=== PATIENT | female | born 1950 | race African-American/Black ===

== ENCOUNTER 2020-11-18 10:42 | Inpatient (IN) | payer MEDICARE, OTHER, SELFPAY ==
[2020-11-18] VITALS (35 sets, daily range): BP systolic 118–172; BP diastolic 62–104; PULSE 65–87; RESP 12–22; TEMP 36.3–36.6; O2SAT 92–100; BMI 30.1
--- NOTE | ~2020-11-18 | CT_ITS ---
EXAMINATION: CT chest abdomen pelvis wo con DATE: 11/21/2020 18:43 INDICATION: Anemia TECHNIQUE: Transaxial computed tomographic images of the chest, abdomen, and pelvis were obtained wit hout intravenous contrast. The dose-length product (DLP) was 1286.24 mGy-cm. Automated exposure contr ol and iterative reconstruction technique were employed. COMPARISON: 11/19/2020, 11/18/2020 FINDINGS: CHEST CT: There are small pleural effusions. Dependent atelectasis is noted. There is interval improvement in s ubsegmental atelectasis of the right lower lobe. Cardiomegaly is noted. There is a trace pericardial effusion. Calcified coronary artery atherosclerosis is present. There is enlargement of the right pec toralis minor muscle. There is also enlargement of the right biceps muscle. There is a soft tissue he matoma in the posterior subcutaneous tissues of the right upper arm. Extensive subcutaneous edema is seen in the visualized right upper extremity. There are bridging osteophytes at multiple levels in th e spine, consistent with diffuse idiopathic skeletal hyperostosis (DISH). ABDOMEN/PELVIS CT: Stones are present in the nondistended gallbladder. Within the limitations of noncontrast examination , the liver, spleen, pancreas, and left adrenal gland are normal. There is a 3.9 cm mass of the right adrenal gland. The kidneys are unremarkable. No pathologically enlarged abdominal or pelvic lymph no viviana are identified. There is no free intraperitoneal gas or evidence of bowel obstruction. The append ix is normal. There is calcified atherosclerosis of the aorta and many of the other arteries. There i s a Jay catheter in the bladder. Contrast from recent CT examination is also seen in the urinary bl adder. There is a 4.7 cm hematoma in the subcutaneous tissues posterior to the right hip. There is mi ld lumbar spondylosis. IMPRESSION: 1. Interval enlargement of the right pectoralis minor and right bicep muscles suggestive of intramusc ular hematomas. 2. 4.7 cm hematoma in the posterior subcutaneous tissues near the right hip. 3. Extensive soft tissue edema of the right upper extremity as well as a posterior subcutaneous hemat get of the upper arm. 4. Right adrenal mass with characterization and differential as previously discussed. Reviewed, dictated and finalized at location A. IMPRESSION: 1. Interval enlargement of the right pectoralis minor and right bicep muscles s uggestive of intramuscular hematomas. 2. 4.7 cm hematoma in the posterior subcutaneous tissues near the right hip. 3. Extensive soft tissue edema of the right upper extremity as well as a supervisor brake repair ior subcutaneous hematoma of the upper arm. 4. Right adrenal mass with characterization and differential as previously disc ussed.
--- NOTE | ~2020-11-18 | CT_ITS ---
EXAMINATION: CTA chest PE protocol EXAM DATE: 11/18/2020 13:40 INDICATION: Shortness of breath.. TECHNIQUE: Spiral CTA of the chest (pulmonary arteries) was performed with 100 cc Omnipaque 350 intr avenous contrast injection. Images were acquired during the pulmonary arterial phase. Coronal maxi mum intensity projection 3D-reconstructions were created by the technologist on dedicated workstation . Axial, coronal and sagittal reformatted images were reviewed. The dose-length product (DLP) for t his examination was 209.54 mGy-cm. The exposure was tailored according to patient size (auto mA exp osure control), and iterative reconstruction (ASIR) was used as additional dose reduction technique. Correlation is made to chest x-ray earlier same date. FINDINGS: There are several right lung segmental pulmonary emboli, low clot burden. The main, centra l pulmonary arteries are dilated which can indicate elevated pulmonary arterial pressure, pulmonary a rterial hypertension. No thoracic aortic dissection. Scattered bibasilar subsegmental atelectasis. Trace bilateral pleural effusions. Tracheobronchial tree is patent. There is no mediastinal, supriya r or axillary lymphadenopathy. There is no pneumothorax. There is cardiomegaly. There is moderat e coronary arterial calcification, arterial sclerosis. In right side of the retroperitoneum there is soft tissue density mass incompletely imaged measuring 2.4 x 1.4 cm, contiguous with the inferior margin of the right adrenal gland. Uncertain whether or no t this is a pathologically enlarged lymph node or adrenal origin. Follow-up CT abdomen or MR abdomen without and with contrast. There is small sliding gastroesophageal hiatal hernia. There is thoracic spondylosis without osteoblastic or osteolytic lesions identified. IMPRESSION: 1. Several segmental right-sided pulmonary emboli. Low clot burden. 2. Bibasilar subsegmental atelectasis. 3. Cardiomegaly. Trace pleural effusions. 4. Incidental right upper retroperitoneal mass. Follow-up CT or MR abdomen without and with contrast . I discussed these findings with Brian Barrera MD at 11/18/2020 13:54 CDT. 1. Reviewed, dictated and finalized at location A. IMPRESSION: 1. Several segmental right-sided pulmonary emboli. Low clot burden. 2. Bibasilar subsegmental atelectasis. 3. Cardiomegaly. Trace pleural effusions. 4. Incidental right upper retroperitoneal mass. Follow-up CT or MR abdomen wit hout and with contrast. I discussed these findings with Brian Barrera MD at 11/18/2020 13:54 CDT. 1.
--- NOTE | ~2020-11-18 | CT_ITS ---
EXAMINATION: CT brain wo con DATE: 11/20/2020 12:19 INDICATION: Altered mental status. TECHNIQUE: Computed tomography (CT) of the head was performed without intravenous contrast. The mA wa s adjusted according to patient size. Iterative reconstruction technique was employed. The dose-lengt h product was 605.33 mGy-cm. COMPARISON: Head CT 11/18/2020 FINDINGS: There are scattered areas of low attenuation in the cerebral white matter. There is no intr acranial hemorrhage, acute infarction, or abnormal intracranial mass lesion. The ventricles are chapito l in size. The orbits are normal. There is mild mucosal thickening in the paranasal sinuses. There is a small right mastoid effusion. IMPRESSION: 1. Stable extensive nonspecific cerebral white matter disease, which likely represents chronic small vessel ischemic disease. Reviewed, dictated and finalized at location A. IMPRESSION: 1. Stable extensive nonspecific cerebral white matter disease, which likely rep resents chronic small vessel ischemic disease.
--- NOTE | ~2020-11-18 | CT_ITS ---
EXAMINATION: CT brain wo con INDICATION: Altered mental status COMPARISON: 11/20/2020 TECHNIQUE: Standard unenhanced head CT. The dose-length product (DLP) was 605.33 mGy-cm. The mA was a djusted according to patient size. Iterative reconstruction technique was employed. FINDINGS: There is no acute intraparenchymal hemorrhage. No evidence of mass lesion. No evidence of a cute infarction. Prominent perivascular spaces are again noted in the bilateral basal ganglia. There is mild periventricular and subcortical hypodensity probably related to small vessel ischemic disease . There is mild prominence of the sulci and ventricles related to cerebral atrophy. Intracranial calc ified cerebral atherosclerosis is noted. There are no extra-axial collections. There is no mass effec t or midline shift. The orbits and soft tissues are unremarkable. A small right mastoid effusion is again noted. IMPRESSION: 1. No acute intracranial abnormality. 2. Age related findings. Reviewed, dictated and finalized at location B.
--- NOTE | ~2020-11-18 | CT_ITS ---
EXAMINATION: CT brain wo con DATE: 11/19/2020 10:09 INDICATION: Head injury. TECHNIQUE: Computed tomography (CT) of the head was performed without intravenous contrast. The mA wa s adjusted according to patient size. Iterative reconstruction technique was employed. The dose-lengt h product was 605.33 mGy-cm. COMPARISON: None FINDINGS: There are scattered areas of low attenuation in the cerebral white matter. There are promin ent perivascular spaces in the basal ganglia bilaterally. There is no intracranial hemorrhage, acute infarction, or abnormal intracranial mass lesion. The ventricles are normal in size. There is mild mu cosal thickening in the paranasal sinuses. The orbits are normal. There is a small right mastoid effu michael. IMPRESSION: 1. Extensive nonspecific cerebral white matter disease, which likely represents chronic small vessel ischemic disease. Reviewed, dictated and finalized at location A.
--- NOTE | ~2020-11-18 | US_ITS ---
EXAMINATION: US venous doppler LE EXAM DATE: 11/19/2020 10:13 INDICATION: Pulmonary embolism. TECHNIQUE: Multiple grayscale, color flow and Doppler images of the lower extremity deep venous syste ms bilaterally were obtained and reviewed. There is no prior study for comparison. FINDINGS: Right side: The right common femoral, femoral and profunda veins demonstrate normal color flow, respi ratory variation, augmentation and compressibility. Compressibility, color flow confirmed within the right popliteal, posterior tibial, peroneal, and greater saphenous veins. Left side: The left common femoral, femoral and profunda veins demonstrate normal color flow, respira tory variation, augmentation and compressibility. Compressibility, color flow confirmed within the l eft popliteal, posterior tibial, peroneal, and greater saphenous veins. IMPRESSION: 1. No lower extremity deep venous thrombosis bilaterally. Reviewed, dictated and finalized at location A.
--- NOTE | ~2020-11-18 | CT_ITS ---
EXAMINATION: CT abdomen pelvis wo/w con DATE: 11/19/2020 10:02 INDICATION: Retroperitoneal mass TECHNIQUE: Computed tomography (CT) of the abdomen and pelvis was performed without and with 100 mL O mnipaque-350 intravenous contrast utilizing an adrenal mass protocol. Automated exposure control and iterative reconstruction technique were employed. The dose-length product was 2116.51 mGy-cm. COMPARISON: CT dated 11/18/2020 FINDINGS: Very small bilateral pleural effusions. There is moderate atelectasis in the bilateral lower lobes. C ardiomegaly. Atherosclerotic coronary artery calcifications. No pericardial effusion. Small sliding-t ype hiatal hernia. There is vicarious excreted contrast in the gallbladder surrounding multiple small dependently layering gallstones. Liver, spleen, pancreas and left adrenal gland are normal. 3.9 x 2. 5 x 2.0 cm right adrenal mass with noncontrast attenuation of 32 HU which increases to 78 on the subhash rial phase images and decreases to 51 on the 15 minute delayed images using an absolute washout of 59 % and relative washout of 35%, which remains indeterminate. The absolute washout is however close to the Bowels including the appendix are normal. The uterus is not identified and has likely been surgic ally resected. Relatively diffuse wall thickening along the anterior bladder likely related to partia lly decompressed state. No free intraperitoneal gas or fluid. No pathologically enlarged abdominal or pelvic lymphadenopathy. There are bridging osteophytes at multiple levels in the lower thoracic spin e, consistent with diffuse idiopathic skeletal hyperostosis (DISH). A few scattered sclerotic bone is lands at S1 and at the right femoral head and supra-acetabular region. IMPRESSION: 1. Indeterminate 3.9 x 2.5 x 2.0 cm right adrenal mass with absolute washout of 59% which is close to but slightly below the 60% threshold considered diagnostic for adenoma. In addition to the most like ly diagnosis of adenoma, the differential would include carcinoma, pheochromocytoma and metastatic di sease. Would recommend correlation with any prior outside imaging. If unavailable could consider [facility] imaging follow-up, biopsy, PET/CT or resection depending on clinical history and level of clinical concern. If considering biopsy or resection would recommend prior biochemical workup for pheochromoc ytoma with evaluation of metanephrine levels. 2. Very small bilateral pleural effusions with bibasilar atelectasis. 3. Cardiomegaly. 4. Cholelithiasis. 5. Small sliding-type hiatal hernia. Reviewed, dictated and finalized at location B. IMPRESSION: 1. Indeterminate 3.9 x 2.5 x 2.0 cm right adrenal mass with absolute washout of 59% which is close to but slightly below the 60% threshold considered diagnost ic for adenoma. In addition to the most likely diagnosis of adenoma, the differ ential would include carcinoma, pheochromocytoma and metastatic disease. Would recommend correlation with any prior outside imaging. If unavailable could cons ider either imaging follow-up, biopsy, PET/CT or resection depending on clinica l history and level of clinical concern. If considering biopsy or resection wou ld recommend prior biochemical workup for pheochromocytoma with evaluation of m etanephrine levels. 2. Very small bilateral pleural effusions with bibasilar atelectasis. 3. Cardiomegaly. 4. Cholelithiasis. 5. Small sliding-type hiatal hernia.
--- NOTE | ~2020-11-18 | US_ITS ---
EXAMINATION: US venous doppler UE RT EXAM DATE: 11/20/2020 16:22 INDICATION: Right arm hematoma, edema. TECHNIQUE: Multiple grayscale, color flow, Doppler sonographic images of the right upper extremity ve ins obtained by technologist. Compression was performed where able. There is no prior study for masoud pablo. FINDINGS: Right upper extremity: Jugular vein: ------------> Normal. Subclavian vein: --------> Normal. Axillary vein:------------> Thrombosed. Brachial vein:-----------> Not evaluated. Basilic vein: ------------> Not evaluated. Cephalic vein: ----------> Not evaluated. Radial vein: ------------> Normal. Ulnar vein: > Normal. There is region of upper arm muscle that appears severely edematous, more likely than intramuscular h ematoma. This swelling made evaluation of the upper arm veins difficult, they were not evaluated. IMPRESSION: 1. Positive for right axillary DVT. 2. Severe edema of an upper arm muscle, or less likely intramuscular hematoma. I discussed this case with unit nurse Don at 11/20/2020 16:41 CDT. Reviewed, dictated and finalized at location A.
--- NOTE | ~2020-11-18 | XR_ITS ---
EXAMINATION: XR chest 2V DATE: 11/18/2020 12:03 INDICATION: Shortness of breath TECHNIQUE: frontal and lateral views of the chest were obtained. COMPARISON: None FINDINGS: Opacities at the bilateral lower lung zones with blunting at the posterior sulci and costophrenic ang les consistent with small bilateral pleural effusions and associated basilar atelectasis versus pneum onia. No evident pulmonary edema or pneumothorax. Cardiomediastinal silhouette is within normal limit s for AP technique. There are bridging osteophytes at multiple levels in the spine, consistent with d iffuse idiopathic skeletal hyperostosis (DISH). IMPRESSION: 1. Small bilateral pleural effusions with bibasilar atelectasis and/or pneumonia. Reviewed, dictated and finalized at location B. IMPRESSION: 1. Small bilateral pleural effusions with bibasilar atelectasis and/or pneumoni a.
--- NOTE | ~2020-11-18 | CT_ITS ---
EXAMINATION: CT brain wo con DATE: 11/30/2020 12:01 INDICATION: Lethargy. TECHNIQUE: Computed tomography (CT) of the head was performed without intravenous contrast. The mA wa s adjusted according to patient size. Iterative reconstruction technique was employed. The dose-lengt h product was 605.33 mGy-cm. COMPARISON: Head CT 11/23/2020 FINDINGS: There are scattered areas of low attenuation in the cerebral white matter. There are old in farcts in the bilateral basal ganglia and lo. There is no intracranial hemorrhage, acute infarction , or abnormal intracranial mass lesion. The ventricles are normal in size. There is mild mucosal thic kening in the paranasal sinuses. There are trace bilateral mastoid effusions. IMPRESSION: 1. 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 2. Stable moderate nonspecific cerebral white matter disease, which likely represents chronic small v essel ischemic disease. Reviewed, dictated and finalized at location B. IMPRESSION: 1. 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 2. Stable moderate nonspecific cerebral white matter disease, which likely repr esents chronic small vessel ischemic disease.
--- NOTE | 2020-11-18 11:20 | ECG_ITS ---
Measurements Intervals [place] Rate: 84 P: 39 WV: 153 QRS: -12 QRSD: 152 T: 100 QT: 438 QTc: 519 Interpretive Statements SINUS RHYTHM NON-CONDUCTED PAC LEFT BUNDLE BRANCH BLOCK BASELINE ARTIFACT- I, II, III, AVL, AVF ABNORMAL ECG Electronically Signed On 11-18-2020 11:49:25 CDT by Wilber Merchant D.O.
--- NOTE | 2020-11-18 11:30 | PC.NURSE ---
Unable to collect labs in triage. Pt to waiting room.
--- NOTE | 2020-11-18 12:08 | ED.SOB ---
HPI - SOB/Dyspnea General Chief Complaint: Shortness of Breath/Dyspnea Stated Complaint: shortness of breath Time Seen by Provider: 11/18/20 11:54 Source: patient, EMS and RN notes reviewed Mode of arrival: EMS Limitations: no limitations History of Present Illness HPI Narrative: Patient 70 years old -L[place] female presents with shortness of breath for a while, got worse 6:30 AM. Patient denies any fever, chills, nausea, vomiting, coughing, chest pain. Patient also denies a history of COVID-19 infection or exposure to anybody known to have COVID-19 infection. Patient have history of diabetes, hypertension, hyperlipidemia, does not take her medication for the last 4 months. Patient lives with her daughter for the last 3 years. Patient is DNR. Review of Systems Review of Systems: Narrative: CONSTITUTIONAL: Denies fever, chills, or sweats. EYES: Denies visual changes, redness, or discharge. ENT: Denies rhinorrhea, congestion, sore throat, or otalgia. CARDIOVASCULAR: Denies chest pain, palpitations, or edema. RESPIRATORY: Denies cough or dyspnea. GASTROINTESTINAL: Denies abdominal pain, nausea, vomiting, or diarrhea. GENITOURINARY: Denies dysuria or hematuria. SKIN: Denies rash or itching. MUSCULOSKELETAL: Denies back pain, joint pain, or myalgia. NEUROLOGIC: Denies headache, numbness, or weakness. PSYCHIATRIC: Denies anxiety or depression. Exam Narrative: Exam Narrative: General appearance: Well-developed, well-nourished Skin: Normal color Head: Normocephalic, nontraumatic Eyes: Clear conjunctiva ENT: Oropharynx normal, ears normal, nose normal Neck: Supple, nontender Chest and respiratory: Airway patent, no respiratory distress, no accessory muscle use Heart: Regular rate/rhythm Abdomen: Soft, nontender, no organomegaly, quiet bowel sounds Vascular: Normal peripheral pulses, normal capillary refill. Musculoskeletal: Normal range of motion, nontender back Neurologic: Alert and oriented ?3, [employer] DIRECTOR is normal as tested, no gross motor deficit Course Course Emergency Course: Stable Consultations Consultation #1: TREVER. Agreed with the admission , start the patient on Lovenox Date: 11/18/20 Time: 14:08 Vital Signs Vital signs: Vital Signs Temperature 36.3 C L 11/18/20 11:13 Pulse Rate 83 11/18/20 11:13 Respiratory Rate 18 11/18/20 11:13 Blood Pressure 172/102 H 11/18/20 11:13 Pulse Oximetry 100 11/18/20 11:13 Temperature 36.3 C L 11/18/20 11:13 Pulse Rate 76 11/18/20 13:45 Respiratory Rate 16 11/18/20 12:32 Blood Pressure 149/95 H 11/18/20 12:35 Pulse Oximetry 100 11/18/20 13:45 MDM - SOB/Dyspnea MDM Narrative Medical decision making narrative: Patient presents with dyspnea. My concern is congestive heart failure, coronary disease, pneumonia, pleural effusion, anxiety related symptoms. Labs, chest x-ray, D-dimer, ABG on room air ordered. Further plan to follow Differential Diagnosis Differential diagnosis: Likely congestive heart failure, community acquired pneumonia, pulmonary embolism and other (Coronary artery disease) Lab Data Result diagrams: 11/18/20 12:25 11/18/20 12:25 Labs: Lab Results 11/18/20 11/18/20 11/18/20 Range/Units 12:25 12:25 12:25 WBC 6.0 (4.5-10.0) K/mm3 RBC 4.86 (4.2-5.4) M/mm3 Hgb 13.6 (12.0-15.0) g/dL Hct 40.5 (37.0-47.0) % MCV 83.3 (80-100) fl MCH 28.0 (26-34) pg MCHC 33.6 (32-36) g/dl RDW 13.5 (11.5-14.5) % Plt Count 213 (150-375) k/mm3 MPV 12.1 H (7.4-10.4) fl Immature Gran % (Auto) 2.7 H (0-0.5) % Neut % (Auto) 47.7 (45.5-73.1) % Lymph % (Auto) 36.8 (18.3-44.2) % [place] % (
[2020-11-18 12:31] LABS: Basophils Percent Auto 0.7 % (0.2-1.2); Eosinophils Absolute Auto 0.1 K/mm3 (0-0.3); Hematocrit 40.5 % (37.0-47.0); Hemoglobin 13.6 g/dL (12.0-15.0); Immature Granulocyte Absolute 0.16 K/mm3 (0.00-0.031); Immature Granulocyte Percent A 2.7 % (0-0.5); Lymphocytes Absolute Auto 2.21 K/mm3 (0.9-3.2); Lymphocytes Percent Auto 36.8 % (18.3-44.2); Mean Corpuscular HGB Conc 33.6 g/dl (32-36); Mean Corpuscular Volume 83.3 fl (80-100); Mean Platelet Volume 12.1 fl (7.4-10.4); Monocytes Absolute Auto 0.7 K/mm3 (0.1-0.6); Monocytes Percent Auto 11.1 % (2.6-8.5); Neutrophils Absolute Auto 2.9 K/mm3 (1.3-6.7); Neutrophils Percent Auto 47.7 % (45.5-73.1); Platelet Count Result 213 k/mm3 (150-375); Red Blood Count 4.86 M/mm3 (4.2-5.4); Red Cell Distribution Width 13.5 % (11.5-14.5)
[2020-11-18 12:42] LABS: Prothrombin Time 13.3 Seconds (11.1-14.7)
[2020-11-18 12:43] LABS: Partial Thromboplastin Time 22.4 SECONDS (22.3-36.8)
[2020-11-18 12:45] LABS: Alanine Aminotransferase 13 U/L (4-35); Albumin Level 3.8 g/dL (3.5-5.1); Alkaline Phosphatase 88 U/L (38-126); Anion Gap 3 mmol/L (8-16); Aspartate Amino Transferase 17 U/L (14-36); Bilirubin,Total 0.8 mg/dL (0.2-1.3); Blood Urea Nitrogen 20 mg/dL (7-17); Calcium 8.8 mg/dL (8.4-10.2); Carbon Dioxide 32 mmol/L (22-30); Chloride 102 mmol/L (98-107); D Dimer 1.29 ug/mL (<0.48); Estimated CRCL calculation 64 ml/min; Estimated Glomerular Filt Rate > 60; Glucose 239 mg/dL (65-105); Magnesium 1.9 mg/dL (1.6-2.3); Potassium 3.2 mmol/L (3.4-5.0); Sodium 137 mmol/L (137-145)
[2020-11-18 13:19] LABS: NT Pro B Type Natriuretic Pept 6190 PG/ML (5-100); Troponin I 0.046 ng/mL (0.000-0.034)
[2020-11-18] MEDS: ASPIRIN 81 MG CHEWABLE TABLET 324 MG PO (14:43)
[2020-11-18] MEDS: NITROGLYCERIN OINTMENT 1 INCH DOSE TRANSDERM (14:43)
[2020-11-18] MEDS: POTASSIUM CHLORIDE 20 MEQ TABLET 40 MEQ PO (14:43)
[2020-11-18] MEDS: ENOXAPARIN 100 MG/ML SYRINGE 85 MG SUB-Q (14:45)
[2020-11-18] MEDS: METOPROLOL TARTRATE 50 MG TAB (16:37)
--- NOTE | 2020-11-18 17:00 | ADMGEN ---
This patient, Koko Rodirguez, was admitted to IMU Room 210-01. Patient/family oriented to hospital policies and general routines including ID bracelet, bed and alarms, visiting hours, pain management, procedures, bathroom and other care routines, personal items, smoking policy, room service/diet, and visiting hours. Information on how to activate the Rapid Response Team has been discussed. Patient/Family are encouraged to report perceived risks to care and to ask questions if they do not understand what they are told or what they should do.
[2020-11-18 17:17] LABS: Glucose Point of Care 238 (65-105)
--- NOTE | 2020-11-18 18:00 | PM.IMHP ---
H&P: HPI History of Present Illness Date/Time: 11/18/20 18:00 Chief Complaint: Shortness of breath. Narrative: This is a pleasant 70-year-old female with hypertension, hyperlipidemia, paroxysmal atrial fibrillation, hypothyroidism, and type 2 diabetes mellitus who presented to the emergency department earlier today via EMS from home for evaluation of shortness of breath. It sounds as though she has been a bit short of breath for the last couple of days however it was acutely worse this morning at 06:30. She is also felt lightheaded and dizzy when up and about today and reports a near syncopal episode causing her to slide down a couple of steps not long prior to arrival. In the emergency department her troponin was mildly elevated and she had evidence of a left bundle branch block on her EKG. Her D-dimer was also elevated and chest CTA demonstrated several segmental right-sided pulmonary emboli. Incidentally a right upper retroperitoneal soft tissue mass was also noted on that CT. She has no known history of adrenal mass, malignancy, or venous thromboembolism. No recent travel however she admits to being sedentary over the last year due to the COVID pandemic. She denies syncope, chest pain, pleuritic pain, palpitations, cough, weight loss, edema, calf pain, headaches, nausea, vomiting, and sweats. She sustained no injuries when she slid down a few steps and denies head trauma and loss of consciousness. Of note the patient has not taken any of her medications for the past 4 months and she does not really have a good reason as to why she did not have them refilled. Review of Systems Review of Systems: Narrative: Twelve systems were reviewed with pertinent positives and negatives as per HPI. She wears corrective lenses. No recent cold or flu symptoms. She denies exposure to those positive for COVID-19. No focal weakness. She has peripheral neuropathy related to her diabetes; no known retinopathy or nephropathy. She denies blurry vision, polydipsia, or polyuria. She is unsteady on her feet which he thinks is due to the neuropathy and ambulates with a walker. She denies dysuria and hematuria. No diarrhea constipation. She denies orthopnea and PND. No concerns or suspicions for sleep apnea. No significant change in weight. She denies significant hair loss. No palpitations or racing heart. Except as documented, all other systems were reviewed and are negative. [facility] Past Medical History Medical History (Updated 11/18/20 @ 18:40 by Ayesha Diaz PA-C) Diabetic peripheral neuropathy Dyslipidemia Hypertension Hypothyroidism Noncompliance with medication regimen Osteoarthritis Paroxysmal atrial fibrillation Type 2 diabetes mellitus Surgical History Surgical History (Updated 11/18/20 @ 18:32 by Ayesha Diaz PA-C) History of arthroplasty of left knee History of hysterectomy Family History Family History (Updated 11/18/20 @ 18:35 by Ayesha Diaz PA-C) Sibling Diabetes mellitus Heart disease Mother Diabetes mellitus Kidney disease Father Parkinsons disease Dementia Social History Social History (Updated 11/18/20 @ 18:36 by Ayesha Diaz PA-C) Social History: Surrogate decision maker: Erum Michael Avendano, granddaughter. Code status: Do not resuscitate. Smoking packs per day: 1 Smoking cigarettes per day: 20.0 Smoking status: Former smoker Additional smoking assessment comments: Patient quit smoking approximately 26 years ago as of 12/01/2020. Alcohol intake: former Substance use: never Additional living arrangements comments: The patient lives in [place] with her daughter and grandson. Additional occupation/education comments: Retired from the [employer]. Gender identity (if verbalized by the patient): Female Spiritual care concerns: No Meds Home Medications and Allergies Home Medications Medication Instructions Recorded Confirmed Type N
[2020-11-18] MEDS: INSULIN ASPART (*BKC) 100 UNITS/ML SUB-Q (18:33)
[2020-11-18] MEDS: FUROSEMIDE INJ 40 MG/4 ML VIAL 20 MG IV PUSH (18:37)
[2020-11-18 19:05] LABS: Potassium 3.6 mmol/L (3.4-5.0)
[2020-11-18 19:13] LABS: Troponin I 0.059 ng/mL (0.000-0.034)
[2020-11-18 19:37] LABS: Hemoglobin A1C 11.6 % (<5.7)
[2020-11-18 20:16] LABS: Glucose Point of Care 288 (65-105)
[2020-11-18 20:50] LABS: Free T4 Free Thyroxine Reflex 0.54 ng/dL (0.78-2.19)
[2020-11-18] MEDS: METOPROLOL TARTRATE 12.5 MG TABLET PO (21:08)
[2020-11-18 22:37] LABS: Magnesium 1.8 mg/dL (1.6-2.3)
[2020-11-18 22:53] LABS: Troponin I 0.054 ng/mL (0.000-0.034)
[2020-11-19] VITALS (22 sets, daily range): BP systolic 112–136; BP diastolic 59–85; PULSE 61–78; RESP 12–20; TEMP 36–36.6; O2SAT 91–100
[2020-11-19] MEDS: ENOXAPARIN 80 MG/0.8 ML SYRINGE 75 MG SUB-Q ×2 (02:29→16:34)
[2020-11-19 05:49] LABS: Cholesterol 298 mg/dL (0-200); HDL Direct 49 mg/dL; Triglycerides 308 mg/dL (<150)
[2020-11-19 06:00] LABS: LDL Cholesterol Direct 215 mg/dL
[2020-11-19 08:00] LABS: Anion Gap 5 mmol/L (8-16); Blood Urea Nitrogen 19 mg/dL (7-17); Calcium 8.3 mg/dL (8.4-10.2); Carbon Dioxide 27 mmol/L (22-30); Chloride 103 mmol/L (98-107); Estimated CRCL calculation 60 ml/min; Estimated Glomerular Filt Rate > 60; Glucose 248 mg/dL (65-105); Magnesium 1.9 mg/dL (1.6-2.3); Potassium 3.5 mmol/L (3.4-5.0); Sodium 135 mmol/L (137-145)
[2020-11-19 08:17] LABS: Glucose Point of Care 236 (65-105)
--- NOTE | 2020-11-19 08:49 | PC.NURSE ---
This RN called CT and confirmed that this patient can take morning medications before CT scan.
[2020-11-19] MEDS: ASPIRIN 81 MG CHEWABLE TABLET PO (08:53)
[2020-11-19] MEDS: LOSARTAN POTASSIUM 25 MG TABLET PO (08:53)
[2020-11-19] MEDS: METOPROLOL TARTRATE 12.5 MG TABLET PO ×2 (08:53→20:37)
[2020-11-19] MEDS: ATORVASTATIN 20 MG TABLET PO (08:53)
[2020-11-19] MEDS: metFORMIN HCL 500 MG TABLET PO ×2 (11:17→16:33)
[2020-11-19] MEDS: GLIMEPIRIDE 1 MG TABLET PO (11:17)
[2020-11-19] MEDS: INSULIN ASPART (*BKC) 100 UNITS/ML SUB-Q (11:19)
[2020-11-19 11:22] LABS: Glucose Point of Care 219 (65-105)
--- NOTE | 2020-11-19 13:04 | PM.CNCAR ---
Assessment and Plan Assessment and plan (1) Type 2 myocardial infarction: Code(s): I21.A1 - Myocardial infarction type 2 Status: Acute Assessment and Plan: Most consistent with type 2 infarction, not acute coronary syndrome with mild elevation in troponin with flat curve not consistent with ACS. Troponin elevation secondary acute pulmonary emboli most likely but may also be due to to uncontrolled hypertension, severe LV systolic dysfunction and myocardial strain. Cannot exclude underlying CAD given multiple risk factors including age, hypertension, diabetes mellitus, dyslipidemia, LBBB, a new severe LV systolic dysfunction. Continue aspirin, statin. Further recommendations to follow based on patient's clinical course and response to therapy. Patient has multiple comorbidities and is at high risk for adverse complications given her multiple medical issues. She is aware of this and the dangers she placed upon herself by stopping all her medications. 67 minutes spent in the care of this patient at bedside, chart review, and decision making considerations. (2) Left bundle branch block (LBBB) on electrocardiogram: Code(s): I44.7 - Left bundle-branch block, unspecified Status: Acute Assessment and Plan: LBBB chronicity and etiology unclear, however, given severe LV distal dysfunction may be function underlying CAD. (3) Cardiomyopathy: Code(s): I42.9 - Cardiomyopathy, unspecified Status: Acute Assessment and Plan: New diagnosis, severe LV systolic dysfunction EF 20-25%. Patient compensated at this time. Optimize medical therapy. -Resume beta-ophelia, aspirin, statin. -Change BB to Toprol XL in AM. Coronary angiography advised clarification of coronary anatomy as workup for new severe LV systolic dysfunction, however, given acute multiple pulmonary emboli and need for systemic anticoagulation will defer invasive angiography for the time being. Discussed this at length including risks, benefits, alternatives. We discussed increased risk for VT / VF, sudden cardiac . We also discussed extensively the absolute importance of compliance with recommendations, follow up and medical therapy to reduce risk for serious and/or life-threatening complications. Patient verbalized understanding and agreed. Will discuss life vest prior to discharge if patient agreeable although patient has been very noncompliant in the past. Entresto may be a great option if insurance would cover. She would need to stop Losartan for 36 hours prior to initiation if started at a later date (she has only received one dose). Otherwise, Losartan acceptable. (4) Pulmonary emboli: Code(s): I26.99 - Other pulmonary embolism without acute cor pulmonale Status: Acute Assessment and Plan: Several pulmonary emboli on CT angiogram of the chest. Systemic anticoagulation initiated. Continue, transition to oral regimen per PE protocol. (5) Noncompliance with medication regimen: Code(s): Z91.14 - Patient's other noncompliance with medication regimen Status: Acute Assessment and Plan: Extensive discussion held as noted above with regards to the dangers associated with discontinuation of all her medications without consultation. Patient states she will not do that in the future. Encouraged her to communicate with her physicians with regards any concerns, side effects or intolerance immediately so that alternatives and/or new treatment strategies can be formulated. All questions answered to her satisfaction. (6) Hypertension: Code(s): I10 - Essential (primary) hypertension Status: Chronic Assessment and Plan: Much improved on medical therapy. (7) Retroperitoneal mass: Code(s): R19.00 - Intra-abdominal and pelvic swelling, mass and lump, unspecified site Status: Acute Assessment and Plan: 3.9 x 2.5 x 2 cm right adrenal mass. Workup
--- NOTE | 2020-11-19 13:27 | P.PNIM_ITS ---
Progress Note: A&P Assessment and Plan (1) Pulmonary emboli: Qualifiers: Pulmonary embolism type: unspecified Chronicity: acute Acute cor pulmonale presence: unspecified Qualified Code(s): I26.99 - Other pulmonary embolism without acute cor pulmonale Code(s): I26.99 - Other pulmonary embolism without acute cor pulmonale Status: Acute Assessment and Plan: * Patient presents with shortness of breath; CTA shows several right segmental pulmonary emboli with low clot burden. * Etiology unclear. May be related to sedentary lifestyle. More concerning is a retroperitoneal mass noted on CT. * Today she remains on therapeutic Lovenox bid. Care coordination pricing NOAC; Eliquis will be $200 and may need another option. * LE dopplers show no evidence of DVT. (2) Cardiomyopathy: Qualifiers: Cardiomyopathy type: unspecified Qualified Code(s): I42.9 - Cardiomyopathy, unspecified Code(s): I42.9 - Cardiomyopathy, unspecified Status: Acute Assessment and Plan: * Echocardiogram today shows left ventricular systolic dysfunction EF 20-25%. * Discussed case with Dr. Garcia, appreciate recommendations. Etiology unclear. She will benefit from ischemic workup with cardiac catheterization which we suspect will need to be performed outpatient given her acute PE and need for anticoagulation. We will attempt to alter her regimen to optimize medical management in the interim. (3) Acute respiratory failure with hypoxia: Code(s): J96.01 - Acute respiratory failure with hypoxia Status: Acute Assessment and Plan: * Suspect related to PE. CT chest also shows trace CONCETTA pleural effusions with atelectasis. Encourage incentive spirometry and increase activity as tolerated. * Tolerating 3L/min today. Will continue to wean oxygen as tolerated to keep O2 saturations > 90%. (4) Elevated troponin: Code(s): R77.8 - Other specified abnormalities of plasma proteins Status: Acute Assessment and Plan: * Mildly elevated troponins with a flat profile. No chest pain. Suspect type 2 [place] secondary to acute pulmonary embolism, ACS not suspected. * Appreciate cardiology input. (5) Left bundle branch block (LBBB) on electrocardiogram: Code(s): I44.7 - Left bundle-branch block, unspecified Status: Acute Assessment and Plan: * Appreciate cardiology recommendations. (6) Retroperitoneal mass: Code(s): R19.00 - Intra-abdominal and pelvic swelling, mass and lump, unspecified site Status: Acute Assessment and Plan: * Incidental finding on CT chest. CT abd/pel demonstrated indeterminate 3.9 x 2.5 x 2.0 cm right adrenal mass. * Differentials include adenoma, carcinoma, metastatic disease, less likely pheochromocytoma. * Patient does not demonstrate classic pheo symptoms however will collect 24hr urine metanephrines for further evaluation. * Recommend outpatient follow up for PET/CT and/or biopsy of the mass for further evaluation given this could be malignant. (7) Hypokalemia: Code(s): E87.6 - Hypokalemia Status: Acute Assessment and Plan: * Mild, replace as needed. Monitor BMP and Mg. (8) Type 2 diabetes mellitus: Qualifiers: Diabetes mellitus fdc insulin use: without long te
--- NOTE | 2020-11-19 13:27 | PM.IMPN ---
Progress Note: A&P Assessment and Plan (1) Pulmonary emboli: Qualifiers: Pulmonary embolism type: unspecified Chronicity: acute Acute cor pulmonale presence: unspecified Qualified Code(s): I26.99 - Other pulmonary embolism without acute cor pulmonale Code(s): I26.99 - Other pulmonary embolism without acute cor pulmonale Status: Acute Assessment and Plan: Patient presents with shortness of breath; CTA shows several right segmental pulmonary emboli with low clot burden. Etiology unclear. May be related to sedentary lifestyle. More concerning is a retroperitoneal mass noted on CT. Today she remains on therapeutic Lovenox bid. Care coordination pricing NOAC; Eliquis will be $200 and may need another option. LE dopplers show no evidence of DVT. (2) Cardiomyopathy: Qualifiers: Cardiomyopathy type: unspecified Qualified Code(s): I42.9 - Cardiomyopathy, unspecified Code(s): I42.9 - Cardiomyopathy, unspecified Status: Acute Assessment and Plan: Echocardiogram today shows left ventricular systolic dysfunction EF 20-25%. Discussed case with Dr. Garcia, appreciate recommendations. Etiology unclear. She will benefit from ischemic workup with cardiac catheterization which we suspect will need to be performed outpatient given her acute PE and need for anticoagulation. We will attempt to alter her regimen to optimize medical management in the interim. (3) Acute respiratory failure with hypoxia: Code(s): J96.01 - Acute respiratory failure with hypoxia Status: Acute Assessment and Plan: Suspect related to PE. CT chest also shows trace CONCETTA pleural effusions with atelectasis. Encourage incentive spirometry and increase activity as tolerated. Tolerating 3L/min today. Will continue to wean oxygen as tolerated to keep O2 saturations > 90%. (4) Elevated troponin: Code(s): R77.8 - Other specified abnormalities of plasma proteins Status: Acute Assessment and Plan: Mildly elevated troponins with a flat profile. No chest pain. Suspect type 2 [place] secondary to acute pulmonary embolism, ACS not suspected. Appreciate cardiology input. (5) Left bundle branch block (LBBB) on electrocardiogram: Code(s): I44.7 - Left bundle-branch block, unspecified Status: Acute Assessment and Plan: Appreciate cardiology recommendations. (6) Retroperitoneal mass: Code(s): R19.00 - Intra-abdominal and pelvic swelling, mass and lump, unspecified site Status: Acute Assessment and Plan: Incidental finding on CT chest. CT abd/pel demonstrated indeterminate 3.9 x 2.5 x 2.0 cm right adrenal mass. Differentials include adenoma, carcinoma, metastatic disease, less likely pheochromocytoma. Patient does not demonstrate classic pheo symptoms however will collect 24hr urine metanephrines for further evaluation. Recommend outpatient follow up for PET/CT and/or biopsy of the mass for further evaluation given this could be malignant. (7) Hypokalemia: Code(s): E87.6 - Hypokalemia Status: Acute Assessment and Plan: Mild, replace as needed. Monitor BMP and Mg. (8) Type 2 diabetes mellitus: Qualifiers: Diabetes mellitus rn long term care insulin use: without rn long term care use Diabetes mellitus complication status: with neurologic complications Diabetes mellitus complication detail: with polyneuropathy Qualified Code(s): E11.42 - Type 2 diabetes mellitus with diabetic polyneuropathy Code(s): E11.9 - Type 2 diabetes mellitus without complications Status: Acute Assessment and Plan: A1c 11.6%. She has not taken her
[2020-11-19 16:56] LABS: Glucose Point of Care 157 (65-105)
--- NOTE | 2020-11-19 17:55 | ECHO_ITS ---
Patient Info Name: Koko Rodriguez Age: 70 years : 1950 Gender: Female Ht: 62 in Wt: 187 lbs BSA: 1.96 m2 HR: 61 bpm BP: 133 / 82 mmHg Technical Quality: Good Exam Date: 11/19/2020 7:18 AM Exam Location: [facility] Patient Status: Outpatient Admit Date: 11/18/2020 Staff Ordering Physician: Ayesha Diaz PA-C [employer] Control Center Operator: Umu Alberto RDCS Attending Provider: Yin Hernandez PA-C Referring Physician: Emily COOMBS; Exam Type: CA echo doppler color flow Study Info Indications I27.82 - Chronic pulmonary embolism Complete two-dimensional, color flow and Doppler transthoracic echocardiogram is performed. Summary 1. Complete two-dimensional, color flow and Doppler transthoracic echocardiogram is performed. 2. Left ventricular systolic function is normal, estimated at 20-25%. 3. There is mildly increased left ventricular wall thickness. 4. The left ventricular diastolic function is grade I diastolic dysfunction. 5. There is mild aortic valve regurgitation. 6. There is moderate mitral valve regurgitation. 7. There is mild mitral valve calcification. 8. There is mild tricuspid valve regurgitation. 9. No pulmonary hypertension, estimated pulmonary arterial systolic pressure is 26 mmHg. 10. There is mild pulmonic regurgitation. 11. There is small pericardial effusion. Left Ventricle Left ventricular chamber dimension is normal. Left ventricular systolic function is normal, estimated at 20-25%. There is mildly increased left ventricular wall thickness. Left ventricular septal wall motion is normal. The left ventricular diastolic function is grade I diastolic dysfunction. E/e' 16.0 is normal. Right Ventricle Right ventricular chamber dimension is normal. Right ventricular systolic function is normal. Left Atria Left atrial chamber dimension is normal. Right Atria Right atrial chamber dimension is normal. Atrial Septum Intact interatrial septum visualized by color flow imaging. Aortic Valve The aortic valve is trileaflet. There is mild aortic valve sclerosis. There is no aortic valve stenosis. There is mild aortic valve regurgitation. Pulmonic Valve The pulmonic valve is normal. There is no pulmonic valve stenosis. There is mild pulmonic regurgitation. Mitral Valve The mitral valve has normal leaflets. There is no mitral valve stenosis. There is moderate mitral valve regurgitation. There is mild mitral valve calcification. Tricuspid Valve The tricuspid valve leaflets are normal. There is no significant tricuspid valve stenosis. There is mild tricuspid valve regurgitation. No pulmonary hypertension, estimated pulmonary arterial systolic pressure is 26 mmHg. Pericardium/Pleural There is small pericardial effusion. Inferior Vena Cava Normal inferior vena cava with >50% collapse upon inspiration consistent with normal right atrial pressure, 5 mmHg. Aorta The aortic root size at the sinus of Valsalva is normal. The prox ascending aorta size is normal. Left Ventricular Outflow Tract Name Value Normal LVOT 2D LVOT Diameter 2.0 cm LVOT Doppler
[2020-11-19 20:52] LABS: Glucose Point of Care 172 (65-105)
[2020-11-20] VITALS (18 sets, daily range): BP systolic 85–128; BP diastolic 49–72; PULSE 62–78; RESP 16–20; TEMP 35.9–36.4; O2SAT 93–98
[2020-11-20] MEDS: ENOXAPARIN 80 MG/0.8 ML SYRINGE 75 MG SUB-Q ×2 (01:18→15:36)
[2020-11-20 05:08] LABS: Basophils Absolute Auto 0.1 K/mm3 (0.0-0.1); Basophils Percent Auto 0.5 % (0.2-1.2); Eosinophils Absolute Auto 0.1 K/mm3 (0-0.3); Eosinophils Percent Auto 0.9 % (0-4.4); Hematocrit 34.2 % (37.0-47.0); Immature Granulocyte Absolute 0.19 K/mm3 (0.00-0.031); Immature Granulocyte Percent A 2.1 % (0-0.5); Lymphocytes Absolute Auto 2.49 K/mm3 (0.9-3.2); Mean Corpuscular HGB Conc 32.2 g/dl (32-36); Mean Corpuscular Hemoglobin 27.1 pg (26-34); Mean Corpuscular Volume 84.2 fl (80-100); Mean Platelet Volume 11.9 fl (7.4-10.4); Monocytes Absolute Auto 0.9 K/mm3 (0.1-0.6); Neutrophils Absolute Auto 5.5 K/mm3 (1.3-6.7); Neutrophils Percent Auto 59.5 % (45.5-73.1); Platelet Count Result 187 k/mm3 (150-375); Red Blood Count 4.06 M/mm3 (4.2-5.4); Red Cell Distribution Width 13.5 % (11.5-14.5); White Blood Count 9.2 K/mm3 (4.5-10.0)
[2020-11-20 05:38] LABS: Prothrombin Time 13.7 Seconds (11.1-14.7)
[2020-11-20 06:02] LABS: Alanine Aminotransferase 12 U/L (4-35); Albumin Level 2.8 g/dL (3.5-5.1); Alkaline Phosphatase 73 U/L (38-126); Anion Gap 8 mmol/L (8-16); Aspartate Amino Transferase 15 U/L (14-36); Bilirubin,Total 0.5 mg/dL (0.2-1.3); Blood Urea Nitrogen 16 mg/dL (7-17); Calcium 8.4 mg/dL (8.4-10.2); Carbon Dioxide 23 mmol/L (22-30); Chloride 103 mmol/L (98-107); Estimated CRCL calculation 81 ml/min; Estimated Glomerular Filt Rate > 60; Glucose 178 mg/dL (65-105); Magnesium 1.9 mg/dL (1.6-2.3); Potassium 3.2 mmol/L (3.4-5.0); Sodium 134 mmol/L (137-145)
[2020-11-20] MEDS: POTASSIUM CHLORIDE 20 MEQ TABLET 40 MEQ PO (08:12)
[2020-11-20] MEDS: ASPIRIN 81 MG CHEWABLE TABLET PO (08:12)
[2020-11-20] MEDS: ATORVASTATIN 20 MG TABLET PO (08:12)
[2020-11-20] MEDS: metFORMIN HCL 500 MG TABLET PO (08:13)
[2020-11-20] MEDS: LOSARTAN POTASSIUM 25 MG TABLET PO (08:13)
[2020-11-20] MEDS: METOPROLOL SUCCINATE EXT REL 25 MG TABCR PO (08:13)
[2020-11-20] MEDS: GLIMEPIRIDE 1 MG TABLET PO (08:13)
[2020-11-20] MEDS: MAGNESIUM OXIDE 200 MG TABLET PO ×2 (09:13→20:31)
[2020-11-20 09:16] LABS: Glucose Point of Care 174 (65-105)
--- NOTE | 2020-11-20 09:59 | PM.IMPN ---
Progress Note: A&P Assessment and Plan (1) Pulmonary emboli: Qualifiers: Pulmonary embolism type: unspecified Chronicity: acute Acute cor pulmonale presence: unspecified Qualified Code(s): I26.99 - Other pulmonary embolism without acute cor pulmonale Code(s): I26.99 - Other pulmonary embolism without acute cor pulmonale Status: Acute Assessment and Plan: Patient presents with shortness of breath; CTA shows several right segmental pulmonary emboli with low clot burden. Etiology unclear. May be related to sedentary lifestyle. More concerning is a retroperitoneal mass noted on CT cannot exclude malignancy. Today she remains on therapeutic Lovenox dosing. Care coordination pricing NOAC; Eliquis or Xarelto will be $200 and may need another option. She adamantly declines Lovenox injections for long-term. LE dopplers show no evidence of DVT. (2) Cardiomyopathy: Qualifiers: Cardiomyopathy type: unspecified Qualified Code(s): I42.9 - Cardiomyopathy, unspecified Code(s): I42.9 - Cardiomyopathy, unspecified Status: Acute Assessment and Plan: Echocardiogram 11/19 shows left ventricular systolic dysfunction EF 20-25%. Discussed case with Dr. Garcia, appreciate recommendations. Etiology unclear. She will benefit from ischemic workup with cardiac catheterization which we suspect will need to be performed outpatient given her acute PE and need for anticoagulation. We will attempt to alter her regimen to optimize medical management in the interim. Today she remains on losartan, metoprolol succinate, ASA, atorvastatin. (3) Acute respiratory failure with hypoxia: Code(s): J96.01 - Acute respiratory failure with hypoxia Status: Resolved Assessment and Plan: Resolved now, tolerating room air with adequate saturations since yesterday. Suspect related to PE. CT chest also shows trace CONCETTA pleural effusions with atelectasis. Encourage incentive spirometry and increase activity as tolerated. (4) Elevated troponin: Code(s): R77.8 - Other specified abnormalities of plasma proteins Status: Acute Assessment and Plan: Mildly elevated troponins with a flat profile. No chest pain. Suspect type 2 [place] secondary to acute pulmonary embolism, ACS not suspected but cannot rule out CAD given her risk factors. Appreciate cardiology input. (5) Left bundle branch block (LBBB) on electrocardiogram: Code(s): I44.7 - Left bundle-branch block, unspecified Status: Acute Assessment and Plan: Chronicity unclear. Appreciate cardiology recommendations. (6) Retroperitoneal mass: Code(s): R19.00 - Intra-abdominal and pelvic swelling, mass and lump, unspecified site Status: Acute Assessment and Plan: Incidental finding on CT chest. CT abd/pel demonstrated indeterminate 3.9 x 2.5 x 2.0 cm right adrenal mass. Differentials include adenoma, carcinoma, metastatic disease, less likely pheochromocytoma. Patient does not demonstrate classic pheo symptoms however will collect 24hr urine metanephrines for further evaluation. Recommend outpatient follow up for PET/CT and/or biopsy of the mass for further evaluation given this could be malignant. Discussed with patient. (7) Hypokalemia: Code(s): E87.6 - Hypokalemia Status: Acute Assessment and Plan: K 3.2; Mg 1.9. Replace with goal to keep K > 4 and Mg > 2. Monitor BMP in AM. (8) Type 2 diabetes mellitus: Qualifiers: Diabetes mellitus custodial insulin use: without terminal computer operator use Diabetes mellitus complication status: with neurologic complications Diabetes mellitus compl
[2020-11-20] MEDS: LEVOTHYROXINE SODIUM 50 MCG TABLET PO (11:31)
[2020-11-20] MEDS: SODIUM CHLORIDE 0.9% IV 250 ML 999 ML IV CONT (12:23)
[2020-11-20] MEDS: INSULIN ASPART (*BKC) 100 UNITS/ML SUB-Q (12:27)
[2020-11-20 12:58] LABS: Glucose Point of Care 268 (65-105)
--- NOTE | 2020-11-20 13:34 | PC.NURSE ---
This nurse walked in to pass medication and check glucose of this patient and the patient appeared to be drowsy. Upon assessment the patient had an episode of emesis. Getting the patient back to bed with second RN Sonia Hess, the patient become unresponsive with eyes open staring off with no response. Patient back in bed with BP of 85/49, provider notified and came to bedside to assess patient. STAT CT scan of head ordered with 250mL bolus of fluids. Will continue to monitor.
--- NOTE | 2020-11-20 14:57 | PM.PNCARD ---
Progress Note: A&P Assessment and Plan (1) Type 2 myocardial infarction: Code(s): I21.A1 - Myocardial infarction type 2 Status: Acute Assessment and Plan: Most consistent with type 2 infarction, not acute coronary syndrome with mild elevation in troponin with flat curve not consistent with ACS. Troponin elevation secondary acute pulmonary emboli most likely but may also be due to to uncontrolled hypertension, severe LV systolic dysfunction and myocardial strain. Cannot exclude underlying CAD given multiple risk factors including age, hypertension, diabetes mellitus, dyslipidemia, LBBB, a new severe LV systolic dysfunction. Continue aspirin, statin. Further recommendations to follow based on patient's clinical course and response to therapy. Patient has multiple comorbidities and is at high risk for adverse complications given her multiple medical issues. She is aware of this and the dangers she placed upon herself by stopping all her medications. 67 minutes spent in the care of this patient at bedside, chart review, and decision making considerations. (2) Left bundle branch block (LBBB) on electrocardiogram: Code(s): I44.7 - Left bundle-branch block, unspecified Status: Acute Assessment and Plan: LBBB chronicity and etiology unclear, however, given severe LV distal dysfunction may be function underlying CAD. (3) Cardiomyopathy: Qualifiers: Cardiomyopathy type: unspecified Qualified Code(s): I42.9 - Cardiomyopathy, unspecified Code(s): I42.9 - Cardiomyopathy, unspecified Status: Acute Assessment and Plan: New diagnosis, severe LV systolic dysfunction EF 20-25%. Patient compensated at this time. Optimize medical therapy. -will discontinue Toprol XL given patient concern for side effects which patient related may be due to metoprolol which she claims she took in the past. -May consider carvedilol 3.125 mg twice daily as alternative as BP allows and heart rate permits. However,, for now will hold and observe until pt has further stabilized. Concern for conduction system disease given intermittent 2-1 av block but no prolonged pauses or high-grade block thus far. Unable to differentiate type 1 versus type 2 second-degree AV block 2:1 at present, but if Type II pt may require device therapy particularly if pathologic pause. Continue Telemetry. -Coronary angiography in future when able to come off A/C more reasonably. -Discussed ICD indications, discussed LifeVest in detail for SCD risk reduction from VT/VF. all questions answered to her satisfaction. Life vest prior to discharge advised if she is agreeable. She will consider and notify us if she decides to pursue. I explained in great detail the importance of compliance with medications, follow-up and recommendations otherwise she would not be reasonable candidate for ICD implantation in general. Patient verbalized understanding and agreed. (4) Pulmonary emboli: Qualifiers: Pulmonary embolism type: unspecified Chronicity: acute Acute cor pulmonale presence: unspecified Qualified Code(s): I26.99 - Other pulmonary embolism without acute cor pulmonale Code(s): I26.99 - Other pulmonary embolism without acute cor pulmonale Status: Acute Assessment and Plan: Several pulmonary emboli on CT angiogram of the chest. Systemic anticoagulation initiated. Continue, transition to oral regimen per PE protocol. (5) Noncompliance with medication regimen: Code(s): Z91.14 - Patient's other noncompliance with medication regimen Status: Acute Assessment and Plan: Extensive discussion held as noted above with regards to the dangers associated with discontinuation of all her medications without consultation. Patient states she will not do that in the future. Encouraged her to communicate with her physicians with regards any concerns, side effects or intolerance immediately so
[2020-11-20] MEDS: ONDANSETRON INJ 4 MG/2 ML VIAL IV PUSH (15:36)
[2020-11-20] MEDS: WARFARIN (*PBKC) 5 MG TABLET PO (17:39)
[2020-11-20 18:07] LABS: Glucose Point of Care 193 (65-105)
[2020-11-20 19:49] LABS: SARS-CoV-2 RNA PCR Negative
[2020-11-20 20:35] LABS: Glucose Point of Care 158 (65-105)
[2020-11-21] VITALS (18 sets, daily range): BP systolic 79–126; BP diastolic 49–91; PULSE 66–89; RESP 16–24; TEMP 35.5–36.6; O2SAT 91–98
[2020-11-21] MEDS: ENOXAPARIN 80 MG/0.8 ML SYRINGE 75 MG SUB-Q ×2 (02:07→14:46)
[2020-11-21 06:15] LABS: IFOB Positive Control Positive; Immunochemical Fecal Occult Bl Negative (N)
[2020-11-21 06:19] LABS: Basophils Percent Auto 0.4 % (0.2-1.2); Eosinophils Absolute Auto 0.1 K/mm3 (0-0.3); Eosinophils Percent Auto 0.6 % (0-4.4); Hematocrit 26.7 % (37.0-47.0); Hemoglobin 8.7 g/dL (12.0-15.0); Immature Granulocyte Absolute 0.21 K/mm3 (0.00-0.031); Lymphocytes Absolute Auto 2.88 K/mm3 (0.9-3.2); Lymphocytes Percent Auto 27.7 % (18.3-44.2); Mean Corpuscular HGB Conc 32.6 g/dl (32-36); Mean Corpuscular Hemoglobin 27.5 pg (26-34); Mean Corpuscular Volume 84.5 fl (80-100); Mean Platelet Volume 12.2 fl (7.4-10.4); Monocytes Absolute Auto 0.9 K/mm3 (0.1-0.6); Neutrophils Absolute Auto 6.3 K/mm3 (1.3-6.7); Neutrophils Percent Auto 60.3 % (45.5-73.1); Platelet Count Result 184 k/mm3 (150-375); Red Blood Count 3.16 M/mm3 (4.2-5.4); Red Cell Distribution Width 13.8 % (11.5-14.5); White Blood Count 10.4 K/mm3 (4.5-10.0)
[2020-11-21] MEDS: LEVOTHYROXINE SODIUM 50 MCG TABLET PO (06:20)
[2020-11-21 06:35] LABS: Alanine Aminotransferase 9 U/L (4-35); Albumin Level 2.8 g/dL (3.5-5.1); Alkaline Phosphatase 67 U/L (38-126); Anion Gap 1 mmol/L (8-16); Aspartate Amino Transferase 13 U/L (14-36); Bilirubin,Total 0.4 mg/dL (0.2-1.3); Blood Urea Nitrogen 18 mg/dL (7-17); Calcium 8.5 mg/dL (8.4-10.2); Carbon Dioxide 30 mmol/L (22-30); Chloride 102 mmol/L (98-107); Estimated CRCL calculation 60 ml/min; Estimated Glomerular Filt Rate > 60; Glucose 110 mg/dL (65-105); Magnesium 1.9 mg/dL (1.6-2.3); Potassium 3.7 mmol/L (3.4-5.0); Sodium 133 mmol/L (137-145)
[2020-11-21] MEDS: SODIUM CHLORIDE 0.9% IV 250 ML IV CONT (06:59)
--- NOTE | 2020-11-21 08:58 | PCOTNOTE ---
Attempted to see patient this am, however RN advised not to see due to continued issues with low BP.
[2020-11-21 09:12] LABS: Glucose Point of Care 92 (65-105)
[2020-11-21] MEDS: ASPIRIN 81 MG CHEWABLE TABLET PO (10:25)
[2020-11-21] MEDS: PANTOPRAZOLE SODIUM IV 40 MG VIAL IV PUSH (10:25)
[2020-11-21] MEDS: ATORVASTATIN 20 MG TABLET PO (10:25)
[2020-11-21] MEDS: MAGNESIUM OXIDE 200 MG TABLET PO ×2 (10:25→20:30)
--- NOTE | 2020-11-21 10:28 | PM.IMPN ---
Progress Note: A&P Assessment and Plan (1) Pulmonary emboli: Qualifiers: Acute cor pulmonale presence: unspecified Chronicity: acute Pulmonary embolism type: unspecified Qualified Code(s): I26.99 - Other pulmonary embolism without acute cor pulmonale Code(s): I26.99 - Other pulmonary embolism without acute cor pulmonale Status: Acute Assessment and Plan: Patient presents with shortness of breath; CTA shows several right segmental pulmonary emboli with low clot burden. Etiology unclear. May be related to sedentary lifestyle. More concerning is a retroperitoneal mass noted on CT cannot exclude malignancy. NOACs are not affordable for patient, she refuses lovenox long-term thus Warfarin is only option for anticoagulation. Warfarin 5mg started 11/20, monitor INR daily; remains on Lovenox bridge until INR 2 with goal INR 2-3. (2) DVT (deep venous thrombosis): Qualifiers: Affected thrombotic vein of extremity: axillary Chronicity: acute DVT location: upper extremity Laterality: right Qualified Code(s): I82.A11 - Acute embolism and thrombosis of right axillary vein Code(s): I82.409 - Acute embolism and thrombosis of unspecified deep veins of unspecified lower extremity Status: Acute Assessment and Plan: R axillary DVT; R arm significantly edematous. No s/s of compartment syndrome at present. Monitor closely with neurovascular checks. CONCETTA LE dopplers show no evidence of DVT. Elevate R arm. (3) Cardiomyopathy: Qualifiers: Cardiomyopathy type: unspecified Qualified Code(s): I42.9 - Cardiomyopathy, unspecified Code(s): I42.9 - Cardiomyopathy, unspecified Status: Acute Assessment and Plan: Echocardiogram 11/19 shows left ventricular systolic dysfunction EF 20-25%. Etiology unclear. She will benefit from ischemic workup with cardiac catheterization which we suspect will need to be performed outpatient given her acute PE and need for anticoagulation. Optimize medical management in the interim. Continue ASA, atorvastatin. Losartan and metoprolol succinate are held this AM due to hypotension. (4) Anemia: Qualifiers: Anemia type: unspecified type Qualified Code(s): D64.9 - Anemia, unspecified Code(s): D64.9 - Anemia, unspecified Status: Acute Assessment and Plan: Hgb dropped 11.0 yesterday to 8.7 today. Discussed with collaborating physician and radiologist who read the R UE ultrasound and determined a possible large 15cm intramuscular hematoma R upper extremity. Imaging thus far has identified no alternative source of bleeding but given her acute drop today, ordered noncontrast CT chest/abd/pel to evaluate for other source of bleeding. Stool occult blood is negative. CBC + iron panel, B12, Folate this afternoon. (5) Hematoma: Code(s): T14.8XXA - Other injury of unspecified body region, initial encounter Status: Acute Assessment and Plan: Large hematoma started over right medial AC region now diffuse ecchymosis from R axilla to R wrist. After discussing with radiologist drop in Hgb, determined large space may represent an intramuscular hematoma. Monitor CBC as above. (6) Acute respiratory failure with hypoxia: Code(s): J96.01 - Acute respiratory failure with hypoxia Status: Resolved Assessment and Plan: Resolved now, tolerating room air with adequate saturations since 11/19. Suspect related to PE. CT chest also shows trace CONCETTA pleural effusions with atelectasis. Encourage incentive spirometry and increase activity as tolerated. (7) Elevated troponin: Code(s): R77.8 - Other specified abnormalities of plasma proteins
[2020-11-21 11:24] LABS: Add Urine Microscopic? YES; Appearance Urine Cloudy (Clear); Bacteria Urine 4+ /hpf; Bilirubin Urine Negative (Negative); Blood Urine 3+ (Negative); Color Urine Amber (Yellow); Glucose Urine UA Negative (Negative); Ketones Urine Negative (Negative); Leukocyte Esterase Ur 2+ LEU/UL (Negative); Mucus Urine Heavy /lpf; Nitrate Urine Negative (Negative); Protein Urine 3+ mg/dL (Negative); Squamous Epithelial Cell Urine Occasional /hpf (Few); WBC Clumps Urine Present /HPF; WBC Urine >75 /hpf
[2020-11-21 11:25] LABS: Specific Grav Ur 1.044 (1.001-1.035)
[2020-11-21 13:15] LABS: Basophils Percent Auto 0.4 % (0.2-1.2); Eosinophils Absolute Auto 0.1 K/mm3 (0-0.3); Eosinophils Percent Auto 0.6 % (0-4.4); Hematocrit 25.2 % (37.0-47.0); Hemoglobin 8.3 g/dL (12.0-15.0); Immature Granulocyte Absolute 0.22 K/mm3 (0.00-0.031); Immature Granulocyte Percent A 2.2 % (0-0.5); Lymphocytes Absolute Auto 2.86 K/mm3 (0.9-3.2); Lymphocytes Percent Auto 28.9 % (18.3-44.2); Mean Corpuscular HGB Conc 32.9 g/dl (32-36); Mean Corpuscular Hemoglobin 28.2 pg (26-34); Mean Corpuscular Volume 85.7 fl (80-100); Mean Platelet Volume 12.5 fl (7.4-10.4); Monocytes Absolute Auto 0.8 K/mm3 (0.1-0.6); Monocytes Percent Auto 8.1 % (2.6-8.5); Neutrophils Absolute Auto 5.9 K/mm3 (1.3-6.7); Neutrophils Percent Auto 59.8 % (45.5-73.1); Platelet Count Result 176 k/mm3 (150-375); Red Blood Count 2.94 M/mm3 (4.2-5.4); Red Cell Distribution Width 14.1 % (11.5-14.5); White Blood Count 9.9 K/mm3 (4.5-10.0)
[2020-11-21 13:30] LABS: Iron 34 ug/dL (37-170)
[2020-11-21 13:40] LABS: Percent Iron Saturation 16 % (20-50)
[2020-11-21] MEDS: POTASSIUM CHLORIDE 20 MEQ TABLET PO (13:57)
[2020-11-21 14:00] LABS: Glucose Point of Care 118 (65-105)
[2020-11-21 14:32] LABS: Folic Acid 7.4 ng/mL (2.76->20)
[2020-11-21] MEDS: diphenhydrAMINE HCl CAP 25 MG CAPSULE PO (14:46)
--- NOTE | 2020-11-21 15:52 | PM.PNCARD ---
Progress Note: A&P Assessment and Plan (1) Anemia: Qualifiers: Anemia type: unspecified type Qualified Code(s): D64.9 - Anemia, unspecified Code(s): D64.9 - Anemia, unspecified Status: Acute Assessment and Plan: severe and rapid decline 13.6 on 11/18/2020, 11/20/20 11.0, 11/21/20 8.7 and subsequent repeat 8.3. Platelet count stable. No evidence for active GI bleed. Source unknown however most definitely a component related to blood loss from hematoma right upper extremity but would not likely explain significant hemoglobin drop. Repeat CT abdomen pelvis to exclude retroperitoneal bleed. Abdominal exam benign less likely the source yet cannot be excluded. Patient's decline in H&H, intermittent hypotension, nausea and vomiting, acute PE, right upper extremity DVT, severe LV systolic dysfunction and multiple comorbidities place patient at very high risk complication. Overall, patient has a guarded and rather poor prognosis. While every reasonable effort to continue systemic A/C should be make, may need to hold anticoagulation if further decline in H&H suggestive of acute bleed, and/or refractory hypotension. However, this would place patient at high risk for complications due to PE and potentially axillary DVT. Discussed at length with the pt these concerns and the associated risks. (2) Hypotension: Code(s): I95.9 - Hypotension, unspecified Status: Acute Assessment and Plan: likely related to progressive anemia and concern for blood loss. Holding supportive cardiovascular medical therapy due to hypotension risk. IV fluid as tolerated. Monitor volume status closely. Patient does not appear septic, afebrile no leukocytosis. She remains on ceftriaxone for UTI. If CT negative consider blood cultures although pt has already been started on ABx. Anemia workup underway as well. (3) Type 2 myocardial infarction: Code(s): I21.A1 - Myocardial infarction type 2 Status: Acute Assessment and Plan: Most consistent with type 2 infarction, not acute coronary syndrome with mild elevation in troponin with flat curve not consistent with ACS. Troponin elevation secondary acute pulmonary emboli most likely but may also be due to to uncontrolled hypertension, severe LV systolic dysfunction and myocardial strain. Cannot exclude underlying CAD given multiple risk factors including age, hypertension, diabetes mellitus, dyslipidemia, LBBB, a new severe LV systolic dysfunction. Continue aspirin, statin. Further recommendations to follow based on patient's clinical course and response to therapy. Patient has multiple comorbidities and is at high risk for adverse complications given her multiple medical issues. She is aware of this and the dangers she placed upon herself by stopping all her medications. 38 minutes spent in the care of this patient at bedside, chart review. (4) Cardiomyopathy: Qualifiers: Cardiomyopathy type: unspecified Qualified Code(s): I42.9 - Cardiomyopathy, unspecified Code(s): I42.9 - Cardiomyopathy, unspecified Status: Acute Assessment and Plan: New diagnosis, severe LV systolic dysfunction EF 20-25%. Patient compensated at this time. Optimize medical therapy. -May consider carvedilol 3.125 mg twice daily but holding due to severe hypotension and significant decline in Hgb since admission. -Coronary angiography in future when able to come off A/C more reasonably. -Considering LifeVest, no decision as yet. (5) Pulmonary emboli: Qualifiers: Pulmonary embolism type: unspecified Chronicity: acute Acute cor pulmonale presence: unspecified Qualified Code(s): I26.99 - Other pulmonary embolism without acute cor pulmonale Code(s): I26.99 - Other pulmonary embolism without acute cor pulmonale Status: Acute Assessment and Plan: Several pulmonary emboli on CT angiogram of the chest. Sy
[2020-11-21 16:55] LABS: Glucose Point of Care 102 (65-105)
[2020-11-21] MEDS: WARFARIN (*PBKC) 5 MG TABLET PO (16:58)
[2020-11-21] MEDS: FERROUS SULFATE 324 MG TABLET PO (16:58)
[2020-11-21 21:04] LABS: Glucose Point of Care 145 (65-105)
[2020-11-22] VITALS (14 sets, daily range): BP systolic 90–99; BP diastolic 52–81; PULSE 68–92; RESP 14–18; TEMP 36.3–36.7; O2SAT 94–99
[2020-11-22] MEDS: ENOXAPARIN 80 MG/0.8 ML SYRINGE 75 MG SUB-Q (01:44)
[2020-11-22] MEDS: LEVOTHYROXINE SODIUM 50 MCG TABLET PO (06:45)
[2020-11-22 08:10] LABS: Glucose Point of Care 154 (65-105)
[2020-11-22 08:52] LABS: Basophils Percent Auto 0.3 % (0.2-1.2); Eosinophils Absolute Auto 0.1 K/mm3 (0-0.3); Eosinophils Percent Auto 0.6 % (0-4.4); Hematocrit 22.6 % (37.0-47.0); Hemoglobin 7.5 g/dL (12.0-15.0); INR 1.1; Immature Granulocyte Absolute 0.28 K/mm3 (0.00-0.031); Immature Granulocyte Percent A 2.5 % (0-0.5); Lymphocytes Absolute Auto 3.28 K/mm3 (0.9-3.2); Lymphocytes Percent Auto 29.6 % (18.3-44.2); Mean Corpuscular HGB Conc 33.2 g/dl (32-36); Mean Corpuscular Hemoglobin 28.6 pg (26-34); Mean Corpuscular Volume 86.3 fl (80-100); Mean Platelet Volume 12.4 fl (7.4-10.4); Monocytes Percent Auto 8.8 % (2.6-8.5); Neutrophils Absolute Auto 6.5 K/mm3 (1.3-6.7); Neutrophils Percent Auto 58.2 % (45.5-73.1); Platelet Count Result 183 k/mm3 (150-375); Prothrombin Time 14.8 Seconds (11.1-14.7); Red Blood Count 2.62 M/mm3 (4.2-5.4); Red Cell Distribution Width 14.3 % (11.5-14.5); White Blood Count 11.1 K/mm3 (4.5-10.0)
[2020-11-22 08:56] LABS: Alanine Aminotransferase 11 U/L (4-35); Albumin Level 3.1 g/dL (3.5-5.1); Alkaline Phosphatase 81 U/L (38-126); Anion Gap 6 mmol/L (8-16); Aspartate Amino Transferase 14 U/L (14-36); Bilirubin,Total 0.6 mg/dL (0.2-1.3); Blood Urea Nitrogen 19 mg/dL (7-17); Calcium 7.9 mg/dL (8.4-10.2); Carbon Dioxide 26 mmol/L (22-30); Chloride 99 mmol/L (98-107); Estimated CRCL calculation 54 ml/min; Estimated Glomerular Filt Rate > 60; Glucose 158 mg/dL (65-105); Sodium 131 mmol/L (137-145)
[2020-11-22 10:12] LABS: Creatine Kinase < 20 U/L (30-135)
[2020-11-22] MEDS: FERROUS SULFATE 324 MG TABLET PO (10:14)
[2020-11-22] MEDS: MAGNESIUM OXIDE 200 MG TABLET PO ×2 (10:14→21:23)
[2020-11-22] MEDS: ACETAMINOPHEN 325 MG TABLET 650 MG PO (10:14)
[2020-11-22] MEDS: PANTOPRAZOLE SODIUM IV 40 MG VIAL IV PUSH (10:15)
--- NOTE | 2020-11-22 10:19 | PM.IMPN ---
Progress Note: A&P Assessment and Plan (1) Pulmonary emboli: Qualifiers: Acute cor pulmonale presence: unspecified Chronicity: acute Pulmonary embolism type: unspecified Qualified Code(s): I26.99 - Other pulmonary embolism without acute cor pulmonale Code(s): I26.99 - Other pulmonary embolism without acute cor pulmonale Status: Acute Assessment and Plan: Patient presents with shortness of breath; CTA shows several right segmental pulmonary emboli with low clot burden. Etiology unclear. May be related to sedentary lifestyle. More concerning is a retroperitoneal mass noted on CT cannot exclude malignancy. She has been on therapeutic Lovenox since 11/19; Warfarin was only AC option due to cost - started 11/20 and kept on Lovenox for bridge. Spoke with multiple providers and the general medical consensus is that she is no longer a candidate for anticoagulation. Lovenox and warfarin discontinued due to decline in Hgb, now 7.3. INR 1.1. This leaves her at high risk for adverse effects from propagation of VTEs. Given the complexity of her case it is felt she would be best suited for transfer to tertiary care. Contacted [facility], awaiting call back. Called and spoke with patient's daughter, Erum, to provide update. (2) DVT (deep venous thrombosis): Qualifiers: Affected thrombotic vein of extremity: axillary Chronicity: acute DVT location: upper extremity Laterality: right Qualified Code(s): I82.A11 - Acute embolism and thrombosis of right axillary vein Code(s): I82.409 - Acute embolism and thrombosis of unspecified deep veins of unspecified lower extremity Status: Acute Assessment and Plan: R axillary DVT; R arm significantly edematous likely related to DVT and intramuscular hematomas. Monitor closely with neurovascular checks. CONCETTA LE dopplers 11/20 show no evidence of DVT. (3) Hematoma: Code(s): T14.8XXA - Other injury of unspecified body region, initial encounter Status: Acute Assessment and Plan: Large hematoma started over right medial AC region on arrival, now diffuse ecchymosis from R axilla to R wrist. CT shows what appear to be intramuscular hematomas in the R bicep now in to the right pectoralis minor muscle. Hgb trending down and anticoagulation discontinued. Last dose Lovenox at 0144 11/22 R arm is significantly more edematous today with new sensory changes in R fingers; R radial pulse is auscultated by doppler. Patient seen and evaluated with collaborating physician and calls made to orthopedic surgery vocational rehabilitation teacher for consultation given the concern for vascular compromise and concern for compartment syndrome. CK is normal which is reassuring. Appreciate Dr Jerome's input. Monitor CBC as above. Edit: Discussed case with Dr Jerome. It is felt she does not exhibit evidence of compartment syndrome at this time. Suspect dependent edema from axillary DVT and recommends to elevate arm and continue to monitor closely with neurovascular checks. Patient educated to notify staff immediately if she develops any new or worsening change in sensation/motor/pain to right upper extremity. (4) Anemia: Qualifiers: Anemia type: unspecified type Qualified Code(s): D64.9 - Anemia, unspecified Code(s): D64.9 - Anemia, unspecified Status: Acute Assessment and Plan: Significant decline in Hgb 11.0 /9; 8.7 and 8.3 4/10; now 7.5 this morning. Intramuscular hematomas in R upper arm now extending into the R pec minor based on imaging suspected to be contributing. Iron low, oral supplementation started. Monitor CBC and consider transfusion if needed. (5) Cardiomyopathy: Qualifiers: Cardiomyopathy type: unspecified Qualified Code(s): I42.9 - Cardiomyopathy, unspecified Cod
--- NOTE | 2020-11-22 11:06 | PM.CNOR ---
Assessment and Plan Assessment and plan (1) Traumatic hematoma of right upper arm: Qualifiers: Encounter type: initial encounter Qualified Code(s): S40.021A - Contusion of right upper arm, initial encounter Code(s): S40.021A - Contusion of right upper arm, initial encounter Status: Acute Assessment and Plan: 70-year-old woman with complex medical history and recent noncompliance with medical treatment including diabetes, heart failure and now with pulmonary embolism and right axillary DVT with increasing right arm swelling and edema. Hematoma of the bicep and pectoralis noted on chest CT and ultrasound. Right arm swelling apparently worse overnight and this morning. Multiple factors including axillary DVT, low protein and albumin, anticoagulation for PE. CK levels drawn this morning normal. PT INR minimally elevated. Lactic acid normal. Radial pulse present on Doppler bilaterally. Although biceps muscle tender to palpation and hematoma palpable- muscle compartment still soft with compressibility. Compartment syndrome not felt to be present clinically. Ecchymosis and swelling improved with elevation of the arm. Patient notes improvement in symptoms. Recommend conservative care at this time for dependent edema with elevation and ice and careful observation. Patient at risk for developing compartment syndrome with medical comorbidities. Discussed with patient. She verbalizes understanding. Discussed with medical care team. Will continue to follow. History of Present Illness HPI Consult date: 11/22/20 Requesting physician: Maryanne Moreno MD Consult reason: other (Right arm swelling) Chief complaint: pe,chf,inc. troponin, lbbb,retroperitoneal mass Narrative: 70-year-old woman initially admitted through the emergency room for shortness of breath and heart failure. Found to have right-sided pulmonary embolism and a right axillary vein DVT. By report initially had some bruising over the posterior right elbow and some mild right arm swelling. Swelling has now progressed over the biceps area and into the forearm. By report there was some history of several falls previous to admission while at home with possible injury to the right arm however patient does not recall. Ultrasound testing and CT scan shows hematoma right upper arm and chest. Patient had some complaints of decreased sensation in the fingers this morning. Radial pulse was able to be Doppler but not palpated. I've been asked to evaluate the patient for her right arm swelling. Review of Systems Review of Systems: All systems reviewed & are unremarkable except as noted in HPI and below Constitutional: Constitutional: Reports no additional constitutional complaints, Reports fatigue, Reports lethargy and Reports weakness Eyes: Eyes: Reports no additional eye complaints ENT: Reports system reviewed and no additional complaints, except as documented Cardiovascular: Cardiovascular: Reports no additional cardiovascular complaints, Denies chest pain, Denies diaphoresis, Denies leg edema, Denies lightheadedness, Denies palpitations, Reports dyspnea and Reports dyspnea on exertion Respiratory: Respiratory: Reports no additional respiratory complaints, Denies hemoptysis, Denies dyspnea and Denies dyspnea on exertion Gastrointestinal: Gastrointestinal: Reports no additional gastrointestinal complaints, Denies abdominal pain, Denies melena, Denies bloating, Denies hematochezia, Reports nausea, Reports vomiting and Denies hematemesis Genitourinary: Genitourinary: Reports no additional female genitourinary complaints Musculoskeletal: Musculoskeletal: Reports no additional musculoskeletal complaints, Reports as per HPI and Reports joint swelling Integumentary/Breasts: Skin/Breast: Reports system reviewed and no additional complaints, except as docu, Reports as per HPI and Reports unusual bruising ( Pain right arm with swelling) Neurologic: Reports system review
[2020-11-22 11:55] LABS: Glucose Point of Care 150 (65-105)
--- NOTE | 2020-11-22 13:34 | PM.PNCARD ---
Progress Note: A&P Assessment and Plan (1) Anemia: Qualifiers: Anemia type: unspecified type Qualified Code(s): D64.9 - Anemia, unspecified Code(s): D64.9 - Anemia, unspecified Status: Acute Assessment and Plan: severe and rapid decline 13.6 on 11/18/2020, 11/20/20 11.0, 11/21/20 8.7 and subsequent repeat 8.3. Platelet count stable. No evidence for active GI bleed. Source unknown however most definitely a component related to blood loss from hematoma right upper extremity but would not likely explain significant hemoglobin drop. Repeat CT abdomen pelvis to exclude retroperitoneal bleed. Abdominal exam benign less likely the source yet cannot be excluded. Patient's decline in H&H, intermittent hypotension, nausea and vomiting, acute PE, right upper extremity DVT, severe LV systolic dysfunction and multiple comorbidities place patient at very high risk complication. Overall, patient has a guarded and rather poor prognosis. H&H has further declined. Primary service held systemic anticoagulation. Obvious inherent risks given several PE, right upper extremity axillary DVT unfortunately in light of severe new progressive anemia. Follow H&H closely. Transfuse if any further decline, monitor volume status. Discussed at length with the pt these concerns and the associated risks. (2) Hypotension: Code(s): I95.9 - Hypotension, unspecified Status: Acute Assessment and Plan: Holding supportive cardiovascular medical therapy due to hypotension risk. IV fluid as tolerated. Monitor volume status closely. Patient does not appear septic, afebrile no leukocytosis. She remains on ceftriaxone for UTI. If CT negative consider blood cultures although pt has already been started on ABx. Anemia workup underway as well. (3) Type 2 myocardial infarction: Code(s): I21.A1 - Myocardial infarction type 2 Status: Acute Assessment and Plan: Most consistent with type 2 infarction, not acute coronary syndrome with mild elevation in troponin with flat curve not consistent with ACS. Troponin elevation secondary acute pulmonary emboli most likely but may also be due to to uncontrolled hypertension, severe LV systolic dysfunction and myocardial strain. Cannot exclude underlying CAD given multiple risk factors including age, hypertension, diabetes mellitus, dyslipidemia, LBBB, a new severe LV systolic dysfunction. Continue aspirin, statin. Further recommendations to follow based on patient's clinical course and response to therapy. Patient has multiple comorbidities and is at high risk for adverse complications given her multiple medical issues. She is aware of this and the dangers she placed upon herself by stopping all her medications. (4) Cardiomyopathy: Qualifiers: Cardiomyopathy type: unspecified Qualified Code(s): I42.9 - Cardiomyopathy, unspecified Code(s): I42.9 - Cardiomyopathy, unspecified Status: Acute Assessment and Plan: New diagnosis, severe LV systolic dysfunction EF 20-25%. Patient compensated at this time. Optimize medical therapy. -May consider carvedilol 3.125 mg twice daily but holding due to severe hypotension and significant decline in Hgb since admission. -Coronary angiography in future when able to come off A/C more reasonably. -unable to proceed given complicated clinical circumstances at present. (5) Pulmonary emboli: Qualifiers: Pulmonary embolism type: unspecified Chronicity: acute Acute cor pulmonale presence: unspecified Qualified Code(s): I26.99 - Other pulmonary embolism without acute cor pulmonale Code(s): I26.99 - Other pulmonary embolism without acute cor pulmonale Status: Acute Assessment and Plan: Several pulmonary emboli on CT angiogram of the chest. Systemic anticoagulation initiated but now held secondary to severe anemia, intramuscular hematoma right upper extrem
[2020-11-22 15:45] LABS: Glucose Point of Care 185 (65-105)
[2020-11-22 20:19] LABS: Glucose Point of Care 204 (65-105)
[2020-11-23] VITALS (23 sets, daily range): BP systolic 92–174; BP diastolic 30–84; PULSE 77–100; RESP 12–20; TEMP 35.8–37.4; O2SAT 92–100
[2020-11-23 05:26] LABS: Basophils Percent Auto 0.2 % (0.2-1.2); Eosinophils Absolute Auto 0.1 K/mm3 (0-0.3); Eosinophils Percent Auto 0.6 % (0-4.4); Immature Granulocyte Absolute 0.34 K/mm3 (0.00-0.031); Immature Granulocyte Percent A 2.8 % (0-0.5); Lymphocytes Absolute Auto 3.34 K/mm3 (0.9-3.2); Lymphocytes Percent Auto 27.4 % (18.3-44.2); Mean Corpuscular HGB Conc 32.4 g/dl (32-36); Mean Corpuscular Hemoglobin 28.2 pg (26-34); Mean Platelet Volume 12.8 fl (7.4-10.4); Monocytes Absolute Auto 1.2 K/mm3 (0.1-0.6); Neutrophils Absolute Auto 7.2 K/mm3 (1.3-6.7); Nucleated Red Blood Cells Absolute Auto 0.1 K/mm3 (0.0-0.012); Nucleated Red Blood Cells Perc 0.5 % (0.0-0.2); Platelet Count Result 174 k/mm3 (150-375); Red Blood Count 2.16 M/mm3 (4.2-5.4); Red Cell Distribution Width 14.5 % (11.5-14.5); White Blood Count 12.2 K/mm3 (4.5-10.0)
[2020-11-23 05:36] LABS: INR 1.4; Prothrombin Time 17.5 Seconds (11.1-14.7)
[2020-11-23] MEDS: LEVOTHYROXINE SODIUM 50 MCG TABLET PO (05:36)
[2020-11-23 05:40] LABS: Alanine Aminotransferase 18 U/L (4-35); Albumin Level 2.8 g/dL (3.5-5.1); Alkaline Phosphatase 74 U/L (38-126); Anion Gap 5 mmol/L (8-16); Aspartate Amino Transferase 25 U/L (14-36); Bilirubin,Total 0.8 mg/dL (0.2-1.3); Blood Urea Nitrogen 22 mg/dL (7-17); Carbon Dioxide 25 mmol/L (22-30); Chloride 100 mmol/L (98-107); Estimated CRCL calculation 44 ml/min; Estimated Glomerular Filt Rate > 60; Glucose 200 mg/dL (65-105); Magnesium 2.1 mg/dL (1.6-2.3); Potassium 4.4 mmol/L (3.4-5.0); Sodium 130 mmol/L (137-145)
[2020-11-23 06:00] LABS: Hematocrit 18.8 % (37.0-47.0); Hemoglobin 6.1 g/dL (12.0-15.0)
[2020-11-23 08:56] LABS: Glucose Point of Care 180 (65-105)
[2020-11-23] MEDS: MAGNESIUM OXIDE 200 MG TABLET PO ×2 (09:03→21:08)
[2020-11-23] MEDS: ATORVASTATIN 20 MG TABLET PO (09:03)
[2020-11-23] MEDS: ASPIRIN 81 MG CHEWABLE TABLET PO (09:03)
[2020-11-23] MEDS: PANTOPRAZOLE 40 MG TABLET PO (09:03)
[2020-11-23] MEDS: GLIMEPIRIDE 1 MG TABLET PO (09:03)
[2020-11-23] MEDS: FERROUS SULFATE 324 MG TABLET PO (09:03)
[2020-11-23] MEDS: SODIUM CHLORIDE 0.9% IV 250 ML 30 ML IV CONT ×2 (09:03→17:25)
[2020-11-23] MEDS: TUBING, BLOOD PLUM PUMP TUBING 1 EACH XX ×2 (09:03→17:26)
[2020-11-23] MEDS: ACETAMINOPHEN 325 MG TABLET 650 MG PO (09:08)
--- NOTE | 2020-11-23 09:16 | PM.PNORT ---
Progress Note: A&P Assessment and Plan (1) Traumatic hematoma of right upper arm: Qualifiers: Encounter type: initial encounter Qualified Code(s): S40.021A - Contusion of right upper arm, initial encounter Code(s): S40.021A - Contusion of right upper arm, initial encounter Status: Acute Assessment and Plan: HgB 6.1 today. Cardiology recommending transfusion. Continue conservative care at this time with elevation/ice and careful observation. Patient remains at risk for developing compartment syndrome. Palpable radial pulses and RUE warm to touch today. Will continue to monitor closely. Subjective Subjective Date/Time Seen: 11/23/20 09:00 Continue complaints of right arm pain with movement. Review of Systems Review of Systems: All systems reviewed & are unremarkable except as noted in HPI and below Constitutional: Constitutional: Reports no additional constitutional complaints, Reports fatigue, Reports lethargy and Reports weakness Eyes: Eyes: Reports no additional eye complaints ENT: Reports system reviewed and no additional complaints, except as documented Cardiovascular: Cardiovascular: Reports no additional cardiovascular complaints, Denies chest pain, Denies diaphoresis, Denies leg edema, Denies lightheadedness, Denies palpitations, Reports dyspnea and Reports dyspnea on exertion Respiratory: Respiratory: Reports no additional respiratory complaints, Denies hemoptysis, Denies dyspnea and Denies dyspnea on exertion Gastrointestinal: Gastrointestinal: Reports no additional gastrointestinal complaints, Denies abdominal pain, Denies melena, Denies bloating, Denies hematochezia, Reports nausea, Reports vomiting and Denies hematemesis Genitourinary: Genitourinary: Reports no additional female genitourinary complaints Musculoskeletal: Musculoskeletal: Reports no additional musculoskeletal complaints, Reports as per HPI and Reports joint swelling Integumentary/Breasts: Skin/Breast: Reports system reviewed and no additional complaints, except as docu, Reports as per HPI and Reports unusual bruising ( Pain right arm with swelling) Neurologic: Reports system reviewed and no additional complaints, except as documented, Reports confusion, Reports numbness (Both feet) and Reports weakness Psychiatric: Psychiatric: Reports no additional psychiatric complaints and Reports confusion Endocrine: Endocrine: Reports no additional endocrine complaints, Reports as per HPI, Reports fatigue and Denies palpitations Hematologic/Lymphatic: Hematologic/Lymphatic: Reports no additional hematologic/lymphatic complaints Allergic/Immunologic: Allergic/Immunologic: Reports no additional allergic/immunologic complaints Exam Const: General: healthy appearing; No in distress or confusion Orientation/consciousness: oriented to person, oriented to place, oriented to time and No confusion HENMT: Head: normal to inspection, normocephalic and atraumatic Eyes: Conjunctivae: conjunctivae normal Sclera: sclerae normal Neck: Neck: supple and nontender Resp: Effort & Inspection: normal respiratory effort and no audible wheezes Cardio: Rate: regular rate Rhythm: regular rhythm Skin: General skin exam: no rashes or lesions noted Neuro: General: oriented to person, oriented to place, oriented to time and No confusion Extrem: Right upper extremity: shoulder/upper arm tenderness over the biceps tendon (Biceps musculature), axillary nerve sensory function normal, abnormal ROM (Active FF 60, ABd 60, ER 10, IR 5, passive forward flexion and 90?, abduction 90?, external rotation 30? with tenderness at the shoulder) pain with active ROM in ABduction, in flexion and in internal rotation and pain with passive ROM with internal rotation and external rotation- and other (RC 4/5, Bicep 4/5, Deltoid 5-/5, ER 4/5), elbow/forearm tenderness of the antecubital fossa, swelling of the antecubital fossa (Moderate) and of the medial epicondyle and a
--- NOTE | 2020-11-23 10:05 | PM.PNCARD ---
Progress Note: A&P Additional Plan 70-year-old lady with: Significant dilated cardiomyopathy admitted with decompensation as she self discontinued all of her medications several months ago. She also unfortunately has pulmonary emboli and hemorrhagic complications to systemic anticoagulation which will course has been stopped. Hemoglobin continues to decline. Medications for her cardiomyopathy are also on hold because of concerns regarding hypotension. Hemoglobin level is low enough today where I would favor the decision to administer a blood transfusion. This should be followed by some furosemide because of her low ejection fraction. Agree with Dr. Garcia the prognosis/outlook is very poor at this time Alex Duncan MD [facility] Subjective Date/time seen: 11/23/20 10:05 Interval history: Ms. Rodriguez is a 70yo F admitted for VTE and new diagnosis severe LV dysfunction EF 20-25%. Patient also was found to have pulmonary embolism resulting in systemic anticoagulation started upon admission. The patient then developed significant rapid declining hemoglobin levels resulting in the need to discontinue systemic anticoagulation. Primary service attempted to transfer the patient to a higher level of care yesterday according to the notes in the chart and that transfer request was declined by Samantha. Today the patient is somnolent is arousable and very lethargic but does answer questions appropriately. Hemoglobin level further declined to 6.1. Exam Narrative: Exam Narrative: General: no apparent distress alert and orient x3, appears fatigued a bit more sleepy, lying in bed breathing comfortably speaking full sentences, pleasant, cooperative. Head: atraumatic, normocephalic Eyes: EOM intact, sclerae anicteric, conjunctivae unremarkable Ears/Nose: external inspection of ears and nose were grossly normal Mouth/Throat: oral mucosa pink and moist Neck: supple, normal range of motion, no jugular venous distention or carotid bruits, thyroid nonpalpable, trachea midline. Cardiac: somewhat distant heart sounds, regular rate and rhythm, normal S1-S2, no murmurs, probable fixed split S2 Lungs: Clear to auscultation bilaterally, no rales, wheezes, or rhonchi. Abdomen: Soft, nontender, nondistended, positive bowel sounds throughout. No appreciable masses, no rebound guarding or rigidity noted. Abdominal aorta nonpalpable, no appreciable bruits. Extremities: Trace LE edema, clubbing, and or cyanosis. Extremities warm and well perfused. Skin: Warm and dry, extensive ecchymosis/bruising and extensive swelling throughout the right upper extremity into the hand which has progressed. R hand warm and well perfused, 2+ R radial pulse Musculoskeletal: Muscle strength and tone intact throughout without obvious deformities. Vascular: Carotid upstrokes 2+ bilaterally, radial pulses 2+ bilaterally, dorsalis pedis pulses 2+ bilaterally, Neurologic: Cranial nerves 2-12 grossly intact, examination grossly nonfocal, diminished tactile sensation all fingers of right hand. 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 Const: General: confusion Orientation/consciousness: confusion Neuro: General: confusion Extrem: Other: Right upper extremity severely ecchymotic and swollen good distal pulses Objective Data Vital Signs Vital Signs: Vital Signs - 24 hr 11/22/20 12:00 11/22/20 13:18 11/22/20 15:49 Temperature 36.7 C 36.7 C Pulse Rate 79 68 86 Respiratory Rate 16 14 Blood Pressure 93/62 L 98/81 L Pulse Oximetry 95 94 11/22/20 16:00 11/22/20 18:00 11/22/20 20:00 Temperature 36.3 C L Pulse Rate 92 85 92 Respiratory Rate 16 Blood Pressure 91/54 L Pulse Oximetry 97 11/22/20 22:00 11/22/20 23:19 11/23/20 00:00 Temperature 36.4 C Pulse Rate 84 88 88 Respiratory Rate 18 18 Blood Pressure 90/52 L Pulse Oximetry 96 96 11/23/20 02:00 11/23/20 04:00 11/23/20 06:00 Temp
[2020-11-23 12:23] LABS: Glucose Point of Care 172 (65-105)
--- NOTE | 2020-11-23 14:47 | PM.IMPN ---
Progress Note: A&P Additional Plan # Acute right segmental PE: with low clot burden. unprovoked. started on therapeutic lovenox 11/19. warfarin was only AC option due to cost, started 11/20 with bridging lovenox. complicated further with decline in hb, from normal at admission to 7. anticoagulation has been on hold since then. # Acute Right Axillary DVT: right arm edematous. bialteral LE doppler 11/20 negative for DVT. # Acute blood loss anemia: complicated from therapeutic anticoagulation. IM hematoma right upper arm enteding to the Right pectoralis minor. hb 6.1 today. continue to monitor. admission hb 13. CT abdomen and pelvis no other sights of bleeding. will transuse two units of prbc with lasix in between. anti Xa LMWH is not done in the lab here, lovenox last dose 11/22/2020 at 2 AM per pharmacy. # Diffuse intramuscular hematoma right upper extremity: consulted orthopedics for possible compartment syndrome, CK normal. no clinical signs of compartment syndrome. neuro status intact, doppler performed on arms with good radial pulse noted. # cardiomyopathy: newly found. ECHO 11/20 with LVSD 20-25%. etiology unclear. she will need ischemic workup with caridac cath. on aspirin, atorvastatin. losartan, metoprolol on hold due to hyptoension. will hold her aspirin due to current ongoing bleed # Actue respiratory failure with hypoxia: now resolved. suspected due to PE. # Elevated troponin: mild. no chest pain. likely type 2 HI from acute PE. ACS not suspected but cannot francisco otu CAD given her multiple risk factors. cardilogy on board. # LBBB on EKG: chronicity unclear. cardiology on board. # Retroperitoneal mass: Incidental finding on CT chest. CT abd/pel demonstrated indeterminate 3.9 x 2.5 x 2.0 cm right adrenal mass. Differentials include adenoma, carcinoma, metastatic disease, less likely pheochromocytoma. 24hr urine metanephrines are pending. Recommend outpatient follow up for PET/CT and/or biopsy of the mass for further evaluation given this could be malignant. Discussed with patient. # Hypokalemia: repalce and monitor. # Type 2 diabetes mellitus: poorly controlled. Hba1c at 11.6. previously on metformin and glimepiride. glimiperide. SSI. hypoglycemic protocol. # Hypertension: untreated for several months per records. fredi toprol held due to labile bp due to ongoing bleed. # dyslipidemia: statin # hx of paroxysmal afib: remains in sinus # hypothryoidsim: tsh elevated< T4 low. contineu leveothyroxine. # Noncompliance with medication regimen: Patient has not taken her medications in several months. The need for compliance has been discussed at length by multiple providers. # UTI: e coli in uirne. on ceftriaxoen. blood cutlure no growth so far # DVT proph: mecahnical, pharmacological contraindicated. # full code discussed wih daughter romulo over the phone. Time Spent With Patient Time with patient: Greater than 35 minutes Subjective Date/time seen: 11/23/20 14:47 Interval history: Ms. Rodriguez is a 70yo F admitted for VTE and new diagnosis severe LV dysfunction EF 20-25%. Patient also was found to have pulmonary embolism resulting in systemic anticoagulation started upon admission. The patient then developed significant rapid declining hemoglobin levels resulting in the need to discontinue systemic anticoagulation. patients hb down to 6.1 and is gettign transfusion. no fever, chills. no abdominal pain, nausea, vmoitg. she reports her arm is not hurting not its tingling or numb. Review of Systems Review of Systems: All systems reviewed & are unremarkable except as noted in HPI and below Exam Narrative: Exam Narrative: General: Female resting supine in bed in no acute distress. HEENT: Normocephalic, EOMI. Oral mucosa moist. Neck: Supple. Respiratory: Clear to auscultation. Respirations even and nonlabored. Tolerating room air. Cardiovascular: Rate and rhythm are regular. Gastrointestinal: Abdomen is soft, nontender, and nondistended. Bowel sounds prese
[2020-11-23] MEDS: FUROSEMIDE INJ 40 MG/4 ML VIAL 20 MG IV PUSH ×2 (15:51→22:01)
[2020-11-23 18:04] LABS: Glucose Point of Care 132 (65-105)
[2020-11-23 20:59] LABS: Glucose Point of Care 115 (65-105)
[2020-11-23 23:45] LABS: Hematocrit 28.6 % (37.0-47.0); Hemoglobin 9.7 g/dL (12.0-15.0)
[2020-11-23 23:55] LABS: Partial Thromboplastin Time 23.1 SECONDS (22.3-36.8)
[2020-11-24] VITALS (13 sets, daily range): BP systolic 118–146; BP diastolic 59–71; PULSE 81–98; RESP 16–18; TEMP 36.1–36.4; O2SAT 97–98; BMI 10.0
--- NOTE | 2020-11-24 08:37 | PM.PNORT ---
Progress Note: A&P Assessment and Plan (1) Traumatic hematoma of right upper arm: Qualifiers: Encounter type: initial encounter Qualified Code(s): S40.021A - Contusion of right upper arm, initial encounter Code(s): S40.021A - Contusion of right upper arm, initial encounter Status: Acute Assessment and Plan: Continued right arm edema and swelling. Patient comfortable at rest. Continue conservative care at this time with elevation/ice and careful observation. Patient remains at risk for developing compartment syndrome. Palpable radial pulses and RUE warm to touch today. Will continue to monitor closely. Subjective Subjective Date/Time Seen: 11/24/20 08:37 Patient resting comfortably. No new complaints. Exam Const: General: healthy appearing; No in distress or confusion Orientation/consciousness: oriented to person, oriented to place, oriented to time and No confusion HENMT: Head: normal to inspection, normocephalic and atraumatic Eyes: Conjunctivae: conjunctivae normal Sclera: sclerae normal Neck: Neck: supple and nontender Resp: Effort & Inspection: normal respiratory effort and no audible wheezes Cardio: Rate: regular rate Rhythm: regular rhythm Skin: General skin exam: no rashes or lesions noted Neuro: General: oriented to person, oriented to place, oriented to time and No confusion Extrem: Right upper extremity: shoulder/upper arm tenderness over the biceps tendon (Biceps musculature), axillary nerve sensory function normal, abnormal ROM (Active FF 60, ABd 60, ER 10, IR 5, passive forward flexion and 90?, abduction 90?, external rotation 30? with tenderness at the shoulder) pain with active ROM in ABduction, in flexion and in internal rotation and pain with passive ROM with internal rotation and external rotation- and other (RC 4/5, Bicep 4/5, Deltoid 5-/5, ER 4/5), elbow/forearm tenderness of the antecubital fossa, swelling of the antecubital fossa (Moderate) and of the medial epicondyle and abnormal ROM (Active flexion and extension 45? to 90?. Passive motion 10? to 100? without tenderness), wrist normal ROM; no tenderness and radial pulse not present (Able to Doppler pulse) and Extremity exam: right hand neuromotor exam normal wrist extension normal, thumb opposition normal, thumb IP flexion normal and fingers 2-5 ABduction normal, neurosensory exam normal radial nerve sensory function normal, ulnar nerve sensory function normal, median nerve sensory function normal and digital nerve sensory function normal, vascular exam abnormal capillary refill of all fingers and coolness of the entire hand; radial pulse absent (Able to Doppler) and swelling (Mild) of the dorsal hand; no tenderness and no crepitus Left upper extremity: normal to inspection, shoulder/upper arm normal ROM (FF 130, Abd 125, ER 70, IR T7); no tenderness, no swelling, no ecchymosis and no crepitus and hand normal to inspection and vascular exam abnormal capillary refill Details: of all fingers and coolness Details: of the entire hand; radial pulse absent (Dopplerable) and capillary refill abnormal; abormal capillary refill Right lower extremity: normal to inspection Left lower extremity: normal to inspection Other: Obvious swelling of the right upper extremity from the biceps muscle to the distal arm. Elbow with moderate swelling mainly over the anterior and medial aspect. Forearm with edema. Wrist and hand with mild edema. Tender to palpation biceps muscle with palpable hematoma however muscle compartment remains relatively soft. Triceps, deltoid, forearm flexor and extensor muscle soft. Skin intact throughout. Able to move fingers and wrist. Warm. Palpable radial pulse. Able to make 90% of a fist. Sensation light touch intact thumb index middle ring and small fingers. Psych: Affect: normal affect Objective Data Vital Signs Vital Signs: Vital Signs - 24 hr 11/23/20 10:00 11/23/20 10:35 11/23/20 10:52 Temperature
[2020-11-24 08:58] LABS: Glucose Point of Care 70 (65-105)
--- NOTE | 2020-11-24 09:46 | P.CDI_ITS ---
CDI Query Clarification Request -Patient admitted 11/18 with PE -11/20 documentation of right arm edema and venous doppler ordered -11/20 venous doppler impression: positive for right axillary DVT Please clarify if right axillary DVT was: * Present on arrival * Not present on arrival * Unable to determine <Ninoska Fritz RN - Last Filed: 11/24/20 09:50>
--- NOTE | 2020-11-24 11:40 | PM.PNCARD ---
Progress Note: A&P Assessment and Plan (1) Anemia: Qualifiers: Anemia type: unspecified type Qualified Code(s): D64.9 - Anemia, unspecified Code(s): D64.9 - Anemia, unspecified Status: Acute Assessment and Plan: Severe anemia. Current hemoglobin improved to 9.7. No evidence for active GI bleed. Primary service held systemic anticoagulation. Transfuse if any further decline, monitor volume status. (2) Hypotension: Code(s): I95.9 - Hypotension, unspecified Status: Acute (3) Type 2 myocardial infarction: Code(s): I21.A1 - Myocardial infarction type 2 Status: Acute Assessment and Plan: Most consistent with type 2 infarction, not acute coronary syndrome with mild elevation in troponin with flat curve not consistent with ACS. Troponin elevation secondary acute pulmonary emboli most likely but may also be due to to uncontrolled hypertension, severe LV systolic dysfunction and myocardial strain. Cannot exclude underlying CAD given multiple risk factors including age, hypertension, diabetes mellitus, dyslipidemia, LBBB, a new severe LV systolic dysfunction. Continue aspirin, statin. Further recommendations to follow based on patient's clinical course and response to therapy. Patient has multiple comorbidities and is at high risk for adverse complications given her multiple medical issues. She is aware of this and the dangers she placed upon herself by stopping all her medications. (4) Cardiomyopathy: Qualifiers: Cardiomyopathy type: unspecified Qualified Code(s): I42.9 - Cardiomyopathy, unspecified Code(s): I42.9 - Cardiomyopathy, unspecified Status: Acute Assessment and Plan: New diagnosis, severe LV systolic dysfunction EF 20-25%. Patient compensated at this time. Optimize medical therapy. -gentle diuresis -may consider ischemic workup in future if/when patient clinically stable (5) Pulmonary emboli: Qualifiers: Pulmonary embolism type: unspecified Chronicity: acute Acute cor pulmonale presence: unspecified Qualified Code(s): I26.99 - Other pulmonary embolism without acute cor pulmonale Code(s): I26.99 - Other pulmonary embolism without acute cor pulmonale Status: Acute Assessment and Plan: Several pulmonary emboli on CT angiogram of the chest. Systemic anticoagulation initiated but now held secondary to severe anemia, intramuscular hematoma right upper extremity and extensive swelling. As above. (6) DVT (deep venous thrombosis): Qualifiers: DVT location: upper extremity Affected thrombotic vein of extremity: axillary Chronicity: acute Laterality: right Qualified Code(s): I82.A11 - Acute embolism and thrombosis of right axillary vein Code(s): I82.409 - Acute embolism and thrombosis of unspecified deep veins of unspecified lower extremity Status: Acute Assessment and Plan: Right upper extremity DVT axillary noted on ultrasound. this complicates management for local hematoma, no anemia, and pulmonary emboli., (7) Hematoma: Code(s): T14.8XXA - Other injury of unspecified body region, initial encounter Status: Acute (8) Left bundle branch block (LBBB) on electrocardiogram: Code(s): I44.7 - Left bundle-branch block, unspecified Status: Acute Assessment and Plan: LBBB chronicity unknown (9) Retroperitoneal mass: Code(s): R19.00 - Intra-abdominal and pelvic swelling, mass and lump, unspecified site Status: Acute Assessment and Plan: 3.9 x 2.5 x 2 cm right adrenal mass. Workup underway per hospitalist service. Differential includes adenoma, carcinoma, pheochromocytoma. (10) Noncompliance with medication regimen: Code(s): Z91.14 - Patient's other noncompliance with medication regimen Status: Acute Assessment and Plan: Compliance extremely important as previously cou
--- NOTE | 2020-11-24 11:56 | PC.NURSE ---
This RN informed that the patient refused lab draw and an attempt at a secondary IV. Patient also refused vital signs, occupational therapy, breakfast, morning medications. MD is aware of pt's refusal and to speak with the patient.
--- NOTE | 2020-11-24 11:59 | PC.NURSE ---
Patient refusing 1200 vital signs and blood sugar check.
--- NOTE | 2020-11-24 12:24 | PM.IMPN ---
Progress Note: A&P Assessment and Plan (1) Pulmonary emboli: Qualifiers: Acute cor pulmonale presence: unspecified Chronicity: acute Pulmonary embolism type: unspecified Qualified Code(s): I26.99 - Other pulmonary embolism without acute cor pulmonale Code(s): I26.99 - Other pulmonary embolism without acute cor pulmonale Status: Acute Assessment and Plan: Patient presents with shortness of breath; CTA shows several right segmental pulmonary emboli with low clot burden. Etiology unclear but may be related to sedentary lifestyle. More concerning is a retroperitoneal mass noted on CT cannot exclude malignancy. She was on therapeutic Lovenox since 11/19; Warfarin was only AC option due to cost - started 11/20 and kept on Lovenox for bridge. She developed a large RUE hematoma and Lovenox and warfarin were discontinued. IVC filter would not be of benefit. Resumed anticoagulation when able. (2) DVT (deep venous thrombosis): Qualifiers: Affected thrombotic vein of extremity: axillary Chronicity: acute DVT location: upper extremity Laterality: right Qualified Code(s): I82.A11 - Acute embolism and thrombosis of right axillary vein Code(s): I82.409 - Acute embolism and thrombosis of unspecified deep veins of unspecified lower extremity Status: Acute Assessment and Plan: Bilateral LE dopplers 11/20 show no evidence of DVT but RUE Doppler showing Rt axillary DVT; R arm significantly edematous likely related to DVT and intramuscular hematomas. Monitor closely with neurovascular checks. (3) Hematoma: Code(s): T14.8XXA - Other injury of unspecified body region, initial encounter Status: Acute Assessment and Plan: Large hematoma started over right medial AC region on arrival, now diffuse ecchymosis from R axilla to R wrist and elsewhere. CT shows what appear to be intramuscular hematomas in the Rt bicep in to the right pectoralis minor muscle. Hgb trended down and anticoagulation discontinued. Last dose Lovenox at 0144 11/22/20. Orthopedic surgery consulted given the concern for vascular compromise and concern for compartment syndrome. CK was normal on 11/22. Monitor closely. (4) Anemia: Qualifiers: Anemia type: unspecified type Qualified Code(s): D64.9 - Anemia, unspecified Code(s): D64.9 - Anemia, unspecified Status: Acute Assessment and Plan: Hgb 13.6 on admission but with significant decline in Hgb to 6.1 yesterday morning. Intramuscular hematomas in R upper arm now extending into the R pec minor based on imaging suspected to be the etiology of the acute blood loss anemia. Pateint transfused yesterday and Hgb improved to 9.7. She has refused labs for today. Monitor CBC as she allows. (5) Cardiomyopathy: Qualifiers: Cardiomyopathy type: unspecified Qualified Code(s): I42.9 - Cardiomyopathy, unspecified Code(s): I42.9 - Cardiomyopathy, unspecified Status: Acute Assessment and Plan: Echo 11/19 shows left ventricular systolic dysfunction EF 20-25%. Etiology unclear. She will benefit from ischemic workup with cardiac catheterization which will need to be put off given her acute PE and need for anticoagulation. Optimize medical management in the interim with atorvastatin. ASA, Losartan and metoprolol succinate on hold. (6) Acute respiratory failure with hypoxia: Code(s): J96.01 - Acute respiratory failure with hypoxia Status: Resolved Assessment and Plan: Resolved now. patient remains on room air with adequate saturations since 11/19. Suspect related to PE. (7) Elevated troponin: Code(s): R77.8 - Other specified abnor
--- NOTE | 2020-11-24 15:01 | PC.NURSE ---
Pt refusing 1400 antibiotic, aware.
--- NOTE | 2020-11-24 17:28 | PC.NURSE ---
Pt refusing evening MD elijah aware.
[2020-11-24 20:00] LABS: Glucose Point of Care 83 (65-105)
[2020-11-25] VITALS (16 sets, daily range): BP systolic 116–134; BP diastolic 51–89; PULSE 78–104; RESP 17–18; TEMP 36.2–36.9; O2SAT 97–100; BMI 31.7
[2020-11-25] MEDS: PANTOPRAZOLE 40 MG TABLET PO (08:17)
[2020-11-25] MEDS: MAGNESIUM OXIDE 200 MG TABLET PO ×2 (08:17→20:45)
[2020-11-25] MEDS: DEXTROSE 50% 25 GM/50 ML SYRINGE IV PUSH (08:17)
[2020-11-25] MEDS: FERROUS SULFATE 324 MG TABLET PO (08:17)
[2020-11-25] MEDS: ATORVASTATIN 20 MG TABLET PO (08:17)
[2020-11-25 08:26] LABS: Basophils Percent Auto 0.3 % (0.2-1.2); Eosinophils Absolute Auto 0.1 K/mm3 (0-0.3); Eosinophils Percent Auto 0.9 % (0-4.4); Hematocrit 23.1 % (37.0-47.0); Hemoglobin 7.7 g/dL (12.0-15.0); Immature Granulocyte Absolute 0.17 K/mm3 (0.00-0.031); Immature Granulocyte Percent A 2.2 % (0-0.5); Lymphocytes Absolute Auto 1.44 K/mm3 (0.9-3.2); Lymphocytes Percent Auto 18.9 % (18.3-44.2); Mean Corpuscular HGB Conc 33.3 g/dl (32-36); Mean Corpuscular Hemoglobin 29.1 pg (26-34); Mean Corpuscular Volume 87.2 fl (80-100); Mean Platelet Volume 11.7 fl (7.4-10.4); Monocytes Absolute Auto 0.9 K/mm3 (0.1-0.6); Monocytes Percent Auto 12.4 % (2.6-8.5); Neutrophils Percent Auto 65.3 % (45.5-73.1); Nucleated Red Blood Cells Perc 0.3 % (0.0-0.2); Platelet Count Result 159 k/mm3 (150-375); Red Blood Count 2.65 M/mm3 (4.2-5.4); Red Cell Distribution Width 14.1 % (11.5-14.5); White Blood Count 7.6 K/mm3 (4.5-10.0)
[2020-11-25 08:36] LABS: Prothrombin Time 13.8 Seconds (11.1-14.7)
[2020-11-25 08:51] LABS: Alanine Aminotransferase 22 U/L (4-35); Albumin Level 2.8 g/dL (3.5-5.1); Alkaline Phosphatase 84 U/L (38-126); Anion Gap 5 mmol/L (8-16); Aspartate Amino Transferase 22 U/L (14-36); Bilirubin,Total 1.5 mg/dL (0.2-1.3); Blood Urea Nitrogen 20 mg/dL (7-17); CRP 13.6 mg/dL (<1.0); Calcium 7.9 mg/dL (8.4-10.2); Carbon Dioxide 29 mmol/L (22-30); Chloride 99 mmol/L (98-107); Creatine Kinase 40 U/L (30-135); Estimated CRCL calculation 55 ml/min; Estimated Glomerular Filt Rate > 60; Glucose 75 mg/dL (65-105); Magnesium 1.9 mg/dL (1.6-2.3); Phosphorus 2.6 mg/dL (2.5-4.5); Potassium 3.6 mmol/L (3.4-5.0); Sodium 133 mmol/L (137-145)
[2020-11-25 08:54] LABS: Glucose Point of Care 148 (65-105)
[2020-11-25 08:54] LABS: Glucose Point of Care 61 (65-105)
[2020-11-25 12:41] LABS: Glucose Point of Care 112 (65-105)
--- NOTE | 2020-11-25 13:18 | PM.IMPN ---
Progress Note: A&P Assessment and Plan (1) Pulmonary emboli: Qualifiers: Acute cor pulmonale presence: unspecified Chronicity: acute Pulmonary embolism type: unspecified Qualified Code(s): I26.99 - Other pulmonary embolism without acute cor pulmonale Code(s): I26.99 - Other pulmonary embolism without acute cor pulmonale Status: Acute Assessment and Plan: Patient presents with shortness of breath; CTA shows several right segmental pulmonary emboli with low clot burden. Etiology unclear but may be related to sedentary lifestyle. More concerning is a retroperitoneal mass noted on CT cannot exclude malignancy. She was on therapeutic Lovenox since 11/19; Warfarin was only AC option due to cost - started 11/20 and kept on Lovenox for bridge. She developed a large RUE hematoma and Lovenox and warfarin were discontinued. IVC filter would not be of benefit. Resume anticoagulation when able. (2) DVT (deep venous thrombosis): Qualifiers: Affected thrombotic vein of extremity: axillary Chronicity: acute DVT location: upper extremity Laterality: right Qualified Code(s): I82.A11 - Acute embolism and thrombosis of right axillary vein Code(s): I82.409 - Acute embolism and thrombosis of unspecified deep veins of unspecified lower extremity Status: Acute Assessment and Plan: Bilateral LE dopplers 11/20 show no evidence of DVT but RUE Doppler showing Rt axillary DVT; R arm significantly edematous likely related to DVT and intramuscular hematomas. [place] that the right axillary DVT was present on admission. Monitor closely with neurovascular checks. (3) Hematoma: Code(s): T14.8XXA - Other injury of unspecified body region, initial encounter Status: Acute Assessment and Plan: Large hematoma started over right medial AC region on arrival, now diffuse ecchymosis from R axilla to R wrist and elsewhere. CT shows what appear to be intramuscular hematomas in the Rt bicep in to the right pectoralis minor muscle. Hgb trended down and anticoagulation discontinued. Last dose Lovenox at 0144 11/22/20. Orthopedic surgery consulted given the concern for vascular compromise and concern for compartment syndrome. CK was normal on 11/22 and again on 11/25. Monitor closely. (4) Anemia: Qualifiers: Anemia type: unspecified type Qualified Code(s): D64.9 - Anemia, unspecified Code(s): D64.9 - Anemia, unspecified Status: Acute Assessment and Plan: Hgb 13.6 on admission but with significant decline in Hgb to 6.1 on 11/23. Intramuscular hematomas in R upper arm now extending into the R pec minor based on imaging suspected to be the etiology of the acute blood loss anemia. Pateint transfused 11/23 and Hgb improved to 9.7. She refused Hgb yesterday but Hgb today down to 7.7. No evidence of further acute blood loss. Monitor CBC as she allows. (5) Depression: Code(s): F32.9 - Major depressive disorder, single episode, unspecified Status: Acute Assessment and Plan: Patient with MDD that is compromising her ability to be cared for. She was educated about the benefits of adhering to medical care. She was encouraged to eat. Will add zoloft. (6) Cardiomyopathy: Qualifiers: Cardiomyopathy type: unspecified Qualified Code(s): I42.9 - Cardiomyopathy, unspecified Code(s): I42.9 - Cardiomyopathy, unspecified Status: Acute Assessment and Plan: Echo 11/19 shows left ventricular systolic dysfunction EF 20-25%. Etiology unclear. She will benefit from ischemic workup with cardiac catheterization which will need to be put off given her acute PE and need for anticoagulation. Optimize medical management in the interim with atorvastatin. ASA, Losartan and m
--- NOTE | 2020-11-25 16:40 | PM.PNCARD ---
Progress Note: A&P Assessment and Plan (1) Anemia: Qualifiers: Anemia type: unspecified type Qualified Code(s): D64.9 - Anemia, unspecified Code(s): D64.9 - Anemia, unspecified Status: Acute Assessment and Plan: Severe anemia. No evidence for active GI bleed. Primary service held systemic anticoagulation. Hemoglobin continues to drift downward. (2) Hypotension: Code(s): I95.9 - Hypotension, unspecified Status: Acute Assessment and Plan: Resolved (3) Type 2 myocardial infarction: Code(s): I21.A1 - Myocardial infarction type 2 Status: Acute Assessment and Plan: Most consistent with type 2 infarction, secondary acute pulmonary emboli most likely but may also be due to to uncontrolled hypertension, severe LV systolic dysfunction and myocardial strain. Cannot exclude underlying CAD given multiple risk factors including age, hypertension, diabetes mellitus, dyslipidemia, LBBB, a new severe LV systolic dysfunction. Continue aspirin, statin. Further recommendations to follow based on patient's clinical course and response to therapy. Patient has multiple comorbidities and is at high risk for adverse complications given her multiple medical issues. She is aware of this and the dangers she placed upon herself by stopping all her medications. (4) Cardiomyopathy: Qualifiers: Cardiomyopathy type: unspecified Qualified Code(s): I42.9 - Cardiomyopathy, unspecified Code(s): I42.9 - Cardiomyopathy, unspecified Status: Acute Assessment and Plan: New diagnosis, severe LV systolic dysfunction EF 20-25%. Patient compensated at this time. Optimize medical therapy as BP allows. Metoprolol resumed. May consider ischemic workup in future if/when patient clinically stable Dr. Garcia had talked to the patient about risk of sudden cardiac and possible Life Vest. I resume this discussion. Patient declines Life Vest, says she does not think she will needed. (5) Pulmonary emboli: Qualifiers: Pulmonary embolism type: unspecified Chronicity: acute Acute cor pulmonale presence: unspecified Qualified Code(s): I26.99 - Other pulmonary embolism without acute cor pulmonale Code(s): I26.99 - Other pulmonary embolism without acute cor pulmonale Status: Acute Assessment and Plan: Several pulmonary emboli on CT angiogram of the chest. Systemic anticoagulation initiated but now held secondary to severe anemia, intramuscular hematoma right upper extremity and extensive swelling. As above. (6) DVT (deep venous thrombosis): Qualifiers: DVT location: upper extremity Affected thrombotic vein of extremity: axillary Chronicity: acute Laterality: right Qualified Code(s): I82.A11 - Acute embolism and thrombosis of right axillary vein Code(s): I82.409 - Acute embolism and thrombosis of unspecified deep veins of unspecified lower extremity Status: Acute Assessment and Plan: Right upper extremity DVT axillary noted on ultrasound. this complicates management for local hematoma, no anemia, and pulmonary emboli., (7) Hematoma: Code(s): T14.8XXA - Other injury of unspecified body region, initial encounter Status: Acute (8) Left bundle branch block (LBBB) on electrocardiogram: Code(s): I44.7 - Left bundle-branch block, unspecified Status: Acute Assessment and Plan: LBBB chronicity unknown (9) Retroperitoneal mass: Code(s): R19.00 - Intra-abdominal and pelvic swelling, mass and lump, unspecified site Status: Acute Assessment and Plan: 3.9 x 2.5 x 2 cm right adrenal mass. Workup
[2020-11-25 16:43] LABS: Glucose Point of Care 120 (65-105)
[2020-11-25] MEDS: METOPROLOL SUCCINATE EXT REL 12.5 MG TABCR PO (17:12)
[2020-11-25] MEDS: SERTRALINE HCL 25 MG TABLET PO (17:13)
[2020-11-25 19:55] LABS: Glucose Point of Care 171 (65-105)
[2020-11-25] MEDS: ACETAMINOPHEN 325 MG TABLET 650 MG PO (20:45)
[2020-11-26] VITALS (15 sets, daily range): BP systolic 117–175; BP diastolic 58–95; PULSE 74–84; RESP 12–18; TEMP 36.1–36.7; O2SAT 95–99
[2020-11-26 05:09] LABS: Hematocrit 23.4 % (37.0-47.0); Hemoglobin 7.7 g/dL (12.0-15.0); Mean Corpuscular HGB Conc 32.9 g/dl (32-36); Mean Corpuscular Hemoglobin 28.6 pg (26-34); Mean Platelet Volume 11.4 fl (7.4-10.4); Platelet Count Result 173 k/mm3 (150-375); Red Blood Count 2.69 M/mm3 (4.2-5.4); White Blood Count 7.1 K/mm3 (4.5-10.0)
[2020-11-26 05:18] LABS: INR 1.1; Prothrombin Time 14.6 Seconds (11.1-14.7)
[2020-11-26 05:26] LABS: Anion Gap 2 mmol/L (8-16); Blood Urea Nitrogen 20 mg/dL (7-17); Calcium 7.7 mg/dL (8.4-10.2); Carbon Dioxide 30 mmol/L (22-30); Chloride 98 mmol/L (98-107); Estimated CRCL calculation 55 ml/min; Estimated Glomerular Filt Rate > 60; Glucose 169 mg/dL (65-105); Potassium 3.7 mmol/L (3.4-5.0); Sodium 130 mmol/L (137-145)
[2020-11-26] MEDS: LEVOTHYROXINE SODIUM 50 MCG TABLET PO (06:10)
[2020-11-26 07:45] LABS: Glucose Point of Care 162 (65-105)
[2020-11-26] MEDS: SERTRALINE HCL 25 MG TABLET PO (08:51)
[2020-11-26] MEDS: MAGNESIUM OXIDE 200 MG TABLET PO ×2 (08:51→20:54)
[2020-11-26] MEDS: FERROUS SULFATE 324 MG TABLET PO (08:51)
[2020-11-26] MEDS: PANTOPRAZOLE 40 MG TABLET PO (08:51)
[2020-11-26] MEDS: ATORVASTATIN 20 MG TABLET PO (08:51)
[2020-11-26] MEDS: METOPROLOL SUCCINATE EXT REL 12.5 MG TABCR PO (08:52)
--- NOTE | 2020-11-26 09:29 | PM.PNORT ---
Progress Note: A&P Assessment and Plan (1) Traumatic hematoma of right upper arm: Qualifiers: Encounter type: initial encounter Qualified Code(s): S40.021A - Contusion of right upper arm, initial encounter Code(s): S40.021A - Contusion of right upper arm, initial encounter Status: Acute Assessment and Plan: Continued right arm edema and swelling with improvement in forearm swelling. Palpable radial pulses and RUE warm to touch. Continue conservative care at this time with elevation/ice and careful observation. No concerns for compartment syndrome at this time, however she remains at risk. Will continue to monitor. Subjective Subjective Date/Time Seen: 11/26/20 09:29 Right Arm Pain/Swelling with improvement. Able to make a fist today. Review of Systems Constitutional: Constitutional: Denies chills, Reports fatigue and Denies night sweats Eyes: Eyes: Reports no additional eye complaints Cardiovascular: Cardiovascular: Denies chest pain, Denies pedal edema, Denies leg edema, Denies lightheadedness and Denies palpitations Respiratory: Respiratory: Denies cough, Denies dyspnea and Denies dyspnea on exertion Gastrointestinal: Gastrointestinal: Denies abdominal pain, Denies nausea and Denies vomiting Genitourinary: Genitourinary: Denies hematuria Musculoskeletal: Musculoskeletal: Reports as per HPI Integumentary/Breasts: Skin/Breast: Reports erythema (Areas of ecchymoses and hematomas) Neurologic: Reports system reviewed and no additional complaints, except as documented Exam Const: General: healthy appearing; No in distress or confusion Orientation/consciousness: oriented to person, oriented to place, oriented to time and No confusion HENMT: Head: normal to inspection, normocephalic and atraumatic Eyes: Conjunctivae: conjunctivae normal Sclera: sclerae normal Neck: Neck: supple and nontender Resp: Effort & Inspection: normal respiratory effort and no audible wheezes Cardio: Rate: regular rate Rhythm: regular rhythm Skin: General skin exam: no rashes or lesions noted Neuro: General: oriented to person, oriented to place, oriented to time and No confusion Extrem: Right upper extremity: shoulder/upper arm tenderness over the biceps tendon (Biceps musculature), axillary nerve sensory function normal, abnormal ROM (Active FF 60, ABd 60, ER 10, IR 5, passive forward flexion and 90?, abduction 90?, external rotation 30? with tenderness at the shoulder) pain with active ROM in ABduction, in flexion and in internal rotation and pain with passive ROM with internal rotation and external rotation- and other (RC 4/5, Bicep 4/5, Deltoid 5-/5, ER 4/5), elbow/forearm tenderness of the antecubital fossa, swelling of the antecubital fossa (Moderate) and of the medial epicondyle and abnormal ROM (Active flexion and extension 45? to 90?. Passive motion 10? to 100? without tenderness), wrist normal ROM; no tenderness and radial pulse not present (Able to Doppler pulse) and Extremity exam: right hand neuromotor exam normal wrist extension normal, thumb opposition normal, thumb IP flexion normal and fingers 2-5 ABduction normal, neurosensory exam normal radial nerve sensory function normal, ulnar nerve sensory function normal, median nerve sensory function normal and digital nerve sensory function normal, vascular exam abnormal capillary refill of all fingers and coolness of the entire hand; radial pulse absent (Able to Doppler) and swelling (Mild) of the dorsal hand; no tenderness and no crepitus Left upper extremity: normal to inspection, shoulder/upper arm normal ROM (FF 130, Abd 125, ER 70, IR T7); no tenderness, no swelling, no ecchymosis and no crepitus and hand normal to inspection and vascular exam abnormal capillary refill Details: of all fingers and coolness Details: of the entire hand; radial pulse absent (Dopplerable) and capillary refill abnormal; abormal capillary refill Right lower extremity: normal
[2020-11-26 11:56] LABS: Glucose Point of Care 153 (65-105)
--- NOTE | 2020-11-26 14:35 | PCPTNOTE ---
The PT treatment was unable to be completed today due to patient refusal. Will continue per Plan of Care frequency and duration.
--- NOTE | 2020-11-26 15:04 | PM.IMPN ---
Progress Note: A&P Assessment and Plan (1) Pulmonary emboli: Qualifiers: Acute cor pulmonale presence: unspecified Chronicity: acute Pulmonary embolism type: unspecified Qualified Code(s): I26.99 - Other pulmonary embolism without acute cor pulmonale Code(s): I26.99 - Other pulmonary embolism without acute cor pulmonale Status: Acute Assessment and Plan: Patient presents with shortness of breath; CTA shows several right segmental pulmonary emboli with low clot burden. Etiology unclear but may be related to sedentary lifestyle. More concerning is a retroperitoneal mass noted on CT cannot exclude malignancy. She was on therapeutic Lovenox since 11/19; Warfarin was only AC option due to cost - started 11/20 and kept on Lovenox for bridge. She developed a large RUE hematoma and Lovenox and warfarin were discontinued. IVC filter would not be of benefit. Resume anticoagulation when able. (2) DVT (deep venous thrombosis): Qualifiers: Affected thrombotic vein of extremity: axillary Chronicity: acute DVT location: upper extremity Laterality: right Qualified Code(s): I82.A11 - Acute embolism and thrombosis of right axillary vein Code(s): I82.409 - Acute embolism and thrombosis of unspecified deep veins of unspecified lower extremity Status: Acute Assessment and Plan: Bilateral LE dopplers 11/20 show no evidence of DVT but RUE Doppler showing Rt axillary DVT; R arm edema related to DVT and intramuscular hematomas and edema is improving. [place] that the right axillary DVT was present on admission. Monitor closely. (3) Hematoma: Code(s): T14.8XXA - Other injury of unspecified body region, initial encounter Status: Acute Assessment and Plan: Large hematoma started over right medial AC region on arrival, now diffuse ecchymosis from R axilla to R wrist and elsewhere. CT shows what appear to be intramuscular hematomas in the Rt bicep in to the right pectoralis minor muscle. Hgb trended down and anticoagulation discontinued. Last dose Lovenox at 0144 11/22/20. Orthopedic surgery consulted given the concern for vascular compromise and concern for compartment syndrome. CK was normal on 11/22 and again on 11/25. Hematoma appears to be improving. Monitor closely. (4) Anemia: Qualifiers: Anemia type: unspecified type Qualified Code(s): D64.9 - Anemia, unspecified Code(s): D64.9 - Anemia, unspecified Status: Acute Assessment and Plan: Hgb 13.6 on admission but with significant decline in Hgb to 6.1 on 11/23. Intramuscular hematomas in R upper arm now extending into the R pec minor based on imaging suspected to be the etiology of the acute blood loss anemia. Patient transfused 2U PRBCs on 11/23 and Hgb improved to 9.7. She refused Hgb at times but Hgb today down to 7.7 but stable. No evidence of further acute blood loss. Monitor CBC as she allows. (5) Depression: Code(s): F32.9 - Major depressive disorder, single episode, unspecified Status: Acute Assessment and Plan: Patient with MDD that is compromising her ability to be cared for. She was educated about the benefits of adhering to medical care. She was encouraged to eat. Zoloft added. Mood stable. Continue to follow. (6) Cardiomyopathy: Qualifiers: Cardiomyopathy type: unspecified Qualified Code(s): I42.9 - Cardiomyopathy, unspecified Code(s): I42.9 - Cardiomyopathy, unspecified Status: Acute Assessment and Plan: Echo 11/19 shows left ventricular systolic dysfunction EF 20-25% which was not known prior. Etiology unclear. She will benefit from ischemic workup with cardiac catheterization which will need to be put off given her acute PE and need for anticoagulatio
[2020-11-26 16:20] LABS: Glucose Point of Care 153 (65-105)
--- NOTE | 2020-11-26 18:04 | PM.PNCARD ---
Progress Note: A&P Assessment and Plan (1) Cardiomyopathy: Qualifiers: Cardiomyopathy type: unspecified Qualified Code(s): I42.9 - Cardiomyopathy, unspecified Code(s): I42.9 - Cardiomyopathy, unspecified Status: Acute Assessment and Plan: New diagnosis, severe LV systolic dysfunction EF 20-25%. Patient compensated at this time. Optimize medical therapy as BP allows. May consider ischemic workup in future (probably a Lexiscan) Patient declines Life Vest, says she does not think she will needed. Has a LBBB. Metoprolol held 2nd low BP, now resumed. Will increase dose. Add low dose Entresto. (2) Type 2 myocardial infarction: Code(s): I21.A1 - Myocardial infarction type 2 Status: Acute Assessment and Plan: Trop flat at 0.059, consistent with type 2 infarction secondary acute pulmonary emboli, and also uncontrolled hypertension, severe LV systolic dysfunction and myocardial strain. Cannot exclude underlying CAD. Eventual Lexiscan. Continue aspirin, statin. Patient has multiple comorbidities and is at high risk for adverse complications given her multiple medical issues. She is aware of this and the dangers she placed upon herself by stopping all her medications. (3) Pulmonary emboli: Qualifiers: Pulmonary embolism type: unspecified Chronicity: acute Acute cor pulmonale presence: unspecified Qualified Code(s): I26.99 - Other pulmonary embolism without acute cor pulmonale Code(s): I26.99 - Other pulmonary embolism without acute cor pulmonale Status: Acute Assessment and Plan: Several pulmonary emboli on CT angiogram of the chest. Systemic anticoagulation initiated but now held secondary to severe anemia, intramuscular hematoma right upper extremity and extensive swelling. No LE DVT but has UE DVTs. (4) Anemia: Qualifiers: Anemia type: unspecified type Qualified Code(s): D64.9 - Anemia, unspecified Code(s): D64.9 - Anemia, unspecified Status: Acute Assessment and Plan: Severe anemia thought to be 2nd extensive ecchymoses and hematomas. No evidence for active GI bleed. Primary service held systemic anticoagulation. Hemoglobin stabilized. (5) Retroperitoneal mass: Code(s): R19.00 - Intra-abdominal and pelvic swelling, mass and lump, unspecified site Status: Acute Assessment and Plan: 3.9 x 2.5 x 2 cm right adrenal mass. Workup underway per hospitalist service. (6) Noncompliance with medication regimen: Code(s): Z91.14 - Patient's other noncompliance with medication regimen Status: Acute Assessment and Plan: Compliance extremely important as previously counseled. H/O depression. Encouraged pt to get out of bed. (7) Hypertension: Qualifiers: Hypertension type: essential hypertension Qualified Code(s): I10 - Essential (primary) hypertension Code(s): I10 - Essential (primary) hypertension Status: Chronic Assessment and Plan: BP at goal currently. Subjective Date/time seen: 11/26/20 18:04 Interval history: Ms. Rodriguez is a 70yo F admitted with new diagnosis severe LV dysfunction EF 20-25%, within LBBB. Elevated troponins, type 2 [place], secondary to pulmonary emboli resulting in systemic anticoagulation started upon admission. The patient then developed significant rapid declining hemoglobin levels resulting in the need to discontinue systemic anticoagulation. Has received blood transfusion for severe anemia. Also noted to have an adrenal mass. 11/24/2020-patient denies chest pain or shortness of breath at rest. She has been refusing medication
[2020-11-26 20:18] LABS: Glucose Point of Care 157 (65-105)
[2020-11-26] MEDS: SACUBITRIL/VALSARTAN 12-13 MG TABLET 1 TAB PO (20:54)
[2020-11-27] VITALS (14 sets, daily range): BP systolic 102–128; BP diastolic 53–69; PULSE 73–84; RESP 12–18; TEMP 36.1–36.6; O2SAT 93–99
[2020-11-27 05:13] LABS: Hematocrit 21.9 % (37.0-47.0); Hemoglobin 7.3 g/dL (12.0-15.0); Mean Corpuscular HGB Conc 33.3 g/dl (32-36); Mean Corpuscular Hemoglobin 29.1 pg (26-34); Mean Corpuscular Volume 87.3 fl (80-100); Mean Platelet Volume 11.4 fl (7.4-10.4); Platelet Count Result 178 k/mm3 (150-375); Red Blood Count 2.51 M/mm3 (4.2-5.4); Red Cell Distribution Width 14.2 % (11.5-14.5); White Blood Count 9.9 K/mm3 (4.5-10.0)
[2020-11-27 05:38] LABS: Albumin Level 2.7 g/dL (3.5-5.1); Anion Gap 4 mmol/L (8-16); Blood Urea Nitrogen 18 mg/dL (7-17); Carbon Dioxide 29 mmol/L (22-30); Chloride 97 mmol/L (98-107); Estimated CRCL calculation 62 ml/min; Estimated Glomerular Filt Rate > 60; Glucose 145 mg/dL (65-105); Phosphorus 2.4 mg/dL (2.5-4.5); Potassium 3.6 mmol/L (3.4-5.0); Sodium 130 mmol/L (137-145)
[2020-11-27] MEDS: LEVOTHYROXINE SODIUM 50 MCG TABLET PO (06:20)
[2020-11-27 08:15] LABS: Glucose Point of Care 151 (65-105)
--- NOTE | 2020-11-27 10:16 | PM.PNCARD ---
Progress Note: A&P Additional Plan 70-year-old lady with: Difficult combination of problems including pulmonary embolism. Significant anemia with hematoma in the right upper extremity as well as upper extremity DVT. She cannot be safely anticoagulated. Patient has significant left ventricular systolic dysfunction this is being treated with beta-ophelia and Entresto at very low doses. She is tolerating the Entresto without any concerning hypotension at all. I would recommend advancing that over the weekend to 24/26 mg unless she becomes hypotensive. Conservative manage of this management of this situation is recommended given her comorbidities and DNR status. Alex Duncan MD [facility] Subjective Date/time seen: Date of service: 11/27/20 10:16 Interval history: Ms. Rodriguez is a 70yo F admitted with new diagnosis severe LV dysfunction EF 20-25%, within LBBB. Elevated troponins, type 2 [place], secondary to pulmonary emboli resulting in systemic anticoagulation started upon admission. The patient then developed significant rapid declining hemoglobin levels resulting in the need to discontinue systemic anticoagulation. Has received blood transfusion for severe anemia. Also noted to have an adrenal mass. 11/24/2020-patient denies chest pain or shortness of breath at rest. She has been refusing medications. 11/25/2020: Patient feels well, just tired. Was up in her chair for a while today. Denies shortness of breath or chest pain. Declined LifeVest. Date of service 11/26/2020: No new problems, tired, did not participate much with physical therapy, has not been out of bed today. Date of service 11/27/2020: Patient lying in bed appears to be comfortable offers no cardiovascular complaints. Exam Narrative: Exam Narrative: Lying supine in bed in no distress, yawning. I suspect some cognitive impairment, but w/ h/o depression it is difficult to determine. Const: General: no acute distress and confusion Orientation/consciousness: confusion HENMT: Mouth: Yes moist mucous membranes Eyes: EOM: EOMs intact bilaterally Neck: Neck: supple and no JVD Resp: Effort & Inspection: normal respiratory effort Auscultation: clear to auscultation bilaterally Cardio: Rate: regular rate Rhythm: regular rhythm Heart sounds: no murmurs GI: Inspection: non-distended Skin: Lesions: lesion noted Other: Large areas of ecchymosis over the left breast, both arms, right upper back etc.. Resolving. Neuro: General: confusion Cognition (Neuro): abnormal cognition (Does not look at me much during our time together, appears disengaged.) Speech: normal speech Extrem: General: no edema and no pedal edema Other: Right upper extremity is softer warm well perfused. Psych: Mental Status: mental status grossly normal (Somewhat withdrawn) Objective Data Vital Signs Vital Signs: Vital Signs - 24 hr 11/26/20 12:00 11/26/20 14:00 11/26/20 16:00 Temperature 36.1 C L 36.6 C Pulse Rate 76 78 80 Respiratory Rate 12 12 Blood Pressure 124/58 L 131/63 Pulse Oximetry 98 95 11/26/20 18:00 11/26/20 19:42 11/26/20 19:54 Temperature 36.7 C Pulse Rate 84 81 Respiratory Rate 12 Blood Pressure 117/59 L Pulse Oximetry 95 95 11/26/20 20:00 11/26/20 22:00 11/27/20 00:00 Temperature 36.3 C L Pulse Rate 82 82 80 Respiratory Rate 12 16 Blood Pressure 128/62 Pulse Oximetry 95 97 11/27/20 02:00 11/27/20 04:00 11/27/20 05:46 Temperature 36.1 C L Pulse Rate 84 80 79 Respiratory Rate 18 Blood Pressure 110/56 L Pulse Oximetry 95 11/27/20 08:00 Temperature 36.6 C Pulse Rate 83 Respiratory Rate 12 Blood Pressure 113/61 Pulse Oximetry 96 Intake/Output Intake/Output: Intake & Output 11/24/20 11/25/20 11/26/20 11/27/20 23:59 23:59 23:59 23:59 Intake Total 50 100 Output Total 1575 400 275 200 [facility] -[phone] -350 -275 -100 Meds/Results Medications: Active Medications Generic Name Dose Route Start Last A
[2020-11-27] MEDS: SERTRALINE HCL 25 MG TABLET PO (10:19)
[2020-11-27] MEDS: SACUBITRIL/VALSARTAN 12-13 MG TABLET 1 TAB PO ×2 (10:20→20:30)
[2020-11-27] MEDS: ATORVASTATIN 20 MG TABLET PO (10:20)
[2020-11-27] MEDS: FERROUS SULFATE 324 MG TABLET PO (10:20)
[2020-11-27] MEDS: PANTOPRAZOLE 40 MG TABLET PO (10:20)
[2020-11-27] MEDS: MAGNESIUM OXIDE 200 MG TABLET PO ×2 (10:20→20:30)
--- NOTE | 2020-11-27 11:31 | P.PNIM_ITS ---
Progress Note: A&P Assessment and Plan (1) Pulmonary emboli: Qualifiers: Acute cor pulmonale presence: unspecified Chronicity: acute Pulmonary embolism type: unspecified Qualified Code(s): I26.99 - Other pulmonary embolism without acute cor pulmonale Code(s): I26.99 - Other pulmonary embolism without acute cor pulmonale Status: Acute Assessment and Plan: Patient presents with shortness of breath; CTA shows several right segmental pulmonary emboli with low clot burden. Etiology unclear but may be related to sedentary lifestyle. More concerning is a retroperitoneal mass noted on CT cannot exclude malignancy. She was on therapeutic Lovenox. Warfarin was only AC option due to cost - started 11/20 and kept on Lovenox for bridge. She developed a large RUE hematoma and Lovenox and warfarin were discontinued. Resume anticoagulation when able. (2) DVT (deep venous thrombosis): Qualifiers: Affected thrombotic vein of extremity: axillary Chronicity: acute DVT location: upper extremity Laterality: right Qualified Code(s): I82.A11 - Acute embolism and thrombosis of right axillary vein Code(s): I82.409 - Acute embolism and thrombosis of unspecified deep veins of unspecified lower extremity Status: Acute Assessment and Plan: Bilateral LE dopplers 11/20 show no evidence of DVT but RUE Doppler showing Rt axillary DVT. [place] that the right axillary DVT was present on admission. Right arm edema related to DVT and intramuscular hematomas and edema is improving. Monitor closely. (3) Hematoma: Code(s): T14.8XXA - Other injury of unspecified body region, initial encounter Status: Acute Assessment and Plan: Large hematoma started over right medial AC region , now diffuse ecchymosis. CT shows what appear to be intramuscular hematomas in the Rt bicep tracking into the right pectoralis minor muscle. Hgb trended down and anticoagulation discontinued. Last dose Lovenox at 0144 11/22/20. Orthopedic surgery consulted given the concern for vascular compromise and concern for compartment syndrome. CK was normal on 11/22 and again on 11/25. Hematoma appears to be improving. Monitor closely. (4) Anemia: Qualifiers: Anemia type: unspecified type Qualified Code(s): D64.9 - Anemia, unspecified Code(s): D64.9 - Anemia, unspecified Status: Acute Assessment and Plan: Hgb 13.6 on admission but with significant decline in Hgb to 6.1 on 11/23. Intramuscular hematomas in R upper arm now extending into the R pec minor based on imaging suspected to be the etiology of the acute blood loss anemia. Patient transfused 2U PRBCs on 11/23 and Hgb improved to 9.7. She refused Hgb at times but Hgb today down to 7.3. No clinical evidence of further acute blood loss. Monitor CBC as she allows. Repeat HH today. Repeat Hgb 8.1. (5) Depression: Code(s): F32.9 - Major depressive disorder, single episode, unspecified Status: Acute Assessment and Plan: Patient with MDD that is compromising her ability to be cared for. She was educated about the benefits of adhering to medical care. She was encouraged to eat. Zoloft added. Mood stable. Continue to follow. (6) Cardiomyopathy: Qualifiers: Cardiomyopathy type: unspecified Qualified Code(s): I42.9 - Cardiomy opathy, unspecified Code(s): I42.9 - Cardiomyopathy, unspecified Status: Acute
--- NOTE | 2020-11-27 11:37 | PCDIET ---
Nutrition Follow-Up Complete: Nutrition Diagnosis: Inadequate oral intake related to meal refusal as evidenced by intake of 0% of meals for several days. Nutrition Goal: Patient to consume 50% of meals/supplements or greater. Goal not met. Patient does not care for the food or supplements provided. Does have outside food in room which she reports eating at times but indicates overall appetite is poor. Agreeable to try alternate supplement. Recommend change to Ensure Clear (240kcal, 8g protein) twice daily and Frozen Nutritional Treat (300kcal, 9g protein) once daily. Recommend consideration of NG placement for supplemental nutrition support. If patient refuses, would consider PPN. Last recorded weight is 78.2 kg which is slightly down from last review. Bowel Motility: No BM documented, though patient denies GI c/o. Labs Reviewed: Hgb (7.3), Hct (21.9), Glu (145), Na (130), Alb (2.7), PO4 (2.4) Meds Noted: Lipitor, Synthroid, Rocephin, Cozaar, Ferrous Sulfate, Glucophage, Protonix Additional Notes: No documented skin breakdown. Will continue to monitor with same goal. Nutrition Monitoring and Evaluation: Follow up in 3 days.
--- NOTE | 2020-11-27 11:53 | PM.PNORT ---
Progress Note: A&P Assessment and Plan (1) Traumatic hematoma of right upper arm: Qualifiers: Encounter type: initial encounter Qualified Code(s): S40.021A - Contusion of right upper arm, initial encounter Code(s): S40.021A - Contusion of right upper arm, initial encounter Status: Acute Assessment and Plan: Continued improvement right arm edema and swelling. Palpable radial pulses and RUE warm to touch. Now able to make complete fist. Continue conservative care at this time with elevation/ice and careful observation. No concerns for compartment syndrome at this time, however she remains at risk. Subjective Subjective Date/Time Seen: 11/27/20 11:53 No new complaints. Sitting up in bed, eating breakfast. Review of Systems Constitutional: Constitutional: Denies chills, Reports fatigue and Denies night sweats Eyes: Eyes: Reports no additional eye complaints Cardiovascular: Cardiovascular: Denies chest pain, Denies pedal edema, Denies leg edema, Denies lightheadedness and Denies palpitations Respiratory: Respiratory: Denies cough, Denies dyspnea and Denies dyspnea on exertion Gastrointestinal: Gastrointestinal: Denies abdominal pain, Denies nausea and Denies vomiting Genitourinary: Genitourinary: Denies hematuria Musculoskeletal: Musculoskeletal: Reports as per HPI Integumentary/Breasts: Skin/Breast: Reports erythema (Areas of ecchymoses and hematomas) Neurologic: Reports system reviewed and no additional complaints, except as documented Exam Const: General: healthy appearing; No in distress or confusion Orientation/consciousness: oriented to person, oriented to place, oriented to time and No confusion HENMT: Head: normal to inspection, normocephalic and atraumatic Eyes: Conjunctivae: conjunctivae normal Sclera: sclerae normal Neck: Neck: supple and nontender Resp: Effort & Inspection: normal respiratory effort and no audible wheezes Cardio: Rate: regular rate Rhythm: regular rhythm Skin: General skin exam: no rashes or lesions noted Neuro: General: oriented to person, oriented to place, oriented to time and No confusion Extrem: Right upper extremity: shoulder/upper arm tenderness over the biceps tendon (Biceps musculature), axillary nerve sensory function normal, abnormal ROM (Active FF 60, ABd 60, ER 10, IR 5, passive forward flexion and 90?, abduction 90?, external rotation 30? with tenderness at the shoulder) pain with active ROM in ABduction, in flexion and in internal rotation and pain with passive ROM with internal rotation and external rotation- and other (RC 4/5, Bicep 4/5, Deltoid 5-/5, ER 4/5), elbow/forearm tenderness of the antecubital fossa, swelling of the antecubital fossa (Moderate) and of the medial epicondyle and abnormal ROM (Active flexion and extension 45? to 90?. Passive motion 10? to 100? without tenderness), wrist normal ROM; no tenderness and Extremity exam: right hand neuromotor exam normal wrist extension normal, thumb opposition normal, thumb IP flexion normal and fingers 2-5 ABduction normal, neurosensory exam normal radial nerve sensory function normal, ulnar nerve sensory function normal, median nerve sensory function normal and digital nerve sensory function normal, vascular exam abnormal capillary refill of all fingers and coolness of the entire hand; radial pulse absent (Able to Doppler) and swelling (Mild) of the dorsal hand; no tenderness and no crepitus Left upper extremity: normal to inspection, shoulder/upper arm normal ROM (FF 130, Abd 125, ER 70, IR T7); no tenderness, no swelling, no ecchymosis and no crepitus and hand normal to inspection and vascular exam abnormal capillary refill Details: of all fingers and coolness Details: of the entire hand; radial pulse absent (Dopplerable) and capillary refill abnormal; abormal capillary refill Right lower extremity: normal to inspection Left lower extremity: normal to inspection Other: Swelling of the righ
[2020-11-27 12:40] LABS: Hematocrit 24.8 % (37.0-47.0); Hemoglobin 8.1 g/dL (12.0-15.0)
[2020-11-27 12:57] LABS: Glucose Point of Care 178 (65-105)
[2020-11-27] MEDS: METOPROLOL SUCCINATE EXT REL 25 MG TABCR PO (14:25)
--- NOTE | 2020-11-27 15:14 | PCOTNOTE ---
Attempted to see Patient at this time. Patient sleeping upon arrival. Patient was aroused, looked at therapist and stated, who are you, I'm not getting up, I need rest thats why I'm here . Patient refused to perform any functional activity at this time.
[2020-11-27 16:19] LABS: Glucose Point of Care 181 (65-105)
[2020-11-27] MEDS: IRON SUCROSE COMPLEX 100 MG in SODIUM CHLORIDE 0.9% IV 50 ML 220 MG IVPB (20:31)
[2020-11-27 20:59] LABS: Glucose Point of Care 171 (65-105)
[2020-11-28] VITALS (14 sets, daily range): BP systolic 101–118; BP diastolic 50–75; PULSE 65–76; RESP 14–18; TEMP 35.9–36.6; O2SAT 95–100
[2020-11-28 05:11] LABS: Basophils Percent Auto 0.1 % (0.2-1.2); Hematocrit 22.2 % (37.0-47.0); Hemoglobin 7.3 g/dL (12.0-15.0); Immature Granulocyte Absolute 0.17 K/mm3 (0.00-0.031); Immature Granulocyte Percent A 1.7 % (0-0.5); Lymphocytes Absolute Auto 0.96 K/mm3 (0.9-3.2); Lymphocytes Percent Auto 9.4 % (18.3-44.2); Mean Corpuscular HGB Conc 32.9 g/dl (32-36); Mean Corpuscular Hemoglobin 28.9 pg (26-34); Mean Corpuscular Volume 87.7 fl (80-100); Mean Platelet Volume 11.4 fl (7.4-10.4); Neutrophils Percent Auto 78.8 % (45.5-73.1); Nucleated Red Blood Cells Perc 0.3 % (0.0-0.2); Platelet Count Result 222 k/mm3 (150-375); Red Blood Count 2.53 M/mm3 (4.2-5.4); Red Cell Distribution Width 14.3 % (11.5-14.5); White Blood Count 10.2 K/mm3 (4.5-10.0)
[2020-11-28 05:20] LABS: Alanine Aminotransferase 16 U/L (4-35); Albumin Level 2.6 g/dL (3.5-5.1); Alkaline Phosphatase 132 U/L (38-126); Anion Gap 2 mmol/L (8-16); Aspartate Amino Transferase 20 U/L (14-36); Bilirubin,Total 1.9 mg/dL (0.2-1.3); Blood Urea Nitrogen 18 mg/dL (7-17); Calcium 7.9 mg/dL (8.4-10.2); Carbon Dioxide 30 mmol/L (22-30); Chloride 97 mmol/L (98-107); Estimated CRCL calculation 62 ml/min; Estimated Glomerular Filt Rate > 60; Glucose 145 mg/dL (65-105); Magnesium 2.1 mg/dL (1.6-2.3); Phosphorus 2.6 mg/dL (2.5-4.5); Potassium 3.6 mmol/L (3.4-5.0); Sodium 129 mmol/L (137-145)
[2020-11-28] MEDS: LEVOTHYROXINE SODIUM 50 MCG TABLET PO (06:05)
[2020-11-28 08:19] LABS: Glucose Point of Care 147 (65-105)
[2020-11-28] MEDS: SACUBITRIL/VALSARTAN 12-13 MG TABLET 1 TAB PO (08:42)
[2020-11-28] MEDS: ATORVASTATIN 20 MG TABLET PO (08:42)
[2020-11-28] MEDS: SERTRALINE HCL 25 MG TABLET PO (08:42)
[2020-11-28] MEDS: MAGNESIUM OXIDE 200 MG TABLET PO ×2 (08:43→21:47)
[2020-11-28] MEDS: FERROUS SULFATE 324 MG TABLET PO (08:43)
[2020-11-28] MEDS: METOPROLOL SUCCINATE EXT REL 25 MG TABCR PO (08:43)
[2020-11-28] MEDS: PANTOPRAZOLE 40 MG TABLET PO (08:43)
[2020-11-28] MEDS: ASPIRIN 81 MG CHEWABLE TABLET PO (08:48)
[2020-11-28 12:44] LABS: Glucose Point of Care 186 (65-105)
--- NOTE | 2020-11-28 13:03 | PM.PNCARD ---
Progress Note: A&P Assessment and Plan (1) Cardiomyopathy: Qualifiers: Cardiomyopathy type: unspecified Qualified Code(s): I42.9 - Cardiomyopathy, unspecified Code(s): I42.9 - Cardiomyopathy, unspecified Status: Acute Assessment and Plan: New diagnosis, severe LV systolic dysfunction EF 20-25%. Patient compensated at this time. Optimize medical therapy as BP allows. May consider ischemic workup in future (probably a Lexiscan) Patient declines Life Vest, says she does not think she will needed. Has a LBBB. Blood pressure is tolerating metoprolol 25 mg daily and Entresto 12/13 mg Q 12. Will increase the Entresto dose to 24/26 mg BID. (2) Type 2 myocardial infarction: Code(s): I21.A1 - Myocardial infarction type 2 Status: Acute Assessment and Plan: Trop flat at 0.059, consistent with type 2 infarction secondary acute pulmonary emboli, and also uncontrolled hypertension, severe LV systolic dysfunction and myocardial strain. Cannot exclude underlying CAD. Eventual Lexiscan. Continue aspirin, statin. Patient has multiple comorbidities and is at high risk for adverse complications given her multiple medical issues. (3) Pulmonary emboli: Qualifiers: Acute cor pulmonale presence: unspecified Chronicity: acute Pulmonary embolism type: unspecified Qualified Code(s): I26.99 - Other pulmonary embolism without acute cor pulmonale Code(s): I26.99 - Other pulmonary embolism without acute cor pulmonale Status: Acute Assessment and Plan: Several pulmonary emboli on CT angiogram of the chest. Systemic anticoagulation initiated but now held secondary to severe anemia, intramuscular hematoma right upper extremity and extensive swelling. No LE DVT but has UE DVTs. (4) Anemia: Qualifiers: Anemia type: unspecified type Qualified Code(s): D64.9 - Anemia, unspecified Code(s): D64.9 - Anemia, unspecified Status: Acute Assessment and Plan: Severe anemia thought to be 2nd extensive ecchymoses and hematomas. No evidence for active GI bleed. Primary service held systemic anticoagulation. Hemoglobin stabilized. (5) Retroperitoneal mass: Code(s): R19.00 - Intra-abdominal and pelvic swelling, mass and lump, unspecified site Status: Acute Assessment and Plan: 3.9 x 2.5 x 2 cm right adrenal mass. Workup underway per hospitalist service. (6) Noncompliance with medication regimen: Code(s): Z91.14 - Patient's other noncompliance with medication regimen Status: Acute Assessment and Plan: Compliance extremely important as previously counseled. H/O depression. Encouraged pt to get out of bed. (7) Hypertension: Qualifiers: Hypertension type: essential hypertension Qualified Code(s): I10 - Essential (primary) hypertension Code(s): I10 - Essential (primary) hypertension Status: Chronic Assessment and Plan: BP at goal currently. Subjective Date/time seen: 11/28/20 13:03 Interval history: Ms. Rodriguez is a 70yo F admitted with new diagnosis severe LV dysfunction EF 20-25%, within LBBB. Elevated troponins, type 2 IN, secondary to pulmonary emboli resulting in systemic anticoagulation started upon admission. The patient then developed significant rapid declining hemoglobin levels resulting in the need to discontinue systemic anticoagulation. Has received blood transfusion for severe anemia. Also noted to have an adrenal mass. 11/24/2020-patient denies chest pain or shortness of breath at rest. She has been refusing medications. 11/25/2020: Patient feels well, just tire
--- NOTE | 2020-11-28 14:28 | PM.IMPN ---
Progress Note: A&P Assessment and Plan (1) Pulmonary emboli: Qualifiers: Acute cor pulmonale presence: unspecified Chronicity: acute Pulmonary embolism type: unspecified Qualified Code(s): I26.99 - Other pulmonary embolism without acute cor pulmonale Code(s): I26.99 - Other pulmonary embolism without acute cor pulmonale Status: Acute Assessment and Plan: Patient presents with shortness of breath; CTA shows several right segmental pulmonary emboli with low clot burden. Etiology unclear but may be related to sedentary lifestyle. More concerning is a retroperitoneal mass noted on CT cannot exclude malignancy. She was on therapeutic Lovenox. Warfarin was only AC option due to cost - started 11/20 and kept on Lovenox for bridge. She developed a large RUE hematoma and Lovenox and warfarin were discontinued. Resume anticoagulation when able. (2) DVT (deep venous thrombosis): Qualifiers: Affected thrombotic vein of extremity: axillary Chronicity: acute DVT location: upper extremity Laterality: right Qualified Code(s): I82.A11 - Acute embolism and thrombosis of right axillary vein Code(s): I82.409 - Acute embolism and thrombosis of unspecified deep veins of unspecified lower extremity Status: Acute Assessment and Plan: Bilateral LE dopplers 11/20 show no evidence of DVT but RUE Doppler showing Rt axillary DVT. [place] that the right axillary DVT was present on admission. Right arm edema related to DVT and intramuscular hematomas and edema is improving. Monitor closely. (3) Hematoma: Code(s): T14.8XXA - Other injury of unspecified body region, initial encounter Status: Acute Assessment and Plan: Large hematoma started over right medial AC region , now diffuse ecchymosis. CT shows what appear to be intramuscular hematomas in the Rt bicep tracking into the right pectoralis minor muscle. Hgb trended down and anticoagulation discontinued. Last dose Lovenox at 0144 11/22/20. Orthopedic surgery consulted given the concern for vascular compromise and concern for compartment syndrome. CK was normal on 11/22 and again on 11/25. Hematoma appears to be improving. Monitor closely. ASA resumed. (4) Anemia: Qualifiers: Anemia type: unspecified type Qualified Code(s): D64.9 - Anemia, unspecified Code(s): D64.9 - Anemia, unspecified Status: Acute Assessment and Plan: Hgb 13.6 on admission but with significant decline in Hgb to 6.1 on 11/23. Intramuscular hematomas in R upper arm now extending into the R pec minor based on imaging suspected to be the etiology of the acute blood loss anemia. Patient transfused 2U PRBCs on 11/23 and Hgb improved to 9.7. She refused Hgb at times but Hgb today down to 7.3. No clinical evidence of further acute blood loss. Monitor CBC as she allows. Repeat HH today. Patient refused repeat HH. (5) Depression: Code(s): F32.9 - Major depressive disorder, single episode, unspecified Status: Acute Assessment and Plan: Patient with MDD that is compromising her ability to be cared for. She was educated about the benefits of adhering to medical care. She was encouraged to eat. Zoloft added. Mood stable. Continue to follow. (6) Cardiomyopathy: Qualifiers: Cardiomyopathy type: unspecified Qualified Code(s): I42.9 - Cardiomyopathy, unspecified Code(s): I42.9 - Cardiomyopathy, unspecified Status: Acute Assessment and Plan: Echo 11/19 shows left ventricular systolic dysfunction EF 20-25% which was not known prior. Etiology unclear. She will benefit from ischemic workup with cardiac catheterization which will need to be put off given her acute PE and need for anticoagulation. Optimize medical manag
--- NOTE | 2020-11-28 15:57 | PC.NURSE ---
Patient refused the PICC Insertion and continues to refuse RN's to obtain IV access.
[2020-11-28 17:25] LABS: Glucose Point of Care 213 (65-105)
[2020-11-28] MEDS: INSULIN ASPART (*BKC) 100 UNITS/ML SUB-Q (18:25)
[2020-11-28] MEDS: IRON SUCROSE COMPLEX 100 MG in SODIUM CHLORIDE 0.9% IV 50 ML 75 MG IVPB (18:26)
[2020-11-28 20:14] LABS: Glucose Point of Care 187 (65-105)
[2020-11-28] MEDS: SACUBITRIL/VALSARTAN 24-26 MG TABLET 1 TAB PO (21:47)
[2020-11-29] VITALS (21 sets, daily range): BP systolic 98–117; BP diastolic 61–77; PULSE 65–86; RESP 14–18; TEMP 35.9–36.8; O2SAT 95–100
[2020-11-29 03:55] LABS: Hematocrit 22.6 % (37.0-47.0); Hemoglobin 7.4 g/dL (12.0-15.0); Mean Corpuscular HGB Conc 32.7 g/dl (32-36); Mean Corpuscular Hemoglobin 28.6 pg (26-34); Mean Corpuscular Volume 87.3 fl (80-100); Mean Platelet Volume 11.2 fl (7.4-10.4); Platelet Count Result 256 k/mm3 (150-375); Red Blood Count 2.59 M/mm3 (4.2-5.4); Red Cell Distribution Width 14.6 % (11.5-14.5); White Blood Count 9.5 K/mm3 (4.5-10.0)
[2020-11-29 04:13] LABS: Anion Gap 2 mmol/L (8-16); Blood Urea Nitrogen 19 mg/dL (7-17); Calcium 8.4 mg/dL (8.4-10.2); Carbon Dioxide 31 mmol/L (22-30); Chloride 98 mmol/L (98-107); Estimated CRCL calculation 61 ml/min; Estimated Glomerular Filt Rate > 60; Glucose 196 mg/dL (65-105); Potassium 3.4 mmol/L (3.4-5.0); Sodium 131 mmol/L (137-145)
[2020-11-29] MEDS: LEVOTHYROXINE SODIUM 50 MCG TABLET PO (05:42)
[2020-11-29 08:08] LABS: Glucose Point of Care 200 (65-105)
[2020-11-29] MEDS: POTASSIUM CHLORIDE 20 MEQ TABLET 40 MEQ PO (08:43)
[2020-11-29] MEDS: ASPIRIN 81 MG CHEWABLE TABLET PO (08:43)
[2020-11-29] MEDS: METOPROLOL SUCCINATE EXT REL 25 MG TABCR PO (08:44)
[2020-11-29] MEDS: FERROUS SULFATE 324 MG TABLET PO (08:44)
[2020-11-29] MEDS: SACUBITRIL/VALSARTAN 24-26 MG TABLET 1 TAB PO ×2 (08:44→21:25)
[2020-11-29] MEDS: SERTRALINE HCL 25 MG TABLET PO (08:45)
[2020-11-29] MEDS: ATORVASTATIN 20 MG TABLET PO (08:45)
[2020-11-29] MEDS: MAGNESIUM OXIDE 200 MG TABLET PO ×2 (08:46→21:25)
[2020-11-29] MEDS: IRON SUCROSE COMPLEX 100 MG in SODIUM CHLORIDE 0.9% IV 50 ML 220 MG IVPB (08:48)
--- NOTE | 2020-11-29 09:55 | PCPTNOTE ---
Attempted to see patient for PT, however patient refused. Patient reported she's too tired and was up to long, attempted to encourage patient to participate, patient continued to refuse.
[2020-11-29 12:42] LABS: Glucose Point of Care 248 (65-105)
[2020-11-29] MEDS: INSULIN ASPART (*BKC) 100 UNITS/ML SUB-Q (13:49)
--- NOTE | 2020-11-29 14:17 | PM.IMPN ---
Progress Note: A&P Assessment and Plan (1) Pulmonary emboli: Qualifiers: Acute cor pulmonale presence: unspecified Chronicity: acute Pulmonary embolism type: unspecified Qualified Code(s): I26.99 - Other pulmonary embolism without acute cor pulmonale Code(s): I26.99 - Other pulmonary embolism without acute cor pulmonale Status: Acute Assessment and Plan: Patient presents with shortness of breath; CTA shows several right segmental pulmonary emboli with low clot burden. Etiology unclear but may be related to sedentary lifestyle. She was on therapeutic Lovenox. Warfarin was only AC option due to cost - started 11/20 and kept on Lovenox for bridge. She developed a large RUE hematoma and Lovenox and warfarin were discontinued. Resume anticoagulation when okay with Ortho. (2) DVT (deep venous thrombosis): Qualifiers: Affected thrombotic vein of extremity: axillary Chronicity: acute DVT location: upper extremity Laterality: right Qualified Code(s): I82.A11 - Acute embolism and thrombosis of right axillary vein Code(s): I82.409 - Acute embolism and thrombosis of unspecified deep veins of unspecified lower extremity Status: Acute Assessment and Plan: Bilateral LE dopplers 11/20 show no evidence of DVT but RUE Doppler showing Rt axillary DVT. [place] that the right axillary DVT was present on admission. Right arm edema related to DVT and intramuscular hematomas and edema is improving. Monitor closely. (3) Hematoma: Code(s): T14.8XXA - Other injury of unspecified body region, initial encounter Status: Acute Assessment and Plan: Large hematoma started over right medial AC region , now diffuse ecchymosis. CT shows what appear to be intramuscular hematomas in the Rt bicep tracking into the right pectoralis minor muscle. Hgb trended down and anticoagulation discontinued. Last dose Lovenox on 11/22. Orthopedic surgery consulted given the concern for vascular compromise and concern for compartment syndrome. CK was normal on 11/22 and again on 11/25. Hematoma appears to be improving. Monitor closely. Tolerating ASA. (4) Anemia: Qualifiers: Anemia type: unspecified type Qualified Code(s): D64.9 - Anemia, unspecified Code(s): D64.9 - Anemia, unspecified Status: Acute Assessment and Plan: Hgb 13.6 on admission but with significant decline in Hgb to 6.1 on 11/23. Intramuscular hematomas in R upper arm now extending into the R pec minor based on imaging suspected to be the etiology of the acute blood loss anemia. Patient transfused 2U PRBCs on 11/23 and Hgb improved to 9.7. She refused Hgb at times but Hgb running mostly in the 7 range. No clinical evidence of further acute blood loss. Will transfuse 1U given her CMP. Monitor CBC as she allows. Continue IV iron. (5) Depression: Code(s): F32.9 - Major depressive disorder, single episode, unspecified Status: Acute Assessment and Plan: Patient with MDD that is compromising her ability to be cared for. She was educated about the benefits of adhering to medical care. She states that she is eating but nutrition states patient will need NGT for feedings. Supplements have been ordered. We added Zoloft with some mild benefit in her mood. Add Remeron for appetite stimulation. Continue to follow. (6) Cardiomyopathy: Qualifiers: Cardiomyopathy type: unspecified Qualified Code(s): I42.9 - Cardiomyopathy, unspecified Code(s): I42.9 - Cardiomyopathy, unspecified Status: Acute Assessment and Plan: Echo 11/19 shows left ventricular systolic dysfunction EF 20-25% which was not known prior. Etiology unclear. She will benefit from ischemi
--- NOTE | 2020-11-29 15:26 | PM.PNCARD ---
Progress Note: A&P Assessment and Plan (1) Cardiomyopathy: Qualifiers: Cardiomyopathy type: unspecified Qualified Code(s): I42.9 - Cardiomyopathy, unspecified Code(s): I42.9 - Cardiomyopathy, unspecified Status: Acute Assessment and Plan: New diagnosis of cardiomyopathy with severe LV systolic dysfunction EF 20-25%. Patient compensated at this time. Optimize medical therapy as BP allows. May consider ischemic workup in future (probably a Lexiscan) Patient declines Life Vest, says she does not think she will need it. Has a LBBB. Tolerating metoprolol 25 mg daily and Entresto increased to 24/26 mg BID 11/28/2020 with stable BP. (2) Type 2 myocardial infarction: Code(s): I21.A1 - Myocardial infarction type 2 Status: Acute Assessment and Plan: Trop flat at 0.059, consistent with type 2 infarction secondary acute pulmonary emboli, and also uncontrolled hypertension, severe LV systolic dysfunction and myocardial strain. Cannot exclude underlying CAD. Eventual Lexiscan. Continue aspirin, statin. Patient has multiple comorbidities and is at high risk for adverse complications given her multiple medical issues. (3) Pulmonary emboli: Qualifiers: Pulmonary embolism type: unspecified Chronicity: acute Acute cor pulmonale presence: unspecified Qualified Code(s): I26.99 - Other pulmonary embolism without acute cor pulmonale Code(s): I26.99 - Other pulmonary embolism without acute cor pulmonale Status: Acute Assessment and Plan: Several pulmonary emboli on CT angiogram of the chest. Systemic anticoagulation initiated but now held secondary to severe anemia, intramuscular hematoma right upper extremity and extensive swelling. No LE DVT but has UE DVTs. No further SOB or CP. (4) Anemia: Qualifiers: Anemia type: unspecified type Qualified Code(s): D64.9 - Anemia, unspecified Code(s): D64.9 - Anemia, unspecified Status: Acute Assessment and Plan: Severe anemia thought to be 2nd extensive ecchymoses and hematomas. No evidence for active GI bleed. Primary service held systemic anticoagulation. Hemoglobin stabilized. (5) Retroperitoneal mass: Code(s): R19.00 - Intra-abdominal and pelvic swelling, mass and lump, unspecified site Status: Acute Assessment and Plan: 3.9 x 2.5 x 2 cm right adrenal mass. Workup underway per hospitalist service. (6) Hypertension: Qualifiers: Hypertension type: essential hypertension Qualified Code(s): I10 - Essential (primary) hypertension Code(s): I10 - Essential (primary) hypertension Status: Chronic Assessment and Plan: BP at goal currently. Subjective Date/time seen: 11/29/20 15:26 Interval history: Ms. Rodriguez is a 70yo F admitted with new diagnosis severe LV dysfunction EF 20-25%, within LBBB. Also elevated troponins, type 2 [place], secondary to pulmonary emboli resulting in systemic anticoagulation started upon admission. The patient then developed significant rapid declining hemoglobin levels resulting in the need to discontinue systemic anticoagulation. Has received blood transfusion for severe anemia. Noted to have an adrenal mass. 11/24/2020: patient denies chest pain or shortness of breath at rest. She has been refusing medications. 11/25/2020: Patient feels well, just tired. Was up in her chair for a while today. Denies shortness of breath or chest pain. Declined LifeVest. 11/26/2020: No new problems, tired, did not participate much with physical therapy, has not been out of bed today. 11/27/2020: Patient lying in bed appears to be comfortable offers no cardiov
[2020-11-29] MEDS: SODIUM CHLORIDE 0.9% IV 250 ML 30 ML IV CONT (15:50)
[2020-11-29] MEDS: TUBING, BLOOD PLUM PUMP TUBING 1 EACH XX (15:59)
--- NOTE | 2020-11-29 20:58 | PC.NURSE ---
This patient, Koko Rodriguez, was received from [[facility] ] on 11/29/20 at 2050. Patient/family oriented to unit policies and routines
[2020-11-29] MEDS: MIRTAZAPINE 7.5 MG TABLET PO (21:25)
--- NOTE | 2020-11-29 21:28 | PC.NURSE ---
This patient, Koko Rodriguez, was transferred to [ ] on 11/29/20 at 2128. Personal belongings sent with patient. Report given to [ ]. Appropriate documentation sent with patient. Report given to Sulma HOPPER transferred at approx [phone]
[2020-11-29 22:05] LABS: Glucose Point of Care 208 (65-105)
[2020-11-30] VITALS (8 sets, daily range): BP systolic 122–145; BP diastolic 73–83; PULSE 70–82; RESP 12–16; TEMP 36.1–36.2; O2SAT 95–96
[2020-11-30] MEDS: LEVOTHYROXINE SODIUM 50 MCG TABLET PO (05:46)
[2020-11-30 06:16] LABS: Hematocrit 27.8 % (37.0-47.0); Hemoglobin 9.1 g/dL (12.0-15.0); Mean Corpuscular HGB Conc 32.7 g/dl (32-36); Mean Corpuscular Hemoglobin 28.2 pg (26-34); Mean Corpuscular Volume 86.1 fl (80-100); Mean Platelet Volume 11.4 fl (7.4-10.4); Platelet Count Result 300 k/mm3 (150-375); Red Blood Count 3.23 M/mm3 (4.2-5.4); Red Cell Distribution Width 15.1 % (11.5-14.5); White Blood Count 9.7 K/mm3 (4.5-10.0)
[2020-11-30 06:30] LABS: Anion Gap 2 mmol/L (8-16); Blood Urea Nitrogen 19 mg/dL (7-17); Calcium 8.1 mg/dL (8.4-10.2); Carbon Dioxide 30 mmol/L (22-30); Chloride 101 mmol/L (98-107); Estimated CRCL calculation 54 ml/min; Estimated Glomerular Filt Rate > 60; Glucose 191 mg/dL (65-105); Magnesium 2.2 mg/dL (1.6-2.3); Potassium 4.4 mmol/L (3.4-5.0); Sodium 133 mmol/L (137-145)
[2020-11-30 08:33] LABS: Glucose Point of Care 179 (65-105)
[2020-11-30] MEDS: IRON SUCROSE COMPLEX 100 MG in SODIUM CHLORIDE 0.9% IV 50 ML 220 MG IVPB (10:04)
--- NOTE | 2020-11-30 10:18 | PC.NURSE ---
Pt refusing morning medications. Family at beside. Could not even be encouraged to take them. Agreed to iron infusion only. Education on the need and necessity to take medications to get well.
--- NOTE | 2020-11-30 11:18 | PCNFU ---
Nutrition Follow-Up Complete: Inadequate oral intake related to meal refusal as evidenced by intake of 0% of meals for several days. Goal: Patient to consume 50% of meals/supplements or greater. Limited progress toward goal. We will continue current goal. Pt current nutrition is diabetic diet. Patient is receiving Ensure Clear and Frozen Nutritional Treat. Last recorded weight is 78.8 kg. Bowel Motility: + BM reported on 11/29 Labs Reviewed: Hgb 9.1, Hct 27.8, Na 133, K 4.4, Glu 191 Meds Noted: Lipitor, novolog, Mag-ox, Metformin, zoloft, sacubritril/valsartan, synthroid, iron, potassium phosphate, aspirin, ferrous sulfate, toprol xl. Additional Notes: Nutrition follow up. Nursing reports that patient is refusing all meals. Spoke with patient today and encouraged PO intake. Agree with diet orders. Monitoring: Follow up in 3 days.
[2020-11-30 12:24] LABS: Glucose Point of Care 280 (65-105)
--- NOTE | 2020-11-30 12:33 | PCNSR ---
On 11/30/20, the student, Jennifer Love, provided care and completed [facility] documentation on this patient. I have reviewed the student's documentation and agree with the findings.
--- NOTE | 2020-11-30 14:12 | PCPTNOTE ---
The PT treatment was unable to be completed today due to patient refusal. Will continue per Plan of Care frequency and duration.
--- NOTE | 2020-11-30 16:31 | PM.PNCARD ---
Progress Note: A&P Additional Plan 70-year-old white female with: Left ventricular systolic dysfunction and atrial fibrillation clinically stable on the above medical regimen there will be no adjustments made today. The patient is high risk for systemic anticoagulation based on the circumstances with which she was admitted. Obviously she also was at high risk for withholding anticoagulation since she has upper extremity DVT and PE. No additional cardiac recommendations today. Alex Duncan MD [facility] Subjective Date/time seen: Date of service: 11/30/20 16:31 Interval history: Ms. Rodriguez is a 70yo F admitted with new diagnosis severe LV dysfunction EF 20-25%, within LBBB. Also elevated troponins, type 2 [place], secondary to pulmonary emboli resulting in systemic anticoagulation started upon admission. The patient then developed significant rapid declining hemoglobin levels resulting in the need to discontinue systemic anticoagulation. Has received blood transfusion for severe anemia. Noted to have an adrenal mass. 11/24/2020: patient denies chest pain or shortness of breath at rest. She has been refusing medications. 11/25/2020: Patient feels well, just tired. Was up in her chair for a while today. Denies shortness of breath or chest pain. Declined LifeVest. 11/26/2020: No new problems, tired, did not participate much with physical therapy, has not been out of bed today. 11/27/2020: Patient lying in bed appears to be comfortable offers no cardiovascular complaints. 11/28/2020: Up in chair, smiling, denies any shortness of breath, chest pain, stomach problems. Entresto increased. Date of service 11/29/2020: Perking up more per her nurse, family member brought Hungarian food which she is taking an interest in (has hardly eaten anything in the last several days). Was up in a chair earlier. Date of service 11/30/2020: Follow-up visit today in this 70-year-old lady with left ventricular systolic dysfunction, atrial fibrillation and DVT of the upper extremity with PE. Patient is lethargic today offers no specific cardiovascular complaints otherwise. Vital signs are stable Entresto dosage was advanced over the weekend. Exam Const: General: comfortable and no acute distress Other: Elderly lady supine in bed answers questions appropriately but is lethargic. HENMT: Mouth: Yes moist mucous membranes Eyes: Sclera: sclerae normal Neck: Neck: supple Resp: Effort & Inspection: normal respiratory effort Auscultation: clear to auscultation bilaterally Cardio: Rhythm: abnormal rhythm irregularly irregular GI: GI Palp: Yes Soft to palpation Skin: General skin exam: normal color Neuro: Other: Answers questions appropriately but cognition is slow. Extrem: Other: Patient has no significant lower extremity edema at this time Objective Data Vital Signs Vital Signs: Vital Signs - 24 hr 11/29/20 17:02 11/29/20 18:02 11/29/20 20:00 Temperature 36.4 C 36.0 C L Pulse Rate 77 72 72 Respiratory Rate 16 14 Blood Pressure 102/66 104/63 Pulse Oximetry 98 96 11/29/20 21:51 11/30/20 00:00 11/30/20 04:00 Temperature 36.8 C Pulse Rate 68 74 70 Respiratory Rate 14 Blood Pressure 106/77 Pulse Oximetry 96 11/30/20 05:42 11/30/20 08:00 11/30/20 14:36 Temperature 36.2 C L 36.1 C L Pulse Rate 78 72 82 Respiratory Rate 12 16 Blood Pressure 145/83 H 122/80 Pulse Oximetry 95 96 Intake/Output Intake/Output: Intake & Output 11/27/20 11/28/20 11/29/20 11/30/20 23:59 23:59 23:59 23:59 Intake Total 205 385 740 55 Output Total 400 200 0 0 Balance -195 185 740 55 Meds/Results Medications: Active Medications Generic Name Dose Route Start Last Admin Trade Name Freq PRN Reason Stop Dose Admin Acetaminophen 650 mg 11/22/20 08:38 11/25/20 20:45 Acetaminophen 325 Mg Tablet PO 650 mg Q4H PRN Administration Pain or Fever Aspirin 81 mg 11/19/20 08:00 11/30/20 12:32 Aspirin 81 M
--- NOTE | 2020-11-30 16:54 | PM.IMPN ---
Progress Note: A&P Assessment and Plan (1) Pulmonary emboli: Qualifiers: Pulmonary embolism type: unspecified Chronicity: acute Acute cor pulmonale presence: unspecified Qualified Code(s): I26.99 - Other pulmonary embolism without acute cor pulmonale Code(s): I26.99 - Other pulmonary embolism without acute cor pulmonale Status: Acute Assessment and Plan: Patient presents with shortness of breath; CTA shows several right segmental pulmonary emboli with low clot burden. Etiology unclear but may be related to sedentary lifestyle. She was started on therapeutic Lovenox. Warfarin was only AC option due to cost - started 11/20 and kept on Lovenox for bridge. She developed a large RUE hematoma and Lovenox and warfarin were discontinued. Resume anticoagulation when okay with Ortho may not be safe to do so. (2) DVT (deep venous thrombosis): Qualifiers: DVT location: upper extremity Affected thrombotic vein of extremity: axillary Chronicity: acute Laterality: right Qualified Code(s): I82.A11 - Acute embolism and thrombosis of right axillary vein Code(s): I82.409 - Acute embolism and thrombosis of unspecified deep veins of unspecified lower extremity Status: Acute Assessment and Plan: Bilateral LE dopplers 11/20 show no evidence of DVT but RUE Doppler showing Rt axillary DVT. [place]anan that the right axillary DVT was present on admission. Right arm edema related to DVT and intramuscular hematomas and edema is improving. Monitor closely. (3) Hematoma: Code(s): T14.8XXA - Other injury of unspecified body region, initial encounter Status: Acute Assessment and Plan: Large hematoma started over right medial AC region, now diffuse ecchymosis. CT shows what appear to be intramuscular hematomas in the Rt bicep tracking into the right pectoralis minor muscle. Hgb trended down and anticoagulation discontinued. Last dose Lovenox on 11/22. Orthopedic surgery consulted given the concern for vascular compromise and concern for compartment syndrome. CK was normal on 11/22 and again on 11/25. Hematoma appears to be improving. Monitor closely. Tolerating ASA. (4) Anemia: Qualifiers: Anemia type: unspecified type Qualified Code(s): D64.9 - Anemia, unspecified Code(s): D64.9 - Anemia, unspecified Status: Acute Assessment and Plan: Hgb 13.6 on admission but with significant decline in Hgb to 6.1 on 11/23. Intramuscular hematomas in R upper arm now extending into the R pec minor based on imaging suspected to be the etiology of the acute blood loss anemia. Patient transfused 2U PRBCs on 11/23 and Hgb improved to 9.7. She refused Hgb at times but Hgb running mostly in the 7 range. Received another unit 11/29. No clinical evidence of further acute blood loss. Hgb up to 9.1 now. Monitor CBC as she allows. Continue IV iron. (5) Depression: Code(s): F32.9 - Major depressive disorder, single episode, unspecified Status: Acute Assessment and Plan: Patient with MDD that is compromising her ability to be cared for. She was educated about the benefits of adhering to medical care. She states that she is eating but nutrition states patient may need NGT for feedings. Supplements have been ordered. We added Zoloft with some mild benefit in her mood. Added Remeron for appetite stimulation last night but probably the cause of her mental status. Check CT brain and stop Remeron. Continue to follow. CT Brain showing no acute findings. Consider Decadron for appetite stimulation; can't use Megace given the side effects of thromboembolism. (6) Cardiomyopathy: Qualifiers: Cardiomyopathy type: unspecified Qualified Code(
--- NOTE | 2020-11-30 17:28 | PC.NURSE ---
Pt refusing dinner and insulin. MD aware.
[2020-11-30] MEDS: POTASSIUM/PHOSPHORUS/SODIUM 1.5 GM PACKET 1 PACKET PO (17:29)
[2020-11-30 17:41] LABS: Glucose Point of Care 248 (65-105)
[2020-11-30] MEDS: SACUBITRIL/VALSARTAN 24-26 MG TABLET 1 TAB PO (21:27)
[2020-11-30] MEDS: MAGNESIUM OXIDE 200 MG TABLET PO (21:27)
[2020-11-30 21:50] LABS: Glucose Point of Care 239 (65-105)
[2020-12-01] VITALS (10 sets, daily range): BP systolic 123–152; BP diastolic 65–96; PULSE 68–81; RESP 14–18; TEMP 35.7–36.6; O2SAT 95–100
[2020-12-01] MEDS: LEVOTHYROXINE SODIUM 50 MCG TABLET PO (05:31)
[2020-12-01] MEDS: INSULIN ASPART (*BKC) 100 UNITS/ML SUB-Q ×2 (08:23→11:54)
[2020-12-01] MEDS: METOPROLOL SUCCINATE EXT REL 25 MG TABCR PO (08:29)
[2020-12-01] MEDS: ASPIRIN 81 MG CHEWABLE TABLET PO (08:30)
[2020-12-01] MEDS: SACUBITRIL/VALSARTAN 24-26 MG TABLET 1 TAB PO ×2 (08:31→20:27)
[2020-12-01] MEDS: ATORVASTATIN 20 MG TABLET PO (08:31)
[2020-12-01] MEDS: FERROUS SULFATE 324 MG TABLET PO (08:31)
[2020-12-01] MEDS: MAGNESIUM OXIDE 200 MG TABLET PO ×2 (08:31→20:27)
[2020-12-01] MEDS: SERTRALINE HCL 25 MG TABLET PO (08:32)
[2020-12-01] MEDS: IRON SUCROSE COMPLEX 100 MG in SODIUM CHLORIDE 0.9% IV 50 ML 220 MG IVPB (08:40)
[2020-12-01 09:25] LABS: Glucose Point of Care 205 (65-105)
[2020-12-01 12:07] LABS: Glucose Point of Care 253 (65-105)
--- NOTE | 2020-12-01 12:28 | PM.PNCARD ---
Progress Note: A&P Assessment and Plan (1) Cardiomyopathy: Qualifiers: Cardiomyopathy type: unspecified Qualified Code(s): I42.9 - Cardiomyopathy, unspecified Code(s): I42.9 - Cardiomyopathy, unspecified Status: Acute Assessment and Plan: New diagnosis of cardiomyopathy with severe LV systolic dysfunction EF 20-25%. Patient compensated at this time. Optimize medical therapy as BP allows. May consider ischemic workup in future (probably a Lexiscan) Patient declines Life Vest, says she does not think she will need it. Has a LBBB. Tolerating metoprolol 25 mg daily and Entresto increased to 24/26 mg BID 11/28/2020 with stable BP. Further up titrate these medications as an outpatient. (2) Type 2 myocardial infarction: Code(s): I21.A1 - Myocardial infarction type 2 Status: Acute Assessment and Plan: Trop flat at 0.059, consistent with type 2 infarction secondary acute pulmonary emboli, and also uncontrolled hypertension, severe LV systolic dysfunction and myocardial strain. Cannot exclude underlying CAD. Eventual Lexiscan. Continue aspirin, statin. Patient has multiple comorbidities and is at high risk for adverse complications given her multiple medical issues. (3) Pulmonary emboli: Qualifiers: Pulmonary embolism type: unspecified Chronicity: acute Acute cor pulmonale presence: unspecified Qualified Code(s): I26.99 - Other pulmonary embolism without acute cor pulmonale Code(s): I26.99 - Other pulmonary embolism without acute cor pulmonale Status: Acute Assessment and Plan: Several pulmonary emboli on CT angiogram of the chest. Systemic anticoagulation initiated but now held secondary to severe anemia, intramuscular hematoma right upper extremity and extensive swelling. No LE DVT but has UE DVTs. No further SOB or CP. If no anticoagulation,? IVC filter. (4) Anemia: Qualifiers: Anemia type: unspecified type Qualified Code(s): D64.9 - Anemia, unspecified Code(s): D64.9 - Anemia, unspecified Status: Acute Assessment and Plan: Severe anemia thought to be 2nd extensive ecchymoses and hematomas. No evidence for active GI bleed. Primary service held systemic anticoagulation. Hemoglobin stabilized. (5) Retroperitoneal mass: Code(s): R19.00 - Intra-abdominal and pelvic swelling, mass and lump, unspecified site Status: Acute Assessment and Plan: 3.9 x 2.5 x 2 cm right adrenal mass. Workup underway per hospitalist service. (6) Hypertension: Qualifiers: Hypertension type: essential hypertension Qualified Code(s): I10 - Essential (primary) hypertension Code(s): I10 - Essential (primary) hypertension Status: Chronic Assessment and Plan: BP at goal currently. Subjective Date/time seen: 12/01/20 12:28 Interval history: Ms. Rodriguez is a 70yo F admitted with new diagnosis severe LV dysfunction EF 20-25%, within LBBB. Also elevated troponins, type 2 [place], secondary to pulmonary emboli resulting in systemic anticoagulation started upon admission. The patient then developed significant rapid declining hemoglobin levels resulting in the need to discontinue systemic anticoagulation. Has received blood transfusion for severe anemia. Noted to have an adrenal mass. 11/24/2020: patient denies chest pain or shortness of breath at rest. She has been refusing medications. 11/25/2020: Patient feels well, just tired. Was up in her chair for a while today. Denies shortness of breath or chest pain. Declined LifeVest. 11/26/2020: No new problems, tired, did not participate much with physical therapy, has not been out
--- NOTE | 2020-12-01 15:52 | PM.IMPN ---
Progress Note: A&P Additional Plan # Acute right segmental PE: with low clot burden. unprovoked. started on therapeutic lovenox 11/19. warfarin was only AC option due to cost, started 11/20 with bridging lovenox. complicated further with decline in hb, from normal at admission to 7. anticoagulation has been on hold since then. resume anticoagulation when okay with ortho. # Acute Right Axillary DVT: right arm edematous. bialteral LE doppler 11/20 negative for DVT. this has improved now. # Acute blood loss anemia: complicated from therapeutic anticoagulation. IM hematoma right upper arm extending to the Right pectoralis minor. needed transfusion. continue to monitor. admission hb 13. continue to mointor. CT abdomen and pelvis no other sights of bleeding. anti Xa LMWH is not done in the lab here, lovenox last dose 11/22/2020 at 2 AM per pharmacy. no clinical evdience of furthe rblood loss. # Diffuse intramuscular hematoma right upper extremity: consulted orthopedics for possible compartment syndrome, CK normal. no clinical signs of compartment syndrome. neuro status intact, doppler performed on arms with good radial pulse noted. perfusion has improved. # cardiomyopathy: newly found. ECHO 11/20 with LVSD 20-25%. etiology unclear. she will need ischemic workup with caridac cath. hold her aspirin due to current ongoing bleed. this ahs resumed and tolerating okay. also on entresto, toprzol and atorvastatin. she has refused life vest. # Actue respiratory failure with hypoxia: now resolved. suspected due to PE. # Elevated troponin: mild. no chest pain. likely type 2 [place] from acute PE. ACS not suspected but cannot francisco otu CAD given her multiple risk factors. cardilogy on board. # LBBB on EKG: chronicity unclear. cardiology on board. # Retroperitoneal mass: Incidental finding on CT chest. CT abd/pel demonstrated indeterminate 3.9 x 2.5 x 2.0 cm right adrenal mass. Differentials include adenoma, carcinoma, metastatic disease, less likely pheochromocytoma. 24hr urine metanephrines are pending. Recommend outpatient follow up for PET/CT and/or biopsy of the mass for further evaluation given this could be malignant. Discussed with patient. # Hypokalemia: repalce and monitor. # Type 2 diabetes mellitus: poorly controlled. Hba1c at 11.6. previously on metformin and glimepiride. glimiperide. SSI. hypoglycemic protocol. # Hypertension: untreated for several months per records. lsoartan, toprol held due to labile bp due to ongoing bleed. # dyslipidemia: statin # hx of paroxysmal afib: remains in sinus # hypothryoidsim: tsh elevated< T4 low. contineu leveothyroxine. # Noncompliance with medication regimen: Patient has not taken her medications in several months. The need for compliance has been discussed at length by multiple providers. # UTI: e coli in uirne. finished course of ceftriaxoen. blood cutlure no growth so far # DVT proph: mecahnical, pharmacological contraindicated. # full code # Depressoin: stopped remeron now which was making her sleepy. on zoloft. lack of motivation # DVT proph: SCD due to anemia Subjective Date/time seen: 12/01/20 15:52 Interval history: Ms. Rodriguez is a 70yo female presentw with SOB and found to have PE. LE doppler negative but right UE doppler showing axillary vein DVT. Echo showing a new diagnosis severe LV dysfunction EF 20-25%. Systemic anticoagulation started upon admission but developed a significant rapid declining hemoglobin levels resulting in the need to discontinue systemic anticoagulation. She was found to have a large intramuscular hematoma in the right upper arm. she is more attentive today. she was sitting up on the chair. she dnies any distress. she states her arms are getting better. she denies any sob, cehst pain,a bdominal pain, nausea, vomitng. Review of Systems Review of Systems: Narrative: - CONSTITUTIONAL: Denies weight loss, fever and chills. - HEENT: Denies changes in vision and he
--- NOTE | 2020-12-01 15:56 | PC.NURSE ---
Observed care and reviewed documentation completed by Penny RODRIGEZ [id number]
[2020-12-01 16:40] LABS: Glucose Point of Care 273 (65-105)
[2020-12-01 19:44] LABS: Glucose Point of Care 246 (65-105)
[2020-12-01 20:31] LABS: SARS-CoV-2 RNA PCR Negative
[2020-12-02] VITALS (9 sets, daily range): BP systolic 127–137; BP diastolic 65–70; PULSE 65–75; RESP 16–18; TEMP 35.9–36.6; O2SAT 97–100
[2020-12-02 06:11] LABS: Basophils Percent Auto 0.4 % (0.2-1.2); Eosinophils Percent Auto 0.5 % (0-4.4); Hematocrit 31.9 % (37.0-47.0); Hemoglobin 10.4 g/dL (12.0-15.0); Immature Granulocyte Absolute 0.35 K/mm3 (0.00-0.031); Immature Granulocyte Percent A 4.1 % (0-0.5); Lymphocytes Absolute Auto 1.21 K/mm3 (0.9-3.2); Lymphocytes Percent Auto 14.2 % (18.3-44.2); Mean Corpuscular HGB Conc 32.6 g/dl (32-36); Mean Corpuscular Hemoglobin 28.8 pg (26-34); Mean Corpuscular Volume 88.4 fl (80-100); Mean Platelet Volume 10.6 fl (7.4-10.4); Monocytes Absolute Auto 0.8 K/mm3 (0.1-0.6); Monocytes Percent Auto 9.5 % (2.6-8.5); Neutrophils Absolute Auto 6.1 K/mm3 (1.3-6.7); Neutrophils Percent Auto 71.3 % (45.5-73.1); Nucleated Red Blood Cells Perc 0.4 % (0.0-0.2); Platelet Count Result 308 k/mm3 (150-375); Red Blood Count 3.61 M/mm3 (4.2-5.4); Red Cell Distribution Width 15.1 % (11.5-14.5); White Blood Count 8.5 K/mm3 (4.5-10.0)
[2020-12-02] MEDS: LEVOTHYROXINE SODIUM 50 MCG TABLET PO (06:14)
[2020-12-02 06:22] LABS: Potassium 4.6 mmol/L (3.4-5.0)
--- NOTE | 2020-12-02 07:56 | PM.PNORT ---
Progress Note: A&P Assessment and Plan (1) Traumatic hematoma of right upper arm: Qualifiers: Encounter type: initial encounter Qualified Code(s): S40.021A - Contusion of right upper arm, initial encounter Code(s): S40.021A - Contusion of right upper arm, initial encounter Status: Acute Assessment and Plan: Continued improvement right arm edema and swelling. Palpable radial pulses and RUE warm to touch. Now able to make complete fist. Continue conservative care at this time with elevation/ice and careful observation. No concerns for compartment syndrome at this time. Patient currently on aspirin. Hemoglobin stable at this time. If patient requires anticoagulation would start with low dose and slowly increase if patient tolerates. Certainly safer from an anemia and upper extremity swelling standpoint to not be anticoagulated, however, if benefits of anticoagulation outweigh risks would proceed judiciously. Subjective Subjective Date/Time Seen: 12/02/20 07:56 Patient awake and alert. Sitting up in bed. States arms feeling better. She is doing elevation intermittently to both right and left arm. Exam Const: General: healthy appearing; No in distress or confusion Orientation/consciousness: oriented to person, oriented to place, oriented to time and No confusion HENMT: Head: normal to inspection, normocephalic and atraumatic Eyes: Conjunctivae: conjunctivae normal Sclera: sclerae normal Neck: Neck: supple and nontender Resp: Effort & Inspection: normal respiratory effort and no audible wheezes Cardio: Rate: regular rate Rhythm: regular rhythm Skin: General skin exam: no rashes or lesions noted Neuro: General: oriented to person, oriented to place, oriented to time and No confusion Extrem: Right upper extremity: shoulder/upper arm tenderness over the biceps tendon (Biceps musculature), axillary nerve sensory function normal, abnormal ROM (Active FF 60, ABd 60, ER 10, IR 5, passive forward flexion and 90?, abduction 90?, external rotation 30? with tenderness at the shoulder) pain with active ROM in ABduction, in flexion and in internal rotation and pain with passive ROM with internal rotation and external rotation- and other (RC 4/5, Bicep 4/5, Deltoid 5-/5, ER 4/5), elbow/forearm tenderness of the antecubital fossa, swelling of the antecubital fossa (Moderate) and of the medial epicondyle and abnormal ROM (Active flexion and extension 45? to 90?. Passive motion 10? to 100? without tenderness), wrist normal ROM; no tenderness and Extremity exam: right hand neuromotor exam normal wrist extension normal, thumb opposition normal, thumb IP flexion normal and fingers 2-5 ABduction normal, neurosensory exam normal radial nerve sensory function normal, ulnar nerve sensory function normal, median nerve sensory function normal and digital nerve sensory function normal, vascular exam abnormal capillary refill of all fingers and coolness of the entire hand; radial pulse absent (Able to Doppler) and swelling (Mild) of the dorsal hand; no tenderness and no crepitus Left upper extremity: normal to inspection, shoulder/upper arm normal ROM (FF 130, Abd 125, ER 70, IR T7); no tenderness, no swelling, no ecchymosis and no crepitus and hand normal to inspection and vascular exam abnormal capillary refill Details: of all fingers and coolness Details: of the entire hand; radial pulse absent (Dopplerable) and capillary refill abnormal; abormal capillary refill Right lower extremity: normal to inspection Left lower extremity: normal to inspection Other: Swelling of the right upper extremity from the biceps muscle to the distal arm with notable improvement. Elbow with mild swelling mainly over the anterior and medial aspect. Forearm soft. Wrist and hand soft. Min tender to palpation biceps muscle with palpable hematoma however muscle compartment remains soft. Triceps, deltoid, forearm flexor and extensor muscle soft. Skin intact
[2020-12-02] MEDS: ASPIRIN 81 MG CHEWABLE TABLET PO (08:29)
[2020-12-02] MEDS: GLIMEPIRIDE 1 MG TABLET PO (08:29)
[2020-12-02] MEDS: ATORVASTATIN 20 MG TABLET PO (08:30)
[2020-12-02] MEDS: FERROUS SULFATE 324 MG TABLET PO (08:31)
[2020-12-02] MEDS: METOPROLOL SUCCINATE EXT REL 25 MG TABCR PO (08:31)
[2020-12-02] MEDS: MAGNESIUM OXIDE 200 MG TABLET PO ×2 (08:31→20:17)
[2020-12-02] MEDS: SACUBITRIL/VALSARTAN 24-26 MG TABLET 1 TAB PO ×2 (08:32→20:17)
[2020-12-02] MEDS: IRON SUCROSE COMPLEX 100 MG in SODIUM CHLORIDE 0.9% IV 50 ML 220 MG IVPB (08:42)
[2020-12-02 08:58] LABS: Glucose Point of Care 191 (65-105)
--- NOTE | 2020-12-02 10:14 | PM.PNCARD ---
Progress Note: A&P Assessment and Plan (1) Cardiomyopathy: Qualifiers: Cardiomyopathy type: unspecified Qualified Code(s): I42.9 - Cardiomyopathy, unspecified Code(s): I42.9 - Cardiomyopathy, unspecified Status: Acute Assessment and Plan: New diagnosis of cardiomyopathy with severe LV systolic dysfunction EF 20-25%. Patient compensated at this time. Optimize medical therapy as BP allows. May consider ischemic workup in future (probably a Lexiscan) Patient declines Life Vest, says she does not think she will need it. Has a LBBB. Will continue her Toprol XL 25 mg daily. She is tolerating Entresto 24/26 mg BID 11/28/2020 with stable BP. Further up titrate these medications as an outpatient. (2) Type 2 myocardial infarction: Code(s): I21.A1 - Myocardial infarction type 2 Status: Acute Assessment and Plan: Trop flat at 0.059, consistent with type 2 infarction secondary acute pulmonary emboli, and also uncontrolled hypertension, severe LV systolic dysfunction and myocardial strain. Cannot exclude underlying CAD. Eventual Lexiscan. Continue aspirin, statin. Patient has multiple comorbidities and is at high risk for adverse complications given her multiple medical issues. (3) Pulmonary emboli: Qualifiers: Pulmonary embolism type: unspecified Chronicity: acute Acute cor pulmonale presence: unspecified Qualified Code(s): I26.99 - Other pulmonary embolism without acute cor pulmonale Code(s): I26.99 - Other pulmonary embolism without acute cor pulmonale Status: Acute Assessment and Plan: Several pulmonary emboli on CT angiogram of the chest. Systemic anticoagulation initiated but now held secondary to severe anemia, intramuscular hematoma right upper extremity and extensive swelling. No LE DVT but has UE DVTs. No further SOB or CP. (4) Anemia: Qualifiers: Anemia type: unspecified type Qualified Code(s): D64.9 - Anemia, unspecified Code(s): D64.9 - Anemia, unspecified Status: Acute Assessment and Plan: Severe anemia thought to be 2nd extensive ecchymoses and hematomas. No evidence for active GI bleed. Primary service held systemic anticoagulation. Hemoglobin stabilized. (5) Retroperitoneal mass: Code(s): R19.00 - Intra-abdominal and pelvic swelling, mass and lump, unspecified site Status: Acute Assessment and Plan: 3.9 x 2.5 x 2 cm right adrenal mass. Workup underway per hospitalist service. (6) Hypertension: Qualifiers: Hypertension type: essential hypertension Qualified Code(s): I10 - Essential (primary) hypertension Code(s): I10 - Essential (primary) hypertension Status: Chronic Assessment and Plan: BP at goal currently. Subjective Date/time seen: 12/02/20 10:14 Interval history: Ms. Rodriguez is a 70yo F admitted with new diagnosis severe LV dysfunction EF 20-25%, within LBBB. Also elevated troponins, type 2 [place], secondary to pulmonary emboli resulting in systemic anticoagulation started upon admission. The patient then developed significant rapid declining hemoglobin levels resulting in the need to discontinue systemic anticoagulation. Has received blood transfusion for severe anemia. Noted to have an adrenal mass. 11/24/2020: patient denies chest pain or shortness of breath at rest. She has been refusing medications. 11/25/2020: Patient feels well, just tired. Was up in her chair for a while today. Denies shortness of breath or chest pain. Declined LifeVest. 11/26/2020: No new problems, tired, did not participate much with physical therapy, has not been out of bed today. 11/27/2020
--- NOTE | 2020-12-02 11:01 | PCOTNOTE ---
Attempted therapy session with patient, but patient refused. Therapist explained benefits of therapy, but patient declined all ADLs, exercises and functional transfers, requesting that therapy check back with her tomorrow.
[2020-12-02 11:46] LABS: Glucose Point of Care 291 (65-105)
--- NOTE | 2020-12-02 12:59 | PDONCCN ---
HPI - Date of Consult Date/Time: 12/02/20 12:59 Requesting Physician: Georgi oRdrigez MD Primary Care Provider: UNKNOWN,DOCTOR - Consult Narrative Reason for consult: Hypercoagulable state. Narrative: Koko Rodriguez is a 70 year old female with history of atrial fibrillation type 2 diabetes and hypertension admitted to the hospital on November 18 with shortness of breath. She was also feeling lightheaded and dizzy with near syncopal episode. D-dimer was elevated. Chest CT showed several segmental right sided PE with small clot burden. There was incidental right upper retroperitoneal mass 2.4 x 1.4 cm. Lower extremity Doppler study showed no DVT. Patient was started on Lovenox on November 19 along with warfarin. Hemoglobin dropped and anticoagulation was discontinued. Patient had right upper extremity Doppler study done due to right arm hematoma and edema that showed right axillary DVT with 15 x 4 x [address] chest abdomen and pelvis showed interval enlargement of right pectoralis minor and right biceps muscle suggestive for intramuscular hematoma and 4.7 cm hematoma in the subcutaneous tissue in the right hip with extensive soft tissue edema of the right upper extremity. Right adrenal mass. She denies any previous history of thromboembolic events. Today patient seems to be slightly confused. She denies any chest pain and shortness of breath. Denies any other complaints. Review of Systems - Review of Systems All systems reviewed & are unremarkable except as noted in HPI and bel - Neurologic Reports system reviewed and no additional complaints, except as documented, Reports confusion, Reports numbness (Both feet), Reports weakness (Leg weakness) [facility] Medical History: Medical History (Last Updated 11/22/20 @ 11:17 by Jose Guadalupe Jerome MD) Diabetic peripheral neuropathy Dyslipidemia Hypertension Hypothyroidism Noncompliance with medication regimen Osteoarthritis Paroxysmal atrial fibrillation Traumatic hematoma of right upper arm Type 2 diabetes mellitus Surgical History: Surgical History (Last Reviewed 11/22/20 @ 11:10 by Jose Guadalupe Jerome MD) History of arthroplasty of left knee History of hysterectomy Family History: Family History (Last Reviewed 11/22/20 @ 11:10 by Jose Guadalupe Jerome MD) Sibling Diabetes mellitus Heart disease Mother Diabetes mellitus Kidney disease Father Parkinsons disease Dementia - Social History Social History: Social History (Last Reviewed 11/22/20 @ 11:10 by Jose Guadalupe Jerome MD) Gender Identity: Gender identity (if verbalized by the patient): Female Alcohol Use: Alcohol intake: former Substance Use: Substance use: never Others: Spiritual care concerns: No Smoking Status: Smoking status: Former smoker Approximate Smoking End Date: 1994 Smoking Pack-years: Smoking packs per day: 1 Smoking cigarettes per day: 20.0 Comments: Additional smoking assessment comments: Patient quit smoking approximately 26 years ago as of 12/01/2020. Meds Home Medications Medication Instructions Recorded Confirmed Type No Home Medications 11/18/20 11/18/20 History Allergies Allergy/AdvReac Type Severity Reaction Status Date / Time Penicillins Allergy Other Verified 11/18/20 14:42 Results - Labs CBC & Chem 7: 12/02/20 06:02 12/02/20 06:02 Labs: Short CBC 12/02/20 Range/Units 06:02 WBC 8.5 (4.5-10.0) K/mm3 Hgb 10.4 L (12.0-15.0) g/dL Hct 31.9 L (37.0-47.0) % Plt Count 308 (150-375) k/mm3 BMP 12/02/20 06:02 Potassium 4.6 Assessment and Plan - Additional Plan Hypercoagulable state with unprovoked acute right segmental pulmonary embolism diagnosed. Bilateral lower extremity Doppler study showed no evidence of DVT. She was initially started on Lovenox with warfarin bridge but discontinued due to decline in hemoglobin. She developed right upper
--- NOTE | 2020-12-02 13:18 | PM.IMPN ---
Progress Note: A&P Assessment and Plan (1) Hematoma: Code(s): T14.8XXA - Other injury of unspecified body region, initial encounter Status: Acute (2) Anemia: Qualifiers: Anemia type: unspecified type Qualified Code(s): D64.9 - Anemia, unspecified Code(s): D64.9 - Anemia, unspecified Status: Acute (3) DVT (deep venous thrombosis): Qualifiers: DVT location: upper extremity Affected thrombotic vein of extremity: axillary Chronicity: acute Laterality: right Qualified Code(s): I82.A11 - Acute embolism and thrombosis of right axillary vein Code(s): I82.409 - Acute embolism and thrombosis of unspecified deep veins of unspecified lower extremity Status: Acute (4) Retroperitoneal mass: Code(s): R19.00 - Intra-abdominal and pelvic swelling, mass and lump, unspecified site Status: Acute (5) Pulmonary emboli: Qualifiers: Pulmonary embolism type: unspecified Chronicity: acute Acute cor pulmonale presence: unspecified Qualified Code(s): I26.99 - Other pulmonary embolism without acute cor pulmonale Code(s): I26.99 - Other pulmonary embolism without acute cor pulmonale Status: Acute (6) Paroxysmal atrial fibrillation: Code(s): I48.0 - Paroxysmal atrial fibrillation Status: Chronic (7) Hypertension: Qualifiers: Hypertension type: essential hypertension Qualified Code(s): I10 - Essential (primary) hypertension Code(s): I10 - Essential (primary) hypertension Status: Chronic (8) Type 2 diabetes mellitus: Qualifiers: 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 unprovoked. started on therapeutic lovenox 11/19. warfarin was only AC option due to cost, started 11/20 with bridging lovenox. complicated further with decline in hb, from normal at admission to 7. anticoagulation has been on hold since then. resume anticoagulation when okay with ortho. she is at risk from bleeding with restart of anticoagulation. will consult hematology for further direction. # Acute Right Axillary DVT: right arm edematous. bialteral LE doppler 11/20 negative for DVT. this has improved now. # Acute blood loss anemia: complicated from therapeutic anticoagulation. IM hematoma right upper arm extending to the Right pectoralis minor. needed transfusion. continue to monitor. admission hb 13. continue to mointor. CT abdomen and pelvis no other sights of bleeding. anti Xa LMWH is not done in the lab here, lovenox last dose 11/22/2020 at 2 AM per pharmacy. no clinical evidence of furthe rblood loss. given stabilization of her bleeding, start of NOAC could be entertained. 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 # Diffuse intramuscular hematoma right upper extremity: consulted orthopedics for possible compartment syndrome, CK normal. no clinical signs of compartment syndrome. neuro status intact, doppler performed on arms with good radial pulse noted. perfusion has improved. # cardiomyopathy: newly found. ECHO 11/20 with LVSD 20-25%. etiology unclear. she will need ischemic workup with caridac cath. hold her aspirin due to current ongoing bleed. this ahs resumed and tolerating okay. also on entresto, toprzol and atorvastatin. she has refused life vest. # Actue respiratory failure with hypoxia: now resolved. suspected due to PE. # Elevated troponin: mild. no chest pain. likely type 2 OH from acute PE. ACS not suspected but cannot francisco otu CAD given her multiple risk factors. cardilogy on board. # LBBB on EKG: chronicity uncle
--- NOTE | 2020-12-02 14:04 | PCPTNOTE ---
Attempted to see patient for PT this date, however patient refused. Attempted to explain the importance of therapy, patient continued to refuse.
--- NOTE | 2020-12-02 14:44 | PM.DS ---
DS: Admitting Diagnosis Admitting Diagnosis Admitting Diagnosis: dvt/pe DS: Discharge Diagnosis Discharge Diagnosis (1) Hypotension: Code(s): I95.9 - Hypotension, unspecified Status: Acute (2) DVT (deep venous thrombosis): Qualifiers: DVT location: upper extremity Affected thrombotic vein of extremity: axillary Chronicity: acute Laterality: right Qualified Code(s): I82.A11 - Acute embolism and thrombosis of right axillary vein Code(s): I82.409 - Acute embolism and thrombosis of unspecified deep veins of unspecified lower extremity Status: Acute (3) UTI (urinary tract infection): Code(s): N39.0 - Urinary tract infection, site not specified Status: Suspected (4) Hematoma: Code(s): T14.8XXA - Other injury of unspecified body region, initial encounter Status: Acute (5) Anemia: Qualifiers: Anemia type: unspecified type Qualified Code(s): D64.9 - Anemia, unspecified Code(s): D64.9 - Anemia, unspecified Status: Acute (6) Cardiomyopathy: Qualifiers: Cardiomyopathy type: unspecified Qualified Code(s): I42.9 - Cardiomyopathy, unspecified Code(s): I42.9 - Cardiomyopathy, unspecified Status: Acute (7) Retroperitoneal mass: Code(s): R19.00 - Intra-abdominal and pelvic swelling, mass and lump, unspecified site Status: Acute (8) Type 2 myocardial infarction: Code(s): I21.A1 - Myocardial infarction type 2 Status: Acute (9) Pulmonary emboli: Qualifiers: Pulmonary embolism type: unspecified Chronicity: acute Acute cor pulmonale presence: unspecified Qualified Code(s): I26.99 - Other pulmonary embolism without acute cor pulmonale Code(s): I26.99 - Other pulmonary embolism without acute cor pulmonale Status: Acute (10) Hypothyroidism: Qualifiers: Hypothyroidism type: unspecified Qualified Code(s): E03.9 - Hypothyroidism, unspecified Code(s): E03.9 - Hypothyroidism, unspecified Status: Acute (11) Paroxysmal atrial fibrillation: Code(s): I48.0 - Paroxysmal atrial fibrillation Status: Chronic (12) Hypertension: Qualifiers: Hypertension type: essential hypertension Qualified Code(s): I10 - Essential (primary) hypertension Code(s): I10 - Essential (primary) hypertension Status: Chronic (13) Dyslipidemia: Code(s): E78.5 - Hyperlipidemia, unspecified Status: Chronic (14) Elevated troponin: Code(s): R77.8 - Other specified abnormalities of plasma proteins Status: Acute (15) Left bundle branch block (LBBB) on electrocardiogram: Code(s): I44.7 - Left bundle-branch block, unspecified Status: Acute (16) Uncontrolled diabetes mellitus with hyperglycemia: Qualifiers: Diabetes mellitus type: type 2 Qualified Code(s): E11.65 - Type 2 diabetes mellitus with hyperglycemia Code(s): E11.65 - Type 2 diabetes mellitus with hyperglycemia Status: Acute DS: Summary Hospital Course Hospital Course: # Acute right segmental PE: with low clot burden. unprovoked. started on therapeutic lovenox 11/19. warfarin was only AC option due to cost, started 11/20 with bridging lovenox. complicated further with decline in hb, from normal at admission to 7. anticoagulation has been on hold since then. resume anticoagulation when okay with ortho. she is at risk from bleeding with restart of anticoagulation. hemaolgoy consutled and suggessted no further aticoagulation at this point. will have her follo wup with her as op basis for further determiantion. she also needs right adrenal mass biopsy at follow up which carmen be done as op basis as well. # Acute Right Axillary DVT: right arm edematous. bialteral LE doppler 11/20 negative for DVT. this has improved now. # Acute blood loss anemia: complicated from therapeutic anticoagulation. IM hematoma right upper arm extending to the Right pe
[2020-12-02 16:33] LABS: Glucose Point of Care 204 (65-105)
--- NOTE | 2020-12-02 18:38 | PC.NURSE ---
Dr. Rodrigez aware that patient is still here and unable to discharge as we could not get an ambulance before 1800 and facility would not take her after that time. Latasha from care coordination also aware of the situation.
[2020-12-02 20:22] LABS: Glucose Point of Care 265 (65-105)
[2020-12-03 04:50] VITALS: BP 131/69; PULSE 72; RESP 16; TEMP 37; O2SAT 98
[2020-12-03] MEDS: LEVOTHYROXINE SODIUM 50 MCG TABLET PO (05:44)
[2020-12-03 07:33] LABS: Glucose Point of Care 191 (65-105)
[2020-12-03 08:02] VITALS: PULSE 74
[2020-12-03] MEDS: SACUBITRIL/VALSARTAN 24-26 MG TABLET 1 TAB PO (08:02)
[2020-12-03] MEDS: METOPROLOL SUCCINATE EXT REL 25 MG TABCR PO (08:02)
[2020-12-03] MEDS: GLIMEPIRIDE 1 MG TABLET PO (08:03)
[2020-12-03] MEDS: FERROUS SULFATE 324 MG TABLET PO (08:03)
[2020-12-03] MEDS: MAGNESIUM OXIDE 200 MG TABLET PO (08:03)
[2020-12-03] MEDS: ASPIRIN 81 MG CHEWABLE TABLET PO (08:03)
[2020-12-03] MEDS: ATORVASTATIN 20 MG TABLET PO (08:03)
--- NOTE | 2020-12-03 09:41 | PC.NURSE ---
Follow up--Report provided to RUCHI Mitchell at [facility] per request of admitting facility post arrival at facility.
--- NOTE | 2020-12-03 11:26 | PM.IMPN ---
Progress Note: A&P Assessment and Plan (1) Acute respiratory failure with hypoxia: Code(s): J96.01 - Acute respiratory failure with hypoxia Status: Resolved (2) Cardiomyopathy: Qualifiers: Cardiomyopathy type: unspecified Qualified Code(s): I42.9 - Cardiomyopathy, unspecified Code(s): I42.9 - Cardiomyopathy, unspecified Status: Acute (3) Type 2 myocardial infarction: Code(s): I21.A1 - Myocardial infarction type 2 Status: Acute (4) Retroperitoneal mass: Code(s): R19.00 - Intra-abdominal and pelvic swelling, mass and lump, unspecified site Status: Acute (5) Pulmonary emboli: Qualifiers: Pulmonary embolism type: unspecified Chronicity: acute Acute cor pulmonale presence: unspecified Qualified Code(s): I26.99 - Other pulmonary embolism without acute cor pulmonale Code(s): I26.99 - Other pulmonary embolism without acute cor pulmonale Status: Acute (6) Paroxysmal atrial fibrillation: Code(s): I48.0 - Paroxysmal atrial fibrillation Status: Chronic (7) Type 2 diabetes mellitus: Qualifiers: 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 Diabetes mellitus complication status: with neurologic complications Diabetes mellitus complication detail: with polyneuropathy Qualified Code(s): E11.42 - Type 2 diabetes mellitus with diabetic polyneuropathy Code(s): E11.9 - Type 2 diabetes mellitus without complications Status: Acute (8) Hypertension: Qualifiers: Hypertension type: essential hypertension Qualified Code(s): I10 - Essential (primary) hypertension Code(s): I10 - Essential (primary) hypertension Status: Chronic (9) Dyslipidemia: Code(s): E78.5 - Hyperlipidemia, unspecified Status: Chronic (10) Hematoma: Code(s): T14.8XXA - Other injury of unspecified body region, initial encounter Status: Acute (11) Anemia: Qualifiers: Anemia type: unspecified type Qualified Code(s): D64.9 - Anemia, unspecified Code(s): D64.9 - Anemia, unspecified Status: Acute Additional Plan # Acute right segmental PE: with low clot burden. unprovoked. started on therapeutic lovenox 11/19. warfarin was only AC option due to cost, started 11/20 with bridging lovenox. complicated further with decline in hb, from normal at admission to 7. anticoagulation has been on hold since then. resume anticoagulation when okay with ortho. she is at risk from bleeding with restart of anticoagulation. hemaolgoy consutled and suggessted no further aticoagulation at this point. will have her follo wup with her as op basis for further determiantion. she also needs right adrenal mass biopsy at follow up which carmen be done as op basis as well. # Acute Right Axillary DVT: right arm edematous. bialteral LE doppler 11/20 negative for DVT. this has improved now. # Acute blood loss anemia: complicated from therapeutic anticoagulation. IM hematoma right upper arm extending to the Right pectoralis minor. needed transfusion. continue to monitor. admission hb 13. continue to mointor. CT abdomen and pelvis no other sights of bleeding. anti Xa LMWH is not done in the lab here, lovenox last dose 11/22/2020 at 2 AM per pharmacy. no clinical evidence of furthe rblood loss. given stabilization of her bleeding, start of NOAC could be entertained. discussed with oncologist who was consulted ad suggested no anticouagluation due to increased risk of bleeding. # Diffuse intramuscular hematoma right upper extremity: consulted orthopedics for possible compartment syndrome, CK normal. no clinical signs of compartment syndrome. neuro status intact, doppler performed on arms with good radial pulse noted. perfusion has improved. # cardiomyopathy: newly found. ECHO 11/20 with LVSD 20-25%. etiology unclear. she will need ischemic workup with caridac cath. hold her aspirin due to current ongoing bleed. this ahs r
== END 2020-12-03 08:40 | DRG 175 ==
LOC: ANHED 14:27 → ANHIMU 11-19 07:12 → ANH3MED 11-29 23:42 → ANHIMU 12-04 10:00
PROVIDERS: Internal Medicine; Physician Assistant; Admitting Provider Family Medicine; Emergency Provider Emergency Medicine; Visit Provider Physician Assistant
DX: I26.99 Other pulmonary embolism without acute cor pulmonale (principal); I21.A1 Myocardial infarction type 2; J96.01 Acute respiratory failure with hypoxia; I42.9 Cardiomyopathy, unspecified; D62 Acute posthemorrhagic anemia; I82.A11 Acute embolism and thrombosis of right axillary vein; N39.0 Urinary tract infection, site not specified; B96.20 Unspecified Escherichia coli [E. coli] as the cause of diseases classified elsewhere; I95.9 Hypotension, unspecified; Z20.822 Contact with and (suspected) exposure to COVID-19; E11.42 Type 2 diabetes mellitus with diabetic polyneuropathy; E11.65 Type 2 diabetes mellitus with hyperglycemia; S40.021A Contusion of right upper arm, initial encounter; I44.7 Left bundle-branch block, unspecified; I48.0 Paroxysmal atrial fibrillation; R19.00 Intra-abdominal and pelvic swelling, mass and lump, unspecified site; E87.6 Hypokalemia; R77.8 Other specified abnormalities of plasma proteins; E78.5 Hyperlipidemia, unspecified; I10 Essential (primary) hypertension; E03.9 Hypothyroidism, unspecified; M19.90 Unspecified osteoarthritis, unspecified site; F32.9 Major depressive disorder, single episode, unspecified; Z66 Do not resuscitate; Z87.891 Personal history of nicotine dependence; Z88.0 Allergy status to penicillin; Z91.14 Patient's other noncompliance with medication regimen
CPT/HCPCS: 36415; 36430; 36569; 70450; 71046; 71250; 71275; 74176; 74178; 80048; 80053; 80061; 80069; 81001; 82274; 82550; 82607; 82728; 82746; 82948; 83036; 83540; 83550; 83605; 83735; 83880; 84100; 84132; 84439; 84443; 84484; 85014; 85018; 85025; 85027; 85380; 85610; 85730; 86038; 86140; 86850; 86900; 86901; 86923; 87015; 87040; 87045; 87046; 87077; 87086; 87088; 87186; 87269; 87272; 87324; 87427; 87804; 89055; 93005; 93306; 93970; 93971; 97110; 97116; 97161; 97165; 97530; 97535; 99285; A9270; C1751; C9113; C9803; J0696; J1650; J1756; J1815; J1940; J2405; J7050; P9016; Q9967; U0003; U0005

== ENCOUNTER 2021-01-20 16:33 | Inpatient (IN) | payer MEDICARE, OTHER, SELFPAY ==
[2021-01-20] VITALS (8 sets, daily range): BP systolic 72–96; BP diastolic 55–62; PULSE 80–117; RESP 20–29; TEMP 36.3; O2SAT 97–100
--- NOTE | ~2021-01-20 | US_ITS ---
EXAMINATION: US venous doppler [facility] DATE: 01/21/2021 15:12 INDICATION: Lower limb swelling TECHNIQUE: Grayscale ultrasound images without and with compression and Doppler ultrasound images of the bilateral lower extremity veins were obtained. COMPARISON: 11/19/2020 FINDINGS: There is extensive new noncompressible deep venous thrombosis throughout the right lower limb includi ng the visualized portions of right common femoral vein, profunda (deep) femoral vein, femoral vein, popliteal vein, posterior tibial veins, soleus vein and gastrocnemius vein. The right peroneal veins and greater saphenous vein outflow are patent. Additional extensive Noncompressible deep venous thrombosis throughout the left lower limb including in the visualized por tions of left common femoral vein, profunda femoral vein, femoral vein, popliteal vein, posterior tib ial veins, peroneal veins, soleus vein and gastrocnemius vein. The left peroneal veins and greater sa phenous vein outflow are patent. IMPRESSION: 1. Extensive [id number] and ntbfo-tgj-[id number] deep venous thrombosis throughout both the left and r ight lower limbs. Findings were discussed with Sonia Hess, the nurse caring for the patient, at 3 :37 PM. Reviewed, dictated and finalized at location A. IMPRESSION: 1. Extensive khmgc-mdu-amdd and tvcrv-cba-emey deep venous thrombosis througho ut both the left and right lower limbs. Findings were discussed with Sonia horne, the nurse caring for the patient, at 3:37 PM.
--- NOTE | ~2021-01-20 | US_ITS ---
EXAMINATION: US venous doppler [facility] DATE: 01/21/2021 15:12 INDICATION: Upper limb swelling. TECHNIQUE: Grayscale ultrasound images without and with compression and Doppler ultrasound images of the bilateral upper extremity veins were obtained. COMPARISON: None. FINDINGS: The visualized portions of the right internal jugular vein, subclavian vein, axillary vein, brachial veins, basilic vein, cephalic vein, radial vein, and ulnar vein are patent. The visualized portions of the left internal jugular vein, subclavian vein, axillary vein, brachial v eins, basilic vein, cephalic vein, radial vein, and ulnar vein are patent. IMPRESSION: 1. No deep venous thrombosis. Reviewed, dictated and finalized at location A.
--- NOTE | ~2021-01-20 | XR_ITS ---
EXAMINATION: XR chest port-a-cath/central DATE: 01/21/2021 09:52 INDICATION: Central line placement. TECHNIQUE: A single frontal view of the chest was obtained. COMPARISON: Chest single view 01/20/2021, chest 2 views 11/18/2020 FINDINGS: There is marked elevation of right hemidiaphragm. There are airspace opacities in right mid dle lower lung zones. No pleural effusion or pneumothorax. The heart size is normal. A right internal jugular central venous catheter is seen with tip in the superior vena cava. IMPRESSION: 1. Central line tip in superior vena cava. 2. Worsened mild airspace opacities in right mid and lower lung zones, consistent with atelectasis ve rsus pneumonia. 3. Marked elevation of right hemidiaphragm with worsening from 11/18/2020. Reviewed, dictated and finalized at location A. IMPRESSION: 1. Central line tip in superior vena cava. 2. Worsened mild airspace opacities in right mid and lower lung zones, consiste nt with atelectasis versus pneumonia. 3. Marked elevation of right hemidiaphragm with worsening from 11/18/2020.
--- NOTE | ~2021-01-20 | XR_ITS ---
EXAMINATION: XR chest 1V portable DATE: 01/20/2021 17:02 INDICATION: Shortness of breath, hypoxia and weakness TECHNIQUE: frontal view of the chest was obtained. COMPARISON: Chest radiograph dated 11/18/[address] dated 11/21/2020. FINDINGS: Patient is rotated slightly towards the right. There are new patchy airspace opacities in the right l ower lung zone projecting over the chronically elevated right hemidiaphragm. Remainder of the lungs a re clear. No pulmonary edema, pleural effusion or pneumothorax. Mild cardiomegaly. There are bridging osteophytes at multiple levels in the spine, consistent with diffuse idiopathic skeletal hyperostosi s (DISH). IMPRESSION: 1. New patchy airspace opacities projecting over the elevated right hemidiaphragm. Differential inclu viviana pneumonia, atelectasis or asymmetric pulmonary edema. 2. Cardiomegaly. Reviewed, dictated and finalized at location A. IMPRESSION: 1. New patchy airspace opacities projecting over the elevated right hemidiaphra gm. Differential includes pneumonia, atelectasis or asymmetric pulmonary edema. 2. Cardiomegaly.
--- NOTE | ~2021-01-20 | XR_ITS ---
EXAMINATION: XR abdomen/kub 1V EXAM DATE: 01/25/2021 08:24 INDICATION: Abdominal pain. TECHNIQUE: Frontal projection of the upper abdomen, frontal projection lower abdomen/pelvis for inter pretation. Correlation is made to 01/21/2021 CT. FINDINGS: There is paucity of colonic stool and gas. No small bowel dilation, nonobstructive bowel gas pattern. There are no suspicious calcifications identified. There is no organomegaly suspecte d. Some advanced lower lumbar facet arthropathy. Bibasilar opacities most consistent with atelectas is. IMPRESSION: Bibasilar opacities most consistent with atelectasis. Nonobstructive bowel gas pattern. Reviewed, dictated and finalized at location B. IMPRESSION: Bibasilar opacities most consistent with atelectasis. Nonobstructiv e bowel gas pattern.
--- NOTE | ~2021-01-20 | CT_ITS ---
EXAMINATION: CT chest abdomen pelvis wo con DATE: 01/21/2021 13:07 INDICATION: Sepsis. Abdominal pain. TECHNIQUE: Computed tomography (CT) of the chest, abdomen, and pelvis was performed without intraveno us contrast. Automated exposure control and iterative reconstruction technique were employed. The dos e-length product was 822.02 mGy-cm. COMPARISON: CT chest, abdomen, and pelvis 11/21/2020, CT abdomen and pelvis 11/19/20 FINDINGS: CHEST CT: There is mild atelectasis in left lung. There are peripheral airspace and groundglass opacities in ri ght upper lobe and right lower lobe with volume loss. There is marked elevation of right hemidiaphrag m. No pleural effusion. The heart size is normal. There are coronary artery calcifications. No perica rdial effusion. The central pulmonary arteries are enlarged, consistent with pulmonary hypertension. A right internal jugular central venous catheter is seen with tip in the superior vena cava. There ar e bridging endplate osteophytes at multiple levels in the spine, consistent with diffuse idiopathic s keletal hyperostosis (DISH). ABDOMEN/PELVIS CT: There is diffuse hepatic steatosis. The gallbladder, spleen, pancreas, and left adrenal gland are nor mal. There is a 2.2 cm mass of right adrenal gland with small area of fat, consistent with a myelolip get. The kidneys are normal. There is no urolithiasis. There is wall thickening throughout the colon, consistent with colitis. The appendix is normal. There is a small sliding hiatal hernia. There are n o pathologically enlarged lymph nodes. There is no free intraperitoneal fluid. There is mild lumbar s pondylosis. There are a few scattered benign bone islands. IMPRESSION: 1. Pancolitis. 2. Airspace and groundglass opacities in right upper and lower lobes, likely pneumonia. Reviewed, dictated and finalized at location A. IMPRESSION: 1. Pancolitis. 2. Airspace and groundglass opacities in right upper and lower lobes, likely pn eumonia.
[2021-01-20 17:07] LABS: Immature Platelet Fraction Pct 13.1 % (0.9-11.2); Mean Corpuscular HGB Conc 29.8 g/dl (32-36); Mean Corpuscular Hemoglobin 27.3 pg (26-34); Mean Corpuscular Volume 91.6 fl (80-100); Platelet Count Result 148 k/mm3 (150-375); Red Blood Count 5.13 M/mm3 (4.2-5.4); Red Cell Distribution Width 15.5 % (11.5-14.5); White Blood Count 12.4 K/mm3 (4.5-10.0)
[2021-01-20 17:14] LABS: INR 1.1; Partial Thromboplastin Time 35.4 SECONDS (22.3-36.8); Prothrombin Time 14.6 Seconds (11.1-14.7)
[2021-01-20 17:15] LABS: Lactic Acid Reflex 3.3 mmol/L (0.7-2.1)
[2021-01-20 17:16] LABS: Alanine Aminotransferase 11 U/L (4-35); Alkaline Phosphatase 211 U/L (38-126); Anion Gap 17 mmol/L (8-16); Aspartate Amino Transferase 18 U/L (14-36); Bilirubin,Total 0.9 mg/dL (0.2-1.3); Blood Urea Nitrogen 64 mg/dL (7-17); Carbon Dioxide 25 mmol/L (22-30); Chloride 108 mmol/L (98-107); Estimated Glomerular Filt Rate 12; Glucose 181 mg/dL (65-105); Potassium 3.3 mmol/L (3.4-5.0); Sodium 150 mmol/L (137-145)
--- NOTE | 2021-01-20 17:32 | ED.GENADULT ---
HPI - General Adult General Chief complaint: Weakness Stated complaint: AMS Time Seen by Provider: 01/20/21 16:37 History of Present Illness HPI narrative: Patient is a 70-year-old female who presents ER with weakness and hypotension. Patient has home health and notes that she has been going downhill over the last couple days. Patient been refusing to go to the hospital but today was so weak they called EMS. Patient was hospitalized in November of this year for PE. During her hospital stay apparently she became very debilitated. No reports of fever/chest pain/shortness of breath. Patient is alert and oriented but she is very slow to answer questions. Additionally patient was found to have a right adrenal mass and has been referred to Dr. Weiner. Related Data Home Medications Medication Instructions Recorded Confirmed amlodipine 10 mg PO DAILY 01/20/21 01/20/21 cholecalciferol (vitamin D3) 25 mcg PO DAILY 01/20/21 01/20/21 levothyroxine [Synthroid] 75 mcg PO DAILY@0630 01/20/21 01/20/21 linagliptin [Tradjenta] 5 mg PO QAM 01/20/21 01/20/21 magnesium oxide 200 mg PO DAILY 01/20/21 01/20/21 metformin [Glucophage] 1,000 mg PO BIDWM 01/20/21 01/20/21 Allergies Allergy/AdvReac Type Severity Reaction Status Date / Time Penicillins Allergy Hives Verified 01/20/21 17:06 Review of Systems Review of Systems: All systems reviewed & are unremarkable except as noted in HPI and below Constitutional: Constitutional: Denies chills, Reports fatigue, Denies fever(s) and Reports weakness ENT: Denies nasal congestion and Denies sore throat Cardiovascular: Cardiovascular: Denies chest pain and Denies radiating jaw, neck or arm pain Respiratory: Respiratory: Denies cough, Denies dyspnea and Denies wheezing Comments: low O2 sat Gastrointestinal: Gastrointestinal: Denies abdominal pain, Denies nausea and Denies vomiting [facility] Past Medical History Medical History (Updated 01/21/21 @ 00:42 by Elvis Kellogg MD) Congestive heart failure Depression Diabetic peripheral neuropathy DVT (deep venous thrombosis) Dyslipidemia Hypertension Hypothyroidism Noncompliance with medication regimen Osteoarthritis Paroxysmal atrial fibrillation Pulmonary emboli Traumatic hematoma of right upper arm Type 2 diabetes mellitus Surgical History Surgical History (Updated 12/02/20 @ 13:08 by Sherman Weiner MD) History of arthroplasty of left knee History of hysterectomy Family History Family History Sibling Diabetes mellitus Heart disease Mother Diabetes mellitus Kidney disease Father Parkinsons disease Dementia Social History Social History Social History: Surrogate decision maker: Erum Avendano, granddaughter. Code status: Do not resuscitate. Smoking packs per day: 1 Smoking cigarettes per day: 20.0 Smoking status: Unknown if ever smoked Additional smoking assessment comments: Patient quit smoking approximately 26 years ago as of 12/01/2020. Alcohol intake: unknown Substance use: unknown Additional living arrangements comments: The patient lives in [place] with her daughter and grandson. Additional occupation/education comments: Retired from the [employer]. Gender identity (if verbalized by the patient): Female Spiritual care concerns: No Exam Narrative: Exam Narrative: GENERAL: ill-appearing, well-nourished, and in no acute distress. HEAD: Normocephalic, atraumatic. EYES: PERRL and EOMI. ENT: Dry mucous membranes. CHEST: Clear to auscultation. No respiratory distress. HEART: Tachycardic and regular. Normal peripheral pulses. ABDOMEN: Soft, nontender, nondistended. EXTREMITIES: Normal range of motion. No edema. SKIN: Warm, dry, poor skin turgor. Pressure sores to heels and calves buttock. NEURO: Alert and oriented x1. PSYCH: Normal mood and affect. Course
[2021-01-20 17:34] LABS: Band Neutrophils Percent 18 % (0-6); Monocytes Absolute Manual 0.99 K/mm3 (0.1-0.90); Monocytes Percent Manual 8 % (3-9); Neutrophils Percent Manual 57 % (46-73); Platelet Estimate Adequate (Adequate); Total Cells Counted 100
[2021-01-20 17:35] LABS: Anisocytosis 2+ (NORMAL); Hypochromasia 1+ (NORMAL)
--- NOTE | 2021-01-20 18:00 | ECG_ITS ---
Measurements Intervals [place] Rate: 111 P: -32 VT: 257 QRS: 14 QRSD: 153 T: 186 QT: 405 QTc: 551 Interpretive Statements SINUS OR ECTOPIC ATRIAL TACHYCARDIA LEFT BUNDLE BRANCH BLOCK BASELINE ARTIFACT- I, II, III, AVF ABNORMAL ECG Electronically Signed On 01-20-2021 20:40:26 CDT by Wilber Merchant D.O.
[2021-01-20 18:41] LABS: Add Urine Microscopic? YES; Amorphous Sediment Urine Moderate; Appearance Urine Cloudy (Clear); Bacteria Urine 2+ /hpf; Bilirubin Urine Negative (Negative); Blood Urine Negative (Negative); Color Urine Amber (Yellow); Glucose Urine UA Negative (Negative); Ketones Urine Negative (Negative); Leukocyte Esterase Ur 1+ LEU/UL (Negative); Mucus Urine Rare /lpf; Nitrate Urine Negative (Negative); Protein Urine 2+ mg/dL (Negative); RBC Urine 0-2 /hpf (0-2); Specific Grav Ur 1.023 (1.001-1.035); Squamous Epithelial Cell Urine Few /hpf (Few); WBC Urine 21-30 /hpf
[2021-01-20] MEDS: LACTATED RINGERS 1,000 ML 999 ML IV CONT (18:49)
[2021-01-20] MEDS: SODIUM CHLORIDE 0.9% IV 1,000 ML 100 ML IV CONT ×2 (19:56→22:46)
[2021-01-20 20:03] LABS: Reflex Lactic Acid Yes or No Add Lactic
--- NOTE | 2021-01-20 20:59 | PM.IMHP ---
H&P: HPI History of Present Illness Date/Time: 01/20/21 20:59 Chief Complaint: Generalized weakness Narrative: This is a 70-year-old female with past medical history significant for congestive heart failure ejection fraction estimated at 20-25%, PE, retroperitoneal mass, diabetes mellitus. Patient had a recent admission to our hospital in November where she was found to have an acute pulmonary embolism patient was unable to tolerate anticoagulation due to drop in hemoglobin. Patient was discharged home with home health and he was noted a progressive decline in the last few days or so with generalized weakness and EMS was called and patient was brought to emergency room. Patient's mental status is altered she can only give short answers can't really detailed the events prior to coming to the hospital but she denies any pain at this time. Preliminary workup was significant for a sodium of 150, a creatinine of 4.3 and BUN of 64. A chest x-ray shows infiltrates. Review of Systems Review of Systems: Narrative: Patient was brought to the emergency room after EMS was called by home health care due to patient's weakness and hypotension ROS unobtainable: Yes unobtainable due to medical condition (Altered mental status) [facility] Past Medical History Medical History (Updated 01/21/21 @ 00:42 by Elvis Kellogg MD) Congestive heart failure Depression Diabetic peripheral neuropathy DVT (deep venous thrombosis) Dyslipidemia Hypertension Hypothyroidism Noncompliance with medication regimen Osteoarthritis Paroxysmal atrial fibrillation Pulmonary emboli Traumatic hematoma of right upper arm Type 2 diabetes mellitus Surgical History Surgical History (Updated 12/02/20 @ 13:08 by Sherman Weiner MD) History of arthroplasty of left knee History of hysterectomy Family History Family History Sibling Diabetes mellitus Heart disease Mother Diabetes mellitus Kidney disease Father Parkinsons disease Dementia Social History Social History Social History: Surrogate decision maker: Erum Avendano, granddaughter. Code status: Do not resuscitate. Smoking packs per day: 1 Smoking cigarettes per day: 20.0 Smoking status: Unknown if ever smoked Additional smoking assessment comments: Patient quit smoking approximately 26 years ago as of 12/01/2020. Alcohol intake: unknown Substance use: unknown Additional living arrangements comments: The patient lives in [place] with her daughter and grandson. Additional occupation/education comments: Retired from the [employer]. Gender identity (if verbalized by the patient): Female Spiritual care concerns: No Meds Home Medications and Allergies Home Medications Medication Instructions Recorded Confirmed Type acetaminophen [Mapap 650 mg PO Q4H PRN #30 tablet 12/02/20 01/20/21 Rx (acetaminophen)] aspirin [Children's Aspirin] 81 mg PO DAILY@0800 #30 tablet 12/02/20 01/20/21 Rx atorvastatin 20 mg PO HS #30 tablet 12/02/20 01/20/21 Rx ferrous sulfate 324 mg PO DAILY #30 tablet 12/02/20 01/20/21 Rx insulin aspart U-100 [Novolog 2 - 5 unit SUBCUT TIDWM #10 ml 12/02/20 01/20/21 Rx U-100 Insulin aspart] metoprolol succinate [Toprol XL] 25 mg PO QAM #30 tablet 12/02/20 01/20/21 Rx sacubitril-valsartan [Entresto] 1 tablet PO Q12HR #30 tablet 12/02/20 01/20/21 Rx amlodipine 10 mg PO DAILY 01/20/21 01/20/21 History cholecalciferol (vitamin D3) 25 mcg PO DAILY 01/20/21 01/20/21 History levothyroxine [Synthroid] 75 mcg PO DAILY@0630 01/20/21 01/20/21 History linagliptin [Tradjenta] 5 mg PO QAM 01/20/21 01/20/21 History magnesium oxide 200 mg PO DAILY 01/20/21 01/20/21 History metformin [Glucophage] 1,000 mg PO BIDWM 01/20/21 01/20/21 History Allergies Allergy/AdvReac Type Severity Reaction Status Date / Time Penicillins Allergy Hives Verified
--- NOTE | 2021-01-20 21:05 | PC.NURSE ---
2014 This patient, Koko Rodriguez, was admitted to Intensive Care Unit-8. Patient/family oriented to hospital policies and general routines including ID bracelet, bed and alarms, visiting hours, pain management, procedures, bathroom and other care routines, personal items, smoking policy, room service/diet, and visiting hours. Information on how to activate the Rapid Response Team has been discussed. Patient/Family are encouraged to report perceived risks to care and to ask questions if they do not understand what they are told or what they should do.
[2021-01-20] MEDS: SODIUM CHLORIDE 0.9% IV 250 ML 999 ML IV CONT ×2 (21:11→22:17)
[2021-01-20 21:24] LABS: Lactic Acid 1.9 mmol/L (0.7-2.1)
[2021-01-20] MEDS: AZTREONAM 2 GM in DEXTROSE 5% 100 ML 200 ML IVPB (22:17)
[2021-01-21] VITALS (17 sets, daily range): BP systolic 74–115; BP diastolic 55–85; PULSE 70–98; RESP 15–22; TEMP 36.1–36.6; O2SAT 94–99
--- NOTE | 2021-01-21 | ECHOL_ITS ---
Patient Info Name: Koko Rodriguez Age: 70 years : 1950 Gender: Female Ht: 65 in Wt: 146 lbs BSA: 1.75 m2 HR: 78 bpm BP: 115 / 85 mmHg Heart Rhythm: Sinus Rhythm Technical Quality: Good Exam Date: 01/21/2021 12:33 PM Exam Location: [facility] Pulmonary Exam Room: ICU8 Patient Status: Inpatient Admit Date: 01/20/2021 Staff Ordering Physician: Willie Beard MD Art Editor: Donita Gu RDCS Attending Provider: Lia Calzada MD Exam Type: CA echo limited Study Info Indications - shock cm chf Limited two-dimensional transthoracic echocardiogram is performed. Summary 1. Technically difficult study with limited views. 2. Left ventricular systolic function is severely reduced, estimated at 20%. 3. Left ventricular septal wall motion is abnormal with septal motion related to bundle branch block. 4. The left ventricular diastolic function is grade I diastolic dysfunction. 5. There is mild tricuspid valve regurgitation. 6. No pulmonary hypertension, estimated pulmonary arterial systolic pressure is 30 mmHg. 7. Thin, mobile filamentous echodensity extending from IVC into the right atrium probable fibrinous structure versus thrombus. 8. Normal inferior vena cava with >50% collapse upon inspiration consistent with normal right atrial pressure, 5 mmHg. Left Ventricle Left ventricular systolic function is severely reduced, estimated at 20%. Technically difficult study with limited views. Left ventricular chamber dimension is normal. There is mildly increased left ventricular wall thickness. Left ventricular septal wall motion is abnormal with septal motion related to bundle branch block. The left ventricular diastolic function is grade I diastolic dysfunction. Right Ventricle Right ventricular chamber dimension is normal. Right ventricular systolic function is normal. Aortic Valve The aortic valve is not well visualized. There is trace aortic valve regurgitation. Pulmonic Valve The pulmonic valve is not well visualized. Mitral Valve The mitral valve has normal leaflets. There is trace mitral valve regurgitation. Tricuspid Valve The tricuspid valve leaflets are normal. There is mild tricuspid valve regurgitation. No pulmonary hypertension, estimated pulmonary arterial systolic pressure is 30 mmHg. Pericardium/Pleural The pericardium appears epicardial fat pad. There is small pericardial effusion. Inferior Vena Cava Normal inferior vena cava with >50% collapse upon inspiration consistent with normal right atrial pressure, 5 mmHg. Thin, mobile filamentous echodensity extending from IVC into the right atrium probable fibrinous structure versus thrombus. Aorta The aortic root size at the sinus of Valsalva is normal. Mitral Valve Name Value Normal MV Doppler MV Decel Pima 193 cm/s2 MV PHT 71 ms MV Area (PHT) 3.1 cm2 4.0-5.0 MV Diastolic Function MV E Peak Velocity 47 cm/s MV A Peak Velocity 62 cm/s MV E/A 0.8 MV Decel Time
[2021-01-21 00:16] LABS: Glucose Point of Care 221 mg/dl (65-105)
[2021-01-21] MEDS: NOREPINEPHRINE 8 MG/D5W 250 ML 8 MG/250 ML BAG 1.88 MG IV CONT (03:15)
[2021-01-21 04:43] LABS: Anion Gap 13 mmol/L (8-16); Blood Urea Nitrogen 57 mg/dL (7-17); Calcium 7.8 mg/dL (8.4-10.2); Carbon Dioxide 20 mmol/L (22-30); Chloride 113 mmol/L (98-107); Estimated CRCL calculation 12 ml/min; Estimated Glomerular Filt Rate 16; Glucose 221 mg/dL (65-105); Sodium 146 mmol/L (137-145)
[2021-01-21] MEDS: AZTREONAM 1 GM in DEXTROSE 5% IN WATER 50 ML 100 ML IVPB ×3 (05:40→21:54)
[2021-01-21 08:06] LABS: Glucose Point of Care 217 mg/dl (65-105)
[2021-01-21] MEDS: INSULIN ASPART (*BKC) 100 UNITS/ML SUB-Q (08:21)
[2021-01-21] MEDS: KCL 20 MEQ/SW 100 ML 100 ML 50 MEQ IVPB ×2 (08:21→10:36)
--- NOTE | 2021-01-21 09:53 | PM.IMPN ---
Progress Note: A&P Assessment and Plan (1) Pneumonia: Code(s): J18.9 - Pneumonia, unspecified organism Status: Acute Assessment and Plan: IV antibiotics Monitor respiratory status On the vital signs closely (2) Sepsis: Code(s): A41.9 - Sepsis, unspecified organism Status: Acute Assessment and Plan: Antibiotics IV fluids Blood cultures (3) Acute renal failure: Code(s): N17.9 - Acute kidney failure, unspecified Status: Acute Assessment and Plan: Hydration Monitor renal function and electrolytes Consult nephrology (4) Congestive heart failure: Qualifiers: Heart failure chronicity: unspecified Heart failure type: unspecified Qualified Code(s): I50.9 - Heart failure, unspecified Code(s): I50.9 - Heart failure, unspecified Status: Acute Assessment and Plan: Consult Cardiology Monitor vital signs closely (5) Pulmonary emboli: Qualifiers: Acute cor pulmonale presence: unspecified Chronicity: acute Pulmonary embolism type: unspecified Qualified Code(s): I26.99 - Other pulmonary embolism without acute cor pulmonale Code(s): I26.99 - Other pulmonary embolism without acute cor pulmonale Status: Acute Assessment and Plan: Unable to anticoagulate in the past due to large spontaneous hematoma, plan to obtain lower extremity ultrasound, and consider IVC filter. (6) DVT (deep venous thrombosis): Qualifiers: Affected thrombotic vein of extremity: axillary Chronicity: acute DVT location: upper extremity Laterality: right Qualified Code(s): I82.A11 - Acute embolism and thrombosis of right axillary vein Code(s): I82.409 - Acute embolism and thrombosis of unspecified deep veins of unspecified lower extremity Status: Acute Assessment and Plan: Patient could not tolerate anticoagulation in the past because of spontaneous hematoma, obtained per extremity ultrasound. (7) Hypotension: Code(s): I95.9 - Hypotension, unspecified Status: Acute Assessment and Plan: Case was discussed with fixture repairer fabricator, who plan to place central line, patient on Levophed through peripheral line at this time. (8) UTI (urinary tract infection): Code(s): N39.0 - Urinary tract infection, site not specified Status: Suspected Assessment and Plan: IV antibiotics Monitor renal function (9) Anemia: Qualifiers: Anemia type: unspecified type Qualified Code(s): D64.9 - Anemia, unspecified Code(s): D64.9 - Anemia, unspecified Status: Acute Assessment and Plan: Blood transfusion as needed Monitor vital signs and hemoglobin (10) Paroxysmal atrial fibrillation: Code(s): I48.0 - Paroxysmal atrial fibrillation Status: Chronic Assessment and Plan: Consult cardiology Not a candidate for anticoagulation because of large spontaneous hematoma Rate control Consider amiodarone drip Subjective Date/time seen: 01/21/21 09:53 Patient is alert oriented x2, complaint of generalized body aches and mild confusion. Review of Systems Constitutional: Constitutional: Reports lethargy Gastrointestinal: Gastrointestinal: Denies abdominal pain Exam Const: General: No confusion HENMT: General nose exam: Normal nares present and no epistaxis Eyes: Direct Ophthalmoscopy: No photophobia Neck: Neck: no JVD Resp: Effort & Inspection: normal respiratory effort Auscultation: clear to auscultation bilaterally Cardio: Rate: regular rate GI: Inspection: non-distended GI Palp: Yes Soft to palpation Other: No abdominal tenderness at this time. Skin: General skin exam: normal color Neuro: General: No confusion Cranial nerves: Yes Normal hearing present Speech: No Abnormal speech present Motor exam (neuro): Normal motor muscle tone present throughout and Abnormal motor strength present Extrem: General: normal to inspection Psych:
[2021-01-21 10:27] LABS: Hematocrit 35.4 % (37.0-47.0); Immature Platelet Fraction Pct 11.2 % (0.9-11.2); Mean Corpuscular HGB Conc 30.5 g/dl (32-36); Mean Corpuscular Hemoglobin 27.6 pg (26-34); Mean Corpuscular Volume 90.3 fl (80-100); Mean Platelet Volume 12.8 fl (7.4-10.4); Platelet Count Result 114 k/mm3 (150-375); Red Blood Count 3.92 M/mm3 (4.2-5.4); Red Cell Distribution Width 15.4 % (11.5-14.5); White Blood Count 12.3 K/mm3 (4.5-10.0)
[2021-01-21] MEDS: KCL 20 MEQ/0.45% NS 1,000 ML 50 ML IV CONT (10:35)
[2021-01-21 10:41] LABS: Hemoglobin 10.8 g/dL (12.0-15.0)
[2021-01-21 10:44] LABS: Band Neutrophils Percent 10 % (0-6); Eosinophils Absolute Manual 0.12 K/mm3 (0.02-0.5); Eosinophils Percent Manual 1 % (0-4); Lymphocytes Absolute Manual 1.72 K/mm3 (1.1-4.5); Monocytes Absolute Manual 0.73 K/mm3 (0.1-0.90); Monocytes Percent Manual 6 % (3-9); Neutrophils Absolute Manual 9.71 K/mm3 (1.7-7.2); Neutrophils Percent Manual 69 % (46-73); Platelet Estimate Adequate (Adequate); Poikilocytosis 1+ (NORMAL); Total Cells Counted 100
[2021-01-21 10:45] LABS: Burr Cells 2+ (NORMAL); Ovalocytes 1+ (NORMAL)
--- NOTE | 2021-01-21 10:46 | WPDPROCEDUR ---
Procedures Central Line Placement Right IJ: Central Line Date: 01/21/21 Central Line Time: 09:00 Performed Emergently - Given emergent patient condition, temporal constraints may have precluded informed consent.: Yes Consent: Patient was on vasopressors and had only 1 peripheral IV. That IV also start working and patient had no IV access. RN try to place another IV but was unable to. Although plan was to place central line after obtaining a consent, due to situation it was placed emergently Time Out Performed: Yes Patient Position: trendelenburg Patient placed on monitor/pulse ox: Yes Provider Prep: mask, sterile gown, sterile gloves, Max. sterile barrier precautions and cap Central line prep: 2% Chlorhexidine scrub Local anesthesia used: lidocaine 1% Amount of anesthesia used (ml): 5 Central line lumen inserted: triple Length (cm): 16 Depth of Insertion (cm): 16 Post Procedure: sutured in place, good blood return, all ports aspirated, flushed, capped, transparent dressing and hemostatic product Post procedure x-ray: tip of catheter in good position and no pneumothorax seen Patient tolerated procedure: well Complications: other Additional comments: Patient had a vein that was collapsing with her breathing. It took multiple attempts. It was easy to cannulate the vein but blood would stop flowing or guidewire want advance. Finally able to cannulate vein successfully, advanced guidewire without any difficulty and central line was placed
--- NOTE | 2021-01-21 10:48 | WPDCNINT ---
Assessment and Plan Assessment and plan (1) Septic shock: Code(s): A41.9 - Sepsis, unspecified organism; R65.21 - Severe sepsis with septic shock Status: Acute Assessment and Plan: Patient presented with low blood pressure. She has evidence of the pneumonia and UTI although she also has cardiomyopathy with EF of 20-25% She has received more than 4 L of fluid. NICOM assessment showed no further fluid responsiveness Patient was started on Levophed overnight Central venous catheter was placed emergently due to poor IV access Continue Levophed titration Check echocardiogram to assess right and left heart function Hold further IV fluid bolus and continue conservative IV fluids Blood and urine cultures sent and pending Check CT abdomen and chest Empiric antibiotics-vancomycin aztreonam and azithromycin (2) Pneumonia: Code(s): J18.9 - Pneumonia, unspecified organism Status: Acute Assessment and Plan: Chest x-rays shows elevated right hemidiaphragm and infiltrates suggestive of emerging pulmonary edema (3) UTI (urinary tract infection): Code(s): N39.0 - Urinary tract infection, site not specified Status: Suspected Assessment and Plan: See above (4) Pulmonary embolism: Qualifiers: Pulmonary embolism type: multiple subsegmental (without acute cor pulmonale) Qualified Code(s): I26.94 - Multiple subsegmental pulmonary emboli without acute cor pulmonale Code(s): I26.99 - Other pulmonary embolism without acute cor pulmonale Status: Acute Assessment and Plan: Patient had a PE but with low clot burden diagnosed in November She developed hematoma with anticoagulation hence anticoagulation was discontinued Will check an echocardiogram to assess right heart Creatinine is elevated precluding repeat CT scan Will hold V/Q scan and will not telephone exchange operator Check bilateral lower extremity Dopplers to assess for new DVTs Nurse reported dark stool-will also check stool occult CBC repeat is pending-her high hemoglobin on presentation likely from hemoconcentration Will make a decision anticoagulation depending on workup mentioned above (5) DVT (deep venous thrombosis): Qualifiers: Affected thrombotic vein of extremity: axillary Chronicity: acute DVT location: upper extremity Laterality: right Qualified Code(s): I82.A11 - Acute embolism and thrombosis of right axillary vein Code(s): I82.409 - Acute embolism and thrombosis of unspecified deep veins of unspecified lower extremity Status: Acute Assessment and Plan: She right axillary DVT on last hospitalization Check bilateral Dopplers (6) Acute renal failure: Code(s): N17.9 - Acute kidney failure, unspecified Status: Acute Assessment and Plan: Patient presented with creatinine of 4.3. Likely prerenal versus ATN She has received adequate amount IV fluids. Continue maintenance fluids CT abdomen pelvis pending Monitor urine output and electrolytes Replace low potassium Nephrology has been consulted Check CK Hold ARB and metformin (7) Congestive heart failure: Qualifiers: Heart failure chronicity: unspecified Heart failure type: unspecified Qualified Code(s): I50.9 - Heart failure, unspecified Code(s): I50.9 - Heart failure, unspecified Status: Acute Assessment and Plan: java developer consultant Echo ordered Hold beta-ophelia due to shock (8) Paroxysmal atrial fibrillation: Code(s): I48.0 - Paroxysmal atrial fibrillation Status: Chronic Assessment and Plan: Currently in NSR (9) Uncontrolled diabetes mellitus with hyperglycemia: Qualifiers: Diabetes mellitus type: type 2 Qualified Code(s): E11.65 - Type 2 diabetes mellitus with hyperglycemia Code(s): E11.65 - Type 2 diabetes mellitus with hyperglycemia Status: Acute Assessment and Plan: Q4 hours sliding scale (10) Electrolyte abnorm
[2021-01-21 11:54] LABS: Glucose Point of Care 182 mg/dl (65-105)
[2021-01-21] MEDS: ALBUMIN HUMAN 25% 25 GM/100 ML 100 ML IVPB ×2 (12:23→17:10)
[2021-01-21 12:46] LABS: Creatine Kinase 43 U/L (30-135)
[2021-01-21] MEDS: CENTRAL LINE FLUSH 10 ML IV PUSH ×3 (13:51→20:18)
[2021-01-21] MEDS: metroNIDAZOLE 500 MG/ISO 100ML 500 MG/100 ML BAG 100 MG IVPB ×2 (14:50→20:18)
--- NOTE | 2021-01-21 14:59 | PC.NURSE ---
Cardiopulmonary Rehab Services flyer was given to patient in cardiac admission folder.
[2021-01-21 15:17] LABS: Lactic Acid Reflex 1.5 mmol/L (0.7-2.1)
[2021-01-21 16:21] LABS: Glucose Point of Care 145 mg/dl (65-105)
[2021-01-21 16:48] LABS: IFOB Positive Control Positive; Immunochemical Fecal Occult Bl Negative (N)
--- NOTE | 2021-01-21 17:10 | PM.CNNEP ---
Assessment and Plan Assessment and plan (1) KATY (acute kidney injury): Code(s): N17.9 - Acute kidney failure, unspecified Status: Acute Assessment and Plan: normal creatinine at baseline likely due to: - hemodynamic instability/shock - infection/sepsis (pneumonia +/- UTI) - use of Entresto/BP medications LOGGER ALL ROUND - pre-renal factors - compounded by known cardiomyopathy (EF ~ 20%) kidneys normal by CT scan holding ARB and metformin check urine electrolytes and eosinophils follow trend of repeat labs and urine output remains at risk for needing RESIDENT CARE SUPERVISOR/dialysis (2) Septic shock: Code(s): A41.9 - Sepsis, unspecified organism; R65.21 - Severe sepsis with septic shock Status: Acute Assessment and Plan: pressor support to maintain MAP follow culture data continue broad spectrum antibiotic therapy (3) Cardiomyopathy: Qualifiers: Cardiomyopathy type: unspecified Qualified Code(s): I42.9 - Cardiomyopathy, unspecified Code(s): I42.9 - Cardiomyopathy, unspecified Status: Acute Assessment and Plan: known issues with EF ~ 20% Cardiology following (4) Pneumonia: Code(s): J18.9 - Pneumonia, unspecified organism Status: Acute Assessment and Plan: as noted by imaging studies to date follow respiratory status continue antibioti therapy (5) UTI (urinary tract infection): Code(s): N39.0 - Urinary tract infection, site not specified Status: Suspected Assessment and Plan: highly suggestive by amdission urinalysis follow-up on urine culture covered by antibiotic therapy (6) Type 2 diabetes mellitus: Qualifiers: Diabetes mellitus chcf insulin use: without computer terminal operator use Diabetes mellitus complication status: with neurologic complications Diabetes mellitus complication detail: with polyneuropathy Qualified Code(s): E11.42 - Type 2 diabetes mellitus with diabetic polyneuropathy Code(s): E11.9 - Type 2 diabetes mellitus without complications Status: Acute Assessment and Plan: follow accuchecks glycemic control Will continue to follow. History of Present Illness Reason for Consult Consult date: 01/21/21 Reason for consult: acute renal failure Chief Complaint Chief complaint: katy/pneumonia/hypoxia History of Present Illness Narrative: Almost all the information I have obtained with regard to the events that led to the patient coming to the hospital are from review of the electronic medical records as well as discussion with the medical team involved in her care as the patient is having difficulty providing much history in general. Apparently, the patient was recently hospitalized here in November where she was diagnosed with a significant cardiomyopathy as well as a DVT that was complicated by hematoma formation when she was on anticoagulation. Eventually she was stabilized during that hospital stay and discharged. However, since she has been at home, she has been getting progressively weaker and weaker in general. She apparently had refused to come to the hospital despite the fact She has been slowly deteriorating but eventually she got to the point where EMS was called and subsequently transferred to the ER for evaluation. Workup and evaluation in the ER demonstrated the patient to be quite hypotensive and altered with regard to her mental status. Routine blood test demonstrated multiple abnormalities including hypernatremia as well as acute kidney injury/ acute renal failure. She was aggressively hydrated with IV fluids due to her hypotension but was resistant to any improvement with this intervention. She eventually had have a central line placed for initiation of vasopressor therapy and after appropriate cultures were obtained, was started on broad-spectrum IV antibiotic therapy with eventual admission to the
--- NOTE | 2021-01-21 17:10 | P.CONNP_ITS ---
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 - compounded by known cardiomyopathy (EF ~ 20%) * kidneys normal by CT scan * holding ARB and metformin * check urine electrolytes and eosinophils * follow trend of repeat labs and urine output * remains at risk for needing CONTACT PERSON/dialysis (2) Septic shock: Code(s): A41.9 - Sepsis, unspecified organism; R65.21 - Severe sepsis with septic shock Status: Acute Assessment and Plan: * pressor support to maintain MAP * follow culture data * continue broad spectrum antibiotic therapy (3) Cardiomyopathy: Qualifiers: Cardiomyopathy type: unspecified Qualified Code(s): I42.9 - Cardiomyopathy, unspecified Code(s): I42.9 - Cardiomyopathy, unspecified Status: Acute Assessment and Plan: * known issues with EF ~ 20% * Cardiology following (4) Pneumonia: Code(s): J18.9 - Pneumonia, unspecified organism Status: Acute Assessment and Plan: * as noted by imaging studies to date * follow respiratory status * continue antibioti therapy (5) UTI (urinary tract infection): Code(s): N39.0 - Urinary tract infection, site not specified Status: Suspected Assessment and Plan: * highly suggestive by amdission urinalysis * follow-up on urine culture * covered by antibiotic therapy (6) Type 2 diabetes mellitus: Qualifiers: Diabetes mellitus mcc insulin use: without mcc use Diabetes mellitus complication status: with neurologic complications Diabetes mellitus complication detail: with polyneuropathy Qualified Code(s): E11.42 - Type 2 diabetes mellitus with diabetic polyneuropathy Code(s): E11.9 - Type 2 diabetes mellitus without complications Status: Acute Assessment and Plan: * follow accuchecks * glycemic control Will continue to follow. History of Present Illness Reason for Consult Consult date: 01/21/21 Reason for consult: acute renal failure Chief Complaint Chief complaint: katy/pneumonia/hypoxia History of Present Illness Narrative: Almost all the information I have obtained with regard to the events that led to the patient coming to the hospital are from review of the electronic medical records as well as discussion with the medical team involved in her care as the patient is having difficulty providing much history in general. Apparently, the patient was recently hospitalized here in November where she was diagnosed with a significant cardiomyopathy as well as a DVT that was complicated by hematoma formation when she was on anticoagulation. Eventually she was stabilized during that hospital stay and discharged. However, since she has been at home, she has been getting progressively weaker and weaker in general. She apparently had refused to come to the hospital despite the fact She has been slowly deteriorating but eventually she got to the point where EMS was called and subsequently transferred to the ER for evaluation. Workup and evaluation in the ER demonstrated the patient to be quite hypotensive and altered with regard to her mental status. Routine blood test demonstrated multiple abnormalities including hypernatremia
[2021-01-21 17:38] LABS: Anion Gap 11 mmol/L (8-16); Blood Urea Nitrogen 54 mg/dL (7-17); Calcium 7.6 mg/dL (8.4-10.2); Carbon Dioxide 20 mmol/L (22-30); Chloride 112 mmol/L (98-107); Estimated CRCL calculation 13 ml/min; Estimated Glomerular Filt Rate 16; Glucose 163 mg/dL (65-105); Potassium 3.1 mmol/L (3.4-5.0); Sodium 143 mmol/L (137-145)
[2021-01-21] MEDS: POTASSIUM CHLORIDE 20 MEQ PACKET (FOR LIQUID) PO (18:46)
[2021-01-21] MEDS: HEPARIN SOD/D5W 100 UNITS/ML 25,000 UNITS/250 ML BAG 12 UNITS IV CONT (18:46)
[2021-01-21 19:13] LABS: INR 1.4; Prothrombin Time 17.3 Seconds (11.1-14.7)
[2021-01-21 19:14] LABS: Partial Thromboplastin Time 47.9 SECONDS (22.3-36.8)
[2021-01-22] VITALS (16 sets, daily range): BP systolic 92–108; BP diastolic 60–71; PULSE 83–92; RESP 16–25; TEMP 36.1–37.2; O2SAT 90–98
[2021-01-22] MEDS: ALBUMIN HUMAN 25% 25 GM/100 ML 100 ML IVPB ×5 (01:06→23:23)
[2021-01-22 02:46] LABS: Partial Thromboplastin Time > 200.0 SECONDS (22.3-36.8)
[2021-01-22] MEDS: metroNIDAZOLE 500 MG/ISO 100ML 500 MG/100 ML BAG 100 MG IVPB ×4 (03:31→20:41)
[2021-01-22] MEDS: KCL 20 MEQ/0.45% NS 1,000 ML 50 ML IV CONT (03:34)
[2021-01-22 04:42] LABS: Hematocrit 26.7 % (37.0-47.0); Hemoglobin 8.4 g/dL (12.0-15.0); Immature Platelet Fraction Pct 14.7 % (0.9-11.2); Mean Corpuscular HGB Conc 31.5 g/dl (32-36); Mean Corpuscular Hemoglobin 27.6 pg (26-34); Mean Corpuscular Volume 87.8 fl (80-100); Platelet Count Result 96 k/mm3 (150-375); Red Blood Count 3.04 M/mm3 (4.2-5.4); Red Cell Distribution Width 15.1 % (11.5-14.5); White Blood Count 9.1 K/mm3 (4.5-10.0)
[2021-01-22 04:58] LABS: Alanine Aminotransferase 7 U/L (4-35); Albumin Level 2.9 g/dL (3.5-5.1); Alkaline Phosphatase 156 U/L (38-126); Anion Gap 12 mmol/L (8-16); Aspartate Amino Transferase 14 U/L (14-36); Bilirubin,Total 0.5 mg/dL (0.2-1.3); Blood Urea Nitrogen 51 mg/dL (7-17); Calcium 7.6 mg/dL (8.4-10.2); Carbon Dioxide 19 mmol/L (22-30); Chloride 111 mmol/L (98-107); Estimated CRCL calculation 14 ml/min; Estimated Glomerular Filt Rate 18; Glucose 119 mg/dL (65-105); Magnesium 1.4 mg/dL (1.6-2.3); Potassium 3.6 mmol/L (3.4-5.0); Sodium 142 mmol/L (137-145)
[2021-01-22 05:58] LABS: Hepatitis B Surface Antigen Negative (Negative)
[2021-01-22 06:03] LABS: HAV RESULT Negative (Negative); Hepatitis B Core IgM Result Negative (Negative)
[2021-01-22] MEDS: AZTREONAM 1 GM in DEXTROSE 5% IN WATER 50 ML 100 ML IVPB ×3 (06:10→22:03)
[2021-01-22] MEDS: CENTRAL LINE FLUSH 10 ML IV PUSH ×4 (06:13→20:19)
[2021-01-22] MEDS: LEVOTHYROXINE SODIUM INJ 100 MCG/5 ML VIAL 37.5 MCG IV PUSH (06:13)
[2021-01-22 06:15] LABS: Hepatitis B Surface Anti Res Negative; Hepatitis C Virus Antibody Negative (Negative)
--- NOTE | 2021-01-22 07:47 | P.PNNP_ITS ---
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 * Not making much urine. Continue IV fluids for now. (2) Septic shock: Code(s): A41.9 - Sepsis, unspecified organism; R65.21 - Severe sepsis with septic shock Status: Acute Assessment and Plan: * pressor support to maintain MAP * The patient is on dopamine. * The patient is afebrile and her white cell count is down. * Blood cultures are negative. Urine culture showed E coli. * continue broad spectrum antibiotic therapy (3) Cardiomyopathy: Qualifiers: Cardiomyopathy type: unspecified Qualified Code(s): I42.9 - Cardiomyopathy, unspecified Code(s): I42.9 - Cardiomyopathy, unspecified Status: Acute Assessment and Plan: * known issues with EF ~ 20% * This may slow down recovery of kidney function because of chronic pre renal factors. * Cardiology following (4) Pneumonia: Code(s): J18.9 - Pneumonia, unspecified organism Status: Acute Assessment and Plan: * as noted by imaging studies to date * follow respiratory status * continue antibioti therapy (5) UTI (urinary tract infection): Code(s): N39.0 - Urinary tract infection, site not specified Status: Suspected Assessment and Plan: * Pyuria on UA and E coli in cultures. 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 Subjective Date/time seen: 01/22/21 07:47 Interval history: patient is feeling a little bit better. No shortness of breath no chest pain. Generally weak. Review of Systems Cardiovascular: Cardiovascular: Reports no additional cardiovascular complaints Respiratory: Respiratory: Reports no additional respiratory complaints Gastrointestinal: Gastrointestinal: Reports no additional gastrointestinal complaints Genitourinary: Genitourinary: Reports no additional female genitourinary complaints Exam Narrative: Exam Narrative: GENERAL APPEARANCE: ill appearing female in no acute distress MOUTH: normal lips, teeth, and gums CARDIOVASCULAR: RRR, normal S1 and S2, no rub Or gallop RESPIRATORY: clear to auscultation bilaterally ABDOMEN: soft but with mild TTP; positive bowel sounds present EXTREMITIES: trace edema NEUROLOGICAL: alert and oriented x 2 - 3; CN II - XII intact bilaterally; no
--- NOTE | 2021-01-22 07:47 | PM.PNNEP ---
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 Not making much urine. Continue IV fluids for now. (2) Septic shock: Code(s): A41.9 - Sepsis, unspecified organism; R65.21 - Severe sepsis with septic shock Status: Acute Assessment and Plan: pressor support to maintain MAP The patient is on dopamine. The patient is afebrile and her white cell count is down. Blood cultures are negative. Urine culture showed E coli. continue broad spectrum antibiotic therapy (3) Cardiomyopathy: Qualifiers: Cardiomyopathy type: unspecified Qualified Code(s): I42.9 - Cardiomyopathy, unspecified Code(s): I42.9 - Cardiomyopathy, unspecified Status: Acute Assessment and Plan: known issues with EF ~ 20% This may slow down recovery of kidney function because of chronic pre renal factors. Cardiology following (4) Pneumonia: Code(s): J18.9 - Pneumonia, unspecified organism Status: Acute Assessment and Plan: as noted by imaging studies to date follow respiratory status continue antibioti therapy (5) UTI (urinary tract infection): Code(s): N39.0 - Urinary tract infection, site not specified Status: Suspected Assessment and Plan: Pyuria on UA and E coli in cultures. 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 Subjective Date/time seen: 01/22/21 07:47 Interval history: patient is feeling a little bit better. No shortness of breath no chest pain. Generally weak. Review of Systems Cardiovascular: Cardiovascular: Reports no additional cardiovascular complaints Respiratory: Respiratory: Reports no additional respiratory complaints Gastrointestinal: Gastrointestinal: Reports no additional gastrointestinal complaints Genitourinary: Genitourinary: Reports no additional female genitourinary complaints Exam Narrative: Exam Narrative: GENERAL APPEARANCE: ill appearing female in no acute distress MOUTH: normal lips, teeth, and gums CARDIOVASCULAR: RRR, normal S1 and S2, no rub Or gallop RESPIRATORY: clear to auscultation bilaterally ABDOMEN: soft but with mild TTP; positive bowel sounds present EXTREMITIES: trace edema NEUROLOGICAL: alert and oriented x 2 - 3; CN II - XII intact bilaterally; no focal deficits noted Objective Data Vital Signs Vital Signs: Vital Signs - 24 hr 01/21/21 08:00 01/21/21 08:25 01/21/21 10:00 Temperature 36.6 C Pulse Rate 76 81 87 Respiratory Rate 16 21 H Blood Pressure 111/74 106/63 89/60 L Pulse Oximetry 97 97 01/21/21 10:48 01/21/21 12:00 01/21/21 14:00 Temperature 36.1 C L Pulse Rate 84 87 86 Respiratory Rate 15 18 Blood Pressure 115/85 92/59 L 95/80 L Pulse Oximetry 99 96 01/21/21 16:00 01/21/21 16:31
[2021-01-22 08:06] LABS: Eosinophil Urine None Seen % (None Seen)
[2021-01-22] MEDS: POTASSIUM CHLORIDE 20 MEQ PACKET (FOR LIQUID) 40 MEQ PO (09:30)
[2021-01-22] MEDS: SODIUM BICARBONATE TAB 650 MG TABLET PO ×2 (09:30→17:52)
--- NOTE | 2021-01-22 09:52 | WPDINTPN ---
Progress Note: A&P Assessment and Plan (1) Septic shock: Code(s): A41.9 - Sepsis, unspecified organism; R65.21 - Severe sepsis with septic shock Status: Acute Assessment and Plan: Patient presented with low blood pressure. She has evidence of the pneumonia and UTI although she also has cardiomyopathy with EF of 20-25% She has received more than 4 L of fluid. NICOM assessment showed no further fluid responsiveness Patient was started on Levophed overnight Central venous catheter was placed emergently due to poor IV access Continue Levophed titration echocardiogram shows poor left heart function with EF of 20% Hold further IV fluid bolus and continue conservative IV fluids Blood and urine cultures sent and 1/2 blood cultures growing gram-negative rods CT abdomen showed colitis Empiric antibiotics-vancomycin aztreonam, Flagyl and azithromycin (2) Colitis: Code(s): K52.9 - Noninfective gastroenteritis and colitis, unspecified Status: Acute Assessment and Plan: CT abdomen pelvis showed pancolitis. Her lactate has normalized Likely infectious versus edema C diff is pending Patient is on empiric antibiotics including Flagyl (3) Pneumonia: Code(s): J18.9 - Pneumonia, unspecified organism Status: Acute Assessment and Plan: Chest x-rays shows elevated right hemidiaphragm and infiltrates suggestive of emerging pulmonary edema (4) UTI (urinary tract infection): Code(s): N39.0 - Urinary tract infection, site not specified Status: Suspected Assessment and Plan: See above (5) Pulmonary embolism: Qualifiers: Pulmonary embolism type: multiple subsegmental (without acute cor pulmonale) Qualified Code(s): I26.94 - Multiple subsegmental pulmonary emboli without acute cor pulmonale Code(s): I26.99 - Other pulmonary embolism without acute cor pulmonale Status: Acute Assessment and Plan: Patient had a PE on last hospitalization but with low clot burden diagnosed in November She developed hematoma with anticoagulation hence anticoagulation was discontinued Creatinine is elevated precluding repeat CT scan Will hold V/Q scan as it will not change control specialist bilateral lower extremity Dopplers show acute DVT Negative stool occult Patient started on heparin infusion and will monitor hemoglobin Patient also does appears to have a right atrial versus IVC thrombus (6) DVT of lower limb, acute: Code(s): I82.409 - Acute embolism and thrombosis of unspecified deep veins of unspecified lower extremity Status: Acute Assessment and Plan: Ultrasound of her upper extremities were negative but lower extremity showed Extensive [id number] and byrao-zjj-[id number] deep venous thrombosis throughout both the left and right lower limbs. She did have right axillary DVT on last hospitalization Patient was started on heparin infusion without bolus Her fecal occult blood testing was negative Her hemoglobin did drop this morning but this could be again chronic. No obvious signs of bleed Will continue serial hemoglobin monitoring initially (7) Acute renal failure: Code(s): N17.9 - Acute kidney failure, unspecified Status: Acute Assessment and Plan: Patient presented with creatinine of 4.3 and is marginally improved to 3.1 today. Likely prerenal versus ATN She has received adequate amount IV fluids. Continue cautious maintenance fluids CT abdomen pelvis did not show any hydronephrosis Monitor urine output and electrolytes Replace low potassium Nephrology has been consulted Normal CK Hold ARB and metformin (8) Congestive heart failure: Qualifiers: Heart failure chronicity: unspecified Heart failure type: unspecified Qualified Code(s): I50.9 - Heart failure, unspecified Code(s): I50.9 - Heart failure, unspecified Status: Acute Assessment and Plan: Cardiology consulted ECHO Technically difficult study with
[2021-01-22] MEDS: MAGNESIUM SULF 2 GM/WATER 50ML 2 GM/50 ML BAG IVPB (09:59)
[2021-01-22] MEDS: CALCIUM CHLOR 1,000MG/100ML NS 1,000 MG/100 ML BAG 100 MG IVPB (09:59)
[2021-01-22] MEDS: SODIUM BICARBONATE 8.4% 150 MEQ in WATER, STERILE FOR INJECTION 950 ML 50 MEQ IV CONT (10:00)
[2021-01-22 11:39] LABS: Partial Thromboplastin Time > 200.0 SECONDS (22.3-36.8)
[2021-01-22 11:54] LABS: Creatinine Urine 190.6 mg/dL; Total Protein Urine Random 52 mg/dL; Ur Ttl Prot Creatinine Ratio 0.27 mg/mg (0-0.20)
--- NOTE | 2021-01-22 11:58 | PM.CNCAR ---
Assessment and Plan Assessment and plan (1) Septic shock: Code(s): A41.9 - Sepsis, unspecified organism; R65.21 - Severe sepsis with septic shock Status: Acute Assessment and Plan: Per Critical Care. Remains on IV antibiotics, Levophed. Patient is critical with poor prognosis given comorbidities. Gram-negative rods positive blood culture thus far chronic treatment for abnormal UA. Continue supportive care. Patient is very complicated with multiple severe comorbidities with severe multiorgan system dysfunction. Patient high risk for recurrent pulmonary embolism which may be fatal. Anticoagulation strongly advised as tolerated varicose observation and routine monitoring must be performed. No indication for further invasive cardiovascular ischemic workup. Prognosis is very poor, patient is noted to be a DNR. Spent 62 minutes in the care of this patient at bedside, chart review, and decision making. (2) KATY (acute kidney injury): Code(s): N17.9 - Acute kidney failure, unspecified Status: Acute Assessment and Plan: Multifactorial Secondary to intravascular volume depletion, medications and critical illness. (3) Cardiomyopathy: Qualifiers: Cardiomyopathy type: unspecified Qualified Code(s): I42.9 - Cardiomyopathy, unspecified Code(s): I42.9 - Cardiomyopathy, unspecified Status: Acute Assessment and Plan: Severe LV systolic dysfunction, LBBB diagnosed November 2020 prior hospitalization. Patient is not in decompensated heart failure. Lower extremity edema most likely 3rd spacing due to poor nutrition, IV fluid resuscitation as well as extensive bilateral lower extremity DVT. No indication for diuresis at this time. Monitor volume status very carefully given severe LV systolic dysfunction EF 20%. Coronary status remains unknown previously declined life vest and or coronary angiography given complicated comorbidities. (4) DVT of lower limb, acute: Code(s): I82.409 - Acute embolism and thrombosis of unspecified deep veins of unspecified lower extremity Status: Acute Assessment and Plan: Acute bilateral lower extremities extensive for lower extremity venous Doppler. Heparin infusion initiated subsequently. (5) UTI (urinary tract infection): Code(s): N39.0 - Urinary tract infection, site not specified Status: Suspected Assessment and Plan: Per primary service. Antibiotics. (6) Left bundle branch block (LBBB) on electrocardiogram: Code(s): I44.7 - Left bundle-branch block, unspecified Status: Acute Assessment and Plan: Chronic (7) Anemia: Qualifiers: Anemia type: unspecified type Qualified Code(s): D64.9 - Anemia, unspecified Code(s): D64.9 - Anemia, unspecified Status: Acute Assessment and Plan: Monitor closely. Suspect initial declined delusional secondary to IV fluid resuscitation, however, need to monitor further downward trend on systemic anticoagulation and continue clinical observation for blood loss. Patient dropped her hemoglobin previously with anticoagulation assess dictating discontinuation. History of Present Illness History of Present Illness Consult date/time: Date of service: 01/22/21 11:58 Cardiology consultation at the request of Dr. Veronica for our opinion regarding cardiomyopathy and history of CHF. Requesting physician: Tha Veronica MD Consult reason: congestive heart failure Reason For Visit: katy/pneumonia/hypoxia Narrative: 70-year-old female with a past medical history significant for severe LV systolic dysfunction EF 20-25% diagnosed 11/2020, LBBB, pulmonary embolism, right upper extremity DVT complicated by intramuscular hematoma status post traumatic fall/injury, severe anemia on anticoagulation necessitating discontinuation with recommendations by Hematology at that time to not resume anticoagulation, history of medication noncompliance
[2021-01-22 12:14] LABS: Glucose Point of Care 105 mg/dl (65-105)
[2021-01-22 12:14] LABS: Glucose Point of Care 91 mg/dl (65-105)
[2021-01-22 12:27] LABS: Sodium Urine Random 35 meq/L
[2021-01-22 12:40] LABS: Hematocrit 27.4 % (37.0-47.0); Hemoglobin 8.4 g/dL (12.0-15.0)
--- NOTE | 2021-01-22 15:20 | PM.IMPN ---
Progress Note: A&P Assessment and Plan (1) Pneumonia: Code(s): J18.9 - Pneumonia, unspecified organism Status: Acute Assessment and Plan: IV antibiotics (2) Sepsis: Code(s): A41.9 - Sepsis, unspecified organism Status: Acute Assessment and Plan: Antibiotics IV fluids and levophed Blood cultures (3) Acute renal failure: Code(s): N17.9 - Acute kidney failure, unspecified Status: Acute Assessment and Plan: Monitor renal function and electrolytes Consult nephrology (4) Congestive heart failure: Qualifiers: Heart failure chronicity: unspecified Heart failure type: unspecified Qualified Code(s): I50.9 - Heart failure, unspecified Code(s): I50.9 - Heart failure, unspecified Status: Acute Assessment and Plan: Consult Cardiology (5) Pulmonary emboli: Qualifiers: Pulmonary embolism type: unspecified Chronicity: acute Acute cor pulmonale presence: unspecified Qualified Code(s): I26.99 - Other pulmonary embolism without acute cor pulmonale Code(s): I26.99 - Other pulmonary embolism without acute cor pulmonale Status: Acute Assessment and Plan: Unable to anticoagulate in the past due to large spontaneous hematoma (6) DVT (deep venous thrombosis): Qualifiers: DVT location: upper extremity Affected thrombotic vein of extremity: axillary Chronicity: acute Laterality: right Qualified Code(s): I82.A11 - Acute embolism and thrombosis of right axillary vein Code(s): I82.409 - Acute embolism and thrombosis of unspecified deep veins of unspecified lower extremity Status: Acute Assessment and Plan: Spontaneous hematoma in the past (7) Hypotension: Code(s): I95.9 - Hypotension, unspecified Status: Acute Assessment and Plan: On Levophed (8) UTI (urinary tract infection): Code(s): N39.0 - Urinary tract infection, site not specified Status: Suspected Assessment and Plan: IV antibiotics (9) Anemia: Qualifiers: Anemia type: unspecified type Qualified Code(s): D64.9 - Anemia, unspecified Code(s): D64.9 - Anemia, unspecified Status: Acute Assessment and Plan: Blood transfusion as needed (10) Paroxysmal atrial fibrillation: Code(s): I48.0 - Paroxysmal atrial fibrillation Status: Chronic Subjective Date/time seen: 01/22/21 15:20 Interval history: 70-year-old female with past medical history significant for congestive heart failure ejection fraction estimated at 20-25%, PE, retroperitoneal mass, diabetes mellitus. Pt is on a heparin drip. Pt is being watched in ICU and is high risk. Given her cormorbidities- cardiomyopathy with EF of 20%, acute kidney injury, septic shock from pneumonia and UTI and colitis, extensive bilateral DVTs and anticoagulation and previous hematoma. Bp is low on levophed. Review of Systems Review of Systems: All systems reviewed & are unremarkable except as noted in HPI and below Exam Narrative: Exam Narrative: Patient is laying in bed. chronically ill Neck: Neck: full ROM, no lymphadenopathy and no JVD Thyroid: thyroid normal Lymphatic: no lymphadenopathy noted Resp: Effort & Inspection: normal respiratory effort and able to speak in complete sentences Auscultation: clear to auscultation bilaterally Cardio: Jugular venous distension: no JVD Rate: regular rate Rhythm: regular rhythm Heart sounds: S1 normal heart sound present and S2 normal heart sound present GI: Inspection: normal to inspection and non-distended Skin: General skin exam: normal color and pallor Rashes: no rashes Wounds: wounds noted (Left heel schar pressure ulcer unable to stage) Neuro: General: oriented to person, oriented to place, CN's II-XI intact bilaterally, No confusion, patient obtunded and Unable to assess gait Cranial nerves: Yes CN's II-XII intact bilaterally, Yes Equal,
[2021-01-22 17:52] LABS: Glucose Point of Care 82 mg/dl (65-105)
[2021-01-22] MEDS: HEPARIN SOD/D5W 100 UNITS/ML 25,000 UNITS/250 ML BAG 8 UNITS IV CONT (18:05)
[2021-01-22 20:07] LABS: Hematocrit 24.9 % (37.0-47.0); Hemoglobin 7.7 g/dL (12.0-15.0)
[2021-01-22 20:19] LABS: Partial Thromboplastin Time 109.3 SECONDS (22.3-36.8)
[2021-01-22 20:32] LABS: Glucose Point of Care 138 mg/dl (65-105)
[2021-01-22 21:35] LABS: Vancomycin Random 8.2 ug/mL (10-20)
[2021-01-22] MEDS: PANTOPRAZOLE SODIUM IV 40 MG VIAL IV PUSH (22:39)
[2021-01-23] VITALS (14 sets, daily range): BP systolic 87–143; BP diastolic 55–111; PULSE 86–98; RESP 16–35; TEMP 35.7–36.6; O2SAT 91–99
[2021-01-23] MEDS: metroNIDAZOLE 500 MG/ISO 100ML 500 MG/100 ML BAG 100 MG IVPB ×4 (03:31→19:57)
[2021-01-23 03:33] LABS: Partial Thromboplastin Time 104.6 SECONDS (22.3-36.8)
[2021-01-23] MEDS: CENTRAL LINE FLUSH 10 ML IV PUSH ×4 (04:22→23:17)
[2021-01-23] MEDS: AZTREONAM 1 GM in DEXTROSE 5% IN WATER 50 ML 100 ML IVPB ×3 (05:50→22:40)
[2021-01-23 06:25] LABS: Hematocrit 26.1 % (37.0-47.0); Hemoglobin 8.1 g/dL (12.0-15.0); Immature Platelet Fraction Pct 11.9 % (0.9-11.2); Mean Corpuscular Hemoglobin 27.6 pg (26-34); Mean Corpuscular Volume 89.1 fl (80-100); Mean Platelet Volume 12.4 fl (7.4-10.4); Platelet Count Result 102 k/mm3 (150-375); Red Blood Count 2.93 M/mm3 (4.2-5.4); Red Cell Distribution Width 15.5 % (11.5-14.5); White Blood Count 5.7 K/mm3 (4.5-10.0)
[2021-01-23] MEDS: ALBUMIN HUMAN 25% 25 GM/100 ML 100 ML IVPB ×2 (06:26→12:41)
[2021-01-23 06:35] LABS: Alanine Aminotransferase 6 U/L (4-35); Albumin Level 2.9 g/dL (3.5-5.1); Alkaline Phosphatase 151 U/L (38-126); Anion Gap 11 mmol/L (8-16); Aspartate Amino Transferase 13 U/L (14-36); Bilirubin,Total 0.7 mg/dL (0.2-1.3); Blood Urea Nitrogen 49 mg/dL (7-17); Calcium 8.3 mg/dL (8.4-10.2); Carbon Dioxide 17 mmol/L (22-30); Chloride 110 mmol/L (98-107); Estimated CRCL calculation 17 ml/min; Estimated Glomerular Filt Rate 23; Glucose 128 mg/dL (65-105); Magnesium 1.9 mg/dL (1.6-2.3); Potassium 3.6 mmol/L (3.4-5.0); Sodium 138 mmol/L (137-145)
[2021-01-23] MEDS: LEVOTHYROXINE SODIUM INJ 100 MCG/5 ML VIAL 50 MCG IV PUSH (06:43)
[2021-01-23 07:53] LABS: Glucose Point of Care 128 mg/dl (65-105)
[2021-01-23 08:26] LABS: Phosphorus < 1.0 mg/dL (2.5-4.5)
--- NOTE | 2021-01-23 09:02 | WPDINTPN ---
Progress Note: A&P Assessment and Plan (1) Septic shock: Code(s): A41.9 - Sepsis, unspecified organism; R65.21 - Severe sepsis with septic shock Status: Acute Assessment and Plan: Patient presented with low blood pressure. She has evidence of the pneumonia and UTI although she also has cardiomyopathy with EF of 20-25% She has received more than 4 L of fluid. NICOM assessment showed no further fluid responsiveness Patient was started on Levophed overnight Central venous catheter was placed emergently due to poor IV access Currently off of Levophed echocardiogram shows poor left heart function with EF of 20% Hold further IV fluids Blood and urine cultures sent and 1/2 blood cultures growing gram-negative rods CT abdomen showed colitis Empiric antibiotics-vancomycin aztreonam, Flagyl and azithromycin. Will hold vancomycin (2) Colitis: Code(s): K52.9 - Noninfective gastroenteritis and colitis, unspecified Status: Acute Assessment and Plan: CT abdomen pelvis showed pancolitis. Her lactate has normalized Likely infectious versus edema C diff came back negative Patient is on empiric antibiotics aztreonam and Flagyl (3) Pneumonia: Code(s): J18.9 - Pneumonia, unspecified organism Status: Acute Assessment and Plan: Chest x-rays shows elevated right hemidiaphragm and infiltrates suggestive of emerging pulmonary edema Hold further IV fluids (4) UTI (urinary tract infection): Code(s): N39.0 - Urinary tract infection, site not specified Status: Suspected Assessment and Plan: See above (5) Pulmonary embolism: Qualifiers: Pulmonary embolism type: multiple subsegmental (without acute cor pulmonale) Qualified Code(s): I26.94 - Multiple subsegmental pulmonary emboli without acute cor pulmonale Code(s): I26.99 - Other pulmonary embolism without acute cor pulmonale Status: Acute Assessment and Plan: Patient had a PE on last hospitalization but with low clot burden diagnosed in November She developed hematoma with anticoagulation hence anticoagulation was discontinued Creatinine is elevated precluding repeat CT scan Will hold V/Q scan as it will not plant changer bilateral lower extremity Dopplers show acute DVT Negative stool occult Patient started on heparin infusion and will monitor hemoglobin Patient also does appears to have a right atrial versus IVC thrombus (6) DVT of lower limb, acute: Code(s): I82.409 - Acute embolism and thrombosis of unspecified deep veins of unspecified lower extremity Status: Acute Assessment and Plan: Ultrasound of her upper extremities were negative but lower extremity showed Extensive [id number] and [id number] deep venous thrombosis throughout both the left and right lower limbs. She did have right axillary DVT on last hospitalization Patient was started on heparin infusion without bolus Her fecal occult blood testing was negative Her hemoglobin has trended down but this could be again chronic anemia which is recalibrated. No obvious signs of bleed Will continue serial hemoglobin monitoring for now. Considering the extent of DVT, recent PE and continued high risk of DVT extension due to immobility and poor cardiac function, I will hold heparin only if hemoglobin drops below 7 that she will need transfusion or obvious signs of bleeding. Also monitor platelets Patient was started on IV PPI (7) Acute renal failure: Code(s): N17.9 - Acute kidney failure, unspecified Status: Acute Assessment and Plan: Patient presented with creatinine of 4.3 and has improved to a certain extent since admission far from normal. Likely prerenal versus ATN Urine output is also improving. She has received adequate amount IV fluids. I have discontinued further IV fluids CT abdomen pelvis did not show any hydronephrosis Monitor urine output and electrolytes Nephrology has been consulted Gloria
[2021-01-23] MEDS: PANTOPRAZOLE SODIUM IV 40 MG VIAL IV PUSH ×2 (09:03→20:06)
[2021-01-23] MEDS: SODIUM BICARBONATE TAB 650 MG TABLET PO (09:04)
--- NOTE | 2021-01-23 10:38 | P.PNNP_ITS ---
Progress Note: A&P Assessment and Plan (1) KATY (acute kidney injury): Code(s): N17.9 - Acute kidney failure, unspecified Status: Acute Assessment and Plan: * acute kidney injury * normal creatinine at baseline * likely due to pre renal azotemia, cardiac issues. * kidneys normal by CT scan * holding ARB and metformin * urine electrolytes show pre renal azotemia, and eosinophils are negative. * Is slowly better. (2) Septic shock: Code(s): A41.9 - Sepsis, unspecified organism; R65.21 - Severe sepsis with septic shock Status: Acute Assessment and Plan: * pressor support to maintain MAP * The patient is off pressors. * The patient is afebrile and her white cell count is down. * Blood cultures are negative. Urine culture showed E coli. * On Flagyl, azithromycin, aztreonam. (3) Cardiomyopathy: Qualifiers: Cardiomyopathy type: unspecified Qualified Code(s): I42.9 - Cardiomyopathy, unspecified Code(s): I42.9 - Cardiomyopathy, unspecified Status: Acute Assessment and Plan: * known issues with EF ~ 20% * This may slow down recovery of kidney function because of chronic pre renal factors. * Cardiology following (4) Pneumonia: Code(s): J18.9 - Pneumonia, unspecified organism Status: Acute Assessment and Plan: * as noted by imaging studies to date * follow respiratory status * continue current antibiotics. (5) UTI (urinary tract infection): Code(s): N39.0 - Urinary tract infection, site not specified Status: Suspected Assessment and Plan: * Pyuria on UA and E coli in cultures. * Patient is on Aztreonam (6) Type 2 diabetes mellitus: Qualifiers: Diabetes mellitus superintendent container terminal insulin use: without superintendent container terminal use Diabetes mellitus complication status: with neurologic complications Diabetes mellitus complication detail: with polyneuropathy Qualified Code(s): E11.42 - Type 2 diabetes mellitus with diabetic polyneuropathy Code(s): E11.9 - Type 2 diabetes mellitus without complications Status: Acute Assessment and Plan: * follow accuchecks * glycemic control Subjective Date/time seen: 01/23/21 10:38 Interval history: patient is feeling generally weak. No shortness of breath Exam Narrative: Exam Narrative: GENERAL APPEARANCE: ill appearing female in no acute distress CARDIOVASCULAR: RRR, normal S1 and S2, no rub Or gallop RESPIRATORY: clear ABDOMEN: soft but with mild TTP; positive bowel sounds present EXTREMITIES: trace edema NEUROLOGICAL: alert and oriented x 2 - 3; CN II - XII intact bilaterally; no focal deficits noted Objective Data Vital Signs Vital Signs: Vital Signs - 24 hr 01/22/21 12:00 01/22/21 14:00 01/22/21 16:00 Temperature 36.7 C 36.6 C Pulse Rate 84 88 89 Respiratory Rate 18 20 20 Blood Pressure 97/62 L 99/63 L 102/66 Pulse Oximetry 94 93 94 01/22/21 18:00 01/22/21 20:00 01/22/21 21:46 Temperature 36.1 C L Pulse Rate 89 90 90 Respiratory Rate 20 20 19 Blood Pressure 108/64 96/61 L 96/71 L Pulse Oximetry 95 91 92 01/22/21 23:42 01/22/21 23:52 01/23/21 00:00 Temperature 36.3 C L Pulse Rate 92 86 Respiratory Rate 25 H Blood Pressure 101/62 Pulse Oximetry 90 91
--- NOTE | 2021-01-23 10:38 | PM.PNNEP ---
Progress Note: A&P Assessment and Plan (1) KATY (acute kidney injury): Code(s): N17.9 - Acute kidney failure, unspecified Status: Acute Assessment and Plan: acute kidney injury normal creatinine at baseline likely due to pre renal azotemia, cardiac issues. kidneys normal by CT scan holding ARB and metformin urine electrolytes show pre renal azotemia, and eosinophils are negative. Is slowly better. (2) Septic shock: Code(s): A41.9 - Sepsis, unspecified organism; R65.21 - Severe sepsis with septic shock Status: Acute Assessment and Plan: pressor support to maintain MAP The patient is off pressors. The patient is afebrile and her white cell count is down. Blood cultures are negative. Urine culture showed E coli. On Flagyl, azithromycin, aztreonam. (3) Cardiomyopathy: Qualifiers: Cardiomyopathy type: unspecified Qualified Code(s): I42.9 - Cardiomyopathy, unspecified Code(s): I42.9 - Cardiomyopathy, unspecified Status: Acute Assessment and Plan: known issues with EF ~ 20% This may slow down recovery of kidney function because of chronic pre renal factors. Cardiology following (4) Pneumonia: Code(s): J18.9 - Pneumonia, unspecified organism Status: Acute Assessment and Plan: as noted by imaging studies to date follow respiratory status continue current antibiotics. (5) UTI (urinary tract infection): Code(s): N39.0 - Urinary tract infection, site not specified Status: Suspected Assessment and Plan: Pyuria on UA and E coli in cultures. Patient is on Aztreonam (6) Type 2 diabetes mellitus: Qualifiers: Diabetes mellitus supervisor intermediates insulin use: without supervisor intermediates use Diabetes mellitus complication status: with neurologic complications Diabetes mellitus complication detail: with polyneuropathy Qualified Code(s): E11.42 - Type 2 diabetes mellitus with diabetic polyneuropathy Code(s): E11.9 - Type 2 diabetes mellitus without complications Status: Acute Assessment and Plan: follow accuchecks glycemic control Subjective Date/time seen: 01/23/21 10:38 Interval history: patient is feeling generally weak. No shortness of breath Exam Narrative: Exam Narrative: GENERAL APPEARANCE: ill appearing female in no acute distress CARDIOVASCULAR: RRR, normal S1 and S2, no rub Or gallop RESPIRATORY: clear ABDOMEN: soft but with mild TTP; positive bowel sounds present EXTREMITIES: trace edema NEUROLOGICAL: alert and oriented x 2 - 3; CN II - XII intact bilaterally; no focal deficits noted Objective Data Vital Signs Vital Signs: Vital Signs - 24 hr 01/22/21 12:00 01/22/21 14:00 01/22/21 16:00 Temperature 36.7 C 36.6 C Pulse Rate 84 88 89 Respiratory Rate 18 20 20 Blood Pressure 97/62 L 99/63 L 102/66 Pulse Oximetry 94 93 94 01/22/21 18:00 01/22/21 20:00 01/22/21 21:46 Temperature 36.1 C L Pulse Rate 89 90 90 Respiratory Rate 20 20 19 Blood Pressure 108/64 96/61 L 96/71 L Pulse Oximetry 95 91 92 01/22/21 23:42 01/22/21 23:52 01/23/21 00:00 Temperature 36.3 C L Pulse Rate 92 86 Respiratory Rate 25 H Blood Pressure 101/62 Pulse Oximetry 90 91 01/23/21 01:52 01/23/21 03:49 01/23/21 03:53 Temperature 36.6 C Pulse Rate 87 90 Respiratory Rate 25 H 22 H Blood Pressure 107/62 96/57 L Pulse Oximetry 92 94 94 01/23/21 04:00 01/23/21 06:00 01/23/21 08:00 Temperature 35.9 C L Pulse Rate 92 88 90 Respiratory Rate 35 H 16 Blood Pressure 87/63 L 98/55 L Pulse Oximetry 92 95 01/23/21 10:00 Temperature Pulse Rate 88 Respiratory Rate 25 H Blood Pressure 105/62 Pulse Oximetry 93 Intake/Output Intake/Output: Intake & Output 01/20/21 01/21/21 01/22/21 01/23/21 23:59 23:59 23:59 23:59 Intake Total 4900 1000 2800 650 Output Total 90 95 200 250 Balance 4810 905 2600 400 Meds/Result
[2021-01-23 10:43] LABS: Partial Thromboplastin Time 98.1 SECONDS (22.3-36.8)
[2021-01-23 11:22] LABS: Glucose Point of Care 133 mg/dl (65-105)
[2021-01-23] MEDS: SODIUM BICARBONATE TAB 650 MG TABLET 1300 MG PO ×2 (11:22→16:47)
--- NOTE | 2021-01-23 12:16 | PM.IMPN ---
Progress Note: A&P Assessment and Plan (1) Pneumonia: Qualifiers: Pneumonia type: due to unspecified organism Laterality: unspecified laterality Lung location: unspecified part of lung Qualified Code(s): J18.9 - Pneumonia, unspecified organism Code(s): J18.9 - Pneumonia, unspecified organism Status: Acute Assessment and Plan: IV vanc, aztreonam (2) UTI (urinary tract infection): Qualifiers: Urinary tract infection type: site unspecified Hematuria presence: without hematuria Qualified Code(s): N39.0 - Urinary tract infection, site not specified Code(s): N39.0 - Urinary tract infection, site not specified Status: Suspected Assessment and Plan: IV vanc, aztreonam (3) Sepsis: Qualifiers: Sepsis type: sepsis due to unspecified organism Sepsis acute organ dysfunction status: with acute organ dysfunction Severe sepsis acute organ dysfunction type: acute renal failure Acute renal failure type: unspecified Severe sepsis shock status: with septic shock Qualified Code(s): A41.9 - Sepsis, unspecified organism; R65.21 - Severe sepsis with septic shock; N17.9 - Acute kidney failure, unspecified Code(s): A41.9 - Sepsis, unspecified organism Status: Acute Assessment and Plan: IV vanc, aztreonam IV fluids and levophed Blood cultures pending (4) Acute renal failure: Qualifiers: Acute renal failure type: unspecified Qualified Code(s): N17.9 - Acute kidney failure, unspecified Code(s): N17.9 - Acute kidney failure, unspecified Status: Acute Assessment and Plan: 01/23 creatinine 2.5 (5) Congestive heart failure: Qualifiers: Heart failure chronicity: unspecified Heart failure type: unspecified Qualified Code(s): I50.9 - Heart failure, unspecified Code(s): I50.9 - Heart failure, unspecified Status: Acute Assessment and Plan: Monitor I/O (6) Pulmonary emboli: Qualifiers: Pulmonary embolism type: unspecified Chronicity: acute Acute cor pulmonale presence: unspecified Qualified Code(s): I26.99 - Other pulmonary embolism without acute cor pulmonale Code(s): I26.99 - Other pulmonary embolism without acute cor pulmonale Status: Acute Assessment and Plan: IV heparin Monitor for s/sx bleeding (7) DVT (deep venous thrombosis): Qualifiers: DVT location: upper extremity Affected thrombotic vein of extremity: axillary Chronicity: acute Laterality: right Qualified Code(s): I82.A11 - Acute embolism and thrombosis of right axillary vein Code(s): I82.409 - Acute embolism and thrombosis of unspecified deep veins of unspecified lower extremity Status: Acute Assessment and Plan: IV heparin Monitor for s/sx bleeding Hx spontaneous hematoma in past (8) Anemia: Qualifiers: Anemia type: unspecified type Qualified Code(s): D64.9 - Anemia, unspecified Code(s): D64.9 - Anemia, unspecified Status: Acute Assessment and Plan: Blood transfusion as needed to maintain hgb 7 or above (9) Paroxysmal atrial fibrillation: Code(s): I48.0 - Paroxysmal atrial fibrillation Status: Chronic Assessment and Plan: Rate controlled Subjective Date/time seen: 01/23/21 12:16 Interval history: 70-year-old female with past medical history significant for congestive heart failure ejection fraction estimated at 20-25%, PE, retroperitoneal mass, diabetes mellitus. Admitted with pneumonia, UTI, sepsis. 01/23: Feels weak, tired. Poor appetite. Review of Systems Review of Systems: All systems reviewed & are unremarkable except as noted in HPI and below Exam Narrative: Exam Narrative: HEENT: PERRL, sclerae nonicteric, pharyngeal mucosa pink and intact NECK: No JVD, adenopathy, or thyromegaly CHEST: Decreased LL BS. NL effort HEART: NL S1/S2, regular, no murmur ABDOMEN: BS+, soft,
--- NOTE | 2021-01-23 14:43 | PM.PNCARD ---
Progress Note: A&P Assessment and Plan (1) Septic shock: Code(s): A41.9 - Sepsis, unspecified organism; R65.21 - Severe sepsis with septic shock Status: Acute Assessment and Plan: Per Critical Care. Remains on IV antibiotics, Levophed. Patient is critical with poor prognosis given comorbidities. Gram-negative rods positive blood culture thus far chronic treatment for abnormal UA. Continue supportive care. (2) KATY (acute kidney injury): Code(s): N17.9 - Acute kidney failure, unspecified Status: Acute Assessment and Plan: Multifactorial Secondary to intravascular volume depletion, medications and critical illness. (3) Cardiomyopathy: Qualifiers: Cardiomyopathy type: unspecified Qualified Code(s): I42.9 - Cardiomyopathy, unspecified Code(s): I42.9 - Cardiomyopathy, unspecified Status: Acute Assessment and Plan: Severe LV systolic dysfunction, LBBB diagnosed November 2020 prior hospitalization. Patient is not in decompensated heart failure. Lower extremity edema most likely 3rd spacing due to poor nutrition, IV fluid resuscitation as well as extensive bilateral lower extremity DVT. No indication for diuresis at this time. Monitor volume status very carefully given severe LV systolic dysfunction EF 20%. Coronary status remains unknown previously declined life vest and or coronary angiography given complicated comorbidities. (4) DVT of lower limb, acute: Code(s): I82.409 - Acute embolism and thrombosis of unspecified deep veins of unspecified lower extremity Status: Acute Assessment and Plan: Acute bilateral lower extremities extensive for lower extremity venous Doppler. Heparin infusion initiated subsequently. (5) UTI (urinary tract infection): Qualifiers: Urinary tract infection type: site unspecified Hematuria presence: without hematuria Qualified Code(s): N39.0 - Urinary tract infection, site not specified Code(s): N39.0 - Urinary tract infection, site not specified Status: Suspected Assessment and Plan: Per primary service. Antibiotics. (6) Left bundle branch block (LBBB) on electrocardiogram: Code(s): I44.7 - Left bundle-branch block, unspecified Status: Acute Assessment and Plan: Chronic (7) Anemia: Qualifiers: Anemia type: unspecified type Qualified Code(s): D64.9 - Anemia, unspecified Code(s): D64.9 - Anemia, unspecified Status: Acute Assessment and Plan: Monitor closely. Subjective Date/time seen: 01/23/21 14:43 Interval history: 70-year-old female with past medical history significant for congestive heart failure ejection fraction estimated at 20-25%, PE, retroperitoneal mass, diabetes mellitus. Admitted with pneumonia, UTI, sepsis. Follow-up note/date of service 01/23/2021: She is short of breath. She has swelling. No chest pain. Review of Systems Review of Systems: All systems reviewed & are unremarkable except as noted in HPI and below Constitutional: Constitutional: Reports as per HPI, Reports no additional constitutional complaints, Reports fatigue, Reports lethargy and Reports weakness Eyes: Eyes: Reports as per HPI and Reports no additional eye complaints ENT: Reports system reviewed and no additional complaints, except as documented and Reports as per HPI Cardiovascular: Cardiovascular: Reports as per HPI, Reports no additional cardiovascular complaints, Denies chest pain, Denies diaphoresis, Reports lightheadedness, Denies palpitations, Denies dyspnea and Denies dyspnea on exertion Respiratory: Respiratory: Reports as per HPI, Reports no additional respiratory complaints, Denies hemoptysis, Denies dyspnea and Denies dyspnea on exertion Gastrointestinal: Gastrointestinal: Reports as per HPI, Reports no additional gastrointestinal complaints, Reports abdominal pain, Denies melena and Denies hematochezia Genitourinary:
[2021-01-23 16:14] LABS: Hematocrit 24.7 % (37.0-47.0); Hemoglobin 7.9 g/dL (12.0-15.0); Immature Platelet Fraction Pct 11.5 % (0.9-11.2); Mean Corpuscular Hemoglobin 28.1 pg (26-34); Mean Corpuscular Volume 87.9 fl (80-100); Platelet Count Result 99 k/mm3 (150-375); Red Blood Count 2.81 M/mm3 (4.2-5.4); Red Cell Distribution Width 15.8 % (11.5-14.5); White Blood Count 4.9 K/mm3 (4.5-10.0)
[2021-01-23 18:28] LABS: Glucose Point of Care 117 mg/dl (65-105)
[2021-01-23 19:56] LABS: Glucose Point of Care 156 mg/dl (65-105)
[2021-01-24] VITALS (14 sets, daily range): BP systolic 83–140; BP diastolic 54–76; PULSE 86–98; RESP 16–29; TEMP 35.7–36.5; O2SAT 94–100
[2021-01-24] MEDS: metroNIDAZOLE 500 MG/ISO 100ML 500 MG/100 ML BAG 100 MG IVPB ×4 (01:49→19:43)
[2021-01-24 04:04] LABS: Alanine Aminotransferase 6 U/L (4-35); Albumin Level 3.1 g/dL (3.5-5.1); Alkaline Phosphatase 155 U/L (38-126); Anion Gap 11 mmol/L (8-16); Aspartate Amino Transferase 14 U/L (14-36); Bilirubin,Total 1.1 mg/dL (0.2-1.3); Blood Urea Nitrogen 48 mg/dL (7-17); Calcium 8.7 mg/dL (8.4-10.2); Carbon Dioxide 19 mmol/L (22-30); Chloride 111 mmol/L (98-107); Estimated CRCL calculation 16 ml/min; Estimated Glomerular Filt Rate 21; Glucose 136 mg/dL (65-105); Magnesium 1.8 mg/dL (1.6-2.3); Phosphorus 1.2 mg/dL (2.5-4.5); Potassium 3.2 mmol/L (3.4-5.0); Sodium 141 mmol/L (137-145)
[2021-01-24 04:07] LABS: Partial Thromboplastin Time 92.9 SECONDS (22.3-36.8)
[2021-01-24 04:27] LABS: Hematocrit 27.1 % (37.0-47.0); Hemoglobin 8.5 g/dL (12.0-15.0); Immature Platelet Fraction Pct 10.9 % (0.9-11.2); Mean Corpuscular HGB Conc 31.4 g/dl (32-36); Mean Corpuscular Hemoglobin 27.6 pg (26-34); Platelet Count Result 107 k/mm3 (150-375); Red Blood Count 3.08 M/mm3 (4.2-5.4); Red Cell Distribution Width 15.9 % (11.5-14.5); White Blood Count 4.7 K/mm3 (4.5-10.0)
[2021-01-24] MEDS: AZTREONAM 1 GM in DEXTROSE 5% IN WATER 50 ML 100 ML IVPB ×3 (05:00→21:47)
[2021-01-24] MEDS: LEVOTHYROXINE SODIUM INJ 100 MCG/5 ML VIAL 50 MCG IV PUSH (05:01)
[2021-01-24] MEDS: CENTRAL LINE FLUSH 10 ML IV PUSH ×4 (05:01→21:48)
[2021-01-24] MEDS: HEPARIN SOD/D5W 100 UNITS/ML 25,000 UNITS/250 ML BAG 7 UNITS IV CONT (06:13)
[2021-01-24 07:38] LABS: Glucose Point of Care 140 mg/dl (65-105)
[2021-01-24] MEDS: PANTOPRAZOLE SODIUM IV 40 MG VIAL IV PUSH ×2 (08:05→20:00)
[2021-01-24] MEDS: SODIUM BICARBONATE TAB 650 MG TABLET 1300 MG PO ×2 (08:05→16:31)
--- NOTE | 2021-01-24 08:47 | PM.IMPN ---
Progress Note: A&P Assessment and Plan (1) Pneumonia: Qualifiers: Laterality: unspecified laterality Lung location: unspecified part of lung Pneumonia type: due to unspecified organism Qualified Code(s): J18.9 - Pneumonia, unspecified organism Code(s): J18.9 - Pneumonia, unspecified organism Status: Acute Assessment and Plan: IV vanc, aztreonam Her volition for vitality is waning. Px guarded (2) UTI (urinary tract infection): Qualifiers: Urinary tract infection type: site unspecified Hematuria presence: without hematuria Qualified Code(s): N39.0 - Urinary tract infection, site not specified Code(s): N39.0 - Urinary tract infection, site not specified Status: Suspected Assessment and Plan: IV vanc, aztreonam (3) Sepsis: Qualifiers: Sepsis type: sepsis due to unspecified organism Sepsis acute organ dysfunction status: with acute organ dysfunction Severe sepsis acute organ dysfunction type: acute renal failure Acute renal failure type: unspecified Severe sepsis shock status: with septic shock Qualified Code(s): A41.9 - Sepsis, unspecified organism; R65.21 - Severe sepsis with septic shock; N17.9 - Acute kidney failure, unspecified Code(s): A41.9 - Sepsis, unspecified organism Status: Acute Assessment and Plan: IV vanc, aztreonam IV fluids Blood cultures pending (4) Acute renal failure: Qualifiers: Acute renal failure type: unspecified Qualified Code(s): N17.9 - Acute kidney failure, unspecified Code(s): N17.9 - Acute kidney failure, unspecified Status: Acute Assessment and Plan: 01/23 creatinine 2.5, 01/24 2.7 (5) Congestive heart failure: Qualifiers: Heart failure chronicity: unspecified Heart failure type: unspecified Qualified Code(s): I50.9 - Heart failure, unspecified Code(s): I50.9 - Heart failure, unspecified Status: Acute Assessment and Plan: Monitor I/O (6) Pulmonary emboli: Qualifiers: Pulmonary embolism type: unspecified Chronicity: acute Acute cor pulmonale presence: unspecified Qualified Code(s): I26.99 - Other pulmonary embolism without acute cor pulmonale Code(s): I26.99 - Other pulmonary embolism without acute cor pulmonale Status: Acute Assessment and Plan: IV heparin Monitor for s/sx bleeding (7) DVT (deep venous thrombosis): Qualifiers: DVT location: upper extremity Affected thrombotic vein of extremity: axillary Chronicity: acute Laterality: right Qualified Code(s): I82.A11 - Acute embolism and thrombosis of right axillary vein Code(s): I82.409 - Acute embolism and thrombosis of unspecified deep veins of unspecified lower extremity Status: Acute Assessment and Plan: IV heparin Monitor for s/sx bleeding Hx spontaneous hematoma in past (8) Anemia: Qualifiers: Anemia type: unspecified type Qualified Code(s): D64.9 - Anemia, unspecified Code(s): D64.9 - Anemia, unspecified Status: Acute Assessment and Plan: Blood transfusion as needed to maintain hgb 7 or above (9) Paroxysmal atrial fibrillation: Code(s): I48.0 - Paroxysmal atrial fibrillation Status: Chronic Assessment and Plan: Rate controlled Subjective Date/time seen: 01/24/21 08:47 Interval history: 70-year-old female with past medical history significant for congestive heart failure ejection fraction estimated at 20-25%, PE, retroperitoneal mass, diabetes mellitus. Admitted with pneumonia, UTI, sepsis. 01/24: Feels weak, tired. Poor appetite, claims she can't eat . Review of Systems Review of Systems: All systems reviewed & are unremarkable except as noted in HPI and below Exam Narrative: Exam Narrative: HEENT: PERRL, sclerae nonicteric, pharyngeal mucosa pink and intact NECK: No JVD, adenopathy, or thyromegaly CHEST: Decreased LL B
--- NOTE | 2021-01-24 08:48 | WPDINTPN ---
Progress Note: A&P Assessment and Plan (1) Septic shock: Code(s): A41.9 - Sepsis, unspecified organism; R65.21 - Severe sepsis with septic shock Status: Acute Assessment and Plan: Patient presented with low blood pressure. She has evidence of the pneumonia and UTI although she also has cardiomyopathy with EF of 20-25% She has received more than 4 L of fluid. NICOM assessment showed no further fluid responsiveness Patient was started on Levophed and Central venous catheter was placed emergently due to poor IV access Currently off of Levophed echocardiogram shows poor left heart function with EF of 20% Continue to hold further IV fluids Blood and urine cultures sent and 1/2 blood cultures growing gram-negative rods CT abdomen showed colitis Empiric antibiotics-aztreonam, Flagyl and azithromycin. Vancomycin DCed (2) Colitis: Code(s): K52.9 - Noninfective gastroenteritis and colitis, unspecified Status: Acute Assessment and Plan: CT abdomen pelvis showed pancolitis. Her lactate has normalized Likely infectious versus edema C diff came back negative Patient is on empiric antibiotics aztreonam and Flagyl (3) Pneumonia: Qualifiers: Laterality: unspecified laterality Lung location: unspecified part of lung Pneumonia type: due to unspecified organism Qualified Code(s): J18.9 - Pneumonia, unspecified organism Code(s): J18.9 - Pneumonia, unspecified organism Status: Acute Assessment and Plan: Chest x-rays shows infiltrates which could be pneumonia versus pulmonary edema She is on empiric antibiotics which would cover for any (4) UTI (urinary tract infection): Qualifiers: Hematuria presence: without hematuria Urinary tract infection type: site unspecified Qualified Code(s): N39.0 - Urinary tract infection, site not specified Code(s): N39.0 - Urinary tract infection, site not specified Status: Suspected Assessment and Plan: See above (5) Pulmonary embolism: Qualifiers: Pulmonary embolism type: multiple subsegmental (without acute cor pulmonale) Qualified Code(s): I26.94 - Multiple subsegmental pulmonary emboli without acute cor pulmonale Code(s): I26.99 - Other pulmonary embolism without acute cor pulmonale Status: Acute Assessment and Plan: Patient had a PE on last hospitalization but with low clot burden diagnosed in November She developed hematoma with anticoagulation hence anticoagulation was discontinued Creatinine is elevated precluding repeat CT scan Will hold V/Q scan as it will not pattern changer bilateral lower extremity Dopplers show acute DVT Negative stool occult Patient started on heparin infusion and will monitor hemoglobin Patient also does appears to have a right atrial versus IVC thrombus (6) DVT of lower limb, acute: Code(s): I82.409 - Acute embolism and thrombosis of unspecified deep veins of unspecified lower extremity Status: Acute Assessment and Plan: Ultrasound of her upper extremities were negative but lower extremity showed Extensive [id number] and [id number] deep venous thrombosis throughout both the left and right lower limbs. She did have right axillary DVT on last hospitalization Patient was started on heparin infusion without bolus Her fecal occult blood testing was negative Her hemoglobin has trended down but this could be again chronic anemia which is recalibrated. No obvious signs of bleed Will continue serial hemoglobin monitoring for now. Considering the extent of DVT, recent PE and continued high risk of DVT extension due to immobility and poor cardiac function, I will hold heparin only if hemoglobin drops below 7 that she will need transfusion or obvious signs of bleeding. Also monitor platelets Patient was started on IV PPI (7) Acute renal failure: Qualifiers: Acute renal failure type: unspecified Qualified Code(s): N17.9 - Acute
[2021-01-24] MEDS: POTASSIUM CHLORIDE 20 MEQ PACKET (FOR LIQUID) PO (09:12)
--- NOTE | 2021-01-24 10:28 | P.PNNP_ITS ---
Progress Note: A&P Assessment and Plan (1) KATY (acute kidney injury): Code(s): N17.9 - Acute kidney failure, unspecified Status: Acute Assessment and Plan: * acute kidney injury * normal creatinine at baseline * likely due to pre renal azotemia, cardiac issues leading to chronic pre renal azotemia. * kidneys normal by CT scan * holding ARB and metformin * urine electrolytes show pre renal azotemia, and eosinophils are negative. * Potassium is low. Receiving supplementation. * Is slowly better. (2) Septic shock: Code(s): A41.9 - Sepsis, unspecified organism; R65.21 - Severe sepsis with septic shock Status: Acute Assessment and Plan: * off pressors. * The patient is afebrile and her white cell count is down. * Blood cultures are negative. Urine culture showed E coli. * On Flagyl, azithromycin, aztreonam. (3) Cardiomyopathy: Qualifiers: Cardiomyopathy type: unspecified Qualified Code(s): I42.9 - Cardiomyopathy, unspecified Code(s): I42.9 - Cardiomyopathy, unspecified Status: Acute Assessment and Plan: * known issues with EF ~ 20% * This may slow down recovery of kidney function because of chronic pre renal factors. * Cardiology following (4) Pneumonia: Qualifiers: Laterality: unspecified laterality Lung location: unspecified part of lung Pneumonia type: due to unspecified organism Qualified Code(s): J18.9 - Pneumonia, unspecified organism Code(s): J18.9 - Pneumonia, unspecified organism Status: Acute Assessment and Plan: * as noted by imaging studies to date * follow respiratory status * continue current antibiotics. (5) UTI (urinary tract infection): Qualifiers: Urinary tract infection type: site unspecified Hematuria presence: without hematuria Qualified Code(s): N39.0 - Urinary tract infection, site not specified Code(s): N39.0 - Urinary tract infection, site not specified Status: Suspected Assessment and Plan: * Pyuria on UA and E coli in cultures. * Patient is on Aztreonam (6) Type 2 diabetes mellitus: Qualifiers: Diabetes mellitus mcfp insulin use: without termite control service representative use Diabetes mellitus complication status: with neurologic complications Diabetes mellitus complication detail: with polyneuropathy Qualified Code(s): E11.42 - Type 2 diabetes mellitus with diabetic polyneuropathy Code(s): E11.9 - Type 2 diabetes mellitus without complications Status: Acute Assessment and Plan: * follow accuchecks * glycemic control Subjective Date/time seen: 01/24/21 10:28 Interval history: patient is feeling generally weak. No shortness of breath Not hungry. He did not eat breakfast. Exam Narrative: Exam Narrative: GENERAL APPEARANCE: ill appearing female in no acute distress CARDIOVASCULAR: RRR, normal S1 and S2, no rub Or gallop RESPIRATORY: clear bilaterally ABDOMEN: soft but with mild TTP; positive bowel sounds present EXTREMITIES: trace edema SKIN: no rash Objective Data Vital Signs Vital Signs: Vital Signs - 24 hr 01/23/21 12:00 01/23/21 14:00 01/23/21 16:00 Temperature 35.7 C L 36.0 C L Pulse Rate 91 94 96 Respiratory Rate 23 H 24 H 29 H Blood Pressure 99/60 L 130/111 H 114/69 Pulse Oximetry 91 92 92 01/23/21 18:00 01/23/21 20:00 01/23/21 22
--- NOTE | 2021-01-24 10:28 | PM.PNNEP ---
Progress Note: A&P Assessment and Plan (1) KATY (acute kidney injury): Code(s): N17.9 - Acute kidney failure, unspecified Status: Acute Assessment and Plan: acute kidney injury normal creatinine at baseline likely due to pre renal azotemia, cardiac issues leading to chronic pre renal azotemia. kidneys normal by CT scan holding ARB and metformin urine electrolytes show pre renal azotemia, and eosinophils are negative. Potassium is low. Receiving supplementation. Is slowly better. (2) Septic shock: Code(s): A41.9 - Sepsis, unspecified organism; R65.21 - Severe sepsis with septic shock Status: Acute Assessment and Plan: off pressors. The patient is afebrile and her white cell count is down. Blood cultures are negative. Urine culture showed E coli. On Flagyl, azithromycin, aztreonam. (3) Cardiomyopathy: Qualifiers: Cardiomyopathy type: unspecified Qualified Code(s): I42.9 - Cardiomyopathy, unspecified Code(s): I42.9 - Cardiomyopathy, unspecified Status: Acute Assessment and Plan: known issues with EF ~ 20% This may slow down recovery of kidney function because of chronic pre renal factors. Cardiology following (4) Pneumonia: Qualifiers: Laterality: unspecified laterality Lung location: unspecified part of lung Pneumonia type: due to unspecified organism Qualified Code(s): J18.9 - Pneumonia, unspecified organism Code(s): J18.9 - Pneumonia, unspecified organism Status: Acute Assessment and Plan: as noted by imaging studies to date follow respiratory status continue current antibiotics. (5) UTI (urinary tract infection): Qualifiers: Urinary tract infection type: site unspecified Hematuria presence: without hematuria Qualified Code(s): N39.0 - Urinary tract infection, site not specified Code(s): N39.0 - Urinary tract infection, site not specified Status: Suspected Assessment and Plan: Pyuria on UA and E coli in cultures. Patient is on Aztreonam (6) Type 2 diabetes mellitus: Qualifiers: Diabetes mellitus alf insulin use: without alf use Diabetes mellitus complication status: with neurologic complications Diabetes mellitus complication detail: with polyneuropathy Qualified Code(s): E11.42 - Type 2 diabetes mellitus with diabetic polyneuropathy Code(s): E11.9 - Type 2 diabetes mellitus without complications Status: Acute Assessment and Plan: follow accuchecks glycemic control Subjective Date/time seen: 01/24/21 10:28 Interval history: patient is feeling generally weak. No shortness of breath Not hungry. He did not eat breakfast. Exam Narrative: Exam Narrative: GENERAL APPEARANCE: ill appearing female in no acute distress CARDIOVASCULAR: RRR, normal S1 and S2, no rub Or gallop RESPIRATORY: clear bilaterally ABDOMEN: soft but with mild TTP; positive bowel sounds present EXTREMITIES: trace edema SKIN: no rash Objective Data Vital Signs Vital Signs: Vital Signs - 24 hr 01/23/21 12:00 01/23/21 14:00 01/23/21 16:00 Temperature 35.7 C L 36.0 C L Pulse Rate 91 94 96 Respiratory Rate 23 H 24 H 29 H Blood Pressure 99/60 L 130/111 H 114/69 Pulse Oximetry 91 92 92 01/23/21 18:00 01/23/21 20:00 01/23/21 22:00 Temperature 36.6 C Pulse Rate 98 95 91 Respiratory Rate 22 H 20 17 Blood Pressure 107/73 143/79 H 89/65 L Pulse Oximetry 97 96 99 01/24/21 00:00 01/24/21 02:00 01/24/21 04:00 Temperature 36.4 C 36.5 C Pulse Rate 94 91 88 Respiratory Rate 20 22 H 16 Blood Pressure 98/72 L 101/60 107/62 Pulse Oximetry 98 98 99 01/24/21 06:00 01/24/21 08:00 01/24/21 10:00 Temperature 35.7 C L Pulse Rate 90 92 92 Respiratory Rate 20 29 H 22 H Blood Pressure 94/57 L 95/61 L 94/63 L Pulse Oximetry 97 98 99 Intake/Output Intake/Output: Intake & Output 01/12
--- NOTE | 2021-01-24 11:49 | P.PNCA_ITS ---
Progress Note: A&P Assessment and Plan (1) Septic shock: Code(s): A41.9 - Sepsis, unspecified organism; R65.21 - Severe sepsis with septic shock Status: Acute Assessment and Plan: Per Critical Care. Remains on IV antibiotics, Levophed. Patient is critical with poor prognosis given comorbidities. Gram-negative rods positive blood culture thus far chronic treatment for abnormal UA. Continue supportive care. (2) KATY (acute kidney injury): Code(s): N17.9 - Acute kidney failure, unspecified Status: Acute Assessment and Plan: Multifactorial Secondary to intravascular volume depletion, medications and critical illness. (3) Cardiomyopathy: Qualifiers: Cardiomyopathy type: unspecified Qualified Code(s): I42.9 - Cardiomyopathy, unspecified Code(s): I42.9 - Cardiomyopathy, unspecified Status: Acute Assessment and Plan: Severe LV systolic dysfunction, LBBB diagnosed November 2020 prior hospitalization. Patient is not in decompensated heart failure. Lower extremity edema most likely 3rd spacing due to poor nutrition, IV fluid resuscitation as well as extensive bilateral lower extremity DVT. No indication for diuresis at this time. Monitor volume status very carefully given severe LV systolic dysfunction EF 20%. Coronary status remains unknown previously declined life vest and or coronary angiography given complicated comorbidities. (4) DVT of lower limb, acute: Code(s): I82.409 - Acute embolism and thrombosis of unspecified deep veins of unspecified lower extremity Status: Acute Assessment and Plan: Acute bilateral lower extremities extensive for lower extremity venous Doppler. Heparin infusion initiated subsequently. (5) UTI (urinary tract infection): Qualifiers: Urinary tract infection type: site unspecified Hematuria presence: without hematuria Qualified Code(s): N39.0 - Urinary tract infection, site not specified Code(s): N39.0 - Urinary tract infection, site not specified Status: Suspected Assessment and Plan: Per primary service. Antibiotics. (6) Left bundle branch block (LBBB) on electrocardiogram: Code(s): I44.7 - Left bundle-branch block, unspecified Status: Acute Assessment and Plan: Chronic (7) Anemia: Qualifiers: Anemia type: unspecified type Qualified Code(s): D64.9 - Anemia, unspecified Code(s): D64.9 - Anemia, unspecified Status: Acute Assessment and Plan: Monitor closely. Subjective Date/time seen: 01/24/21 11:49 Interval history: 70-year-old female with past medical history significant for congestive heart failure ejection fraction estimated at 20-25%, PE, retroperitoneal mass, diabetes mellitus. Admitted with pneumonia, UTI, sepsis. Follow-up note/date of service 01/24/2021: She is short of breath. She has swelling. No chest pain. Review of Systems Review of Systems: All systems reviewed & are unremarkable except as noted in HPI and below Constitutional: Constitutional: Reports as per HPI, Reports no additional constitutional complaints, Reports fatigue, Reports lethargy and Reports weakness Eyes: Eyes: Reports as per HPI and Reports no additional eye complaints ENT: Reports system reviewed and no additional complaints, except as documented and Reports as per HPI Cardiovascular: Cardiovascular: Reports as per HPI, Reports no additional cardiovascular complaints, Denies chest pain, Denies diaphoresis, Reports lightheadedness, Den
[2021-01-24 12:03] LABS: Glucose Point of Care 148 mg/dl (65-105)
--- NOTE | 2021-01-24 13:46 | PC.NURSE ---
Showed Dr. Beard the ua/culture report with the susceptibility antibiotics, no new orders recieved
[2021-01-24 17:38] LABS: Glucose Point of Care 133 mg/dl (65-105)
[2021-01-24 20:28] LABS: Basophils Percent Auto 0.4 % (0.2-1.2); Eosinophils Absolute Auto 0.1 K/mm3 (0-0.3); Eosinophils Percent Auto 1.5 % (0-4.4); Hematocrit 26.7 % (37.0-47.0); Hemoglobin 8.3 g/dL (12.0-15.0); Immature Granulocyte Absolute 0.26 K/mm3 (0.00-0.031); Immature Granulocyte Percent A 5.7 % (0-0.5); Lymphocytes Absolute Auto 1.55 K/mm3 (0.9-3.2); Lymphocytes Percent Auto 34.1 % (18.3-44.2); Mean Corpuscular HGB Conc 31.1 g/dl (32-36); Mean Corpuscular Hemoglobin 27.5 pg (26-34); Mean Corpuscular Volume 88.4 fl (80-100); Mean Platelet Volume 12.2 fl (7.4-10.4); Monocytes Absolute Auto 0.3 K/mm3 (0.1-0.6); Monocytes Percent Auto 6.2 % (2.6-8.5); Neutrophils Absolute Auto 2.4 K/mm3 (1.3-6.7); Neutrophils Percent Auto 52.1 % (45.5-73.1); Platelet Count Result 96 k/mm3 (150-375); Red Blood Count 3.02 M/mm3 (4.2-5.4); Red Cell Distribution Width 16.2 % (11.5-14.5); White Blood Count 4.5 K/mm3 (4.5-10.0)
[2021-01-24] MEDS: NOREPINEPHRINE 8 MG/D5W 250 ML 8 MG/250 ML BAG 9.38 MG IV CONT (20:28)
[2021-01-24 20:56] LABS: Platelet Estimate Adequate (Adequate)
[2021-01-24 20:57] LABS: Burr Cells 1+ (NORMAL); Poikilocytosis 1+ (NORMAL)
[2021-01-25] VITALS (27 sets, daily range): BP systolic 83–118; BP diastolic 48–62; PULSE 80–94; RESP 19–34; TEMP 36.5–36.7; O2SAT 96–100
[2021-01-25] MEDS: metroNIDAZOLE 500 MG/ISO 100ML 500 MG/100 ML BAG 100 MG IVPB ×4 (01:11→19:57)
[2021-01-25 04:46] LABS: Hematocrit 27.4 % (37.0-47.0); Hemoglobin 8.5 g/dL (12.0-15.0); Mean Corpuscular Hemoglobin 27.4 pg (26-34); Mean Corpuscular Volume 88.4 fl (80-100); Mean Platelet Volume 11.7 fl (7.4-10.4); Platelet Count Result 101 k/mm3 (150-375); Red Cell Distribution Width 16.5 % (11.5-14.5); White Blood Count 5.3 K/mm3 (4.5-10.0)
[2021-01-25 04:58] LABS: Partial Thromboplastin Time 89.9 SECONDS (22.3-36.8)
[2021-01-25] MEDS: AZTREONAM 1 GM in DEXTROSE 5% IN WATER 50 ML 100 ML IVPB ×3 (05:00→21:38)
[2021-01-25] MEDS: CENTRAL LINE FLUSH 10 ML IV PUSH ×4 (05:01→21:37)
[2021-01-25 05:04] LABS: Alanine Aminotransferase 10 U/L (4-35); Albumin Level 2.7 g/dL (3.5-5.1); Alkaline Phosphatase 174 U/L (38-126); Anion Gap 13 mmol/L (8-16); Aspartate Amino Transferase 22 U/L (14-36); Bilirubin,Total 1.6 mg/dL (0.2-1.3); Blood Urea Nitrogen 48 mg/dL (7-17); Calcium 8.4 mg/dL (8.4-10.2); Carbon Dioxide 17 mmol/L (22-30); Chloride 111 mmol/L (98-107); Estimated CRCL calculation 19 ml/min; Estimated Glomerular Filt Rate 23; Glucose 120 mg/dL (65-105); Magnesium 1.6 mg/dL (1.6-2.3); Potassium 3.7 mmol/L (3.4-5.0); Sodium 141 mmol/L (137-145)
[2021-01-25] MEDS: LEVOTHYROXINE SODIUM INJ 100 MCG/5 ML VIAL 50 MCG IV PUSH (05:37)
[2021-01-25 07:35] LABS: Glucose Point of Care 153 mg/dl (65-105)
[2021-01-25] MEDS: PANTOPRAZOLE SODIUM IV 40 MG VIAL IV PUSH ×2 (07:43→21:36)
--- NOTE | 2021-01-25 07:47 | P.PNNP_ITS ---
Progress Note: A&P Assessment and Plan (1) KATY (acute kidney injury): Code(s): N17.9 - Acute kidney failure, unspecified Status: Acute Assessment and Plan: * acute kidney injury * normal creatinine at baseline * likely due to pre renal azotemia, cardiac issues leading to chronic pre renal azotemia. * kidneys normal by CT scan * holding ARB and metformin * urine electrolytes show pre renal azotemia, and eosinophils are negative. * Creatinine seems to have stabilized. However it is above the normal. * Because of her current belly pain and also being back on the norepinephrine, the renal function has stopped improving. * Overall prognosis is not good with her very poorly functioning heart, recurrent belly issues, and renal failure. (2) Septic shock: Code(s): A41.9 - Sepsis, unspecified organism; R65.21 - Severe sepsis with septic shock Status: Acute Assessment and Plan: Back on pressors, but only 1 micg of Levophed. * The patient is afebrile and her white cell count is down. * Blood cultures are negative. Urine culture showed E coli. * On Flagyl, azithromycin, aztreonam. (3) Cardiomyopathy: Qualifiers: Cardiomyopathy type: unspecified Qualified Code(s): I42.9 - Cardiomyopathy, unspecified Code(s): I42.9 - Cardiomyopathy, unspecified Status: Acute Assessment and Plan: * known issues with EF ~ 20% * This may slow down recovery of kidney function because of chronic pre renal factors. * Cardiology following (4) Pneumonia: Qualifiers: Laterality: unspecified laterality Lung location: unspecified part of lung Pneumonia type: due to unspecified organism Qualified Code(s): J18.9 - Pneumonia, unspecified organism Code(s): J18.9 - Pneumonia, unspecified organism Status: Acute Assessment and Plan: * as noted by imaging studies to date * follow respiratory status * continue current antibiotics. (5) UTI (urinary tract infection): Qualifiers: Urinary tract infection type: site unspecified Hematuria presence: without hematuria Qualified Code(s): N39.0 - Urinary tract infection, site not specified Code(s): N39.0 - Urinary tract infection, site not specified Status: Suspected Assessment and Plan: * Pyuria on UA and E coli in cultures. * Patient is on Aztreonam (6) Type 2 diabetes mellitus: Qualifiers: Diabetes mellitus terminal operator insulin use: without snf use Diabetes mellitus complication status: with neurologic complications Diabetes mellitus complication detail: with polyneuropathy Qualified Code(s): E11.42 - Type 2 diabetes mellitus with diabetic polyneuropathy Code(s): E11.9 - Type 2 diabetes mellitus without complications Status: Acute Assessment and Plan: * follow accuchecks * glycemic control Subjective Date/time seen: 01/25/21 07:47 Interval history: patient is feeling generally weak. No shortness of breath Patient has some abdominal discomfort today. Blood pressure dropped last night and so is back on Levophed. Exam Narrative: Exam Narrative: GENERAL APPEARANCE: ill appearing female in no acute distress CARDIOVASCULAR: RRR, normal S1 and S2, no rub Or gallop RESPIRATORY: clear bilaterally ABDOMEN: soft but with mild TTP; positive bowel sounds present EXTREMITIES: trace edema SKIN: no rash or sq nodules Objective Data Vital Signs Vital Signs: Vital Signs - 24 h
--- NOTE | 2021-01-25 07:47 | PM.PNNEP ---
Progress Note: A&P Assessment and Plan (1) KATY (acute kidney injury): Code(s): N17.9 - Acute kidney failure, unspecified Status: Acute Assessment and Plan: acute kidney injury normal creatinine at baseline likely due to pre renal azotemia, cardiac issues leading to chronic pre renal azotemia. kidneys normal by CT scan holding ARB and metformin urine electrolytes show pre renal azotemia, and eosinophils are negative. Creatinine seems to have stabilized. However it is above the normal. Because of her current belly pain and also being back on the norepinephrine, the renal function has stopped improving. Overall prognosis is not good with her very poorly functioning heart, recurrent belly issues, and renal failure. (2) Septic shock: Code(s): A41.9 - Sepsis, unspecified organism; R65.21 - Severe sepsis with septic shock Status: Acute Assessment and Plan: Back on pressors, but only 1 micg of Levophed. The patient is afebrile and her white cell count is down. Blood cultures are negative. Urine culture showed E coli. On Flagyl, azithromycin, aztreonam. (3) Cardiomyopathy: Qualifiers: Cardiomyopathy type: unspecified Qualified Code(s): I42.9 - Cardiomyopathy, unspecified Code(s): I42.9 - Cardiomyopathy, unspecified Status: Acute Assessment and Plan: known issues with EF ~ 20% This may slow down recovery of kidney function because of chronic pre renal factors. Cardiology following (4) Pneumonia: Qualifiers: Laterality: unspecified laterality Lung location: unspecified part of lung Pneumonia type: due to unspecified organism Qualified Code(s): J18.9 - Pneumonia, unspecified organism Code(s): J18.9 - Pneumonia, unspecified organism Status: Acute Assessment and Plan: as noted by imaging studies to date follow respiratory status continue current antibiotics. (5) UTI (urinary tract infection): Qualifiers: Urinary tract infection type: site unspecified Hematuria presence: without hematuria Qualified Code(s): N39.0 - Urinary tract infection, site not specified Code(s): N39.0 - Urinary tract infection, site not specified Status: Suspected Assessment and Plan: Pyuria on UA and E coli in cultures. Patient is on Aztreonam (6) Type 2 diabetes mellitus: Qualifiers: Diabetes mellitus long chain dyeing machine operator insulin use: without long chain dyeing machine operator use Diabetes mellitus complication status: with neurologic complications Diabetes mellitus complication detail: with polyneuropathy Qualified Code(s): E11.42 - Type 2 diabetes mellitus with diabetic polyneuropathy Code(s): E11.9 - Type 2 diabetes mellitus without complications Status: Acute Assessment and Plan: follow accuchecks glycemic control Subjective Date/time seen: 01/25/21 07:47 Interval history: patient is feeling generally weak. No shortness of breath Patient has some abdominal discomfort today. Blood pressure dropped last night and so is back on Levophed. Exam Narrative: Exam Narrative: GENERAL APPEARANCE: ill appearing female in no acute distress CARDIOVASCULAR: RRR, normal S1 and S2, no rub Or gallop RESPIRATORY: clear bilaterally ABDOMEN: soft but with mild TTP; positive bowel sounds present EXTREMITIES: trace edema SKIN: no rash or sq nodules Objective Data Vital Signs Vital Signs: Vital Signs - 24 hr 01/24/21 08:00 01/24/21 10:00 01/24/21 12:00 Temperature 35.7 C L 35.8 C L Pulse Rate 92 92 91 Respiratory Rate 29 H 22 H 24 H Blood Pressure 95/61 L 94/63 L 113/66 Pulse Oximetry 98 99 97 01/24/21 14:00 01/24/21 16:00 01/24/21 18:00 Temperature 35.8 C L Pulse Rate 94 96 98 Respiratory Rate 25 H 28 H 26 H Blood Pressure 101/65 104/66 88/58 L Pulse Oximetry 94 97 95 01/24/21 20:00 01/24/21 20:28 01/24/21 21:15 Temperature 36.4 C Pulse Rate 96 91
[2021-01-25 07:53] LABS: Glucose Point of Care 129 mg/dl (65-105)
--- NOTE | 2021-01-25 08:14 | WPDINTPN ---
Progress Note: A&P Assessment and Plan (1) Septic shock: Code(s): A41.9 - Sepsis, unspecified organism; R65.21 - Severe sepsis with septic shock Status: Acute Assessment and Plan: Patient presented with low blood pressure. She has evidence of the pneumonia and UTI although she also has cardiomyopathy with EF of 20-25% She has received more than 4 L of fluid. NICOM assessment showed no further fluid responsiveness Patient was started on Levophed and Central venous catheter was placed emergently due to poor IV access Patient was weaned off of Levophed before yesterday but last night went back on a low dose to maintain her map echocardiogram shows poor left heart function with EF of 20% Continue to hold further IV fluids Blood and urine cultures sent and 1/2 blood cultures growing Corynebacterium which likely contaminant CT abdomen showed colitis Empiric antibiotics-aztreonam, Flagyl and azithromycin. Vancomycin DCed (2) Colitis: Code(s): K52.9 - Noninfective gastroenteritis and colitis, unspecified Status: Acute Assessment and Plan: CT abdomen pelvis showed pancolitis. Her lactate had normalized Likely infectious versus edema C diff came back negative Patient is on empiric antibiotics aztreonam and Flagyl I will recheck KUB today (3) Pneumonia: Qualifiers: Laterality: unspecified laterality Lung location: unspecified part of lung Pneumonia type: due to unspecified organism Qualified Code(s): J18.9 - Pneumonia, unspecified organism Code(s): J18.9 - Pneumonia, unspecified organism Status: Acute Assessment and Plan: Chest x-rays shows infiltrates which could be pneumonia versus pulmonary edema She is on empiric antibiotics which would cover pneumonia (4) UTI (urinary tract infection): Qualifiers: Urinary tract infection type: site unspecified Hematuria presence: without hematuria Qualified Code(s): N39.0 - Urinary tract infection, site not specified Code(s): N39.0 - Urinary tract infection, site not specified Status: Suspected Assessment and Plan: See above (5) Pulmonary embolism: Qualifiers: Pulmonary embolism type: multiple subsegmental (without acute cor pulmonale) Qualified Code(s): I26.94 - Multiple subsegmental pulmonary emboli without acute cor pulmonale Code(s): I26.99 - Other pulmonary embolism without acute cor pulmonale Status: Acute Assessment and Plan: Patient had a PE on last hospitalization but with low clot burden diagnosed in November She developed hematoma with anticoagulation hence anticoagulation was discontinued Creatinine is elevated precluding repeat CT scan Will hold V/Q scan as it will not record changer assembler bilateral lower extremity Dopplers show acute DVT Negative stool occult Patient started on heparin infusion and hemoglobin was monitored and has remained stable centrally Patient also does appears to have a right atrial versus IVC thrombus I will discuss with nephrology and primary regarding switching her to p.o. anticoagulation (6) DVT of lower limb, acute: Code(s): I82.409 - Acute embolism and thrombosis of unspecified deep veins of unspecified lower extremity Status: Acute Assessment and Plan: Ultrasound of her upper extremities were negative but lower extremity showed Extensive [id number] and fzlag-fqy-ojab deep venous thrombosis throughout both the left and right lower limbs. She did have right axillary DVT on last hospitalization Patient was started on heparin infusion without bolus Her fecal occult blood testing was negative Her hemoglobin has trended down but this could be again chronic anemia which is recalibrated. No obvious signs of bleed Her hemoglobin has remained essentially stable. I will discuss with nephrology and primary regarding switching to p.o. anticoagulation. Considering the extent of DVT, recent PE and continued high risk of DVT exten
--- NOTE | 2021-01-25 08:43 | PCOTNOTE ---
OT evaluation attempted. Patient refusing therapy services this date stating she doesn't feel well and wants to be left alone. Will attempt at later time as appropriate.
--- NOTE | 2021-01-25 10:13 | PM.PNCARD ---
Progress Note: A&P Assessment and Plan (1) Septic shock: Code(s): A41.9 - Sepsis, unspecified organism; R65.21 - Severe sepsis with septic shock Status: Acute Assessment and Plan: Per Critical Care. Remains on IV antibiotics, Levophed. Patient is critical with poor prognosis given comorbidities. Gram-negative rods positive blood culture thus far chronic treatment for abnormal UA. Continue supportive care. (2) KATY (acute kidney injury): Code(s): N17.9 - Acute kidney failure, unspecified Status: Acute Assessment and Plan: Multifactorial Secondary to intravascular volume depletion, medications and critical illness. (3) Cardiomyopathy: Qualifiers: Cardiomyopathy type: unspecified Qualified Code(s): I42.9 - Cardiomyopathy, unspecified Code(s): I42.9 - Cardiomyopathy, unspecified Status: Acute Assessment and Plan: Severe LV systolic dysfunction, LBBB diagnosed November 2020 prior hospitalization. Patient is not in decompensated heart failure. Lower extremity edema most likely 3rd spacing due to poor nutrition, IV fluid resuscitation as well as extensive bilateral lower extremity DVT. No indication for diuresis at this time. Monitor volume status very carefully given severe LV systolic dysfunction EF 20%. Coronary status remains unknown previously declined life vest and or coronary angiography given complicated comorbidities. (4) DVT of lower limb, acute: Code(s): I82.409 - Acute embolism and thrombosis of unspecified deep veins of unspecified lower extremity Status: Acute Assessment and Plan: Acute bilateral lower extremities extensive for lower extremity venous Doppler. Heparin infusion initiated subsequently. ICU team starting oral anticoagulant - not yet initiated, warfarin may be best option due to renal function and financial barriers to eliquis, xarelto. (5) UTI (urinary tract infection): Qualifiers: Hematuria presence: without hematuria Urinary tract infection type: site unspecified Qualified Code(s): N39.0 - Urinary tract infection, site not specified Code(s): N39.0 - Urinary tract infection, site not specified Status: Suspected Assessment and Plan: Per primary service. Antibiotics. (6) Left bundle branch block (LBBB) on electrocardiogram: Code(s): I44.7 - Left bundle-branch block, unspecified Status: Acute Assessment and Plan: Chronic (7) Anemia: Qualifiers: Anemia type: unspecified type Qualified Code(s): D64.9 - Anemia, unspecified Code(s): D64.9 - Anemia, unspecified Status: Acute Assessment and Plan: Monitor closely. Subjective Date/time seen: 01/25/21 10:13 Interval history: 70-year-old female with past medical history significant for congestive heart failure ejection fraction estimated at 20-25%, PE, retroperitoneal mass, diabetes mellitus. Admitted with pneumonia, UTI, sepsis. Follow-up note/date of service 01/24/2021: She is short of breath. She has swelling. No chest pain. Date of service 01/25/2021: Patient is short of breath at rest, on O2 per nasal cannula. She denies any pain. Review of Systems Review of Systems: All systems reviewed & are unremarkable except as noted in HPI and below Constitutional: Constitutional: Reports fatigue and Reports lethargy Eyes: Eyes: Reports no additional eye complaints ENT: Reports Normal hearing present and Denies epistaxis Cardiovascular: Cardiovascular: Denies chest pain, Reports pedal edema, Reports leg edema and Denies palpitations Respiratory: Respiratory: Reports dyspnea Gastrointestinal: Gastrointestinal: Denies constipation and Denies diarrhea Genitourinary: Genitourinary: Denies flank pain Musculoskeletal: Musculoskeletal: Denies back pain and Denies neck pain Integumentary/Breasts: Skin/Breast: Reports system reviewed and no additional complaints, except as
[2021-01-25 12:28] LABS: Glucose Point of Care 111 mg/dl (65-105)
--- NOTE | 2021-01-25 13:52 | PC.NURSE ---
Pt encouraged to eat today, refused all meals, RN at bedside with multiple failed attempts to drink water or any beverage. MD at bedside asked if we could start feeding through an NG tube and patient verbally said no . Physical therapy attempted to lift patient into recliner and patient refused.
--- NOTE | 2021-01-25 15:47 | PM.IMPN ---
Progress Note: A&P Assessment and Plan (1) Pneumonia: Qualifiers: Laterality: unspecified laterality Lung location: unspecified part of lung Pneumonia type: due to unspecified organism Qualified Code(s): J18.9 - Pneumonia, unspecified organism Code(s): J18.9 - Pneumonia, unspecified organism Status: Acute Assessment and Plan: IV vanc, aztreonam Comorbidities, Px guarded (2) UTI (urinary tract infection): Qualifiers: Urinary tract infection type: site unspecified Hematuria presence: without hematuria Qualified Code(s): N39.0 - Urinary tract infection, site not specified Code(s): N39.0 - Urinary tract infection, site not specified Status: Suspected Assessment and Plan: IV vanc, aztreonam (3) Sepsis: Qualifiers: Sepsis type: sepsis due to unspecified organism Sepsis acute organ dysfunction status: with acute organ dysfunction Severe sepsis acute organ dysfunction type: acute renal failure Acute renal failure type: unspecified Severe sepsis shock status: with septic shock Qualified Code(s): A41.9 - Sepsis, unspecified organism; R65.21 - Severe sepsis with septic shock; N17.9 - Acute kidney failure, unspecified Code(s): A41.9 - Sepsis, unspecified organism Status: Acute Assessment and Plan: IV vanc, aztreonam IV fluids corynebacterium species (4) Acute renal failure: Qualifiers: Acute renal failure type: unspecified Qualified Code(s): N17.9 - Acute kidney failure, unspecified Code(s): N17.9 - Acute kidney failure, unspecified Status: Acute Assessment and Plan: 01/23 creatinine 2.5, 01/24 2.7 01/25 creat is 2.5 (5) Congestive heart failure: Qualifiers: Heart failure chronicity: unspecified Heart failure type: unspecified Qualified Code(s): I50.9 - Heart failure, unspecified Code(s): I50.9 - Heart failure, unspecified Status: Acute Assessment and Plan: Monitor I/O (6) Pulmonary emboli: Qualifiers: Pulmonary embolism type: unspecified Chronicity: acute Acute cor pulmonale presence: unspecified Qualified Code(s): I26.99 - Other pulmonary embolism without acute cor pulmonale Code(s): I26.99 - Other pulmonary embolism without acute cor pulmonale Status: Acute Assessment and Plan: IV heparin Monitor for s/sx bleeding (7) DVT (deep venous thrombosis): Qualifiers: DVT location: upper extremity Affected thrombotic vein of extremity: axillary Chronicity: acute Laterality: right Qualified Code(s): I82.A11 - Acute embolism and thrombosis of right axillary vein Code(s): I82.409 - Acute embolism and thrombosis of unspecified deep veins of unspecified lower extremity Status: Acute Assessment and Plan: IV heparin Monitor for s/sx bleeding Hx spontaneous hematoma in past (8) Anemia: Qualifiers: Anemia type: unspecified type Qualified Code(s): D64.9 - Anemia, unspecified Code(s): D64.9 - Anemia, unspecified Status: Acute Assessment and Plan: Blood transfusion as needed to maintain hgb 7 or above (9) Paroxysmal atrial fibrillation: Code(s): I48.0 - Paroxysmal atrial fibrillation Status: Chronic Assessment and Plan: Rate controlled Subjective Date/time seen: 01/25/21 15:47 Interval history: 70-year-old female with past medical history significant for congestive heart failure ejection fraction estimated at 20-25%, PE, retroperitoneal mass, diabetes mellitus. Admitted with pneumonia, UTI, sepsis. 01/24: Feels weak, tired. 01/25: Unchanged condition no improvement Review of Systems Review of Systems: All systems reviewed & are unremarkable except as noted in HPI and below Exam Narrative: Exam Narrative: Elderly lady chronically ill and tired NECK: No JVD, adenopathy, or thyromegaly CHEST: Decreased LL BS. NL effort HEART: NL S1/
[2021-01-25] MEDS: HEPARIN SOD/D5W 100 UNITS/ML 25,000 UNITS/250 ML BAG 7 UNITS IV CONT (15:50)
[2021-01-25 17:12] LABS: Glucose Point of Care 99 mg/dl (65-105)
[2021-01-26] VITALS (22 sets, daily range): BP systolic 77–128; BP diastolic 46–78; PULSE 81–97; RESP 16–29; TEMP 36.4–37.2; O2SAT 92–96; BMI 29.1
[2021-01-26 02:29] LABS: Glucose Point of Care 110 mg/dl (65-105)
[2021-01-26] MEDS: metroNIDAZOLE 500 MG/ISO 100ML 500 MG/100 ML BAG 100 MG IVPB ×4 (02:30→20:46)
[2021-01-26 03:43] LABS: Partial Thromboplastin Time 154.9 SECONDS (22.3-36.8)
[2021-01-26 05:52] LABS: Hematocrit 26.9 % (37.0-47.0); Hemoglobin 8.4 g/dL (12.0-15.0); Immature Platelet Fraction Pct 8.5 % (0.9-11.2); Mean Corpuscular HGB Conc 31.2 g/dl (32-36); Mean Corpuscular Hemoglobin 27.5 pg (26-34); Mean Corpuscular Volume 88.2 fl (80-100); Mean Platelet Volume 11.6 fl (7.4-10.4); Platelet Count Result 126 k/mm3 (150-375); Red Blood Count 3.05 M/mm3 (4.2-5.4); Red Cell Distribution Width 16.9 % (11.5-14.5)
[2021-01-26 06:05] LABS: Alanine Aminotransferase 12 U/L (4-35); Albumin Level 2.7 g/dL (3.5-5.1); Alkaline Phosphatase 263 U/L (38-126); Anion Gap 14 mmol/L (8-16); Aspartate Amino Transferase 30 U/L (14-36); Blood Urea Nitrogen 44 mg/dL (7-17); Calcium 8.7 mg/dL (8.4-10.2); Carbon Dioxide 16 mmol/L (22-30); Chloride 111 mmol/L (98-107); Estimated CRCL calculation 18 ml/min; Estimated Glomerular Filt Rate 20; Glucose 90 mg/dL (65-105); Magnesium 1.6 mg/dL (1.6-2.3); Phosphorus 2.9 mg/dL (2.5-4.5); Potassium 3.5 mmol/L (3.4-5.0); Sodium 141 mmol/L (137-145)
[2021-01-26] MEDS: AZTREONAM 1 GM in DEXTROSE 5% IN WATER 50 ML 100 ML IVPB ×3 (06:20→21:17)
[2021-01-26] MEDS: CENTRAL LINE FLUSH 10 ML IV PUSH ×4 (06:21→21:17)
[2021-01-26] MEDS: LEVOTHYROXINE SODIUM INJ 100 MCG/5 ML VIAL 50 MCG IV PUSH (06:21)
[2021-01-26] MEDS: PANTOPRAZOLE SODIUM IV 40 MG VIAL IV PUSH ×2 (08:23→20:48)
[2021-01-26 08:33] LABS: Glucose Point of Care 103 mg/dl (65-105)
--- NOTE | 2021-01-26 08:34 | P.PNNP_ITS ---
Progress Note: A&P Assessment and Plan (1) KATY (acute kidney injury): Code(s): N17.9 - Acute kidney failure, unspecified Status: Acute Assessment and Plan: * acute kidney injury * normal creatinine at baseline * likely due to pre renal azotemia, cardiac issues leading to chronic pre renal azotemia. * kidneys normal by CT scan * holding ARB and metformin * urine electrolytes show pre renal azotemia, and eosinophils are negative. * Creatinine seems to have stabilized. However it is above the normal. * The patient is on Levophed. * She is on broad-spectrum antibiotics. * She is on pressors. * One of 2 blood cultures are positive for marga bacterium. ?Contaminant * Very poor heart function with an EF of only 20%. * She has not eaten in days. * Family meeting is planned for today. * Overall prognosis is poor. (2) Septic shock: Code(s): A41.9 - Sepsis, unspecified organism; R65.21 - Severe sepsis with septic shock Status: Acute Assessment and Plan: Back on pressors, but only 1 micg of Levophed. * The patient is afebrile and her white cell count is down. * Blood cultures are positive but only 1/2 with marga bacterium so may be contaminant.. Urine culture showed E coli. * On Flagyl, azithromycin, aztreonam. (3) Cardiomyopathy: Qualifiers: Cardiomyopathy type: unspecified Qualified Code(s): I42.9 - Cardiomyopathy, unspecified Code(s): I42.9 - Cardiomyopathy, unspecified Status: Acute Assessment and Plan: * known issues with EF ~ 20% * This may slow down recovery of kidney function because of chronic pre renal factors. * Cardiology following (4) Pneumonia: Qualifiers: Laterality: unspecified laterality Lung location: unspecified part of lung Pneumonia type: due to unspecified organism Qualified Code(s): J18.9 - Pneumonia, unspecified organism Code(s): J18.9 - Pneumonia, unspecified organism Status: Acute Assessment and Plan: * as noted by imaging studies to date * follow respiratory status * continue current antibiotics. (5) UTI (urinary tract infection): Qualifiers: Urinary tract infection type: site unspecified Hematuria presence: without hematuria Qualified Code(s): N39.0 - Urinary tract infection, site not specified Code(s): N39.0 - Urinary tract infection, site not specified Status: Suspected Assessment and Plan: * Pyuria on UA and E coli in cultures. * Patient is on Aztreonam (6) Type 2 diabetes mellitus: Qualifiers: Diabetes mellitus intermediate designer insulin use: without intermediate designer use Diabetes mellitus complication status: with neurologic complications Diabetes mellitus complication detail: with polyneuropathy Qualified Code(s): E11.42 - Type 2 diabetes mellitus with diabetic polyneuropathy Code(s): E11.9 - Type 2 diabetes mellitus without complications Status: Acute Assessment and Plan: * follow accuchecks * glycemic control Subjective Date/time seen: 01/26/21 08:34 Interval history: patient is feeling generally weak. She has no belly pain today. She denies shortness of breath. She repeatedly says ?I am fine ? Exam Narrative: Exam Narrative: GENERAL APPEARANCE: ill appearing female in no acute distress CARDIOVASCULAR: RRR, normal S1 and S2, no rub Or gallop RESPIRATORY: clear bilaterally ABDOMEN: soft and nontender. Bowel sounds positive. EXTREMITIES: trace edema SKIN: no rash or sq n
--- NOTE | 2021-01-26 08:34 | PM.PNNEP ---
Progress Note: A&P Assessment and Plan (1) KATY (acute kidney injury): Code(s): N17.9 - Acute kidney failure, unspecified Status: Acute Assessment and Plan: acute kidney injury normal creatinine at baseline likely due to pre renal azotemia, cardiac issues leading to chronic pre renal azotemia. kidneys normal by CT scan holding ARB and metformin urine electrolytes show pre renal azotemia, and eosinophils are negative. Creatinine seems to have stabilized. However it is above the normal. The patient is on Levophed. She is on broad-spectrum antibiotics. She is on pressors. One of 2 blood cultures are positive for marga bacterium. ?Contaminant Very poor heart function with an EF of only 20%. She has not eaten in days. Family meeting is planned for today. Overall prognosis is poor. (2) Septic shock: Code(s): A41.9 - Sepsis, unspecified organism; R65.21 - Severe sepsis with septic shock Status: Acute Assessment and Plan: Back on pressors, but only 1 micg of Levophed. The patient is afebrile and her white cell count is down. Blood cultures are positive but only 1/2 with marga bacterium so may be contaminant.. Urine culture showed E coli. On Flagyl, azithromycin, aztreonam. (3) Cardiomyopathy: Qualifiers: Cardiomyopathy type: unspecified Qualified Code(s): I42.9 - Cardiomyopathy, unspecified Code(s): I42.9 - Cardiomyopathy, unspecified Status: Acute Assessment and Plan: known issues with EF ~ 20% This may slow down recovery of kidney function because of chronic pre renal factors. Cardiology following (4) Pneumonia: Qualifiers: Laterality: unspecified laterality Lung location: unspecified part of lung Pneumonia type: due to unspecified organism Qualified Code(s): J18.9 - Pneumonia, unspecified organism Code(s): J18.9 - Pneumonia, unspecified organism Status: Acute Assessment and Plan: as noted by imaging studies to date follow respiratory status continue current antibiotics. (5) UTI (urinary tract infection): Qualifiers: Urinary tract infection type: site unspecified Hematuria presence: without hematuria Qualified Code(s): N39.0 - Urinary tract infection, site not specified Code(s): N39.0 - Urinary tract infection, site not specified Status: Suspected Assessment and Plan: Pyuria on UA and E coli in cultures. Patient is on Aztreonam (6) Type 2 diabetes mellitus: Qualifiers: Diabetes mellitus [facility] insulin use: without watermelon harvesting supervisor use Diabetes mellitus complication status: with neurologic complications Diabetes mellitus complication detail: with polyneuropathy Qualified Code(s): E11.42 - Type 2 diabetes mellitus with diabetic polyneuropathy Code(s): E11.9 - Type 2 diabetes mellitus without complications Status: Acute Assessment and Plan: follow accuchecks glycemic control Subjective Date/time seen: 01/26/21 08:34 Interval history: patient is feeling generally weak. She has no belly pain today. She denies shortness of breath. She repeatedly says ?I am fine ? Exam Narrative: Exam Narrative: GENERAL APPEARANCE: ill appearing female in no acute distress CARDIOVASCULAR: RRR, normal S1 and S2, no rub Or gallop RESPIRATORY: clear bilaterally ABDOMEN: soft and nontender. Bowel sounds positive. EXTREMITIES: trace edema SKIN: no rash or sq nodules Objective Data Vital Signs Vital Signs: Vital Signs - 24 hr 01/25/21 09:19 01/25/21 09:58 01/25/21 10:00 Temperature Pulse Rate 80 80 82 Respiratory Rate 25 H Blood Pressure 87/51 L 113/56 L Pulse Oximetry 98 01/25/21 11:43 01/25/21 12:00 01/25/21 14:00 Temperature 36.6 C Pulse Rate 82 86 88 Respiratory Rate 29 H 31 H Blood Pressure 100/54 L 101/55 L 104/53 L Pulse Oximetry 97 96 01/25/21 15:26 01/25/21 16:00
--- NOTE | 2021-01-26 09:20 | WPDINTPN ---
Progress Note: A&P Assessment and Plan (1) Septic shock: Code(s): A41.9 - Sepsis, unspecified organism; R65.21 - Severe sepsis with septic shock Status: Acute Assessment and Plan: Patient presented with low blood pressure. She has evidence of the pneumonia and UTI although she also has cardiomyopathy with EF of 20-25% -remains on Levophed via central line - echocardiogram shows poor left heart function with EF of 20% Continue to hold further IV fluids Blood and urine cultures sent and 1/2 blood cultures growing Corynebacterium which likely contaminant CT abdomen showed pancolitis Empiric antibiotics-aztreonam, Flagyl and azithromycin. Vancomycin DCed (2) Colitis: Code(s): K52.9 - Noninfective gastroenteritis and colitis, unspecified Status: Acute Assessment and Plan: CT abdomen pelvis showed pancolitis. Her lactate had normalized Likely infectious versus edema C diff - negative Patient is on empiric antibiotics aztreonam and Flagyl KUB on 01/25 showed nonobstructive bowel gas pattern (3) Pneumonia: Qualifiers: Laterality: unspecified laterality Lung location: unspecified part of lung Pneumonia type: due to unspecified organism Qualified Code(s): J18.9 - Pneumonia, unspecified organism Code(s): J18.9 - Pneumonia, unspecified organism Status: Acute Assessment and Plan: Chest x-rays shows infiltrates which could be pneumonia versus pulmonary edema She is on empiric antibiotics which would cover pneumonia (4) UTI (urinary tract infection): Qualifiers: Urinary tract infection type: site unspecified Hematuria presence: without hematuria Qualified Code(s): N39.0 - Urinary tract infection, site not specified Code(s): N39.0 - Urinary tract infection, site not specified Status: Suspected Assessment and Plan: See above (5) Pulmonary embolism: Qualifiers: Pulmonary embolism type: multiple subsegmental (without acute cor pulmonale) Qualified Code(s): I26.94 - Multiple subsegmental pulmonary emboli without acute cor pulmonale Code(s): I26.99 - Other pulmonary embolism without acute cor pulmonale Status: Acute Assessment and Plan: Patient had a PE on last hospitalization but with low clot burden diagnosed in November 2020 She developed hematoma with anticoagulation hence anticoagulation was discontinued Creatinine is elevated precluding repeat CT scan Will hold V/Q scan as it will not 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 anticoagulation (6) DVT of lower limb, acute: Code(s): I82.409 - Acute embolism and thrombosis of unspecified deep veins of unspecified lower extremity Status: Acute Assessment and Plan: Ultrasound of her upper extremities were negative but lower extremity showed Extensive yjbot-jqs-bzck and yfera-srn-iene deep venous thrombosis throughout both the left and right lower limbs. She did have right axillary DVT on last hospitalization Patient was started on heparin infusion without bolus Her fecal occult blood testing was negative Hemoglobin has remained stable. No obvious signs of bleed - I will discuss with nephrology and primary regarding switching to p.o. anticoagulation. Considering the extent of DVT, recent PE and continued high risk of DVT extension due to immobility and poor cardiac function, I will hold anticoagulated only if hemoglobin drops below 7 that she will need transfusion or obvious signs of bleeding. Also monitor platelets Patient was started on IV PPI (7) Acute renal failure: Qualifiers: Acute renal failure type: unspecified Qualified Code(s):
[2021-01-26] MEDS: SODIUM BICARBONATE 8.4% 50 MEQ/50 ML SYRINGE 100 MEQ IV PUSH (09:55)
--- NOTE | 2021-01-26 09:58 | PM.PNCARD ---
Progress Note: A&P Assessment and Plan (1) Septic shock: Code(s): A41.9 - Sepsis, unspecified organism; R65.21 - Severe sepsis with septic shock <Sara Sutton APN-C - Last Filed: 01/26/21 10:03> Status: Acute <Sara SvitlanaNirmala Sutton APN-C - Last Filed: 01/26/21 10:03> Assessment and Plan: Per Critical Care. Remains on IV antibiotics, Levophed. Patient is critical with poor prognosis given comorbidities. Gram-negative rods positive blood culture thus far chronic treatment for abnormal UA. Continue supportive care. <Sara Sutton APN-C - Last Filed: 01/26/21 10:03> (2) KATY (acute kidney injury): Code(s): N17.9 - Acute kidney failure, unspecified <Sara Sutton APN-C - Last Filed: 01/26/21 10:03> Status: Acute <Sara Sutton APN-C - Last Filed: 01/26/21 10:03> Assessment and Plan: Multifactorial Secondary to intravascular volume depletion, medications and critical illness. Nephrology following. <Sara Sutton APN-C - Last Filed: 01/26/21 10:03> (3) Cardiomyopathy: Qualifiers: Cardiomyopathy type: unspecified Qualified Code(s): I42.9 - Cardiomyopathy, unspecified <Sara Sutton APN-C - Last Filed: 01/26/21 10:03> Code(s): I42.9 - Cardiomyopathy, unspecified <Sara Sutton APN-C - Last Filed: 01/26/21 10:03> Status: Acute <Sara Sutton APN-C - Last Filed: 01/26/21 10:03> Assessment and Plan: Severe LV systolic dysfunction, LBBB diagnosed November 2020 prior hospitalization. Patient is not in decompensated heart failure. Lower extremity edema most likely 3rd spacing due to poor nutrition, IV fluid resuscitation as well as extensive bilateral lower extremity DVT. This is improving. No indication for diuresis at this time. Monitor volume status very carefully given severe LV systolic dysfunction EF 20%. Coronary status remains unknown previously declined life vest and or coronary angiography given complicated comorbidities. <KHUSHBOO Alfredo - Last Filed: 01/26/21 10:03> (4) DVT of lower limb, acute: Code(s): I82.409 - Acute embolism and thrombosis of unspecified deep veins of unspecified lower extremity <KHUSHBOO Alfredo - Last Filed: 01/26/21 10:03> Status: Acute <KHUSHBOO Alfredo - Last Filed: 01/26/21 10:03> Assessment and Plan: Acute bilateral lower extremities extensive for lower extremity venous Doppler. Heparin infusion initiated subsequently. ICU team starting oral anticoagulant - not yet initiated, warfarin may be best option due to renal function and financial barriers to [facility]. <KHUSHBOO Alfredo - Last Filed: 01/26/21 10:03> (5) UTI (urinary tract infection): Qualifiers: Hematuria presence: without hematuria Urinary tract infection type: site unspecified Qualified Code(s): N39.0 - Urinary tract infection, site not specified <KHUSHBOO Alfredo - Last Filed: 01/26/21 10:03> Code(s): N39.0 - Urinary tract infection, site not specified <KHUSHBOO Alfredo - Last Filed: 01/26/21 10:03> Status: Suspected <KHUSHBOO Alfredo - Last Filed: 01/26/21 10:03> Assessment and Plan: Per primary service. Antibiotics. <KHUSHBOO Alfredo - Last Filed: 01/26/21 10:03> (6) Left bundle branch block (LBBB) on electrocardiogram: Code(s): I44.7 - Left bundle-branch block, unspecified <KHUSHBOO Alfredo - Last Filed: 01/26/21 10:03> Status: Acute <KHUSHBOO Alfredo - Last Filed: 01/26/21 10:03> Assessment and Plan: Chronic <KHUSHBOO Alfredo - Last Filed: 01/26/21 10:03> (7) Anemia: Qualifiers: Anemia type: unspecified type Qualified Code(s): D64.9 - Anemia, unspecified <KHUSHBOO Alfredo - Last Filed: 01/26/21 10:03> Code(s): D64.9 - Anemia, unspecified <KHUSHBOO Alfredo - Last F
[2021-01-26 11:49] LABS: Partial Thromboplastin Time 95.3 SECONDS (22.3-36.8)
[2021-01-26] MEDS: MEGESTROL ACETATE (*CHEMO) 40 MG TABLET PO ×3 (12:03→20:47)
[2021-01-26 12:10] LABS: Glucose Point of Care 95 mg/dl (65-105)
--- NOTE | 2021-01-26 13:45 | PM.IMPN ---
Progress Note: A&P Assessment and Plan (1) Pneumonia: Qualifiers: Laterality: unspecified laterality Lung location: unspecified part of lung Pneumonia type: due to unspecified organism Qualified Code(s): J18.9 - Pneumonia, unspecified organism Code(s): J18.9 - Pneumonia, unspecified organism Status: Acute Assessment and Plan: IVmetro, azithromycin, aztreonam Comorbidities, Px guarded (2) UTI (urinary tract infection): Qualifiers: Urinary tract infection type: site unspecified Hematuria presence: without hematuria Qualified Code(s): N39.0 - Urinary tract infection, site not specified Code(s): N39.0 - Urinary tract infection, site not specified Status: Suspected Assessment and Plan: IV metro azithromycin, aztreonam (3) Sepsis: Qualifiers: Sepsis type: sepsis due to unspecified organism Sepsis acute organ dysfunction status: with acute organ dysfunction Severe sepsis acute organ dysfunction type: acute renal failure Acute renal failure type: unspecified Severe sepsis shock status: with septic shock Qualified Code(s): A41.9 - Sepsis, unspecified organism; R65.21 - Severe sepsis with septic shock; N17.9 - Acute kidney failure, unspecified Code(s): A41.9 - Sepsis, unspecified organism Status: Acute Assessment and Plan: IV metro azitromycin and iv aztreonam IV fluids corynebacterium species (4) Acute renal failure: Qualifiers: Acute renal failure type: unspecified Qualified Code(s): N17.9 - Acute kidney failure, unspecified Code(s): N17.9 - Acute kidney failure, unspecified Status: Acute Assessment and Plan: 01/23 creatinine 2.5, 01/24 2.7 01/25 creat is 2.5 creat is 2.8 (5) Congestive heart failure: Qualifiers: Heart failure chronicity: unspecified Heart failure type: unspecified Qualified Code(s): I50.9 - Heart failure, unspecified Code(s): I50.9 - Heart failure, unspecified Status: Acute Assessment and Plan: Monitor I/O (6) Pulmonary emboli: Qualifiers: Pulmonary embolism type: unspecified Chronicity: acute Acute cor pulmonale presence: unspecified Qualified Code(s): I26.99 - Other pulmonary embolism without acute cor pulmonale Code(s): I26.99 - Other pulmonary embolism without acute cor pulmonale Status: Acute Assessment and Plan: IV heparin Monitor for s/sx bleeding (7) DVT (deep venous thrombosis): Qualifiers: DVT location: upper extremity Affected thrombotic vein of extremity: axillary Chronicity: acute Laterality: right Qualified Code(s): I82.A11 - Acute embolism and thrombosis of right axillary vein Code(s): I82.409 - Acute embolism and thrombosis of unspecified deep veins of unspecified lower extremity Status: Acute Assessment and Plan: IV heparin Monitor for s/sx bleeding Hx spontaneous hematoma in past (8) Anemia: Qualifiers: Anemia type: unspecified type Qualified Code(s): D64.9 - Anemia, unspecified Code(s): D64.9 - Anemia, unspecified Status: Acute Assessment and Plan: Blood transfusion as needed to maintain hgb 7 or above (9) Paroxysmal atrial fibrillation: Code(s): I48.0 - Paroxysmal atrial fibrillation Status: Chronic Assessment and Plan: Rate controlled Subjective Date/time seen: 01/26/21 13:45 Interval history: 70-year-old female with past medical history significant for congestive heart failure ejection fraction estimated at 20-25%, PE, retroperitoneal mass, diabetes mellitus. Admitted with pneumonia, UTI, sepsis. 01/24: Feels weak, tired. 01/25: Unchanged condition no improvement 01/26: Pt aware her prognosis is poor continue active treatments. Review of Systems Review of Systems: All systems reviewed & are unremarkable except as noted in HPI and below Exam Narrative: Exam Narrative: Yossi
[2021-01-26] MEDS: NOREPINEPHRINE 8 MG/D5W 250 ML 8 MG/250 ML BAG 7.5 MG IV CONT (15:32)
[2021-01-26] MEDS: SODIUM BICARBONATE TAB 650 MG TABLET 1300 MG PO (18:05)
[2021-01-26 18:08] LABS: Glucose Point of Care 93 mg/dl (65-105)
[2021-01-26 18:27] LABS: Partial Thromboplastin Time 81.9 SECONDS (22.3-36.8)
[2021-01-26 19:01] LABS: Chloride Rand Ur 43 mmol/L (32-290); Chloride/Creatinine Rand Ur 24 (38-318); Creatinine Random Urine 178 mg/dL (20-275)
[2021-01-26 21:31] LABS: Glucose Point of Care 110 mg/dl (65-105)
[2021-01-27] VITALS (34 sets, daily range): BP systolic 70–146; BP diastolic 42–66; PULSE 63–96; RESP 17–30; TEMP 36.2–36.7; O2SAT 92–100
[2021-01-27] MEDS: metroNIDAZOLE 500 MG/ISO 100ML 500 MG/100 ML BAG 100 MG IVPB ×4 (01:09→19:45)
[2021-01-27] MEDS: AZTREONAM 1 GM in DEXTROSE 5% IN WATER 50 ML 100 ML IVPB ×3 (05:18→21:06)
[2021-01-27] MEDS: CENTRAL LINE FLUSH 10 ML IV PUSH ×4 (05:19→21:06)
[2021-01-27 05:26] LABS: Hematocrit 26.5 % (37.0-47.0); Hemoglobin 8.1 g/dL (12.0-15.0); Mean Corpuscular HGB Conc 30.6 g/dl (32-36); Mean Corpuscular Hemoglobin 27.3 pg (26-34); Mean Corpuscular Volume 89.2 fl (80-100); Mean Platelet Volume 12.7 fl (7.4-10.4); Platelet Count Result 109 k/mm3 (150-375); Red Blood Count 2.97 M/mm3 (4.2-5.4); Red Cell Distribution Width 17.2 % (11.5-14.5); White Blood Count 5.7 K/mm3 (4.5-10.0)
[2021-01-27 05:43] LABS: Albumin Level 2.7 g/dL (3.5-5.1); Anion Gap 14 mmol/L (8-16); Blood Urea Nitrogen 44 mg/dL (7-17); Calcium 8.5 mg/dL (8.4-10.2); Carbon Dioxide 19 mmol/L (22-30); Chloride 108 mmol/L (98-107); Estimated CRCL calculation 19 ml/min; Estimated Glomerular Filt Rate 22; Glucose 99 mg/dL (65-105); Phosphorus 2.9 mg/dL (2.5-4.5); Potassium 3.3 mmol/L (3.4-5.0); Sodium 141 mmol/L (137-145)
[2021-01-27] MEDS: LEVOTHYROXINE SODIUM INJ 100 MCG/5 ML VIAL 50 MCG IV PUSH (05:50)
[2021-01-27 06:07] LABS: Partial Thromboplastin Time > 200.0 SECONDS (22.3-36.8)
[2021-01-27] MEDS: HEPARIN SOD/D5W 100 UNITS/ML 25,000 UNITS/250 ML BAG IV CONT ×2 (06:11→08:06)
[2021-01-27] MEDS: KCL 20 MEQ/SW 100 ML 100 ML 50 MEQ IVPB (07:53)
[2021-01-27] MEDS: SODIUM BICARBONATE 8.4% 50 MEQ/50 ML SYRINGE 100 MEQ IV PUSH (07:53)
--- NOTE | 2021-01-27 08:13 | WPDINTPN ---
Progress Note: A&P Assessment and Plan (1) Septic shock: Code(s): A41.9 - Sepsis, unspecified organism; R65.21 - Severe sepsis with septic shock Status: Acute Assessment and Plan: Patient presented with low blood pressure. She has evidence of the pneumonia and UTI although she also has cardiomyopathy with EF of 20-25% -remains on Levophed via central line - echocardiogram shows poor left heart function with EF of 20% -patient is acidotic, will start sodium bicarb infusion at 40 mL/hour - Blood cultures s 1/2 blood cultures growing Corynebacterium which likely contaminant -urine cultures growing Enterococcus Gallanarum, will have Infectious Disease follow the patient CT abdomen showed pancolitis Empiric antibiotics-aztreonam, Flagyl and azithromycin. Vancomycin DCed (2) Colitis: Code(s): K52.9 - Noninfective gastroenteritis and colitis, unspecified Status: Acute Assessment and Plan: CT abdomen pelvis showed pancolitis. Her lactate had normalized Likely infectious versus edema C diff - negative Patient is on empiric antibiotics aztreonam and Flagyl KUB on 01/25 showed nonobstructive bowel gas pattern (3) Pneumonia: Qualifiers: Laterality: unspecified laterality Lung location: unspecified part of lung Pneumonia type: due to unspecified organism Qualified Code(s): J18.9 - Pneumonia, unspecified organism Code(s): J18.9 - Pneumonia, unspecified organism Status: Acute Assessment and Plan: Chest x-rays shows infiltrates which could be pneumonia versus pulmonary edema She is on empiric antibiotics which would cover pneumonia (4) UTI (urinary tract infection): Qualifiers: Urinary tract infection type: site unspecified Hematuria presence: without hematuria Qualified Code(s): N39.0 - Urinary tract infection, site not specified Code(s): N39.0 - Urinary tract infection, site not specified Status: Suspected Assessment and Plan: See above (5) Pulmonary embolism: Qualifiers: Pulmonary embolism type: multiple subsegmental (without acute cor pulmonale) Qualified Code(s): I26.94 - Multiple subsegmental pulmonary emboli without acute cor pulmonale Code(s): I26.99 - Other pulmonary embolism without acute cor pulmonale Status: Acute Assessment and Plan: Patient had a PE on last hospitalization but with low clot burden diagnosed in November 2020 She developed hematoma with anticoagulation hence anticoagulation was discontinued Creatinine is elevated precluding repeat CT scan Will hold V/Q scan as it will not private 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 anticoagulation (6) DVT of lower limb, acute: Code(s): I82.409 - Acute embolism and thrombosis of unspecified deep veins of unspecified lower extremity Status: Acute Assessment and Plan: Ultrasound of her upper extremities were negative but lower extremity showed Extensive [id number]-nccn and efsaf-ish-roto deep venous thrombosis throughout both the left and right lower limbs. She did have right axillary DVT on last hospitalization Patient was started on heparin infusion without bolus Her fecal occult blood testing was negative Hemoglobin has remained stable. No obvious signs of bleed - I will discuss with nephrology and primary regarding switching to p.o. anticoagulation. Considering the extent of DVT, recent PE and continued high risk of DVT extension due to immobility and poor cardiac function, I will hold anticoagulated only if hemoglobin drops below 7 that she will need transfusion or obvious signs of bleeding. Also monitor platelets Patient was started on I
[2021-01-27] MEDS: MEGESTROL ACETATE (*CHEMO) ORAL SUSP 40 MG/ML SYR 800 MG PO (08:19)
[2021-01-27] MEDS: PANTOPRAZOLE SODIUM IV 40 MG VIAL IV PUSH ×2 (08:19→20:17)
[2021-01-27 08:27] LABS: Glucose Point of Care 105 mg/dl (65-105)
--- NOTE | 2021-01-27 09:43 | PCPTNOTE ---
The patient treatment was not able to be completed on 01-27-2021 due to patient refusing. Therapist encouraged patient participation for PT session. Patient continually gestured refusing therapy session with nodding no. R.N. informed. Will plan to continue treatment per plan of care.
[2021-01-27] MEDS: SODIUM BICARBONATE 8.4% 150 MEQ in DEXTROSE 5% 1,000 ML 950 ML 40 MEQ IV CONT (09:53)
--- NOTE | 2021-01-27 11:04 | WPDINFPN2 ---
Progress Note: A&P Assessment and Plan (1) Asymptomatic bacteriuria: Code(s): R82.71 - Bacteriuria Status: Acute Assessment and Plan: 1. ASB 2. Colitis 3. Lung infiltrates REC The Enterococcus is not in need of any treatment. Remove Jay when possible. Antibiotics otherwise at your discretion, I suggest 10 days of metronidazole (today is #7) as C diff infection remains a possibility. Call if Qs Subjective Date/time seen: 01/27/21 11:04 Objective Data Vital Signs Vital Signs: Vital Signs - 24 hr 01/26/21 12:00 01/26/21 14:00 01/26/21 15:32 Temperature Pulse Rate 84 82 90 Respiratory Rate 18 16 Blood Pressure 102/67 113/51 L 90/49 L Pulse Oximetry 93 95 01/26/21 16:00 01/26/21 18:00 01/26/21 19:32 Temperature Pulse Rate 90 97 93 Respiratory Rate 25 H 25 H Blood Pressure 113/59 L 116/58 L 80/48 L Pulse Oximetry 95 92 01/26/21 20:00 01/26/21 20:45 01/26/21 21:54 Temperature 36.6 C Pulse Rate 97 88 83 Respiratory Rate 24 H Blood Pressure 93/52 L 92/52 L 117/57 L Pulse Oximetry 93 01/26/21 22:00 01/26/21 23:44 01/27/21 00:00 Temperature 36.7 C Pulse Rate 87 84 87 Respiratory Rate 20 21 H Blood Pressure 97/47 L 103/56 L 91/52 L Pulse Oximetry 93 94 01/27/21 00:27 01/27/21 01:19 01/27/21 02:00 Temperature Pulse Rate 83 83 83 Respiratory Rate 23 H Blood Pressure 90/49 L 84/44 L 95/45 L Pulse Oximetry 99 01/27/21 02:15 01/27/21 03:30 01/27/21 04:00 Temperature 36.3 C L Pulse Rate 82 82 Respiratory Rate 21 H Blood Pressure 95/46 L 96/47 L 95/49 L Pulse Oximetry 99 01/27/21 04:29 01/27/21 05:00 01/27/21 05:10 Temperature Pulse Rate 81 82 Respiratory Rate Blood Pressure 90/49 L 100/49 L Pulse Oximetry 98 01/27/21 06:00 01/27/21 06:16 01/27/21 06:50 Temperature Pulse Rate 82 81 80 Respiratory Rate 19 Blood Pressure 91/50 L 91/50 L 99/54 L Pulse Oximetry 100 01/27/21 08:00 01/27/21 09:27 01/27/21 10:00 Temperature 36.5 C Pulse Rate 84 89 Respiratory Rate 30 H 21 H Blood Pressure 146/66 H 72/43 L Pulse Oximetry 96 95 99 Intake/Output Intake/Output: Intake & Output 01/24/21 01/25/21 01/26/21 01/27/21 23:59 23:59 23:59 23:59 Intake Total 1560 1050 890 680 Output Total 475 600 500 125 Balance 1085 450 390 555 Meds/Results Medications: Active Medications Generic Name Dose Route Start Last Admin Trade Name Freq PRN Reason Stop Dose Admin Acetaminophen 650 mg 01/20/21 18:08 Acetaminophen 325 Mg Tablet PO Q4H PRN Mild Pain (1-3) or Fever Hydrocodone Bitart/Acetaminophen 1 tab 01/20/21 18:08 Hydrocodone/Acetaminophen (*Crx) 5-325 Mg Tablet PO Q4H PRN Pain Rated 4-6 Alteplase, Recombinant 2 mg 01/21/21 20:34 Alteplase 2 Mg Vial (Cathflo) IV PUSH ONCE PRN Line Occlusion Dextrose 12.5 gm 01/20/21 21:31 Dextrose 50% 25 Gm/50 Ml Syringe IV PUSH PRN PRN Hypoglycemia Protocol Glucagon 1 mg 01/20/21 21:31 Glucagon For Inj 1 Mg Vial IM PRN PRN Hypoglycemia Protocol Glucose 15 gm 01/20/21 21:31 Glucose Oral Gel 15 Gm Of Glucse In 37.5 Gm Tube PO PRN PRN Hypoglycemia Protocol Heparin Sodium (Porcine) 5,500 units 01/21/21 18:08 Heparin Sodium 5,000 Units/Ml Vial IV PUSH PRN PRN aPTT less than 55 seconds Heparin Sodium (Porcine) 2,500 units 01/21/21 18:08 Heparin Sodium 5,000 Units/Ml Vial IV PUSH PRN PRN aPTT 55 - 70 seconds Aztreonam 1 gm/ Dextrose 50 mls @ 100 mls/hr 01/21/21 06:00 01/27/21 06:15 IVPB Infused Q8HR MARY Infusion Dextrose 1,000 mls @ 100 mls/hr 01/21/21 11:01 Dextrose 5% 1,000 Ml IVPB PRN PRN Hypoglycemia Protocol Metronidazole 500 mg in 100 mls @ 100 mls/hr 01/21/21 14:00 01/27/21 09:06 Flagyl 500 Mg/Iso Soln 100 Ml IVPB Infused Q6H MARY Infusion Heparin Sodium/Dextrose 25,000 units
--- NOTE | 2021-01-27 11:24 | PCDIET ---
ICU Rounding Note: Patient continues to refuse meals. MD to discuss plan of care further with patient/family. Last recorded weight is 80.2kg which is increased from last review. +I/O. Bowel Motility: BM x 1 today. Labs Reviewed: Hgb (8.1), Hct (26.5), BUN (44), Cr (2.6), K (3.3), Alb (2.7) Meds Noted: Aztreonam, Novolog, Synthroid, Megace, Flagyl, Levophed, KCl, Protonix, Sodium Bicarbonate Additional Notes: Buttocks macerated. Deep tissue area on left heel. Following daily in ICU rounds. Assessing/reassessing every 3 days.
--- NOTE | 2021-01-27 11:32 | P.PNNP_ITS ---
Progress Note: A&P Assessment and Plan (1) KATY (acute kidney injury): Code(s): N17.9 - Acute kidney failure, unspecified Status: Acute Assessment and Plan: * acute kidney injury * normal creatinine at baseline * likely due to pre renal azotemia, cardiac issues leading to chronic pre renal azotemia. * Very poor heart function. * kidneys normal by CT scan * holding ARB and metformin * urine electrolytes show pre renal azotemia, and eosinophils are negative. * Creatinine stable in the mid 2s. * The patient is on Levophed. * She is on broad-spectrum antibiotics. * She is on pressors. * One of 2 blood cultures are positive for marga bacterium. ?Contaminant * Overall prognosis is poor. (2) Septic shock: Code(s): A41.9 - Sepsis, unspecified organism; R65.21 - Severe sepsis with septic shock Status: Acute Assessment and Plan: Back on pressors, Now up to 4micg of Levophed. * The patient is afebrile and her white cell count is down. * Blood cultures are positive but only 1/2 with marga bacterium so may be contaminant.. Urine culture showed E coli. * On Flagyl, azithromycin, aztreonam. (3) Cardiomyopathy: Qualifiers: Cardiomyopathy type: unspecified Qualified Code(s): I42.9 - Cardiomyopathy, unspecified Code(s): I42.9 - Cardiomyopathy, unspecified Status: Acute Assessment and Plan: * known issues with EF ~ 20% * This may slow down recovery of kidney function because of chronic pre renal factors. * Cardiology following (4) Pneumonia: Qualifiers: Laterality: unspecified laterality Lung location: unspecified part of lung Pneumonia type: due to unspecified organism Qualified Code(s): J18.9 - Pneumonia, unspecified organism Code(s): J18.9 - Pneumonia, unspecified organism Status: Acute Assessment and Plan: * as noted by imaging studies to date * follow respiratory status * continue current antibiotics. (5) UTI (urinary tract infection): Qualifiers: Urinary tract infection type: site unspecified Hematuria presence: without hematuria Qualified Code(s): N39.0 - Urinary tract infection, site not specified Code(s): N39.0 - Urinary tract infection, site not specified Status: Suspected Assessment and Plan: * Pyuria on UA and E coli in cultures. * Patient is on Aztreonam (6) Type 2 diabetes mellitus: Qualifiers: Diabetes mellitus snf insulin use: without terminal carman use Diabetes mellitus complication status: with neurologic complications Diabetes mellitus complication detail: with polyneuropathy Qualified Code(s): E11.42 - Type 2 diabetes mellitus with diabetic polyneuropathy Code(s): E11.9 - Type 2 diabetes mellitus without complications Status: Acute Assessment and Plan: * follow accuchecks * glycemic control Subjective Date/time seen: 01/27/21 11:32 Interval history: patient is feeling generally weak. She has no belly pain today. still not eating. Refuses any supplement tree feeding. Discussed with nursing. Exam Narrative: Exam Narrative: GENERAL APPEARANCE: ill appearing female in no acute distress CARDIOVASCULAR: RRR, normal S1 and S2, no rub Or gallop RESPIRATORY: clear to auscultation ABDOMEN: soft and nontender. Bowel sounds positive. EXTREMITIES: trace edema SKIN: no rash Objective Data Vital Signs Vital Signs: Vital Signs - 24 hr
--- NOTE | 2021-01-27 11:32 | PM.PNNEP ---
Progress Note: A&P Assessment and Plan (1) KATY (acute kidney injury): Code(s): N17.9 - Acute kidney failure, unspecified Status: Acute Assessment and Plan: acute kidney injury normal creatinine at baseline likely due to pre renal azotemia, cardiac issues leading to chronic pre renal azotemia. Very poor heart function. kidneys normal by CT scan holding ARB and metformin urine electrolytes show pre renal azotemia, and eosinophils are negative. Creatinine stable in the mid 2s. The patient is on Levophed. She is on broad-spectrum antibiotics. She is on pressors. One of 2 blood cultures are positive for marga bacterium. ?Contaminant Overall prognosis is poor. (2) Septic shock: Code(s): A41.9 - Sepsis, unspecified organism; R65.21 - Severe sepsis with septic shock Status: Acute Assessment and Plan: Back on pressors, Now up to 4micg of Levophed. The patient is afebrile and her white cell count is down. Blood cultures are positive but only 1/2 with marga bacterium so may be contaminant.. Urine culture showed E coli. On Flagyl, azithromycin, aztreonam. (3) Cardiomyopathy: Qualifiers: Cardiomyopathy type: unspecified Qualified Code(s): I42.9 - Cardiomyopathy, unspecified Code(s): I42.9 - Cardiomyopathy, unspecified Status: Acute Assessment and Plan: known issues with EF ~ 20% This may slow down recovery of kidney function because of chronic pre renal factors. Cardiology following (4) Pneumonia: Qualifiers: Laterality: unspecified laterality Lung location: unspecified part of lung Pneumonia type: due to unspecified organism Qualified Code(s): J18.9 - Pneumonia, unspecified organism Code(s): J18.9 - Pneumonia, unspecified organism Status: Acute Assessment and Plan: as noted by imaging studies to date follow respiratory status continue current antibiotics. (5) UTI (urinary tract infection): Qualifiers: Urinary tract infection type: site unspecified Hematuria presence: without hematuria Qualified Code(s): N39.0 - Urinary tract infection, site not specified Code(s): N39.0 - Urinary tract infection, site not specified Status: Suspected Assessment and Plan: Pyuria on UA and E coli in cultures. Patient is on Aztreonam (6) Type 2 diabetes mellitus: Qualifiers: Diabetes mellitus moth exterminator insulin use: without moth exterminator use Diabetes mellitus complication status: with neurologic complications Diabetes mellitus complication detail: with polyneuropathy Qualified Code(s): E11.42 - Type 2 diabetes mellitus with diabetic polyneuropathy Code(s): E11.9 - Type 2 diabetes mellitus without complications Status: Acute Assessment and Plan: follow accuchecks glycemic control Subjective Date/time seen: 01/27/21 11:32 Interval history: patient is feeling generally weak. She has no belly pain today. still not eating. Refuses any supplement tree feeding. Discussed with nursing. Exam Narrative: Exam Narrative: GENERAL APPEARANCE: ill appearing female in no acute distress CARDIOVASCULAR: RRR, normal S1 and S2, no rub Or gallop RESPIRATORY: clear to auscultation ABDOMEN: soft and nontender. Bowel sounds positive. EXTREMITIES: trace edema SKIN: no rash Objective Data Vital Signs Vital Signs: Vital Signs - 24 hr 01/26/21 12:00 01/26/21 14:00 01/26/21 15:32 Temperature Pulse Rate 84 82 90 Respiratory Rate 18 16 Blood Pressure 102/67 113/51 L 90/49 L Pulse Oximetry 93 95 01/26/21 16:00 01/26/21 18:00 01/26/21 19:32 Temperature Pulse Rate 90 97 93 Respiratory Rate 25 H 25 H Blood Pressure 113/59 L 116/58 L 80/48 L Pulse Oximetry 95 92 01/26/21 20:00 01/26/21 20:45 01/26/21 21:54 Temperature 36.6 C Pulse Rate 97 88 83 Respiratory Rate 24 H Blood Pressure 93/52 L 92/52
[2021-01-27 12:30] LABS: Cortisol Random 4.58 ug/dL
--- NOTE | 2021-01-27 14:58 | PM.IMPN ---
Progress Note: A&P Assessment and Plan (1) Pneumonia: Qualifiers: Laterality: unspecified laterality Lung location: unspecified part of lung Pneumonia type: due to unspecified organism Qualified Code(s): J18.9 - Pneumonia, unspecified organism Code(s): J18.9 - Pneumonia, unspecified organism Status: Acute Assessment and Plan: IVmetro, azithromycin, aztreonam Comorbidities, Px guarded low Bps (2) UTI (urinary tract infection): Qualifiers: Urinary tract infection type: site unspecified Hematuria presence: without hematuria Qualified Code(s): N39.0 - Urinary tract infection, site not specified Code(s): N39.0 - Urinary tract infection, site not specified Status: Suspected Assessment and Plan: IV metro azithromycin, aztreonam (3) Sepsis: Qualifiers: Sepsis type: sepsis due to unspecified organism Sepsis acute organ dysfunction status: with acute organ dysfunction Severe sepsis acute organ dysfunction type: acute renal failure Acute renal failure type: unspecified Severe sepsis shock status: with septic shock Qualified Code(s): A41.9 - Sepsis, unspecified organism; R65.21 - Severe sepsis with septic shock; N17.9 - Acute kidney failure, unspecified Code(s): A41.9 - Sepsis, unspecified organism Status: Acute Assessment and Plan: IV metro azitromycin and iv aztreonam IV fluids corynebacterium species Low Bps pt is on levophed in icu (4) Acute renal failure: Qualifiers: Acute renal failure type: unspecified Qualified Code(s): N17.9 - Acute kidney failure, unspecified Code(s): N17.9 - Acute kidney failure, unspecified Status: Acute Assessment and Plan: 01/23 creatinine 2.5, 01/24 2.7 01/25 creat is 2.5 creat is 2.8, creat is 2.6 (5) Congestive heart failure: Qualifiers: Heart failure chronicity: unspecified Heart failure type: unspecified Qualified Code(s): I50.9 - Heart failure, unspecified Code(s): I50.9 - Heart failure, unspecified Status: Acute Assessment and Plan: Monitor I/O (6) Pulmonary emboli: Qualifiers: Pulmonary embolism type: unspecified Chronicity: acute Acute cor pulmonale presence: unspecified Qualified Code(s): I26.99 - Other pulmonary embolism without acute cor pulmonale Code(s): I26.99 - Other pulmonary embolism without acute cor pulmonale Status: Acute Assessment and Plan: IV heparin Monitor for s/sx bleeding (7) DVT (deep venous thrombosis): Qualifiers: DVT location: upper extremity Affected thrombotic vein of extremity: axillary Chronicity: acute Laterality: right Qualified Code(s): I82.A11 - Acute embolism and thrombosis of right axillary vein Code(s): I82.409 - Acute embolism and thrombosis of unspecified deep veins of unspecified lower extremity Status: Acute Assessment and Plan: IV heparin Monitor for s/sx bleeding Hx spontaneous hematoma in past (8) Anemia: Qualifiers: Anemia type: unspecified type Qualified Code(s): D64.9 - Anemia, unspecified Code(s): D64.9 - Anemia, unspecified Status: Acute Assessment and Plan: Blood transfusion as needed to maintain hgb 7 or above (9) Paroxysmal atrial fibrillation: Code(s): I48.0 - Paroxysmal atrial fibrillation Status: Chronic Assessment and Plan: Rate controlled (10) Colitis: Code(s): K52.9 - Noninfective gastroenteritis and colitis, unspecified Status: Acute Assessment and Plan: IV metronidazole Subjective Date/time seen: 01/27/21 14:58 Interval history: 70-year-old female with past medical history significant for congestive heart failure ejection fraction estimated at 20-25%, PE, retroperitoneal mass, diabetes mellitus. Admitted with pneumonia, UTI, sepsis. 01/24: Feels weak, tired. 01/25: Unchanged condition no improvement 01/26
[2021-01-27 15:56] LABS: Partial Thromboplastin Time 69.6 SECONDS (22.3-36.8)
[2021-01-27] MEDS: HEPARIN SODIUM 5,000 UNITS/ML VIAL 2500 UNITS IV PUSH (16:05)
[2021-01-27 16:51] LABS: Glucose Point of Care 116 mg/dl (65-105)
[2021-01-27 20:28] LABS: Glucose Point of Care 121 mg/dl (65-105)
[2021-01-27 22:47] LABS: Partial Thromboplastin Time > 200.0 SECONDS (22.3-36.8)
[2021-01-28] VITALS (30 sets, daily range): BP systolic 73–145; BP diastolic 44–71; PULSE 74–87; RESP 13–21; TEMP 36.3–36.6; O2SAT 92–100
[2021-01-28] MEDS: metroNIDAZOLE 500 MG/ISO 100ML 500 MG/100 ML BAG 100 MG IVPB ×4 (02:14→21:17)
[2021-01-28] MEDS: CENTRAL LINE FLUSH 10 ML IV PUSH ×3 (05:36→20:59)
[2021-01-28] MEDS: AZTREONAM 1 GM in DEXTROSE 5% IN WATER 50 ML 100 ML IVPB ×3 (05:36→21:17)
[2021-01-28] MEDS: LEVOTHYROXINE SODIUM INJ 100 MCG/5 ML VIAL 50 MCG IV PUSH (05:37)
[2021-01-28 06:07] LABS: Basophils Percent Auto 0.5 % (0.2-1.2); Eosinophils Absolute Auto 0.2 K/mm3 (0-0.3); Eosinophils Percent Auto 2.6 % (0-4.4); Hematocrit 25.9 % (37.0-47.0); Hemoglobin 7.9 g/dL (12.0-15.0); Immature Granulocyte Absolute 0.38 K/mm3 (0.00-0.031); Immature Granulocyte Percent A 6.6 % (0-0.5); Lymphocytes Absolute Auto 1.48 K/mm3 (0.9-3.2); Lymphocytes Percent Auto 25.6 % (18.3-44.2); Mean Corpuscular HGB Conc 30.5 g/dl (32-36); Mean Corpuscular Hemoglobin 27.4 pg (26-34); Mean Corpuscular Volume 89.9 fl (80-100); Mean Platelet Volume 12.7 fl (7.4-10.4); Monocytes Absolute Auto 0.5 K/mm3 (0.1-0.6); Monocytes Percent Auto 9.2 % (2.6-8.5); Neutrophils Absolute Auto 3.2 K/mm3 (1.3-6.7); Neutrophils Percent Auto 55.5 % (45.5-73.1); Platelet Count Result 109 k/mm3 (150-375); Red Blood Count 2.88 M/mm3 (4.2-5.4); Red Cell Distribution Width 17.5 % (11.5-14.5); White Blood Count 5.8 K/mm3 (4.5-10.0)
[2021-01-28 06:23] LABS: Anion Gap 12 mmol/L (8-16); Blood Urea Nitrogen 41 mg/dL (7-17); Calcium 8.4 mg/dL (8.4-10.2); Carbon Dioxide 23 mmol/L (22-30); Chloride 107 mmol/L (98-107); Estimated CRCL calculation 19 ml/min; Estimated Glomerular Filt Rate 22; Glucose 114 mg/dL (65-105); Potassium 3.3 mmol/L (3.4-5.0); Sodium 142 mmol/L (137-145)
[2021-01-28 06:31] LABS: Partial Thromboplastin Time > 200.0 SECONDS (22.3-36.8)
--- NOTE | 2021-01-28 06:33 | CONS_ITS ---
DATE OF CONSULTATION: 01/27/2021 REASON FOR CONSULTATION: Positive urine culture. HISTORY OF PRESENT ILLNESS: A 70-year-old female who cannot provide a comprehensive history due to lethargy. She has known cardiomyopathy and was admitted to the hospital on January 20 with generalized weakness. She called an ambulance and was evaluated here. She was found to have renal insufficiency, abnormal chest x-ray, though normal lung exam and hypotension. She has been receiving metronidazole, aztreonam with earlier vancomycin as well. A urine specimen was obtained upon admission. Results did not return until yesterday and consultation requested. She has had a Jay catheter present since admission, apparently not before. The patient denies any abdominal pain or flank pain. Medication list includes no antibiotics prior to admission. Record indicates no previous urologic procedures or surgeries. PRESENT MEDICATIONS: List reviewed. No immunosuppressants, nor any receives at home. ALLERGIES: PENICILLIN, WHICH CAUSED HIVES. HABITS: Not available. Ex-smoker per record. PAST MEDICAL HISTORY: Diabetes mellitus, left knee arthroplasty, hysterectomy, DVT and pulmonary emboli, PAF, osteoarthritis, medical nonadherence, hypothyroidism, hypertension, hyperlipidemia, diabetic peripheral neuropathy, and depression. REVIEW OF SYSTEMS: A 14-point review otherwise negative though compromised due to lethargy. FAMILY HISTORY: Dementia, heart disease, diabetes. SOCIAL HISTORY: She lives with her daughter and grandson, locally, retired from [employer]. PHYSICAL EXAMINATION: GENERAL: Elderly female who appears her actual age. No respiratory distress. VITAL SIGNS: Afebrile since arrival. She is on norepinephrine, 72 or 43 MAP, noninvasive measurements 52, 89, 21, 99% on 1.5 L. Urine output measured at 475 to 600 cc per 24 hours. She is having no diarrhea. SKIN: No rashes. Warm and dry. NODES: She has no cervical adenopathy. EENT: The conjunctivae are normal. Oropharynx, oral mucosa normal. Well hydrated. No paranasal sinus, erythema, edema or tenderness. NECK: No masses, thyromegaly, meningismus. LUNGS: Clear to auscultation and percussion. CARDIAC: Regular rate and rhythm. No murmur, gallop, or rub. She has a right IJ triple-lumen catheter. No other indwelling vascular devices noted. ABDOMEN: Morbidly obese, nontender. No masses. No organomegaly. She has no lines in her groin. EXTREMITIES: 1+ nonpitting edema distally. LABORATORY DATA: White count has been consistently normal. Her BUN is now 44, creatinine 2.6. Remainder of her chemistry panel is normal. Hemoglobin A1c in November was 6%. Albumin 2.7. Transaminase is normal. Her urinalysis on arrival, hanny, cloudy, 5.0, 1.023, positive for protein, urobilinogen, leukocyte esterase, 0-2 red cells, 21 to 30 white cells, moderate sediment, 2+ bacteria, 5-9 hyaline casts, rare mucous threads, and few squamous cells. Hepatitis panel from admission entirely nonreactive. Blood cultures are from admission, 1 of 2 sets corynebacterium urine, Enterococcus gallinarum and her C. diff assay was nonreactive for toxin, GDH also not detected. RADIOLOGY: I personally reviewed her chest x-ray. She has markedly elevated right hemidiaphragm. No pleural effusions and minimal right mid lung field peripheral infiltrate. Also reviewed the radiologist's interpretation of the same. Chest, abdomen, pelvic CT showed pancolitis and airspace opacities right upper and lower lobes. Her organs in the abdomen and pelvis were normal. ASSESSMENT: 1. Asymptomatic bacteriuria. No chronic Jay. No other hardware nor urologic interventions. 2. Right lung infiltrates with normal lung exam, possible pneumonia nonetheless. However, she has cunningham
[2021-01-28 06:40] LABS: Platelet Estimate Decreased (Adequate); Stomatocytes 1+ (NORMAL)
[2021-01-28] MEDS: SODIUM BICARBONATE 8.4% 150 MEQ in DEXTROSE 5% 1,000 ML 950 ML 40 MEQ IV CONT (06:47)
[2021-01-28] MEDS: NOREPINEPHRINE 8 MG/D5W 250 ML 8 MG/250 ML BAG 7.5 MG IV CONT (06:49)
[2021-01-28 07:56] LABS: Glucose Point of Care 112 mg/dl (65-105)
[2021-01-28] MEDS: POTASSIUM CHLORIDE 20 MEQ PACKET (FOR LIQUID) 40 MEQ PO (08:51)
[2021-01-28] MEDS: SODIUM BICARBONATE TAB 650 MG TABLET 1300 MG PO (08:53)
[2021-01-28] MEDS: MEGESTROL ACETATE (*CHEMO) ORAL SUSP 40 MG/ML SYR 800 MG PO (08:53)
[2021-01-28] MEDS: PANTOPRAZOLE SODIUM IV 40 MG VIAL IV PUSH ×2 (08:54→21:18)
--- NOTE | 2021-01-28 09:12 | PM.PNCARD ---
Progress Note: A&P Assessment and Plan (1) Septic shock: Code(s): A41.9 - Sepsis, unspecified organism; R65.21 - Severe sepsis with septic shock Status: Acute Assessment and Plan: Per Critical Care. Remains on IV antibiotics, Levophed. Patient is critical with poor prognosis given comorbidities. Gram-negative rods positive blood culture thus far chronic treatment for abnormal UA. Continue supportive care. (2) KATY (acute kidney injury): Code(s): N17.9 - Acute kidney failure, unspecified Status: Acute Assessment and Plan: Multifactorial Secondary to intravascular volume depletion, medications, poor cardiac function contributing to pre renal azotemia, and critical illness. Nephrology following. (3) Cardiomyopathy: Qualifiers: Cardiomyopathy type: unspecified Qualified Code(s): I42.9 - Cardiomyopathy, unspecified Code(s): I42.9 - Cardiomyopathy, unspecified Status: Acute Assessment and Plan: Severe LV systolic dysfunction, LBBB diagnosed November 2020 prior hospitalization. Patient is not in decompensated heart failure. Lower extremity edema most likely 3rd spacing due to poor nutrition, IV fluid resuscitation as well as extensive bilateral lower extremity DVT. No indication for diuresis at this time. Monitor volume status very carefully given severe LV systolic dysfunction EF 20%. Coronary status remains unknown previously declined life vest and or coronary angiography given complicated comorbidities. (4) DVT of lower limb, acute: Code(s): I82.409 - Acute embolism and thrombosis of unspecified deep veins of unspecified lower extremity Status: Acute Assessment and Plan: Acute bilateral lower extremities extensive for lower extremity venous Doppler. On heparin infusion. (5) UTI (urinary tract infection): Qualifiers: Hematuria presence: without hematuria Urinary tract infection type: site unspecified Qualified Code(s): N39.0 - Urinary tract infection, site not specified Code(s): N39.0 - Urinary tract infection, site not specified Status: Suspected Assessment and Plan: Per primary service. Antibiotics. (6) Left bundle branch block (LBBB) on electrocardiogram: Code(s): I44.7 - Left bundle-branch block, unspecified Status: Acute Assessment and Plan: Chronic (7) Anemia: Qualifiers: Anemia type: unspecified type Qualified Code(s): D64.9 - Anemia, unspecified Code(s): D64.9 - Anemia, unspecified Status: Acute Assessment and Plan: Monitor closely. Subjective Date/time seen: 01/28/21 09:12 Interval history: 70-year-old female with past medical history significant for congestive heart failure ejection fraction estimated at 20-25%, PE, retroperitoneal mass, diabetes mellitus. Admitted with pneumonia, UTI, sepsis. Follow-up note/date of service 01/24/2021: She is short of breath. She has swelling. No chest pain. Date of service 01/25/2021: Patient is short of breath at rest, on O2 per nasal cannula. She denies any pain. Date of service 01/26/2021: Patient looks better today and states she feels better. She is off oxygen today and she is less tachypneic. She is denying any pain. Denies shortness of breath. Her edema las improved. Date of service 01/28/2021: She is feeling okay today. Back on O2 per nasal cannula. She denies SOB, palpitations. LE edema is worse today. Review of Systems Review of Systems: All systems reviewed & are unremarkable except as noted in HPI and below Constitutional: Constitutional: Denies excessive sweating, Reports fatigue and Reports lethargy Eyes: Eyes: Reports no additional eye complaints ENT: Reports Normal hearing present, Denies epistaxis and Denies neck pain Cardiovascular: Cardiovascular: Denies chest pain, Reports pedal edema, Reports leg edema, Denies palpitations and Reports dyspnea Respirator
--- NOTE | 2021-01-28 11:20 | WPDINTPN ---
Progress Note: A&P Assessment and Plan (1) Septic shock: Code(s): A41.9 - Sepsis, unspecified organism; R65.21 - Severe sepsis with septic shock Status: Acute Assessment and Plan: Patient presented with low blood pressure. She has evidence of the pneumonia and UTI although she also has cardiomyopathy with EF of 20-25% -remains on Levophed via central line - echocardiogram shows poor left heart function with EF of 20% -patient is acidotic, continue low-dose IV fluids with sodium bicarb - Blood cultures s 1/2 blood cultures growing Corynebacterium which likely contaminant -urine cultures growing Enterococcus Gallanarum, appreciate infectious disease evaluation recommendation, this is a contaminant and does not need to be treated CT abdomen showed pancolitis Continue Empiric antibiotics-aztreonam, Flagyl and azithromycin. (2) Colitis: Code(s): K52.9 - Noninfective gastroenteritis and colitis, unspecified Status: Acute Assessment and Plan: CT abdomen pelvis showed pancolitis. Her lactate had normalized Likely infectious versus edema C diff - negative Patient is on empiric antibiotics aztreonam and Flagyl since patient is allergic to penicillin KUB on 01/25 showed nonobstructive bowel gas pattern (3) Pneumonia: Qualifiers: Laterality: unspecified laterality Lung location: unspecified part of lung Pneumonia type: due to unspecified organism Qualified Code(s): J18.9 - Pneumonia, unspecified organism Code(s): J18.9 - Pneumonia, unspecified organism Status: Acute Assessment and Plan: Chest x-rays shows infiltrates which could be pneumonia versus pulmonary edema She is on empiric antibiotics which would cover pneumonia (4) UTI (urinary tract infection): Qualifiers: Hematuria presence: without hematuria Urinary tract infection type: site unspecified Qualified Code(s): N39.0 - Urinary tract infection, site not specified Code(s): N39.0 - Urinary tract infection, site not specified Status: Suspected Assessment and Plan: See above (5) Pulmonary embolism: Qualifiers: Pulmonary embolism type: multiple subsegmental (without acute cor pulmonale) Qualified Code(s): I26.94 - Multiple subsegmental pulmonary emboli without acute cor pulmonale Code(s): I26.99 - Other pulmonary embolism without acute cor pulmonale Status: Acute Assessment and Plan: Patient had a PE on last hospitalization but with low clot burden diagnosed in November 2020 She developed hematoma with anticoagulation hence anticoagulation was discontinued Creatinine is elevated precluding repeat CT scan Will hold V/Q scan as 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 anticoagulation (6) DVT of lower limb, acute: Code(s): I82.409 - Acute embolism and thrombosis of unspecified deep veins of unspecified lower extremity Status: Acute Assessment and Plan: Ultrasound of her upper extremities were negative but lower extremity showed Extensive [id number] and [id number] deep venous thrombosis throughout both the left and right lower limbs. She did have right axillary DVT on last hospitalization Patient was started on heparin infusion without bolus Her fecal occult blood testing was negative Hemoglobin has remained stable. No obvious signs of bleed - I will discuss with nephrology and primary regarding switching to p.o. anticoagulation. Considering the extent of DVT, recent PE and continued high risk of DVT extension due to immobility and poor cardiac function, I will hold anticoagulated only if hemoglobin drops below 7 that she carmen
--- NOTE | 2021-01-28 11:21 | PCDIET ---
ICU Rounding Note: Patient continues to refuse meals on diabetic, heart healthy, soft and bite size diet. Discussed plan to discharge home with hospice. Recommend regular diet, as tolerated. Last recorded weight is 80.3kg which is stable with last review. Bowel Motility: Last documented BM on 01/27/21. Labs Reviewed: Hgb (7.9), Hct (25.9), Glu (114), BUN (41), Cr (2.6), K (3.3) Meds Noted: Aztreonam, Heparin, Synthroid, Megace, Flagyl, Levophed, Protonix, Sodium Bicarbonate, KCl Additional Notes: Bilateral buttocks macerated. Left hip deep tissue ulcer. Following daily in ICU rounds. Assessing/reassessing every 3 days.
[2021-01-28 12:37] LABS: Glucose Point of Care 149 mg/dl (65-105)
[2021-01-28 12:51] LABS: Partial Thromboplastin Time 54.7 SECONDS (22.3-36.8)
--- NOTE | 2021-01-28 13:15 | PCOTNOTE ---
Attempted to see Patient at this time. Patient refused any services at this time. Per RN, Patient is going to be discharged on hospice tomorrow.
--- NOTE | 2021-01-28 14:53 | P.PNNP_ITS ---
Progress Note: A&P Assessment and Plan (1) KATY (acute kidney injury): Code(s): N17.9 - Acute kidney failure, unspecified Status: Acute Assessment and Plan: * acute kidney injury * normal creatinine at baseline * likely due to pre renal azotemia, cardiac issues leading to chronic pre renal azotemia and Very poor heart function * Overall prognosis is poor. * considering hospice per Dr Tao (2) Septic shock: Code(s): A41.9 - Sepsis, unspecified organism; R65.21 - Severe sepsis with septic shock Status: Acute Assessment and Plan: Back on pressors, Now up to 7 micg of Levophed. * The patient is afebrile and her white cell count is down. * Blood cultures are positive but only 1/2 with marga bacterium so may be contaminant.. Urine culture showed E coli. * On Flagyl, azithromycin, aztreonam. (3) Cardiomyopathy: Qualifiers: Cardiomyopathy type: unspecified Qualified Code(s): I42.9 - Cardiomyopathy, unspecified Code(s): I42.9 - Cardiomyopathy, unspecified Status: Acute Assessment and Plan: * known issues with EF ~ 20% * Cardiology following (4) Pneumonia: Qualifiers: Laterality: unspecified laterality Lung location: unspecified part of lung Pneumonia type: due to unspecified organism Qualified Code(s): J18.9 - Pneumonia, unspecified organism Code(s): J18.9 - Pneumonia, unspecified organism Status: Acute Assessment and Plan: * as noted by imaging studies to date * follow respiratory status * continue current antibiotics. (5) UTI (urinary tract infection): Qualifiers: Urinary tract infection type: site unspecified Hematuria presence: without hematuria Qualified Code(s): N39.0 - Urinary tract infection, site not specified Code(s): N39.0 - Urinary tract infection, site not specified Status: Suspected Assessment and Plan: * Pyuria on UA and E coli in cultures. * Patient is on Aztreonam (6) Type 2 diabetes mellitus: Qualifiers: Diabetes mellitus nursing home insulin use: without nursing home use Diabetes mellitus complication status: with neurologic complications Diabetes mellitus complication detail: with polyneuropathy Qualified Code(s): E11.42 - Type 2 diabetes mellitus with diabetic polyneuropathy Code(s): E11.9 - Type 2 diabetes mellitus without complications Status: Acute Assessment and Plan: * follow accuchecks * glycemic control Subjective Date/time seen: 01/28/21 14:53 Interval history: patient is feeling generally weak. She has no belly pain today. no sob bp is low, on 7mcg NE still not eating. Refuses any supplement tree feeding. Exam Narrative: Exam Narrative: GENERAL APPEARANCE: ill appearing female in no acute distress CARDIOVASCULAR: RRR, normal S1 and S2, no rub Or gallop RESPIRATORY: clear to auscultation ABDOMEN: soft and nontender. Bowel sounds positive. EXTREMITIES: trace edema SKIN: no rash Objective Data Vital Signs Vital Signs: Vital Signs - 24 hr 01/27/21 16:00 01/27/21 18:00 01/27/21 19:43 Temperature Pulse Rate 96 86 87 Respiratory Rate 21 H 24 H Blood Pressure 71/42 L 116/63 114/54 L Pulse Oximetry 95 99 01/27/21 19:49 01/27/21 19:58 01/27/21 20:00 Temperature 36.3 C L Pulse Rate 63 85 Respir
--- NOTE | 2021-01-28 14:53 | PM.PNNEP ---
Progress Note: A&P Assessment and Plan (1) KATY (acute kidney injury): Code(s): N17.9 - Acute kidney failure, unspecified Status: Acute Assessment and Plan: acute kidney injury normal creatinine at baseline likely due to pre renal azotemia, cardiac issues leading to chronic pre renal azotemia and Very poor heart function Overall prognosis is poor. considering hospice per Dr Tao (2) Septic shock: Code(s): A41.9 - Sepsis, unspecified organism; R65.21 - Severe sepsis with septic shock Status: Acute Assessment and Plan: Back on pressors, Now up to 7 micg of Levophed. The patient is afebrile and her white cell count is down. Blood cultures are positive but only 1/2 with marga bacterium so may be contaminant.. Urine culture showed E coli. On Flagyl, azithromycin, aztreonam. (3) Cardiomyopathy: Qualifiers: Cardiomyopathy type: unspecified Qualified Code(s): I42.9 - Cardiomyopathy, unspecified Code(s): I42.9 - Cardiomyopathy, unspecified Status: Acute Assessment and Plan: known issues with EF ~ 20% Cardiology following (4) Pneumonia: Qualifiers: Laterality: unspecified laterality Lung location: unspecified part of lung Pneumonia type: due to unspecified organism Qualified Code(s): J18.9 - Pneumonia, unspecified organism Code(s): J18.9 - Pneumonia, unspecified organism Status: Acute Assessment and Plan: as noted by imaging studies to date follow respiratory status continue current antibiotics. (5) UTI (urinary tract infection): Qualifiers: Urinary tract infection type: site unspecified Hematuria presence: without hematuria Qualified Code(s): N39.0 - Urinary tract infection, site not specified Code(s): N39.0 - Urinary tract infection, site not specified Status: Suspected Assessment and Plan: Pyuria on UA and E coli in cultures. Patient is on Aztreonam (6) Type 2 diabetes mellitus: Qualifiers: Diabetes mellitus assisted insulin use: without oil heaterman use Diabetes mellitus complication status: with neurologic complications Diabetes mellitus complication detail: with polyneuropathy Qualified Code(s): E11.42 - Type 2 diabetes mellitus with diabetic polyneuropathy Code(s): E11.9 - Type 2 diabetes mellitus without complications Status: Acute Assessment and Plan: follow accuchecks glycemic control Subjective Date/time seen: 01/28/21 14:53 Interval history: patient is feeling generally weak. She has no belly pain today. no sob bp is low, on 7mcg NE still not eating. Refuses any supplement tree feeding. Exam Narrative: Exam Narrative: GENERAL APPEARANCE: ill appearing female in no acute distress CARDIOVASCULAR: RRR, normal S1 and S2, no rub Or gallop RESPIRATORY: clear to auscultation ABDOMEN: soft and nontender. Bowel sounds positive. EXTREMITIES: trace edema SKIN: no rash Objective Data Vital Signs Vital Signs: Vital Signs - 24 hr 01/27/21 16:00 01/27/21 18:00 01/27/21 19:43 Temperature Pulse Rate 96 86 87 Respiratory Rate 21 H 24 H Blood Pressure 71/42 L 116/63 114/54 L Pulse Oximetry 95 99 01/27/21 19:49 01/27/21 19:58 01/27/21 20:00 Temperature 36.3 C L Pulse Rate 63 85 Respiratory Rate 23 H Blood Pressure 103/53 L 82/53 L Pulse Oximetry 97 92 01/27/21 20:16 01/27/21 20:20 01/27/21 20:26 Temperature Pulse Rate 91 91 Respiratory Rate Blood Pressure 82/53 L 78/49 L Pulse Oximetry 97 01/27/21 20:55 01/27/21 21:15 01/27/21 21:31 Temperature Pulse Rate 93 93 91 Respiratory Rate Blood Pressure 102/49 L 70/46 L 85/47 L Pulse Oximetry 01/27/21 22:00 01/27/21 22:16 01/27/21 22:51 Temperature Pulse Rate 87 87 80 Respiratory Rate 21 H Blood Pressure 83/50 L 83/50 L 121/66 Pulse Oximetry 98 01/27/21 23:25 01/28/21 00
[2021-01-28 16:55] LABS: Glucose Point of Care 136 mg/dl (65-105)
[2021-01-28 21:27] LABS: Glucose Point of Care 140 mg/dl (65-105)
[2021-01-29] VITALS (10 sets, daily range): BP systolic 99–111; BP diastolic 48–56; PULSE 72–83; RESP 17–28; TEMP 36.1–36.6; O2SAT 97–98
[2021-01-29] MEDS: metroNIDAZOLE 500 MG/ISO 100ML 500 MG/100 ML BAG 100 MG IVPB ×2 (02:30→09:23)
[2021-01-29 04:16] LABS: Partial Thromboplastin Time 109.9 SECONDS (22.3-36.8)
[2021-01-29] MEDS: CENTRAL LINE FLUSH 10 ML IV PUSH (05:07)
[2021-01-29] MEDS: AZTREONAM 1 GM in DEXTROSE 5% IN WATER 50 ML 100 ML IVPB (05:49)
[2021-01-29] MEDS: LEVOTHYROXINE SODIUM INJ 100 MCG/5 ML VIAL 50 MCG IV PUSH (05:49)
[2021-01-29] MEDS: HYDROcodone/acetaminophen (*CRX) 5-325 MG TABLET 1 TAB PO (09:26)
[2021-01-29] MEDS: ONDANSETRON INJ 4 MG/2 ML VIAL IV PUSH (09:26)
[2021-01-29] MEDS: SODIUM BICARBONATE TAB 650 MG TABLET 1300 MG PO (09:27)
[2021-01-29] MEDS: MEGESTROL ACETATE (*CHEMO) ORAL SUSP 40 MG/ML SYR 800 MG PO (09:27)
[2021-01-29] MEDS: PANTOPRAZOLE SODIUM IV 40 MG VIAL IV PUSH (09:28)
[2021-01-29 09:30] LABS: Glucose Point of Care 125 mg/dl (65-105)
--- NOTE | 2021-01-29 11:10 | WPDINTPN ---
Progress Note: A&P Assessment and Plan (1) Septic shock: Code(s): A41.9 - Sepsis, unspecified organism; R65.21 - Severe sepsis with septic shock Status: Acute Assessment and Plan: Patient presented with low blood pressure. She has evidence of the pneumonia and UTI although she also has cardiomyopathy with EF of 20-25% -remains on Levophed via central line - echocardiogram shows poor left heart function with EF of 20% -patient is acidotic, continue low-dose IV fluids with sodium bicarb - Blood cultures s 1/2 blood cultures growing Corynebacterium which likely contaminant -urine cultures growing Enterococcus Gallanarum, appreciate infectious disease evaluation recommendation, this is a contaminant and does not need to be treated CT abdomen showed pancolitis Continue Empiric antibiotics-aztreonam, Flagyl and azithromycin. (2) Colitis: Code(s): K52.9 - Noninfective gastroenteritis and colitis, unspecified Status: Acute Assessment and Plan: CT abdomen pelvis showed pancolitis. Her lactate had normalized Likely infectious versus edema C diff - negative Patient is on empiric antibiotics aztreonam and Flagyl since patient is allergic to penicillin KUB on 01/25 showed nonobstructive bowel gas pattern (3) Pneumonia: Qualifiers: Laterality: unspecified laterality Lung location: unspecified part of lung Pneumonia type: due to unspecified organism Qualified Code(s): J18.9 - Pneumonia, unspecified organism Code(s): J18.9 - Pneumonia, unspecified organism Status: Acute Assessment and Plan: Chest x-rays shows infiltrates which could be pneumonia versus pulmonary edema She is on empiric antibiotics which would cover pneumonia (4) UTI (urinary tract infection): Qualifiers: Urinary tract infection type: site unspecified Hematuria presence: without hematuria Qualified Code(s): N39.0 - Urinary tract infection, site not specified Code(s): N39.0 - Urinary tract infection, site not specified Status: Suspected Assessment and Plan: See above (5) Pulmonary embolism: Qualifiers: Pulmonary embolism type: multiple subsegmental (without acute cor pulmonale) Qualified Code(s): I26.94 - Multiple subsegmental pulmonary emboli without acute cor pulmonale Code(s): I26.99 - Other pulmonary embolism without acute cor pulmonale Status: Acute Assessment and Plan: Patient had a PE on last hospitalization but with low clot burden diagnosed in November 2020 She developed hematoma with anticoagulation hence anticoagulation was discontinued Creatinine is elevated precluding repeat CT scan Will hold V/Q scan as 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 anticoagulation (6) DVT of lower limb, acute: Code(s): I82.409 - Acute embolism and thrombosis of unspecified deep veins of unspecified lower extremity Status: Acute Assessment and Plan: Ultrasound of her upper extremities were negative but lower extremity showed Extensive [id number] and [id number] deep venous thrombosis throughout both the left and right lower limbs. She did have right axillary DVT on last hospitalization Patient was started on heparin infusion without bolus Her fecal occult blood testing was negative Hemoglobin has remained stable. No obvious signs of bleed - I will discuss with nephrology and primary regarding switching to p.o. anticoagulation. Considering the extent of DVT, recent PE and continued high risk of DVT extension due to immobility and poor cardiac function, I will hold anticoagulated only if hemoglobin drops below 7 that she carmen
[2021-01-29 11:46] LABS: Glucose Point of Care 115 mg/dl (65-105)
--- NOTE | 2021-01-29 14:45 | PM.DS ---
DS: Admitting Diagnosis Admitting Diagnosis Admitting Diagnosis: Generalized weakness DS: Discharge Diagnosis Discharge Diagnosis (1) Pneumonia: Qualifiers: Laterality: unspecified laterality Lung location: unspecified part of lung Pneumonia type: due to unspecified organism Qualified Code(s): J18.9 - Pneumonia, unspecified organism Code(s): J18.9 - Pneumonia, unspecified organism Status: Acute Assessment and Plan: Pt treated with IV metronidazole, azithromycin, aztreonam. Poor prognosis despite treatment Comorbidities, Px guarded Low Bps not much improvement in condition Pt and family have decided on hospice at home (2) UTI (urinary tract infection): Qualifiers: Hematuria presence: without hematuria Urinary tract infection type: site unspecified Qualified Code(s): N39.0 - Urinary tract infection, site not specified Code(s): N39.0 - Urinary tract infection, site not specified Status: Suspected Assessment and Plan: IV metronidazole,azithromycin, aztreonam. Pt and family have decided on hospice at home (3) Sepsis: Qualifiers: Acute renal failure type: unspecified Sepsis acute organ dysfunction status: with acute organ dysfunction Sepsis type: sepsis due to unspecified organism Severe sepsis acute organ dysfunction type: acute renal failure Severe sepsis shock status: with septic shock Qualified Code(s): A41.9 - Sepsis, unspecified organism; R65.21 - Severe sepsis with septic shock; N17.9 - Acute kidney failure, unspecified Code(s): A41.9 - Sepsis, unspecified organism Status: Acute Assessment and Plan: IV metronidazole, azithromycin and iv aztreonam IV fluids Corynebacterium species Low Bps pt is on levophed in icu initally Pt and family have decided on hospice at home (4) Acute renal failure: Qualifiers: Acute renal failure type: unspecified Qualified Code(s): N17.9 - Acute kidney failure, unspecified Code(s): N17.9 - Acute kidney failure, unspecified Status: Acute Assessment and Plan: 01/23 creatinine 2.5, 01/24 2.7 01/25 creat is 2.5 creat is 2.8, creat is 2.6 Pt and family have decided on hospice at home (5) Congestive heart failure: Qualifiers: Heart failure chronicity: unspecified Heart failure type: unspecified Qualified Code(s): I50.9 - Heart failure, unspecified Code(s): I50.9 - Heart failure, unspecified Status: Acute Assessment and Plan: Monitor I/Opt and family have decided on hospice at home (6) Pulmonary emboli: Qualifiers: Acute cor pulmonale presence: unspecified Chronicity: acute Pulmonary embolism type: unspecified Qualified Code(s): I26.99 - Other pulmonary embolism without acute cor pulmonale Code(s): I26.99 - Other pulmonary embolism without acute cor pulmonale Status: Acute Assessment and Plan: IV heparin stopped Monitor for s/sx bleeding pt has history of spontaneous hematoma in past Pt and family have decided on hospice at home (7) DVT (deep venous thrombosis): Qualifiers: Affected thrombotic vein of extremity: axillary Chronicity: acute DVT location: upper extremity Laterality: right Qualified Code(s): I82.A11 - Acute embolism and thrombosis of right axillary vein Code(s): I82.409 - Acute embolism and thrombosis of unspecified deep veins of unspecified lower extremity Status: Acute Assessment and Plan: IV heparin stopped Monitor for s/sx bleeding Hx spontaneous hematoma in past Pt and family have decided on hospice at home (8) Anemia: Qualifiers: Anemia type: unspecified type Qualified Code(s): D64.9 - Anemia, unspecified Code(s): D64.9 - Anemia, unspecified Status: Acute Assessment and Plan: Blood transfusion as needed to maintain hgb 7 or above (9) Paroxysmal atrial fibrillation: Code(s): I48.0 -
== END 2021-01-29 12:59 | disposition hospice, home (50) | DRG 871 ==
LOC: ANHED 18:27 → ANHICU 19:25
PROVIDERS: Internal Medicine; Internal Medicine Nephrology; Admitting Provider Family Medicine; Emergency Provider Emergency Medicine; PCP Family Medicine; Visit Provider Family Medicine
DX: A41.9 Sepsis, unspecified organism (principal); J18.9 Pneumonia, unspecified organism; I26.99 Other pulmonary embolism without acute cor pulmonale; R65.21 Severe sepsis with septic shock; E87.0 Hyperosmolality and hypernatremia; N17.9 Acute kidney failure, unspecified; N39.0 Urinary tract infection, site not specified; I42.9 Cardiomyopathy, unspecified; I82.403 Acute embolism and thrombosis of unspecified deep veins of lower extremity, bilateral; K52.9 Noninfective gastroenteritis and colitis, unspecified; R63.0 Anorexia; R19.00 Intra-abdominal and pelvic swelling, mass and lump, unspecified site; I48.0 Paroxysmal atrial fibrillation; I44.7 Left bundle-branch block, unspecified; E11.42 Type 2 diabetes mellitus with diabetic polyneuropathy; E11.65 Type 2 diabetes mellitus with hyperglycemia; E03.9 Hypothyroidism, unspecified; E87.8 Other disorders of electrolyte and fluid balance, not elsewhere classified; I11.0 Hypertensive heart disease with heart failure; I50.9 Heart failure, unspecified; D64.9 Anemia, unspecified; Z66 Do not resuscitate; Z79.4 Long term (current) use of insulin; Z79.899 Other long term (current) drug therapy; Z88.0 Allergy status to penicillin
CPT/HCPCS: 36415; 51701; 71045; 71250; 74018; 74176; 80048; 80053; 80069; 80074; 80202; 81001; 81050; 82274; 82436; 82533; 82550; 82570; 82948; 83605; 83735; 84100; 84156; 84300; 84443; 85014; 85018; 85025; 85027; 85055; 85610; 85730; 85999; 86706; 87040; 87077; 87086; 87088; 87324; 92610; 93005; 93308; 93970; 96360; 97161; 97165; 97535; 99285; A9270; C1751; C9113; J0131; J0456; J0696; J1644; J1815; J2405; J3370; J3475; J3480; J7030; J7050; J7070; J7120; P9047